=== PATIENT | male | born 1935 | race Caucasian/White ===

== ENCOUNTER 2016-10-12 09:52 | Emergency (ER) | payer BC ==
[~2016-10-12] VITALS: Ht 170.2 cm; Wt 75.0 kg
[~2016-10-12 09:52] MED LIST: AGG PO; CLOP1TAB15 PO; COEN1CAP28 PO; CRS20 PO; GLIM1TAB2 PO; LPR25 PO; MULT-190 PO; PRLSR20 PO; TRC48 PO; VTMD1000 PO; [UNRECOGNIZED DRUG - CODE] PO; gabapentin PO
[2016-10-12 09:57] VITALS: TEMP 36.4; Ht 170.2 cm; Wt 75.0 kg
[2016-10-12 10:03] VITALS: O2SAT 97
[2016-10-12] MEDS ORDERED: GLIM1TAB2 PO (10:50)
[2016-10-12] MEDS ORDERED: [UNRECOGNIZED DRUG - CODE] PO (10:53)
[2016-10-12] MEDS ORDERED: ABIR1TAB PO (10:56)
[2016-10-12] MEDS ORDERED: PRED-301 PO (10:57)
[2016-10-12 10:58] LABS: BASO % 0.2 %; BASO ABS # 0.01 K/uL (0-0.2); COMPLETE YES; EOS % 0.6 %; HEMATOCRIT 32.7 % (42-52); IG% 0.5 %; LYMPH % 5.2 %; LYMPH ABS # 0.34 K/uL (1.2-3.4); MEAN CELL VOLUME 96.2 fL (80-100); MEAN CORPUSCULAR HEMOGLOBIN 31.5 pg (25-34); MEAN CORPUSCULAR HGB CONC 32.7 g/dl (32-36); MEAN PLATELET VOLUME 10.3 fL (7.4-10.4); MONO % 9.7 %; NEUT % 83.8 %; PLATELET COUNT 197 K/uL (130-400); WHITE BLOOD COUNT 6.48 K/uL (4.8-10.8)
[2016-10-12] MEDS ORDERED: IMD2X PO (10:58)
[2016-10-12 11:27] LABS: BUN/CREATININE RATIO 21.8 (10-20); CALCIUM 9.5 mg/dl (8.5-10.1); CREATININE 1.3 mg/dl (0.60-1.40); POTASSIUM 3.9 mmol/L (3.5-5.1)
[2016-10-12 11:29] LABS: ALB/GLOB RATIO 1.3 (0.9-2)
[2016-10-12] MEDS ORDERED: ONDANSETRON INJ 2 MG/ML 2 ML VIAL IV STA (11:38)
[2016-10-12] MEDS ORDERED: SODIUM CHLORIDE 0.9% 1000ML 1,000 ML IV STA (11:38)
[2016-10-12 13:03] LABS: URINE APPEARANCE CLEAR (CLEAR); URINE BILIRUBIN NEG (NEG); URINE COLOR YELLOW; URINE NITRITE NEG (NEG); URINE SPECIFIC GRAVITY 1.019 (1.000-1.030); UROBILINOGEN NEG (NEG)
--- NOTE | 2016-10-12 13:13 | DIAGNOSTIC IMAGING REPORT ---
ABDOMEN 2VIEW W/PA CHEST RTN CLINICAL HISTORY: Nausea, vomiting, diarrhea COMPARISON STUDY: 11/11/2015 FINDINGS: The heart is normal in size. There is no free air. There are right perihilar atelectatic changes.] Supine views of the abdomen reveal gas within small bowel and colonic loops. Left abdominal small bowel loops are at the upper limits of normal in diameter. There are no conventional radiographic findings to indicate a high-grade bowel obstruction. There is no free air. IMPRESSION: 1. Right lower lobe atelectatic changes 2. No conventional radiographic evidence of a high-grade bowel obstruction. No evidence of free air. Electronically signed by: Ken Galvan M.D. 10/12/2016 1:11 PM
[2016-10-12 13:14] LABS: MANUAL MICROSCOPIC REQUIRED? NO; REVIEW REQ? NO
--- NOTE | 2016-10-12 14:13 | DIAGNOSTIC IMAGING REPORT ---
CT ABD/PELVIS IV CONTRAST ONLY CLINICAL HISTORY: Diffuse abdominal pain. Nausea, vomiting, diarrhea. COMPARISON STUDY: Conventional radiographic study dated 10/12/2016 TECHNIQUE: Following the IV administration of 118 mL of Optiray-320, CT scan of the abdomen and pelvis was performed from the lung bases to the proximal femurs. Images are reviewed in the axial, sagittal, and coronal planes. IV contrast was administered without complication. CT DOSE: 388.43 mGy.cm FINDINGS: Lower chest: There are postsurgical changes present within the right lower lobe. Adjacent suture line there are linear and nodular opacities, likely representing postsurgical scarring. There is mild right lower lobe bronchial wall thickening. There are left basilar atelectatic changes. There is a tiny hiatal hernia Liver: There is mild hepatic steatosis. There are no focal masses. Gallbladder: Unremarkable. Spleen: Normal in size and attenuation. Pancreas: Unremarkable. Adrenal glands: There is an indeterminate 26 mm right adrenal nodule, with Hounsfield attenuation value of 77 Kidneys: There is symmetric renal cortical enhancement. The kidneys are normal in size without hydronephrosis. Bowel: There are no transition zones indicate bowel obstruction. There is colonic diverticulosis. There are no acute peridiverticular inflammatory changes. The appendix appears normal. Peritoneum: There is no intraperitoneal free air or abdominal ascites. Vasculature: The abdominal aorta is normal in course and caliber. Adenopathy: None. Pelvic viscera: There is mild bladder wall thickening. Skeletal structures: There are blastic changes present within the right iliac bone. IMPRESSION: 1. Postsurgical changes within the right lower lobe 2. Indeterminate 26 mm right adrenal nodule 3. Blastic/sclerotic changes within the right iliac bone 4. Bladder wall thickening 5. No evidence of bowel obstruction. No evidence of free air 6. Normal appendix. No evidence of acute diverticulitis. Electronically signed by: Ken Galvan M.D. 10/12/2016 2:11 PM
[2016-10-12] MEDS ORDERED: ONDA4TAB46 PO (15:48)
[2016-10-12 15:55] VITALS: BP 143/86; PULSE 72; O2SAT 98
--- NOTE | 2016-10-12 17:47 | EMERGENCY ROOM VISIT NOTE ---
History Report prepared by Luis Manuelibmando: Ramila Peralta Under the Supervision of: Dr. Macario Schwarz D.O. First contact with patient: 11:17 Chief Complaint: VOMITING Stated Complaint: NAUSEA/VOMITING/DIARRHEA Nursing Triage Summary: pt started with nausea and vomiting around 0800 this am. pt reports he felt fine last night is from out of town here visiting friends/family. denies any pain and reports he has been drinking enough and eating fine until this am. diarrhea also started this am. pt was dx with prostate ca 1 year ago on oral meds pt reports he is diabetic History of Present Illness The patient is an 81 year old male who presents to the Emergency Room with complaints of persistent diarrhea that started around midnight last night. He took 2 Imodium, which provided minor relief. He reports he started vomiting in the ambulance on the way to the ED and vomited about 3 times. He denies any recent antibiotic use. He denies any abdominal pain and still has both his gallbladder and appendix. He denies any recent sick contacts. The patient also denies any headache, change in vision, fevers, chest pain, shortness of breath, pain with urination, and melena. He has a history of prostate cancer and is diabetic. He notes he had been eating and drinking normally until last night. He has no other complaints at this time. Source of History: patient Onset: Last night Position: abdomen Timing: other (persistent) Modifying Factors (Relieving): other (Imodium) Associated Symptoms: + nausea, + vomiting, No SOB, No chest pain, No fevers , No headache, No melena, No urinary symptoms Review of Systems See HPI for pertinent positives & negatives. A total of 10 systems reviewed and were otherwise negative. Past Medical & Surgical Medical Problems: (1) Diabetes (2) Hypercholesteremia (3) Hypertension (4) Polycythemia vera (5) Prostate cancer (6) TIA (transient ischemic attack) (7) Vasovagal syncope Family History Diabetes mellitus Hypertension Social History Smoking Status: Never Smoker Alcohol Use: occasionally Drug Use: none Marital Status: Housing Status: lives with significant other Occupation Status: retired Current/Historical Medications Scheduled Abiraterone Acetate (Zytiga), 250 MG PO QID Cholecalciferol (Vitamin D3), 3,000 UNITS PO DAILY Coenzyme Q10 (Ubidecarenone) (Co Q10), 100 MG PO DAILY Dipyridamole/Aspirin (Aggrenox 25-200 mg), 1 CAP PO BID Fenofibrate (Fenofibrate), 48 MG PO QAM Glimepiride (Glimepiride), 1 TAB PO BID Loperamide Hcl (Imodium), 4 MG PO DAILY Metoprolol Tartrate (Lopressor), 25 MG PO BID Ocuvite Preservision (Ocuvite Preservision), 1 TAB PO BID Omeprazole (Prilosec Otc *), 20 MG PO DAILY Prednisone (Prednisone), 5 MG PO BID Rosuvastatin Calcium (Crestor), 40 MG PO DAILY Ruxolitinib Phosphate (Jakafi), 15 MG PO BID [gabapentin], 400 MG PO TID Scheduled PRN Ondansetron Hcl (Zofran), 4 MG PO TID PRN for Nausea Allergies Coded Allergies: No Known Allergies (Unverified , 10/12/16) Physical Exam Vital Signs Date Time Temp Pulse Resp B/P Pulse Ox O2 Delivery O2 Flow Rate FiO2 10/12/16 15:55 72 18 143/86 98 Room Air 10/12/16 14:29 73 18 138/84 97 Room Air 10/12/16 12:37 75 20 166/81 100 Room Air 10/12/16 11:09 72 19 144/82 97 Room Air 10/12/16 10:21 77 10/12/16 10:03 97 Room Air 10/12/16 09:57 36.4 76 18 148/95 98 Room Air Physical Exam GENERAL: Patient is alert, sitting up in bed, well appearing, well nourished, no distress, non-toxic EYE EXAM: normal conjunctiva OROPHARYNX: no exudate, no erythema, lips, buccal mucosa, and tongue normal and mucous membranes are moist NECK: supple, no nuchal rigidity, no adenopathy, non-tender LUNGS: Clear to auscultation. Normal chest wall mechanics HEART: no murmurs, S1 normal and S2 normal ABDOMEN: abdomen soft, non-tender, normo-active bowel sounds, no masses, no rebound or guarding. BACK: Back is symmetrical on inspection and there is no deformity, no midline tenderness, no CVA tenderness. SKIN: no rashes and no bruising UPPER EXTREMITIES: upper extremities are grossly normal. LOWER EXTREMITIES: No pitting edema. NEURO EXAM: Normal sensorium, cranial nerves II-XII grossly intact, normal speech, no gross weakness of arms, no gross weakness of legs. Gross sensation intact. Medical Decision & Procedures ER Provider Diagnostic Interpretation: This X-Ray was reviewed and interpreted by myself and the radiologist. ABDOMEN 2VIEW W/PA CHEST RTN IMPRESSION: 1. Right lower lobe atelectatic changes 2. No conventional radiographic evidence of a high-grade bowel obstruction. No evidence of free air. Electronically signed by: Ken Galvan M.D. 10/12/2016 1:[address] scan was reviewed and interpreted by the radiologist and reviewed by myself. CT ABD/PELVIS IV CONTRAST ONLY IMPRESSION: 1. Postsurgical changes within the right lower lobe 2. Indeterminate 26 mm right adrenal nodule 3. Blastic/sclerotic changes within the right iliac bone 4. Bladder wall thickening 5. No evidence of bowel obstruction. No evidence of free air 6. Normal appendix. No evidence of acute diverticulitis. Electronically signed by: Ken Galvan M.D. 10/12/2016 2:11 PM Laboratory Results 10/12/16 10:10 Red Blood Count 3.40, Mean Corpuscular Volume 96.2, Mean Corpuscular Hemoglobin 31.5, Mean Corpuscular Hemoglobin Concent 32.7, Mean Platelet Volume 10.3, Neutrophils (%) (Auto) 83.8, Lymphocytes (%) (Auto) 5.2, Monocytes (%) (Auto) 9.7, Eosinophils (%) (Auto) 0.6, Basophils (%) (Auto) 0.2, Neutrophils # (Auto) 5.43, Lymphocytes # (Auto) 0.34, Monocytes # (Auto) 0.63, Eosinophils # (Auto) 0.04, Basophils # (Auto) 0.01 10/12/16 10:10 Test 10/12/16 10:07 10/12/16 10:10 10/12/16 12:35 Bedside Glucose 149 mg/dl (70-99) White Blood Count 6.48 K/uL (4.8-10.8) Red Blood Count 3.40 M/uL (4.7-6.1) Hemoglobin 10.7 g/dL (14.0-18.0) Hematocrit 32.7 % (42-52) Mean Corpuscular Volume 96.2 fL (80-100) Mean Corpuscular Hemoglobin 31.5 pg (25-34) Mean Corpuscular Hemoglobin Concent 32.7 g/dl (32-36) Platelet Count 197 K/uL (130-400) Mean Platelet Volume 10.3 fL (7.4-10.4) Neutrophils (%) (Auto) 83.8 % Lymphocytes (%) (Auto) 5.2 % Monocytes (%) (Auto) 9.7 % Eosinophils (%) (Auto) 0.6 % Basophils (%) (Auto) 0.2 % Neutrophils # (Auto) 5.43 K/uL (1.4-6.5) Lymphocytes # (Auto) 0.34 K/uL (1.2-3.4) Monocytes # (Auto) 0.63 K/uL (0.11-0.59) Eosinophils # (Auto) 0.04 K/uL (0-0.5) Basophils # (Auto) 0.01 K/uL (0-0.2) RDW Standard Deviation 53.7 fL (36.4-46.3) RDW Coefficient of Variation 15.2 % (11.5-14.5) Immature Granulocyte % (Auto) 0.5 % Immature Granulocyte # (Auto) 0.03 K/uL (0.00-0.02) Anion Gap 11.0 mmol/L (3-11) Est Creatinine Clear Calc Drug Dose 40.3 ml/min Estimated GFR () 58.5 Estimated GFR (Non- 50.5 BUN/Creatinine Ratio 21.8 (10-20) Calcium Level 9.5 mg/dl (8.5-10.1) Total Bilirubin 0.4 mg/dl (0.2-1) Aspartate Amino Transf (AST/SGOT) 43 U/L (15-37) Alanine Aminotransferase (ALT/SGPT) 31 U/L (12-78) Alkaline Phosphatase 114 U/L (45-117) Total Protein 7.0 gm/dl (6.4-8.2) Albumin 4.0 gm/dl (3.4-5.0) Globulin 3.0 gm/dl (2.5-4.0) Albumin/Globulin Ratio 1.3 (0.9-2) Urine Color YELLOW Urine Appearance CLEAR (CLEAR) Urine pH 7.0 (4.5-7.5) Urine Specific [place] 1.019 (1.000-1.030) Urine Protein TRACE (NEG) Urine Glucose (UA) NEG (NEG) Urine Ketones NEG (NEG) Urine Occult Blood NEG (NEG) Urine Nitrite NEG (NEG) Urine Bilirubin NEG (NEG) Urine Urobilinogen NEG (NEG) Urine Leukocyte Esterase NEG (NEG) Urine WBC (Auto) 0 /hpf (0-5) Urine RBC (Auto) 0-4 /hpf (0-4) Urine Hyaline Casts (Auto) 0 /lpf (0-5) Urine Epithelial Cells (Auto) 10-20 /lpf (0-5) Urine Bacteria (Auto) NEG (NEG) Laboratory results per my review. Medications Administered Medications (Trade) Dose Ordered Sig/Axel Route Start Time Stop Time Status Last Admin Dose Admin Sodium Chloride (Nss 1000ml) 1,000 ml @ 999 mls/hr Q1H1M STAT IV 10/12/16 11:38 10/12/16 12:38 DC 10/12/16 11:38 999 MLS/HR Ondansetron HCl (Zofran Inj) 4 mg NOW STAT IV 10/12/16 11:38 10/12/16 11:40 DC 10/12/16 12:00 4 MG ECG Indication: weakness Rate (beats per minute): 75 Rhythm: sinus rhythm Findings: no ectopy, other (normal axis) ED Course ED COURSE: Vital signs were reviewed and showed normal vital signs. The patients medical record was reviewed The above diagnostic studies were performed and reviewed. ED treatments and interventions as stated above. 1126: The patient was evaluated in room C10. A complete history and physical examination was performed. 1138: Zofran 4 mg IV, NSS 1000 ml @ 999 mls/hr IV. 1530: Upon reevaluation, the patient is feeling much better. I discussed my findings with the patient and he understands and agrees with the treatment plan. Based on the patients age, coexisting illnesses, exam and lab findings the decision to treat as an outpatient was made. The patient remained stable while under my care. The patient appeared well at the time of discharge. Medical Decision Differential diagnoses includes but is not limited to gastritis, peptic ulcer disease, GERD, gallbladder disease, pancreatitis, small bowel obstruction, acute coronary syndrome, pericarditis, ischemic bowel, irritable bowel disease, irritable bowel syndrome, appendicitis, diverticulitis, malignancy, hernia, urinary tract infection, torsion, perforation, trauma, infectious. Patient is an 81-year-old male who presents the ER for nausea, vomiting and diarrhea. He vomited 3 times in the ambulance. Prior to this has only had an upset stomach. Patient has no other complaints at this time. He is completely benign abdominal exam. No signs peritonitis. Labs including CBC, BMP, LFTs, bilirubin and lipase were unremarkable. UA was negative. There is a mild anemia with a hemoglobin of 10.7. CT of his abdomen and pelvis was obtained secondary to an obstruction series showing top normal small bowel. CT shows no obstruction but did show sclerotic/slit changes in his iliac wing. He was updated regards to this. He notes he was aware of this. Patient will follow- up with his primary care doctor. I do favor this is likely a viral gastroenteritis. He did feel significantly better following fluids and Zofran. Discussed with Pt concerning signs and symptoms to watch out for. Pt was instructed to follow up with their PCP and discussed with the patient their option to return to the ED at anytime for persistent or worsening symptoms. The appropriate anticipatory guidance and out-patient management, including indications for return to the emergency department, were explained at length to the patient and understood. Impression Primary Impression: Nausea, vomiting, and diarrhea Additional Impression: sclerotic changes of iliac wing Scribe Attestation The scribe's documentation has been prepared under my direction and personally reviewed by me in its entirety. I confirm that the note above accurately reflects all work, treatment, procedures, and medical decision making performed by me. Departure Information Dispostion Home / Self-Care Prescriptions Ondansetron Hcl (ZOFRAN) 4 Mg Tab 4 MG PO TID Y for Nausea, #30 TAB Prov: Macario Schwarz, DO 10/12/16 Referrals Boy Hebert M.D. (PCP) Patient Instructions A Signature Page, ED Diet Vomiting Diarrhea, ED Vomiting Diarrhea Nonspecific Ad , My [facility] Additional Instructions Please follow up with your primary care doctor with in the next 24 hours. Any worsening of your symptoms, please return to the ED immediately. This includes a persistent vomiting or diarrhea, passing out, weakness, chest pain, blood in her stool, or any other concerning signs or symptoms from your stand point. Please take Zofran as needed for nausea and vomiting.
[2017-06-27] MEDS ORDERED: [UNRECOGNIZED DRUG - CODE] PO (13:07)
[2017-06-27] MEDS ORDERED: GLIM1TAB2 PO (13:07)
[2017-07-09] MEDS ORDERED: GLIM2TAB2 PO (09:29)
[2017-07-09] MEDS ORDERED: calcium PO (09:29)
[2017-07-09] MEDS ORDERED: PRED-301 PO (09:29)
[2017-07-09] MEDS ORDERED: LPRI INJ (09:29)
[2017-07-09] MEDS ORDERED: [UNRECOGNIZED DRUG - CODE] PO (09:29)
[2017-07-26] MEDS ORDERED: DRGTP12 SUBD (14:03)
[2017-08-06] MEDS ORDERED: DENOINJ INJ (15:19)
[2017-09-08] MEDS ORDERED: LEVE500T13 PO (15:36)
== END 2016-10-12 16:01 | disposition home or self-care (01) ==
LOC: EDBD 09:52 → C.EDC 09:53
DX: R11.2 Nausea with vomiting, unspecified (principal); R19.7 Diarrhea, unspecified; E11.9 Type 2 diabetes mellitus without complications; E78.00 Pure hypercholesterolemia, unspecified; I10 Essential (primary) hypertension; Z79.899 Other long term (current) drug therapy

== ENCOUNTER → 2016-11-06 | Outpatient (CLI) | payer BC ==
[~2016-11-06] MED LIST changes: +ABIR1TAB PO; +ATOR-24 PO; +CHOL2000 PO; -CLOP1TAB15 PO; +COEN1CAP17 PO; +GABA1CAP4 PO; +GABA1CAP5 PO; +GLIM2TAB2 PO; +IMD2X PO; +LEUP1INJ15 INJ; +LPRI INJ; +MAGNTAB17 PO; +METF-384 PO; +OMEP40CA41 PO; +ONDA4TAB10 SL; +ONDA4TAB46 PO; +PRED-301 PO; +PRED10TA PO; +RQP25 PO; +[UNRECOGNIZED DRUG - CODE] PO; +[UNRECOGNIZED DRUG - CODE] PO; -[UNRECOGNIZED DRUG - CODE] PO; +calcium PO
[2016-11-06 14:24] LABS: ALT/SGPT 23 U/L (12-78); BLOOD UREA NITROGEN 28 mg/dl (7-18); BUN/CREATININE RATIO 19.9 (10-20); CALCIUM 9.2 mg/dl (8.5-10.1); CARBON DIOXIDE 26 mmol/L (21-32); CHLORIDE 107 mmol/L (98-107); GLUCOSE 115 mg/dl (70-99); MAGNESIUM 1.6 mg/dl (1.8-2.4); SODIUM 145 mmol/L (136-145)
[2016-11-06 14:34] LABS: ALB/GLOB RATIO 1.4 (0.9-2); ALKALINE PHOSPHATASE 93 U/L (45-117); AST/SGOT 23 U/L (15-37)
== END | disposition home or self-care (01) ==
LOC: C.LABBC 10:43
PROVIDERS: ATTEND Internal Medicine
DX: R25.2 Cramp and spasm (principal)

== ENCOUNTER → 2016-11-13 | Outpatient (CLI) | payer BC ==
[2016-11-13 13:42] LABS: BASO % 0.2 %; BASO ABS # 0.01 K/uL (0-0.2); COMPLETE YES; EOS % 0.9 %; HEMATOCRIT 32.4 % (42-52); IG% 1.1 %; LYMPH % 9.7 %; LYMPH ABS # 0.52 K/uL (1.2-3.4); MEAN PLATELET VOLUME 10.2 fL (7.4-10.4); MONO % 9.3 %; NEUT % 78.8 %; PLATELET COUNT 187 K/uL (130-400); RED BLOOD COUNT 3.34 M/uL (4.7-6.1); WHITE BLOOD COUNT 5.37 K/uL (4.8-10.8)
[2016-11-13 13:55] LABS: ALT/SGPT 23 U/L (12-78); AST/SGOT 24 U/L (15-37); BLOOD UREA NITROGEN 28 mg/dl (7-18); BUN/CREATININE RATIO 20.2 (10-20); CALCIUM 9.2 mg/dl (8.5-10.1); CARBON DIOXIDE 26 mmol/L (21-32); CHLORIDE 106 mmol/L (98-107); GLUCOSE 131 mg/dl (70-99); POTASSIUM 3.6 mmol/L (3.5-5.1); SODIUM 143 mmol/L (136-145)
[2016-11-13 14:02] LABS: ALB/GLOB RATIO 1.3 (0.9-2); ALKALINE PHOSPHATASE 94 U/L (45-117)
== END | disposition home or self-care (01) ==
LOC: C.LABBC 09:57
PROVIDERS: ATTEND Internal Medicine Hematology & Oncology
DX: C61 Malignant neoplasm of prostate (principal); D45 Polycythemia vera

== ENCOUNTER → 2016-11-25 | Outpatient (CLI) | payer BC ==
[2016-11-25 14:09] VITALS: BP 122/71; PULSE 72; TEMP 36.7; O2SAT 98
--- NOTE | 2016-11-25 16:26 | Radiation Oncology Follow-Up ---
Radiation Oncology Follow-Up Date of Visit Nov 25, 2016. Reason For Visit One-month follow-up Radiation Completion Date 10/28/16 to LS spine Diagnosis (1) Prostate cancer Status: Chronic Onset Date: 04/09/2003 Stage: IV Permanent Comment: Adenocarcinoma the prostate with Amara 4+3 04/09/2003 Treatment with radiation therapy Pulmonary metastasis status post metastectomy 09/02/2015 Rising PSA initiation of total androgen ablation October 2015 Bone metastasis bone scan April 2016 Status post completion of radiation therapy to lumbosacral spine 10/28/2016 received 3000 cGy Last Edited By: Renee Hutson on Nov 25, 2016 16:16 History of Present Illness Mr. Catalan is an 81-year-old male who was found to have an intermediate risk prostate cancer following a biopsy on . This needle biopsy confirmed an adenocarcinoma the prostate with Amara grade 4+3. The tumor was present in 2 cores on the right and involved approximately 10% of the total sample. There were areas of high-grade PIN. A second biopsy specimen from the left prostate revealed one microscopic focus of atypical glands that were suspicious for prostatic adenocarcinoma. Accession on sign: [id number]. The patient was subsequently seen by radiation oncology at [facility] and according to the patient underwent a definitive course of external radiation consisting of 43 fractions. It is unclear at this time whether the patient received adjuvant hormonal therapy at that time. The patient was followed by serial prostate-specific antigens. 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 He was seen by Dr. Tristan Jackson from the [facility] oncology group and in March 2013 was started on Jakafi due to a enlarging spleen and weight loss. The symptoms cleared quickly on the medication. He was having increasing urinary symptoms with increasing urgency, frequency, hematuria or incontinence. A CT scan of the abdomen and pelvis with and without contrast was performed in May 2013 this showed a 2.4 cm lesion above the right kidney consistent with an adrenal adenoma stable since 2002. His bladder was distended with a number of stones within the urinary bladder. On 06/15/2013 patient underwent a cystourethroscopy. He had evacuation of bladder stones, I bilateral retrograde pyelograms and electro evaporation of the prostate. Patient was on Rapaflo which helped his symptoms He has a history of diabetes and multiple skin cancers. He experienced a TIA in the winter of 2013 and is on Aggrenox. Through April 2013 the patient's prostate-specific antigens have been in the range of 0.4-0.5. On 07/20/2013 prostatespecific antigen was 0.94. A CT scan of the chest was reported as unremarkable at that time. On 07/31/2014 patient return to his urologist Dr. Murillo who noted on clinical exam that his prostate was flat with no induration or nodularity. He ordered a repeat prostate-specific antigen. On 08/02/2014 prostate-specific antigen was 1.86. On 11/08/2014 prostate-specific antigen was 3.86 and 07/16/2015 prostate-specific antigen was 9.79. On 09/07/2015 patient's prostatespecific antigen jumped up to 32.2. On 08/23/2015 patient underwent a cystourethroscopy, laser lithotripsy of bladder stone, biopsy and fulguration of prostatic urethra. As part of his ongoing staging workup CT scan of the chest abdomen and pelvis were performed. This noted the above-mentioned bladder stones but also suggested a right lower lobe lung nodule. The CT scan of the chest demonstrated a right lower lobe mass suspicious for malignancy. This lesion was not present on previous examinations. On 09/02/2015 the patient underwent a right lower lobe wedge resection, frozen section. The nodule in the right lower lobe was completely excised and revealed a metastatic adenocarcinoma consistent with a prostatic primary. This measured 1.5 cm in greatest dimension. A staple margin is positive for adenocarcinoma. Case: [id number]. The patient underwent a PET/CT scan on 09/10/2015. This showed uptake and pleural-based hypermetabolic 1.0 x 1.1 cm right upper lobe nodule located just above the azygos arch with an SUV of 6.3. Also noted was an inferior right hilar lymph node measuring 1.7 x 1.8 cm with an SUV of 8.1 and a regular band of increased density posteriorly in the right lower lobe with increased FDG uptake consistent with postoperative changes. A hypermetabolic lytic focus was noted in the posterior right ilium with a maximum SUV of 9.3. Increased FDG uptake was noted involving the anterior left sixth and seventh ribs with another small focus involving the proximal shaft of the left humerus. There was a 2.0 x 2.3 cm right adrenal nodule without FDG uptake I Cli benign. The patient was started on Casodex and Lupron. A repeat prostatespecific antigen was taken on 10/15/2015. This showed response to the hormonal therapy with a decrease of prostatespecific antigen to 11.5. Patient return for follow-up with Dr. Jackson. He was scheduled for his second Lupron injection in December with repeat prostate-specific antigen and CT scan of the chest. This CT scan was performed on 12/24/2015. It documented the resection of the spiculated 1.8 cm right lower lobe nodule that was seen previously. Also noted was a cyst table 1.0 x 0.8 cm irregular pleural-based nodule in the medial right upper lobe. This nodule was proven to be FDG avid on the prior PET/CT scan. No mediastinal lymph nodes which met CT criteria for pathologic enlargement were identified. The patient's repeat prostate-specific antigen was reported at 2.4. This was repeated on 04/02/2016 and showed a slight increase to 3.01. The patient was seen by Dr. Jackson on 03/31/2016. He recommended continuing hormonal suppression and a return for a Lupron injection in 3 months and to continue his Casodex 50 mg a day and Jakafi 15 mg twice a day. He was also seen by his urologist Dr. Murillo on April 02 who noted improving urinary symptoms. The patient has had additional staging procedures. Because of persistent low back pain and MRI of the lumbar spine was performed on 04/27/2016. This showed marrow signal intensity markedly heterogeneous throughout the lumbosacral spine limiting the assessment for metastatic disease. However node definite metastatic lesions are seen in the lumbar spine. Findings which were highly concerning for metastatic deposit were noted within the right iliac bone with recommended nuclear bone scan to follow. 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 There was an inferiorly extruded disc fragment identified at the L2-L3 level and findings suggesting a previous hemilaminectomy at L2 and L3 from his surgery in 2000. A bone scan was performed on 2015. This showed multiple teeth focal areas of radiotracer uptake seen within the bilateral iliac bone, right medial acetabulum, distal right femur, left first rib and left eighth rib likely representing metastatic disease. Multifocal linear areas of radiotracer uptake are seen within the lumbar spine. These however are nonspecific and could represent degenerative disc disease. With these findings of metastatic bony disease doctor Renetta suggested consideration of palliative radiation. Decision was to proceed with treatment to the lumbosacral spine. This was completed 10/28/2016. He received 3000 cGy. Interim History He continues to have discomfort in his lower back. He does not give any particular pain level. He has a burning sensation of the anterior legs. Both discomfort of his back and legs is unchanged from previous and he has had it for a long period of time. He does not feel that the radiation made much of a difference in his current condition. He has been followed for possible neuropathy and is on gabapentin. He has been back to see his medical oncologist and there are plans for recheck CT as well as bone scan. He stated after these studies are complete the physician will be deciding on what course to take on further treatment. He is due for Lupron injection 01/07/2017. He had complaint of "cold symptoms" he has had nasal congestion and sore throat. He also has a cough with congestion. He describes some chills. He does not complain of any new or increasing bone pain. He continues to complain of leg cramps. He has previously seen Dr. Hebert for this issue. He was prescribed magnesium which he is taking. Allergies Coded Allergies: No Known Allergies (Unverified , 10/12/16) Home Medications Scheduled Abiraterone Acetate (Zytiga), 1,000 MG PO DAILY Cholecalciferol (Vitamin D3), 2,000 UNITS PO DAILY Coenzyme Q10 (Ubidecarenone) (Co Q10), 100 MG PO DAILY Dipyridamole/Aspirin (Aggrenox 25-200 mg), 1 CAP PO BID Fenofibrate (Fenofibrate), 48 MG PO QAM Glimepiride (Glimepiride), 1 TAB PO BID Metoprolol Tartrate (Lopressor), 25 MG PO BID Omeprazole (Prilosec Otc *), 20 MG PO DAILY Prednisone (Prednisone), 5 MG PO BID Rosuvastatin Calcium (Crestor), 40 MG PO DAILY Ruxolitinib Phosphate (Jakafi), 15 MG PO BID [gabapentin], 400 MG PO TID Scheduled PRN Loperamide Hcl (Imodium), 4 MG PO DAILY PRN for Diarrhea Ondansetron Hcl (Zofran), 4 MG PO TID PRN for Nausea Review of Systems Gastrointestinal: Symptoms: Nausea, Diarrhea GI Comments: Admits to waves of nausea;Diarrhea daily and using immodium w/ relief; Oral: Symptoms: Scant Saliva/Dry Mouth Respiratory: Symptoms: WNL Urinary: Comments: Doesn't delay urge to void;2-3 voids/night;No urinary meds; Skin: Symptoms: No Problems Physical Exam Vital Signs Date Time Temp Pulse Resp B/P Pulse Ox O2 Delivery O2 Flow Rate FiO2 11/25/16 14:09 36.7 72 24 122/71 98 Fatigue: None General Appearance: no apparent distress Eyes: normal inspection, EOMI ENT: + pertinent finding (mild erythema in the pharynx and mild nasal congestion) Neck: no adenopathy, thyroid normal Respiratory/Chest: no respiratory distress, no accessory muscle use, + pertinent finding (transtracheal congestion with cough) Cardiovascular: regular rate, rhythm, no gallop, no murmur Abdomen: non tender Extremities: no pedal edema Neurologic/Psychiatric: no motor/sensory deficits, alert, normal mood/affect Skin: warm/dry Lymphatic: no adenopathy Laboratory Studies Test 08/28/16 12:18 09/02/16 09:47 10/01/16 09:30 10/12/16 10:07 Estimated Average Glucose 197 mg/dl Hemoglobin A1c 8.5 % (4.5-5.6) Nucleated RBC Absolute Count (auto) 0.02 K/uL (0-0) Nucleated Red Blood Cells % 0.2 % Ferritin 124.6 ng/ml (8.0-388.0) Lactate Dehydrogenase 273 U/L (87-241) Prostate Specific Antigen 5.380 ng/ml (0.000-4.000) POC Glucose 149 mg/dl (70-99) Test 10/12/16 10:10 10/12/16 12:35 11/06/16 10:48 11/13/16 10:01 White Blood Count 6.48 K/uL (4.8-10.8) 5.37 K/uL (4.8-10.8) Red Blood Count 3.40 M/uL (4.7-6.1) 3.34 M/uL (4.7-6.1) Hemoglobin 10.7 g/dL (14.0-18.0) 10.7 g/dL (14.0-18.0) Hematocrit 32.7 % (42-52) 32.4 % (42-52) Mean Corpuscular Volume 96.2 fL (80-100) 97.0 fL (80-100) Mean Corpuscular Hemoglobin 31.5 pg (25-34) 32.0 pg (25-34) Mean Corpuscular Hemoglobin Concent 32.7 g/dl (32-36) 33.0 g/dl (32-36) Platelet Count 197 K/uL (130-400) 187 K/uL (130-400) Mean Platelet Volume 10.3 fL (7.4-10.4) 10.2 fL (7.4-10.4) Neutrophils (%) (Auto) 83.8 % 78.8 % Lymphocytes (%) (Auto) 5.2 % 9.7 % Monocytes (%) (Auto) 9.7 % 9.3 % Eosinophils (%) (Auto) 0.6 % 0.9 % Basophils (%) (Auto) 0.2 % 0.2 % Neutrophils # (Auto) 5.43 K/uL (1.4-6.5) 4.23 K/uL (1.4-6.5) Lymphocytes # (Auto) 0.34 K/uL (1.2-3.4) 0.52 K/uL (1.2-3.4) Monocytes # (Auto) 0.63 K/uL (0.11-0.59) 0.50 K/uL (0.11-0.59) Eosinophils # (Auto) 0.04 K/uL (0-0.5) 0.05 K/uL (0-0.5) Basophils # (Auto) 0.01 K/uL (0-0.2) 0.01 K/uL (0-0.2) RDW Standard Deviation 53.7 fL (36.4-46.3) 54.4 fL (36.4-46.3) RDW Coefficient of Variation 15.2 % (11.5-14.5) 15.5 % (11.5-14.5) Immature Granulocyte % (Auto) 0.5 % 1.1 % Immature Granulocyte # (Auto) 0.03 K/uL (0.00-0.02) 0.06 K/uL (0.00-0.02) Est Creatinine Clear Calc Drug Dose 40.3 ml/min Urine Color YELLOW Urine Appearance CLEAR (CLEAR) Urine pH 7.0 (4.5-7.5) Urine Specific [place] 1.019 (1.000-1.030) Urine Protein TRACE (NEG) Urine Glucose (UA) NEG (NEG) Urine Ketones NEG (NEG) Urine Occult Blood NEG (NEG) Urine Nitrite NEG (NEG) Urine Bilirubin NEG (NEG) Urine Urobilinogen NEG (NEG) Urine Leukocyte Esterase NEG (NEG) Urine WBC (Auto) 0 /hpf (0-5) Urine RBC (Auto) 0-4 /hpf (0-4) Urine Hyaline Casts (Auto) 0 /lpf (0-5) Urine Epithelial Cells (Auto) 10-20 /lpf (0-5) Urine Bacteria (Auto) NEG (NEG) Sodium Level 145 mmol/L (136-145) 143 mmol/L (136-145) Potassium Level 4.0 mmol/L (3.5-5.1) 3.6 mmol/L (3.5-5.1) Chloride Level 107 mmol/L (98-107) 106 mmol/L (98-107) Carbon Dioxide Level 26 mmol/L (21-32) 26 mmol/L (21-32) Anion Gap 12.0 mmol/L (3-11) 11.0 mmol/L (3-11) Blood Urea Nitrogen 28 mg/dl (7-18) 28 mg/dl (7-18) Creatinine 1.40 mg/dl (0.60-1.40) 1.40 mg/dl (0.60-1.40) Estimated GFR () 53.5 53.5 Estimated GFR (Non- 46.1 46.1 BUN/Creatinine Ratio 19.9 (10-20) 20.2 (10-20) Random Glucose 115 mg/dl (70-99) 131 mg/dl (70-99) Calcium Level 9.2 mg/dl (8.5-10.1) 9.2 mg/dl (8.5-10.1) Magnesium Level 1.6 mg/dl (1.8-2.4) Total Bilirubin 0.6 mg/dl (0.2-1) 0.8 mg/dl (0.2-1) Aspartate Amino Transferase (AST) 23 U/L (15-37) 24 U/L (15-37) Alanine Aminotransferase (ALT) 23 U/L (12-78) 23 U/L (12-78) Alkaline Phosphatase 93 U/L (45-117) 94 U/L (45-117) Total Protein 6.6 gm/dl (6.4-8.2) 6.9 gm/dl (6.4-8.2) Albumin 3.9 gm/dl (3.4-5.0) 3.9 gm/dl (3.4-5.0) Globulin 2.7 gm/dl (2.5-4.0) 3.0 gm/dl (2.5-4.0) Albumin/Globulin Ratio 1.4 (0.9-2) 1.3 (0.9-2) Thyroid Stimulating Hormone (TSH) 1.640 uIu/ml (0.300-4.500) Lactate Dehydrogenase 235 U/L (87-241) Prostate Specific Antigen 9.480 ng/ml (0.000-4.000) Assessment & Plan Plan: Patient's current issues were discussed. For his upper respiratory infection symptoms and leg cramps I've asked him to see his primary care physician. His office was called and an appointment was made for him to be seen tomorrow by the physician Asst. He is going to follow-up with urology and medical oncology in there are plans for him to undergo recheck CT scan and bone scan. There is discussion of changing his medication because his PSA has gone up. A follow-up appointment with our office was not given. He may call if he has any questions or concerns. He may return if directed to do so by Dr. Jackson. Total Time In Follow-Up I spent 20 minutes speaking to the patient performing examination. I spent 15 minutes reviewing information and complete this note. Copy To Boy Hebert M.D.; Eric Jackson M.D.
== END | disposition home or self-care (01) ==
LOC: C.ONC 14:03
PROVIDERS: ATTEND Radiology Radiation Oncology
DX: Z08 Encounter for follow-up examination after completed treatment for malignant neoplasm (principal); Z92.3 Personal history of irradiation; Z85.46 Personal history of malignant neoplasm of prostate

== ENCOUNTER → 2016-12-24 | Outpatient (CLI) | payer BC ==
--- NOTE | 2016-12-24 12:12 | DIAGNOSTIC IMAGING REPORT ---
LEFT KNEE 1 OR 2 VIEWS ROUTINE CLINICAL HISTORY: Left knee pain pain COMPARISON: None. DISCUSSION: Significant degenerative change medial joint compartment. Mild degenerative change patellofemoral joint and lateral joint compartment. Soft tissue vascular calcifications. No evidence for joint effusion. Bone mineralization is slightly diminished. There is no evidence for soft tissue swelling. IMPRESSION: Moderate degenerative change primarily at the medial joint compartment. Mild osteopenia. Electronically signed by: Jean Potrer M.D. 12/24/2016 12:10 PM Dictated Date/Time: 12/24/2016 12:10 PM
== END | disposition home or self-care (01) ==
LOC: C.LABBC 11:39
PROVIDERS: ATTEND Internal Medicine
DX: M25.562 Pain in left knee (principal)

== ENCOUNTER → 2016-12-31 | Outpatient (CLI) | payer BC ==
[2016-12-31 14:40] LABS: BASO % 0.3 %; BASO ABS # 0.02 K/uL (0-0.2); COMPLETE YES; HEMATOCRIT 29.9 % (42-52); IG% 1.5 %; LYMPH % 4.1 %; LYMPH ABS # 0.32 K/uL (1.2-3.4); MEAN CELL VOLUME 97.7 fL (80-100); MEAN CORPUSCULAR HGB CONC 32.8 g/dl (32-36); MEAN PLATELET VOLUME 9.9 fL (7.4-10.4); MONO % 7.8 %; NEUT % 85.3 %; PLATELET COUNT 230 K/uL (130-400); RED BLOOD COUNT 3.06 M/uL (4.7-6.1); WHITE BLOOD COUNT 7.82 K/uL (4.8-10.8)
[2016-12-31 14:51] LABS: ALT/SGPT 22 U/L (12-78); BLOOD UREA NITROGEN 30 mg/dl (7-18); BUN/CREATININE RATIO 25.3 (10-20); CARBON DIOXIDE 26 mmol/L (21-32); CHLORIDE 106 mmol/L (98-107); GLUCOSE 136 mg/dl (70-99); SODIUM 140 mmol/L (136-145)
[2016-12-31 14:55] LABS: ALB/GLOB RATIO 1.2 (0.9-2); ALKALINE PHOSPHATASE 79 U/L (45-117); AST/SGOT 22 U/L (15-37)
== END | disposition home or self-care (01) ==
LOC: C.LABBC 11:34
PROVIDERS: ATTEND Internal Medicine Hematology & Oncology
DX: C61 Malignant neoplasm of prostate (principal); D45 Polycythemia vera

== ENCOUNTER 2017-02-06 13:41 | Emergency (ER) | payer BC ==
[~2017-02-06] VITALS: Ht 172.7 cm; Wt 54.6 kg
[~2017-02-06 13:41] MED LIST changes: -ATOR-24 PO; -CHOL2000 PO; -COEN1CAP17 PO; -GABA1CAP4 PO; -GABA1CAP5 PO; -GLIM2TAB2 PO; -LEUP1INJ15 INJ; -LPRI INJ; -MAGNTAB17 PO; -METF-384 PO; -MULT-190 PO; -OMEP40CA41 PO; -ONDA4TAB10 SL; -PRED10TA PO; -RQP25 PO; -[UNRECOGNIZED DRUG - CODE] PO; -calcium PO
[2017-02-06 13:52] VITALS: TEMP 36.7; Ht 172.7 cm; Wt 54.6 kg
[2017-02-06] MEDS ORDERED: CHOL2000 PO (14:50)
[2017-02-06] MEDS ORDERED: MAGNTAB17 PO (14:50)
[2017-02-06] MEDS ORDERED: OMEP40CA41 PO (14:50)
[2017-02-06] MEDS ORDERED: ABIR1TAB PO (14:50)
[2017-02-06] MEDS ORDERED: GABA1CAP5 PO (14:50)
[2017-02-06] MEDS ORDERED: GLIM1TAB2 PO (14:50)
[2017-02-06] MEDS ORDERED: COEN1CAP17 PO (14:50)
[2017-02-06] MEDS ORDERED: AGG PO (14:50)
[2017-02-06] MEDS ORDERED: METF-384 PO (14:50)
[2017-02-06] MEDS ORDERED: LEUP1INJ15 INJ (14:50)
[2017-02-06] MEDS ORDERED: ATOR-24 PO (14:50)
[2017-02-06] MEDS ORDERED: PRED-301 PO (14:50)
[2017-02-06] MEDS ORDERED: MULT-190 PO (14:50)
[2017-02-06] MEDS ORDERED: [UNRECOGNIZED DRUG - CODE] PO (14:50)
[2017-02-06] MEDS ORDERED: LPR25 PO (14:50)
[2017-02-06 15:06] LABS: BASO % 0.3 %; BASO ABS # 0.02 K/uL (0-0.2); COMPLETE YES; EOS % 0.9 %; HEMATOCRIT 34.3 % (42-52); IG% 0.9 %; LYMPH % 7.6 %; LYMPH ABS # 0.49 K/uL (1.2-3.4); MEAN CELL VOLUME 99.7 fL (80-100); MEAN CORPUSCULAR HEMOGLOBIN 32.8 pg (25-34); MEAN CORPUSCULAR HGB CONC 32.9 g/dl (32-36); MEAN PLATELET VOLUME 9.8 fL (7.4-10.4); MONO % 8.8 %; NEUT % 81.5 %; PLATELET COUNT 268 K/uL (130-400); RED BLOOD COUNT 3.44 M/uL (4.7-6.1); WHITE BLOOD COUNT 6.47 K/uL (4.8-10.8)
[2017-02-06 15:15] LABS: URINE APPEARANCE CLEAR (CLEAR); URINE BILIRUBIN NEG (NEG); URINE COLOR YELLOW; URINE NITRITE NEG (NEG); URINE SPECIFIC GRAVITY 1.026 (1.000-1.030); UROBILINOGEN NEG (NEG)
[2017-02-06 15:16] LABS: MANUAL MICROSCOPIC REQUIRED? NO; REVIEW REQ? NO
[2017-02-06 15:18] LABS: BLOOD UREA NITROGEN 36 mg/dl (7-18); BUN/CREATININE RATIO 27.6 (10-20); CALCIUM 9.5 mg/dl (8.5-10.1); CARBON DIOXIDE 26 mmol/L (21-32); CHLORIDE 104 mmol/L (98-107); GLUCOSE 129 mg/dl (70-99); SODIUM 140 mmol/L (136-145)
[2017-02-06 15:29] LABS: ALB/GLOB RATIO 1.3 (0.9-2); ALKALINE PHOSPHATASE 102 U/L (45-117); ALT/SGPT 26 U/L (12-78); AST/SGOT 24 U/L (15-37); CKMB/CK RATIO 1.6 (0-3.0)
--- NOTE | 2017-02-06 15:42 | DIAGNOSTIC IMAGING REPORT ---
HEAD CT NONCONTRAST CT DOSE: 614.27 mGy.cm HISTORY: confusion TECHNIQUE: Multiaxial CT images of the head were performed without the use of intravenous contrast. Automated exposure control was utilized for this study. Comparison: Head CT 06/02/2015. Findings: The paranasal sinuses and mastoid air cells are clear. The calvarium and skull base are intact. There is no mass, hematoma, midline shift, acute infarct. White matter hypodensity is nonspecific but suggestive of microvascular ischemic change. The ventricles and sulci demonstrate mild age-related involutional changes. Impression: No significant change compared to the prior study. No acute intracranial abnormality. Electronically signed by: Stephan Tracy M.D. 02/06/2017 3:41 PM Dictated Date/Time: 02/06/2017 2:52 PM
[2017-02-06 16:14] VITALS: BP 151/76; PULSE 75; O2SAT 96
--- NOTE | 2017-02-06 16:19 | EMERGENCY ROOM VISIT NOTE ---
ED Visit Note First contact with patient: 13:56 I have personally evaluated and examined this patient. I agree with assessment and plan of Arsalan Arenas PA-C. 81 yr old male with multiple medical comorbidities and question of whether TIA (in chart?). Arrives for evaluation of episode of AMS. Lasted 10-45 minutes per of him being confused. No other symptoms during this and he notes he feels fine now. He feels this was purely anxiety/stress related. He has no complaints and wishes to go home. Understands that he may have worse outcome if he is not monitored in hospital. Explained at length risks of going home. Patient still wishes to go home. Aware they can return at any time if worsening or other concerns.
--- NOTE | 2017-02-08 07:31 | EMERGENCY ROOM VISIT NOTE ---
History First contact with patient: 13:56 Chief Complaint: CONFUSION Stated Complaint: DISORIENTED X 1 HR Nursing Triage Summary: pt reports while trying to balance check book this AM so he could buy dog food he was unable to do this ,states " was yapping " in one ear and I just couldnt think straight denies weakness or sob , denies CAO , cp or NV , denies vision changes , reports hx of TIA History of Present Illness The patient is a 81 year old white male who presents to the Emergency Room with complaints of confusion this morning that lasted for about 10-15 minutes. His accompanies him today. He states he was having difficulty balancing his checkbook this morning and things just weren't making sense. He denies any blurred vision, headache, chest pain, or shortness of breath. His states she was trying to get him to go by dog food and instead, he was finding numerous other things to do, which did not make sense to her. She states she continually asked him to go by dog food but he wouldn't. He states she was "yapping"in his ear and he just couldn't think straight while trying to bounce checkbook. She states he has a history of TIA, though he is unsure of this. He denies any weakness in any extremity, nausea, vomiting, or vision changes. He feels fine now. No other complaints. No treatment. He has a history of prostate cancer and polycythemia vera. Review of Systems REVIEW OF SYSTEM: HEENT: No dizziness, visual problems, hearing loss, or tinnitus. There is no difficulty swallowing and no oral lesions are present. LYMPH: No adenopathy. PULMONARY: No cough, shortness of breath, sputum production or hemoptysis. CARDIOVASCULAR: No chest pain, palpitations, shortness of breath or peripheral edema. GASTROINTESTINAL: No diarrhea, constipation, nausea, vomiting, or abdominal pain. GENITOURINARY: No dysuria, frequency, urgency or nocturia. NEUROLOGIC: No weakness, muscle tenderness, epilepsy or history of neurological problems. MUSCULOSKELETAL: No history of joint tenderness/swelling. No history of arthritis or arthralgias. SKIN: No rashes or lesions. PSYCHIATRIC: No history of depression or mental illness. ENDOCRINE: No history of thyroid disorders, or abnormal hair growth. Past Medical/Surgical History Medical Problems: (1) Diabetes (2) Hypercholesteremia (3) Hypertension (4) Polycythemia vera (5) Prostate cancer (6) TIA (transient ischemic attack) (7) Vasovagal syncope Family History Diabetes mellitus Hypertension Social History Smoking Status: Never Smoker Smokeless Tobacco Use: No Alcohol Use: occasionally Drug Use: none Marital Status: Housing Status: lives with significant other Occupation Status: retired Current/Historical Medications Scheduled Abiraterone Acetate (Zytiga), 1,000 MG PO DAILY Atorvastatin (Lipitor), 40 MG PO DAILY Cholecalciferol (Vitamin D3), 4,000 UNITS PO DAILY Coenzyme Q10 (Ubidecarenone) (Co Q 10), 200 MG PO DAILY Dipyridamole/Aspirin (Aggrenox 25-200 mg), 1 CAP PO BID Gabapentin (Neurontin), 400 MG PO TID Glimepiride (Glimepiride), 3 MG PO DAILY Leuprolide Acetate (Lupron Depot), 1 DOSE INJ UD Magnesium Chloride-Calcium Car (Slow-Mag), 1 TAB PO BID Metformin Hcl (Glucophage), 1,000 MG PO BID Metoprolol Tartrate (Lopressor), 25 MG PO BID Ocuvite Preservision (Ocuvite Preservision), 1 TAB PO DAILY Omeprazole (Prilosec), 40 MG PO DAILY Prednisone (Prednisone), 5 MG PO BID Ruxolitinib Phosphate (Jakafi), 15 MG PO BID Allergies Coded Allergies: No Known Allergies (Unverified , 10/12/16) Physical Exam Vital Signs Date Time Temp Pulse Resp B/P Pulse Ox O2 Delivery O2 Flow Rate FiO2 02/06/17 16:14 75 18 151/76 96 Room Air 02/06/17 15:42 72 18 142/74 97 Room Air 02/06/17 15:01 71 18 170/82 98 Room Air 02/06/17 14:32 70 02/06/17 13:52 36.7 71 20 157/79 95 Pain Rating (0-10): 0 Physical Exam Gen.: Well-developed, elderly white male, in no acute distress. Sitting on a bed. Alert and oriented. Skin:Warm and dry with fair turgor. Extensive plaque like growths all over his body. He states this is due to one of his anticancer drugs. No ecchymosis or erythema. The patient is not diaphoretic. No abrasions. HEENT: Normocephalic atraumatic. Eyes PERRLA, EOMI. No conjunctiva or scleral injection. Ears TMs intact bilaterally with good light reflexes. No erythema or bulging. No hemotympanum. Canals are patent. Nares patent bilaterally without turbinate enlargement. No significant drainage. No epistaxis. Oropharynx without erythema or exudate. Uvula midline, oral mucosa moist. No lesions present. Lymphatics are palpated without anterior or posterior chain enlargement or tenderness. Heart: Heart RRR. Systolic ejection murmur noted. No GR. Peripheral pulses are 2+. Lungs: Lungs are clear to auscultation. No crackles rhonchi or wheezing. Good air movement. The patient is able to take a deep breath. Abdomen: Abdomen was inspected, auscultated, and palpated. Bowel sounds present x 4. Soft, nontender to palpation. No hepato-splenomegaly. Musculoskeletal: Gross motor function of the upper and lower extremities is intact and unremarkable. Excellent strength bilaterally for resisted motion. He is able to lift his legs off the floor and hold them, as well as his arms up in the air and hold them. Neurologic: Gross sensation is intact across the upper and lower extremities by soft touch. Cranial nerves II through XII are intact. Good short and long- term memory recall. Normal speech. Medical Decision & Procedures ER Provider Diagnostic Interpretation: CT scan imaging of the head was obtained today. It was read by radiology as unremarkable for acute change. EKG obtained today shows a normal sinus rhythm. Rate of 68. No acute ST or T- wave changes are present. This was reviewed with Dr. Garcia. Laboratory Results 02/06/17 14:10 Red Blood Count 3.44, Mean Corpuscular Volume 99.7, Mean Corpuscular Hemoglobin 32.8, Mean Corpuscular Hemoglobin Concent 32.9, Mean Platelet Volume 9.8, Neutrophils (%) (Auto) 81.5, Lymphocytes (%) (Auto) 7.6, Monocytes (%) (Auto) 8.8, Eosinophils (%) (Auto) 0.9, Basophils (%) (Auto) 0.3, Neutrophils # (Auto) 5.27, Lymphocytes # (Auto) 0.49, Monocytes # (Auto) 0.57, Eosinophils # (Auto) 0.06, Basophils # (Auto) 0.02 02/06/17 14:10 Test 02/06/17 14:10 02/06/17 14:55 02/06/17 15:41 White Blood Count 6.47 K/uL (4.8-10.8) Red Blood Count 3.44 M/uL (4.7-6.1) Hemoglobin 11.3 g/dL (14.0-18.0) Hematocrit 34.3 % (42-52) Mean Corpuscular Volume 99.7 fL (80-100) Mean Corpuscular Hemoglobin 32.8 pg (25-34) Mean Corpuscular Hemoglobin Concent 32.9 g/dl (32-36) Platelet Count 268 K/uL (130-400) Mean Platelet Volume 9.8 fL (7.4-10.4) Neutrophils (%) (Auto) 81.5 % Lymphocytes (%) (Auto) 7.6 % Monocytes (%) (Auto) 8.8 % Eosinophils (%) (Auto) 0.9 % Basophils (%) (Auto) 0.3 % Neutrophils # (Auto) 5.27 K/uL (1.4-6.5) Lymphocytes # (Auto) 0.49 K/uL (1.2-3.4) Monocytes # (Auto) 0.57 K/uL (0.11-0.59) Eosinophils # (Auto) 0.06 K/uL (0-0.5) Basophils # (Auto) 0.02 K/uL (0-0.2) RDW Standard Deviation 53.9 fL (36.4-46.3) RDW Coefficient of Variation 14.9 % (11.5-14.5) Immature Granulocyte % (Auto) 0.9 % Immature Granulocyte # (Auto) 0.06 K/uL (0.00-0.02) Anion Gap 10.0 mmol/L (3-11) Est Creatinine Clear Calc Drug Dose 33.3 ml/min Estimated GFR () 58.5 Estimated GFR (Non- 50.5 BUN/Creatinine Ratio 27.6 (10-20) Calcium Level 9.5 mg/dl (8.5-10.1) Total Bilirubin 0.7 mg/dl (0.2-1) Aspartate Amino Transf (AST/SGOT) 24 U/L (15-37) Alanine Aminotransferase (ALT/SGPT) 26 U/L (12-78) Alkaline Phosphatase 102 U/L (45-117) Total Creatine Kinase 90 U/L (39-308) Creatine Kinase MB 1.4 ng/ml (0.5-3.6) Creatine Kinase MB Ratio 1.6 (0-3.0) Troponin I < 0.015 ng/ml (0-0.045) Total Protein 7.8 gm/dl (6.4-8.2) Albumin 4.4 gm/dl (3.4-5.0) Globulin 3.4 gm/dl (2.5-4.0) Albumin/Globulin Ratio 1.3 (0.9-2) Thyroid Stimulating Hormone (TSH) 1.750 uIu/ml (0.300-4.500) Urine Color YELLOW Urine Appearance CLEAR (CLEAR) Urine pH 5.0 (4.5-7.5) Urine Specific Dodson 1.026 (1.000-1.030) Urine Protein TRACE (NEG) Urine Glucose (UA) NEG (NEG) Urine Ketones TRACE (NEG) Urine Occult Blood NEG (NEG) Urine Nitrite NEG (NEG) Urine Bilirubin NEG (NEG) Urine Urobilinogen NEG (NEG) Urine Leukocyte Esterase NEG (NEG) Urine WBC (Auto) 1-5 /hpf (0-5) Urine RBC (Auto) 0-4 /hpf (0-4) Urine Hyaline Casts (Auto) 1-5 /lpf (0-5) Urine Epithelial Cells (Auto) 5-10 /lpf (0-5) Urine Bacteria (Auto) NEG (NEG) Bedside Glucose 110 mg/dl (70-99) CBC, CK/CK-MB, troponin, UA, TSH, and comprehensive metabolic panel were all obtained. They are essentially unremarkable. Mild ketones in the urine. Mild elevation of BUN at 36. Mild anemia with an H& H of 11.3 and 34.3. ED Course Patient and his were educated regarding today's findings. Conservative care measures were discussed. IV was established. Labs were obtained. EKG and CT scan imaging of his head were obtained. They're all normal. I did discuss with him the possibility of observation overnight. He understands that I cannot be sure that this was not a TIA. I certainly do not suspect a stroke at this point. He desired to go home. He does have a questionable history of TIA in the past. His may have been another one. Patient desired to go home and did not want to be admitted or observed. He understands that he may return at any point if desired. Follow up with his PCP this week for reexamination. Maintain hydration. Patient was seen in conjunction with Dr. Garcia, who also evaluated the patient and concurred with today's diagnosis and treatment plan. Medical Decision Possibility of TIA, stroke, metabolic abnormality, hypothyroidism, medication reaction, dehydration, anemia, and cardiac source were considered, among others. Impression Primary Impression: Confusion Departure Information Dispostion Home / Self-Care Condition GOOD Referrals Boy Hebert M.D. (PCP) Forms WORK / SCHOOL INSTRUCTIONS, HOME CARE DOCUMENTATION FORM, IMPORTANT VISIT INFORMATION Patient Instructions TIA, My [facility] Additional Instructions Follow-up with your PCP this week for reexamination Return to the ED for any other concerns or worsening symptoms Maintain hydration
[2017-06-27] MEDS ORDERED: [UNRECOGNIZED DRUG - CODE] PO (13:07)
[2017-06-27] MEDS ORDERED: GLIM1TAB2 PO (13:07)
[2017-07-09] MEDS ORDERED: GLIM2TAB2 PO (09:29)
[2017-07-09] MEDS ORDERED: PRED-301 PO (09:29)
[2017-07-09] MEDS ORDERED: LPRI INJ (09:29)
[2017-07-09] MEDS ORDERED: [UNRECOGNIZED DRUG - CODE] PO (09:29)
[2017-07-09] MEDS ORDERED: calcium PO (09:29)
[2017-07-26] MEDS ORDERED: DRGTP12 SUBD (14:03)
[2017-08-06] MEDS ORDERED: DENOINJ INJ (15:19)
[2017-09-08] MEDS ORDERED: LEVE500T13 PO (15:36)
== END 2017-02-06 16:37 | disposition home or self-care (01) ==
LOC: C.EDB 13:42 → C.EDC 16:37
DX: R41.0 Disorientation, unspecified (principal); E11.9 Type 2 diabetes mellitus without complications; E78.00 Pure hypercholesterolemia, unspecified; I10 Essential (primary) hypertension; Z85.46 Personal history of malignant neoplasm of prostate; Z86.73 Personal history of transient ischemic attack (TIA), and cerebral infarction without residual deficits; Z83.3 Family history of diabetes mellitus; Z82.49 Family history of ischemic heart disease and other diseases of the circulatory system; Z79.899 Other long term (current) drug therapy; Z79.52 Long term (current) use of systemic steroids

== ENCOUNTER 2017-02-08 14:15 | Inpatient (IN) | payer BC, OTHER ==
[~2017-02-08] VITALS: Ht 172.7 cm; Wt 71.0 kg
[~2017-02-08 14:15] MED LIST changes: +ATOR-24 PO; +CHOL2000 PO; +COEN1CAP17 PO; -COEN1CAP28 PO; -CRS20 PO; +GABA1CAP5 PO; -IMD2X PO; +LEUP1INJ15 INJ; +MAGNTAB17 PO; +METF-384 PO; +MULT-190 PO; +OMEP40CA41 PO; -ONDA4TAB46 PO; -PRLSR20 PO; -TRC48 PO; -VTMD1000 PO; -gabapentin PO
--- NOTE | 2017-02-08 15:08 | EMERGENCY ROOM VISIT NOTE ---
History Report prepared by Macy: Josr Sorto Under the Supervision of: Dr. Corbin Sahni M.D. First contact with patient: 14:56 Chief Complaint: NAUSEA Stated Complaint: NEAR SYNCOPE/NAUSEA/VOMITING/WEAKNESS Nursing Triage Summary: Patient reports being in car and had a sudden onset of nausea. Emesis X 1 en route. Patient reports this caused him to nearly have an episode of syncope. Patient currently reports continued mild nausea, negative chest pain, SOB, fever, chills. Patient was evaluated this past weekend and diagnosed with TIA. History of Present Illness The patient is an 81 year old male who presents to the Emergency Room with complaints of persistent nausea that started today. The patient went food shopping earlier today and finished before his . He was waiting in his car for twenty minutes waiting for her. When he saw her, he quickly got out of his car to help her. He notes that he felt very nauseated, dizzy, some weakness and describes feeling like he was going to pass out. The patient sat back down is his car right away. He states that his symptoms didn't resolve and so he presented to the ED for further evaluation. Two days ago, the patient presented to the ED for a TIA. The patient notes that he had a history of one of these before and his noticed him having similar symptoms such as confusion. However, he notes he did not have any confusion today. He notes that he has been feeling more tired than usual for the past few days. He also complains of leg cramps in his thighs and calves that have been interrupting his sleep. The patient has tried a few things at home without any relief. Source of History: patient Onset: today Position: other (global) Timing: other (persistent) Associated Symptoms: + fatigue, + nausea, + weakness (some) Note: Other associated symptoms: dizzy, feeling like he was going to pass out, leg cramps Denies: confusion Review of Systems All systems have been listed, reviewed, and are negative other than those previously mentioned. Please see Additional Medical History Sheet. Past Medical & Surgical Medical Problems: (1) Diabetes (2) Hypercholesteremia (3) Hypertension (4) Polycythemia vera (5) Prostate cancer (6) TIA (transient ischemic attack) (7) Vasovagal syncope Family History Diabetes mellitus Hypertension Social History Smoking Status: Never Smoker Alcohol Use: occasionally Drug Use: none Marital Status: Housing Status: lives with significant other Occupation Status: retired Current/Historical Medications Scheduled Abiraterone Acetate (Zytiga), 1,000 MG PO DAILY Atorvastatin (Lipitor), 40 MG PO DAILY Cholecalciferol (Vitamin D3), 400 UNITS PO DAILY Coenzyme Q10 (Ubidecarenone) (Co Q 10), 200 MG PO DAILY Dipyridamole/Aspirin (Aggrenox 25-200 mg), 1 CAP PO BID Glimepiride (Glimepiride), 3 MG PO DAILY Leuprolide Acetate (Lupron Depot), 1 DOSE INJ UD Magnesium Chloride-Calcium Car (Slow-Mag), 1 TAB PO BID Metformin Hcl (Glucophage), 1,000 MG PO BID Metoprolol Tartrate (Lopressor), 25 MG PO BID Ocuvite Preservision (Ocuvite Preservision), 1 TAB PO DAILY Omeprazole (Prilosec), 40 MG PO DAILY Prednisone (Prednisone), 5 MG PO BID Ruxolitinib Phosphate (Jakafi), 15 MG PO BID Allergies Coded Allergies: No Known Allergies (Unverified , 10/12/16) Physical Exam Vital Signs Date Time Temp Pulse Resp B/P Pulse Ox O2 Delivery O2 Flow Rate FiO2 02/08/17 16:44 78 18 121/63 99 Room Air 02/08/17 14:37 65 135/84 71 136/67 75 116/71 02/08/17 14:34 65 02/08/17 14:25 36.5 67 20 136/73 95 Room Air 02/08/17 14:24 96 Room Air Physical Exam GENERAL: Patient awake, alert, oriented x 3. Patient follows commands. Patient does not appear toxic. Patient is adequately hydrated and well- nourished. SKIN: No erythema, pallor, cyanosis or rash HEENT: Normal head, pupils equal, reactive to light and accommodation. Ears increased cerumen bilaterally. Oral cavity and posterior pharynx appear normal. Neck: Without adenopathy, no neck vein distention. LUNGS: Clear to auscultation. No wheezes, no rales, no rhonchi. HEART: Grade 3/6 systolic murmur. No gallops. No rubs ABDOMEN: No masses, no rebound, no hepatomegaly or splenomegaly. EXTREMITIES: Little scar on top of right shoulder. Ganglions on dorsum of right hand. No pedal or pretibial edema. No calf or thigh tenderness. NEUROLOGIC: Cranial nerves II-XII within normal limits. No gross motor sensory function deficits. Medical Decision & Procedures ER Provider Diagnostic Interpretation: Radiology results as stated below per my review and radiologist interpretation: CAROTID ARTERY ULTRASOUND CLINICAL HISTORY: Syncope. Transient ischemic attack. COMPARISON STUDY: Carotid ultrasound June 03, 2015. TECHNIQUE: Real-time, grayscale, and color Doppler sonography of the carotid and vertebral arteries was performed. Images were viewed in the transverse and longitudinal planes. FINDINGS: There is extensive atherosclerotic plaque. Velocity measurements are listed below. COMMON CAROTID PEAK SYSTOLIC VELOCITY (CM/S): RIGHT 82 LEFT 111 ICA PEAK SYSTOLIC VELOCITY (CM/S): RIGHT 115 LEFT 62 The systolic ratios between the internal to common carotid arteries were normal. Antegrade flow is seen in the vertebral arteries. The external carotid arteries are patent. Blood pressure in the right arm measured 140/69. Blood pressure in the left arm measured 131/64. IMPRESSION: 1. No evidence of a hemodynamically significant stenosis. 2. Extensive atherosclerotic plaque. Electronically signed by: Jimmy Salomon M.D. 02/08/2017 4:04 PM Dictated Date/Time: 02/08/2017 4:02 PM MRI OF THE BRAIN COMBO CLINICAL HISTORY: Transient ischemic attack. COMPARISON STUDY: CT of the brain dated 02/06/2017. MRI of the brain dated 06/02/2015. TECHNIQUE: MRI of the brain was performed utilizing various T1 and T2-weighted sequences in the axial, sagittal, and coronal planes. Contrast-enhanced sequences were acquired following the administration of 7 cc of Gadavist. FINDINGS: Brain parenchyma: There are age-related involutional changes noting moderate confluent subcortical and periventricular microangiopathic disease. There is a 1.4 cm focus of hemorrhage identified in the left cerebellar hemisphere with nonspecific associated enhancement. This is best seen on axial image #4. There is clear hemosiderin deposition and mild surrounding edema. No midline shift is identified. There is no restricted diffusion to suggest acute ischemia. No additional enhancing lesion is identified on the postcontrast images. No extra-axial fluid collection is seen. The cerebellar tonsils are normal in configuration. Ventricles, sulci, and cisterns: Prominent secondary to involutional change. Pituitary and sella: Unremarkable. Intracranial vasculature: Normal flow voids are maintained at the skull base. Orbits: The bony orbits are grossly intact. Orbital contents are normal in appearance noting bilateral ocular lens implants. Sinuses and mastoids: Clear. Calvarium: Unremarkable. Cervical cord: Partially visualized cervical spinal cord is normal in morphology and signal intensity. IMPRESSION: 1. There is a 1.4 cm focus of hemorrhage with nonspecific associated enhancement identified in the left cerebellar hemisphere with mild surrounding edema. CT follow-up to resolution is recommended. 2. No additional foci of hemorrhage are identified and no additional abnormal enhancement is seen. 3. There is no midline shift or restricted diffusion identified typical for acute ischemia. Electronically signed by: Sunday Geller M.D. 02/08/2017 4:42 PM Dictated Date/Time: 02/08/2017 4:34 PM Laboratory Results 02/08/17 14:35 02/08/17 14:35 Test 02/08/17 14:35 Red Blood Count 3.19 M/uL (4.7-6.1) Mean Corpuscular Volume 99.4 fL (80-100) Mean Corpuscular Hemoglobin 33.2 pg (25-34) Mean Corpuscular Hemoglobin Concent 33.4 g/dl (32-36) RDW Standard Deviation 54.1 fL (36.4-46.3) RDW Coefficient of Variation 14.9 % (11.5-14.5) Mean Platelet Volume 9.8 fL (7.4-10.4) Anion Gap 12.0 mmol/L (3-11) Est Creatinine Clear Calc Drug Dose 36.1 ml/min Estimated GFR () 49.2 Estimated GFR (Non- 42.4 BUN/Creatinine Ratio 24.9 (10-20) Calcium Level 9.3 mg/dl (8.5-10.1) Laboratory results as stated above per my review. ECG Indication: nausea Rate (beats per minute): 64 Rhythm: normal sinus Findings: no acute ischemic change, no ectopy ED Course 1457: Past medical records reviewed. The patient was evaluated in room B4. A complete history and physical examination was performed. 1710: At this time, I reevaluated the patient and he was resting. I updated him on his test findings. 1722: At this time, I discussed the patient's case with Dr. Mckeon - Neurosurgery [facility] and he advised to keep the patient overnight in the hospital. He recommended doing a repeat CT tomorrow. He did not think this patient's case would be considered for urgent surgical intervention. 1745: At this time, I discussed the patient's case with Dr. Chilel - [facility] and he agreed to accept the patient for further evaluation. Medical Decision Differential diagnoses include TIA, CVA, metabolic disorder, or leg cramps. The patient returns after being here within the past 24 hours. The patient had a complete workup done then with CT. Today multiple labs, EKG and imaging were obtained. Please see above. MRI reveals a 1.4 cm bleed in the cerebellum. This is most likely 2-3 days old. I discussed care with neurosurgery at [facility] who believes the patient should be observed here in the hospital and repeat CT within the next 24-48 hours. I believe this is consistent with his symptoms. I discussed care with the patient and family members. Consults Time Called: 1717 Consulting Physician: Dr. Mckeon - Neurosurgery [facility] Returned Call: 1722 At this time, I discussed the patient's case with Dr. Mckeon and he advised to keep the patient overnight in the hospital. He recommended doing a repeat CT tomorrow. He did not think this patient's case would be considered for urgent surgical intervention. Additional Consults: Time Called: 1735 Consulted Physician: Dr. Chilel - [facility] Returned Call: 1745 Additional Comments: At this time, I discussed the patient's case with Dr. Chilel and he agreed to accept the patient for further evaluation. Impression Primary Impression: Cerebellar bleed Additional Impression: Anemia Scribe Attestation The scribe's documentation has been prepared under my direction and personally reviewed by me in its entirety. I confirm that the note above accurately reflects all work, treatment, procedures, and medical decision making performed by me. Departure Information Dispostion Being Evaluated By Hospitalist Boy Doherty M.D. (PCP) Problem Qualifiers
[2017-02-08 15:26] LABS: HEMATOCRIT 31.7 % (42-52); MEAN CELL VOLUME 99.4 fL (80-100); MEAN CORPUSCULAR HEMOGLOBIN 33.2 pg (25-34); MEAN CORPUSCULAR HGB CONC 33.4 g/dl (32-36); MEAN PLATELET VOLUME 9.8 fL (7.4-10.4); PLATELET COUNT 202 K/uL (130-400); RED BLOOD COUNT 3.19 M/uL (4.7-6.1); WHITE BLOOD COUNT 5.94 K/uL (4.8-10.8)
[2017-02-08 15:34] LABS: BUN/CREATININE RATIO 24.9 (10-20); CALCIUM 9.3 mg/dl (8.5-10.1); CREATININE 1.5 mg/dl (0.60-1.40); POTASSIUM 3.7 mmol/L (3.5-5.1)
--- NOTE | 2017-02-08 16:04 | DIAGNOSTIC IMAGING REPORT ---
CAROTID ARTERY ULTRASOUND CLINICAL HISTORY: Syncope. Transient ischemic attack. COMPARISON STUDY: Carotid ultrasound June 03, 2015. TECHNIQUE: Real-time, grayscale, and color Doppler sonography of the carotid and vertebral arteries was performed. Images were viewed in the transverse and longitudinal planes. FINDINGS: There is extensive atherosclerotic plaque. Velocity measurements are listed below. COMMON CAROTID PEAK SYSTOLIC VELOCITY (CM/S): RIGHT 82 LEFT 111 ICA PEAK SYSTOLIC VELOCITY (CM/S): RIGHT 115 LEFT 62 The systolic ratios between the internal to common carotid arteries were normal. Antegrade flow is seen in the vertebral arteries. The external carotid arteries are patent. Blood pressure in the right arm measured 140/69. Blood pressure in the left arm measured 131/64. IMPRESSION: 1. No evidence of a hemodynamically significant stenosis. 2. Extensive atherosclerotic plaque. Electronically signed by: Jimmy Salomon M.D. 02/08/2017 4:04 PM Dictated Date/Time: 02/08/2017 4:02 PM
--- NOTE | 2017-02-08 16:43 | DIAGNOSTIC IMAGING REPORT ---
MRI OF THE BRAIN COMBO CLINICAL HISTORY: Transient ischemic attack. COMPARISON STUDY: CT of the brain dated 02/06/2017. MRI of the brain dated 06/02/2015. TECHNIQUE: MRI of the brain was performed utilizing various T1 and T2-weighted sequences in the axial, sagittal, and coronal planes. Contrast-enhanced sequences were acquired following the administration of 7 cc of Gadavist. FINDINGS: Brain parenchyma: There are age-related involutional changes noting moderate confluent subcortical and periventricular microangiopathic disease. There is a 1.4 cm focus of hemorrhage identified in the left cerebellar hemisphere with nonspecific associated enhancement. This is best seen on axial image #4. There is clear hemosiderin deposition and mild surrounding edema. No midline shift is identified. There is no restricted diffusion to suggest acute ischemia. No additional enhancing lesion is identified on the postcontrast images. No extra-axial fluid collection is seen. The cerebellar tonsils are normal in configuration. Ventricles, sulci, and cisterns: Prominent secondary to involutional change. Pituitary and sella: Unremarkable. Intracranial vasculature: Normal flow voids are maintained at the skull base. Orbits: The bony orbits are grossly intact. Orbital contents are normal in appearance noting bilateral ocular lens implants. Sinuses and mastoids: Clear. Calvarium: Unremarkable. Cervical cord: Partially visualized cervical spinal cord is normal in morphology and signal intensity. IMPRESSION: 1. There is a 1.4 cm focus of hemorrhage with nonspecific associated enhancement identified in the left cerebellar hemisphere with mild surrounding edema. CT follow-up to resolution is recommended. 2. No additional foci of hemorrhage are identified and no additional abnormal enhancement is seen. 3. There is no midline shift or restricted diffusion identified typical for acute ischemia. Electronically signed by: Sunday Geller M.D. 02/08/2017 4:42 PM Dictated Date/Time: 02/08/2017 4:34 PM
[2017-02-08] MEDS ORDERED: GADAVIST IV PRN (16:45)
[2017-02-08] MEDS ORDERED: PHARMACIST DISCHARGE MED REC CONSULT PRN (18:00)
[2017-02-08] MEDS ORDERED: ALUMINUM/MAGNESIUM/SIMETH (MAALOX MAX) 30 ML UDC PO PRN (18:00)
[2017-02-08] MEDS ORDERED: ONDANSETRON INJ 2 MG/ML 2 ML VIAL IV PRN (18:00)
[2017-02-08] MEDS ORDERED: ACETAMINOPHEN 325 MG TAB PO PRN (18:00)
[2017-02-08] MEDS ORDERED: MAGNESIUM HYDROXIDE SUSP 30 ML UDC PO PRN (18:00)
[2017-02-08] MEDS ORDERED: DEXTROSE 50% 50 ML SYR IV PRN (19:00)
[2017-02-08] MEDS ORDERED: GLUCOSE 40% GEL 15 GM TUBE PO PRN (19:00)
[2017-02-08] MEDS ORDERED: GLUCAGON FOR INJ 1 MG VIAL SQ PRN (19:00)
[2017-02-08] MEDS ORDERED: GLUCOSE 10 TABS/TUBE PO PRN (19:00)
[2017-02-08 20:15] VITALS: BP 128/70; PULSE 73; TEMP 36.6; O2SAT 98; Ht 172.7 cm; Wt 71.0 kg
--- NOTE | 2017-02-08 20:39 | History and Physical ---
History & Physical Date & Time of Service: February 08, 2017 at 20:39 Chief Complaint: Cerebellar Bleed Primary Care Physician: Boy Hebert M.D. Past Medical/Surgical History Medical Problems: (1) Diabetes Status: Chronic (2) Hypercholesteremia Status: Chronic (3) Hypertension Status: Chronic (4) Polycythemia vera Status: Chronic (5) Prostate cancer Permanent Comment: Adenocarcinoma the prostate with Amara 4+3 04/09/2003 Treatment with radiation therapy Pulmonary metastasis status post metastectomy 09/02/2015 Rising PSA initiation of total androgen ablation October 2015 Bone metastasis bone scan April 2016 Status post completion of radiation therapy to lumbosacral spine 10/28/2016 received 3000 cGy Status: Chronic (6) TIA (transient ischemic attack) Status: Resolved (7) Vasovagal syncope Status: Resolved Family History Diabetes mellitus Hypertension Social History Smoking Status: Never Smoker Drug Use: none Marital Status: Housing status: lives with family Occupational Status: retired Immunizations History of Influenza Vaccine: N/A History of Tetanus Vaccine?: Unknown History of Pneumococcal: Yes Pneumococcal Date: Jul 21, 2010 History of Hepatitis B Vaccine: Unknown Multi-Drug Resistant Organisms History of MDRO: No Allergies Coded Allergies: No Known Allergies (Unverified , 10/12/16) Home Medications Scheduled Abiraterone Acetate (Zytiga), 1,000 MG PO DAILY Atorvastatin (Lipitor), 40 MG PO DAILY Cholecalciferol (Vitamin D3), 400 UNITS PO DAILY Coenzyme Q10 (Ubidecarenone) (Co Q 10), 200 MG PO DAILY Dipyridamole/Aspirin (Aggrenox 25-200 mg), 1 CAP PO BID Glimepiride (Glimepiride), 3 MG PO DAILY Leuprolide Acetate (Lupron Depot), 1 DOSE INJ UD Magnesium Chloride-Calcium Car (Slow-Mag), 1 TAB PO BID Metformin Hcl (Glucophage), 1,000 MG PO BID Metoprolol Tartrate (Lopressor), 25 MG PO BID Ocuvite Preservision (Ocuvite Preservision), 1 TAB PO DAILY Omeprazole (Prilosec), 40 MG PO DAILY Prednisone (Prednisone), 5 MG PO BID Ruxolitinib Phosphate (Jakafi), 15 MG PO BID Physical Exam Vital Signs Date Time Temp Pulse Resp B/P Pulse Ox O2 Delivery O2 Flow Rate FiO2 5/1/17 19:18 79 18 123/60 98 Room Air 02/08/17 16:44 78 18 121/63 99 Room Air 02/08/17 14:37 65 135/84 71 136/67 75 116/71 02/08/17 14:34 65 02/08/17 14:25 36.5 67 20 136/73 95 Room Air 02/08/17 14:24 96 Room Air Diagnostics Laboratory Results Results Past 24 Hours Test 02/08/17 14:35 02/08/17 20:05 Range/Units White Blood Count 5.94 4.8-10.8 K/uL Red Blood Count 3.19 4.7-6.1 M/uL Hemoglobin 10.6 14.0-18.0 g/dL Hematocrit 31.7 42-52 % Mean Corpuscular Volume 99.4 80-100 fL Mean Corpuscular Hemoglobin 33.2 25-34 pg Mean Corpuscular Hemoglobin Concent 33.4 32-36 g/dl RDW Standard Deviation 54.1 36.4-46.3 fL RDW Coefficient of Variation 14.9 11.5-14.5 % Platelet Count 202 130-400 K/uL Mean Platelet Volume 9.8 7.4-10.4 fL Sodium Level 142 136-145 mmol/L Potassium Level 3.7 3.5-5.1 mmol/L Chloride Level 105 98-107 mmol/L Carbon Dioxide Level 25 21-32 mmol/L Anion Gap 12.0 3-11 mmol/L Blood Urea Nitrogen 37 7-18 mg/dl Creatinine 1.50 0.60-1.40 mg/dl Est Creatinine Clear Calc Drug Dose 36.1 ml/min Estimated GFR () 49.2 Estimated GFR (Non- 42.4 BUN/Creatinine Ratio 24.9 10-20 Random Glucose 104 70-99 mg/dl Calcium Level 9.3 8.5-10.1 mg/dl Bedside Glucose 131 70-99 mg/dl Impression Assessment and Plan admit #[id number] VTE Prophylaxis VTE Risk Assessment Done? Y/N: Yes Risk Level: Moderate Given or contraindicated: Contraindicated
[2017-02-08] MEDS: INSULIN ASPART 100 UNITS/ML 3 ML PEN SC SCH (20:58)
[2017-02-08] MEDS ORDERED: CALCIUM CARBONATE PO SCH (21:00)
[2017-02-08] MEDS ORDERED: RUXOLITINIB PHOSPHATE 15 MG PO SCH (21:00)
[2017-02-08] MEDS ORDERED: MAGNESIUM CHLORIDE PO SCH (21:00)
[2017-02-08 21:04] LABS: PARTIAL THROMBOPLASTIN RATIO 0.9; PROTHROMBIN TIME (PATIENT) 10.7 SECONDS (9.0-12.0)
[2017-02-08] MEDS: METOPROLOL TARTRATE 25 MG TAB PO SCH (21:05)
[2017-02-08 23:04] VITALS: BP 134/61; PULSE 71; TEMP 36.5; O2SAT 98
--- NOTE | 2017-02-09 01:50 | HISTORY & PHYSICAL EXAMINATION ---
DATE OF ADMISSION: 02/08/2017 CHIEF COMPLAINT: Nausea. HISTORY OF PRESENT ILLNESS: The patient is a very pleasant 81-year-old male, who presented to the ER initially on February 06 with a transient episode of confusion. There was concern on TIA. They discussed keeping him in the hospital, but he was very desirous of going home and given that he did not have unstable symptoms after discussions in accordance with the patient's wishes he went home. He, however, then came back to the ER today with pretty severe nausea. He had gone to the grocery store, finished, he was waiting in the car, started feeling very nauseated, dizzy and weak like he was going to pass out, tried to sit down, the symptoms did not go away; they called 911 and he had persistent nausea, really no other symptoms. No further confusion, no focal numbness, no focal weakness and his nausea has gone by the time I see him, but it was fairly severe. REVIEW OF SYSTEMS: Otherwise negative, except for as above. PAST MEDICAL HISTORY: Includes; coronary artery disease, GERD, adrenal adenoma, aortic stenosis, carotid artery disease, chronic kidney disease, type 2 diabetes, thrombocythemia, prior basal and squamous cell skin cancers, hypertension, hyperlipidemia, lumbar radiculopathy, a lung nodule, microalbuminuria, mitral regurge, peripheral neuropathy, prostate cancer with mets, apparent prior stroke and TIA, vitamin D deficiency and tricuspid regurge. MEDICATIONS: Aggrenox b.i.d., Lipitor 40 mg daily, CoQ10 200 mg daily, gabapentin 400 mg t.i.d., glimepiride 3 mg daily, Jakafi 15 mg b.i.d., Lupron 22.5 mg IM every 3 months, metformin 1000 mg b.i.d., metoprolol 25 mg b.i.d., Ocuvite daily, omeprazole 40 mg daily, Zofran 4 mg q. 8 hours p.r.n. nausea, prednisone 5 mg b.i.d., Slow-Mag b.i.d., vitamin D3 4000 IU daily and Zytida 250 mg four tabs daily. PAST SURGICAL HISTORY: None of note. FAMILY HISTORY: Diabetes and hypertension. SOCIAL HISTORY: He is never smoker. He is . He lives with his . ALLERGIES: No known drug allergies. PHYSICAL EXAMINATION: VITAL SIGNS: Temp 36.5, pulse 67, respiratory rate 20, blood pressure 136/73 and 95% on room air. GENERAL: He is awake, alert, oriented x3, pleasant, in no acute distress. HEENT: Normocephalic, atraumatic. Mucous membranes are moist. CARDIOVASCULAR: Regular without rubs, murmurs or gallops. LUNGS: Clear to auscultation bilaterally. No rales, rhonchi, or wheezes, with good effort. ABDOMEN: Soft, nondistended, nontender, no masses or organomegaly. EXTREMITIES: Without cyanosis, clubbing or edema. No calf tenderness. SKIN: Shows diffuse seborrheic dermatitis, but otherwise no other rashes. No pallor or icterus. NEUROLOGIC: Shows cranial nerves II-XII to be grossly intact. Gross motor is equal and intact. He shows no focal sensory deficits. His [id number] is good and he shows no unsteadiness. MUSCULOSKELETAL: Yields no gross lesions. MENTAL STATUS: Shows good recent and remote recall. Normal mood and affect. Good judgment and insight. LABORATORIES AND DIAGNOSTICS: CBC shows a white count of 5.94, hemoglobin 10.6, platelets 202. Of note, his hemoglobin appears to run in the mid 10s to maybe low 11s range predominantly. His basic metabolic panel shows sodium of 142, potassium 3.7, chloride 105, CO2 25, BUN 37, creatinine 1.5. It appears to be on the high end of his baseline range, which looks to run about 1.2 to 1.5 predominantly. Glucose 104, calcium 9.3. Carotid ultrasound shows no hemodynamically significant stenosis, but he has extensive atherosclerotic plaque. MRI of the brain shows age-related involutional changes noted and moderate confluent subcortical and periventricular microangiopathic disease, a 1.4 cm focus of hemorrhage identified in the left cerebellar hemisphere, nonspecific associated enhancement, clear hemosiderin deposition and mild surrounding edema. No midline shift identified. No restricted diffusion to suggest acute ischemia. No additional enhancing lesion identified on the post-contrast images. No extra-axial fluid collections. Cerebellar tonsils are normal in configuration. His EKG is normal sinus rhythm. ASSESSMENT AND PLAN: 1. Acute intracranial bleed; this fortunately appears to be small and probably quite stable given his symptoms. In fact, on further review, the ER notes were discussed with radiology and with hindsight it may have even been visible in a subtle way on his CAT scan from his prior ER visit. The ER also discussed the case with neurosurgery at [facility], who did not feel transfer was warranted nor did he feel the patient was a surgical candidate. At this point in time, the plan would be serial neurologic exams, blood pressure control and a followup CT knee in the morning. Sooner, should he develop any symptoms, we will be following with neuro checks and certainly the patient will let us know if he has any recurrence of his nausea or dizziness. His risks for this appear to be the same as they would be for a more conventional stroke, his diabetes, hypertension or hyperlipidemia. We will be asking neurology for assistance in his evaluation and treatment given that it is bleed. We will let PT and OT see him as well. 2. Hypertension. He actually appears to be tighter than what would be true, but without any additional medications he was more hypertensive on the which may have been when autoregulation was going on; we will need to follow this closely, but at this point in time we will not make any major changes. 3. Type 2 diabetes. Check an A1c. Continue his home medications. Follow his fingersticks and supplemental insulin as needed. 4. Hyperlipidemia. Check a lipid panel and then alter his treatment as warranted for stroke risk factor reduction. 5. Chronic kidney disease, appears to be probably late stage 3, this appears to be overall in his baseline range. Continue to follow. 6. Deep venous thrombosis prophylaxis, pharmacologic prophylaxis is contraindicated due to his intracranial bleed, mechanical prophylaxis is of dubious benefit in VTE risk reduction and certainly could be of harm in skin breakdown or leading to falls; therefore, we will try to utilize early ambulation as best as possible. 7. Prostate cancer. Continue his prostate cancer medications. Of note, the Jakafi appears to have a degree of hematologic implications over, it seems like this would be more relevant should the patient be thrombocytopenic, which he is not. We will check a PT and a PTT and discuss with hematology/oncology if either of those are elevated or if neurology feels is warranted. SHREYA
[2017-02-09 03:06] VITALS: BP 112/56; PULSE 66; TEMP 36.7; O2SAT 97
[2017-02-09 06:27] LABS: ESTIMATED AVERAGE GLUCOSE 148 mg/dl; HA1C FLAG Normal (Normal)
[2017-02-09] MEDS: INSULIN ASPART 100 UNITS/ML 3 ML PEN SC SCH ×4 (07:00→20:51)
[2017-02-09 07:25] VITALS: BP 109/63; PULSE 68; TEMP 36.8; O2SAT 96
[2017-02-09] MEDS: CHOLECALCIFEROL 400 INTER.UNIT TAB PO SCH (07:44)
[2017-02-09] MEDS: METFORMIN HCL 500 MG TAB PO SCH ×2 (07:45→16:20)
[2017-02-09] MEDS: CEROVITE ADV FORMULA TAB PO SCH (07:45)
[2017-02-09] MEDS: METOPROLOL TARTRATE 25 MG TAB PO SCH ×2 (07:45→20:53)
[2017-02-09] MEDS: GLIMEPIRIDE 2 MG TAB PO SCH (07:45)
[2017-02-09] MEDS: ATORVASTATIN 40 MG TAB PO SCH (07:46)
[2017-02-09] MEDS: PANTOprazole SOD 40 MG TAB PO SCH (07:46)
--- NOTE | 2017-02-09 08:43 | DIAGNOSTIC IMAGING REPORT ---
CT HEAD WITHOUT CONTRAST (CT) CLINICAL HISTORY: Cerebellar hemorrhage. Follow-up study. COMPARISON STUDY: CT scan dated 02/06/2017, MRI the brain dated 02/08/2017 TECHNIQUE: Axial CT of the brain is performed from the vertex to the skull base. IV contrast was not administered for this examination. CT DOSE: 729.78 mGycm FINDINGS: There is a 1 cm left posterior cerebellar hyperdense focus, consistent with the recently described hemorrhage. This remains unchanged in size., There is no midline shift. There is no evidence of pathologic ventricular dilatation. There is no evidence of acute sinusitis IMPRESSION: 1. Stable 1 cm left cerebellar hyperdense focus, consistent with the recently described hemorrhage. 2. No evidence of hydrocephalus. Electronically signed by: Ken Galvan M.D. 02/09/2017 8:42 AM Dictated Date/Time: 02/09/2017 8:38 AM
[2017-02-09] MEDS ORDERED: ABIRATERONE ACETATE 1000 MG PO SCH (09:00)
[2017-02-09] MEDS ORDERED: LEUPROLIDE ACETATE INJ SCH (09:00)
[2017-02-09] MEDS ORDERED: NON-FORMULARY MEDICATION (Coenzyme Q10 (Ubidecarenone) (Co Q 10) 200 MG) PO SCH (09:00)
--- NOTE | 2017-02-09 10:43 | Neurology Consultation ---
Neurology Consultation Date of Consultation: February 09, 2017. Attending Physician: Alessandra Nance M.D. Primary Care Physician: Boy Hebert M.D. Reason for Consultation: Cerebellar hemorrhage History of Present Illness Source: patient, hospital records The patient is an 81-year-old male who presented to the emergency department yesterday complaining of dizziness and headache that came on suddenly while he was out shopping. He had some difficulty standing but did not fall or lose consciousness. He does not recall having any particular weakness on either the left or right side. He denies any changes in speech or vision associated with the episode. The patient reports that the symptoms have resolved. He had actually presented to the emergency department on February 06 complaining of dizziness as well. There was some concern over a possible TIA although a CT of the head at that time was unremarkable. A brain MRI was completed yesterday. I reviewed the images and radiologist's interpretation of this test. There is evidence of a small hemorrhage within the left cerebellar hemisphere, with hemosiderin deposition. There is no abnormal post contrast enhancement that would otherwise suggest an underlying neoplasm or lesion. In retrospect, there is a subtle area of increased density on the CT of the head completed February 06 corresponding to the abnormality observed on yesterday's MRI. A repeat CT of the head was completed today. There is evidence of a stable 1 cm hemorrhage within the left cerebellar hemisphere, unchanged from yesterday's MRI. The patient also complains of nocturnal leg cramps which is been going on for the past year or so. He complains of an associated compulsion to move his limbs. Movement does alleviate his symptoms to a modest degree. He has a past medical history of diabetes mellitus and lumbar spinal stenosis with remote lumbar decompressive surgery. He recalls a previous trial of gabapentin that was very effective. He has never been diagnosed with restless leg syndrome. He does not recall a previous trial of a dopamine agonist. Past Medical/Surgical History Medical Problems: (1) Anemia Status: Acute (2) Cerebellar bleed Status: Acute Family History Family history significant for diabetes and hypertension Social History Smoking Status: Never smoker Drug Use: none Marital Status: Housing Status: lives with significant other Occupation Status: retired Allergies Coded Allergies: No Known Allergies (Unverified , 10/12/16) Current Inpatient Medications Current Inpatient Medications Medications (Trade) Dose Ordered Sig/Axel Route Start Time Stop Time Status Last Admin Dose Admin Gadobutrol (Gadavist) 7 mmol UD PRN IV 02/08/17 16:45 02/12/17 16:44 Miscellaneous Information (Pharmacist Discharge Med Rec Consult) 1 ea UD PRN N/A 02/08/17 18:00 03/10/17 17:59 Acetaminophen (Tylenol Tab) 650 mg Q4H PRN PO 02/08/17 18:00 03/10/17 17:59 Al Hydrox/Mg Hydrox/Simethicone (Maalox Max Susp) 15 ml Q4H PRN PO 02/08/17 18:00 03/10/17 17:59 Magnesium Hydroxide (Milk Of Magnesia Susp) 30 ml Q12H PRN PO 02/08/17 18:00 03/10/17 17:59 Ondansetron HCl (Zofran Inj) 4 mg Q6H PRN IV 02/08/17 18:00 03/10/17 17:59 Atorvastatin Calcium (Lipitor Tab) 40 mg DAILY PO 02/09/17 09:00 03/11/17 08:59 02/09/17 07:46 40 MG Metformin HCl (Glucophage Tab) 1,000 mg BIDM PO 02/09/17 07:30 03/11/17 07:29 02/09/17 07:45 1,000 MG Metoprolol Tartrate (Lopressor Tab) 25 mg BID PO 02/08/17 21:00 03/10/17 20:59 02/09/17 07:45 25 MG Multivitamins/ Minerals (Multivitamin W/ Minerals Tab) 1 tab DAILY PO 02/09/17 09:00 03/11/17 08:59 02/09/17 07:45 1 TAB Prednisone (PredniSONE TAB) 5 mg BID PO 02/08/17 21:00 03/10/17 20:59 02/09/17 07:45 5 MG Non-Formulary Medication (Abiraterone Acetate (Zytiga)) 1,000 mg DAILY PO 02/09/17 09:00 03/11/17 08:59 UNV Cholecalciferol (Vitamin D Tab) 400 inter.unit DAILY PO 02/09/17 09:00 03/11/17 08:59 02/09/17 07:44 400 INTER.UNIT Glimepiride (Amaryl Tab) 3 mg QDB PO 02/09/17 07:30 03/11/17 07:59 02/09/17 07:45 3 MG Non-Formulary Medication (Leuprolide Acetate (Lupron Depot)) 1 dose Q90D@0900 INJ 02/09/17 09:00 03/11/17 08:59 Pantoprazole Sodium (Protonix Tab) 40 mg DAILY PO 02/09/17 09:00 03/11/17 08:59 02/09/17 07:46 40 MG Non-Formulary Medication (Ruxolitinib Phosphate (Jakafi)) 15 mg BID PO 02/08/17 21:00 03/10/17 20:59 UNV Insulin Aspart (novoLOG ASPART) SLIDING SCALE G... ACHS SC 02/08/17 21:00 03/10/17 20:59 Glucose (Glucose 40% Gel) 15-30 GRAMS 15 GRAMS... UD PRN PO 02/08/17 19:00 03/10/17 18:59 Glucose (Glucose Chew Tab) 4-8 Tablets 4 Tabl... UD PRN PO 02/08/17 19:00 03/10/17 18:59 Dextrose (Dextrose 50% 50ML Syringe) 25-50ML OF 50% DW IV FOR... UD PRN IV 02/08/17 19:00 03/10/17 18:59 Glucagon (Glucagon Inj) 1 mg UD PRN SQ 02/08/17 19:00 03/10/17 18:59 Miscellaneous Information (Order Awaiting Action) 1 ea QS N/A 02/09/17 00:00 03/11/17 00:00 Review of Systems The patient denies fever, chills, vision change, hearing change, chest pain, palpitations, shortness of breath, coughing, wheezing, abdominal pain, diarrhea , dysuria, muscle pain, joint pain, rash, depression, or anxiety A full 10 point review of systems was obtained from this patient with pertinent positives and negatives described in the history of present illness and otherwise listed above. Physical Exam Vital Signs (Past 24 Hrs): Date Time Temp Pulse Resp B/P Pulse Ox O2 Delivery O2 Flow Rate FiO2 02/09/17 07:25 36.8 68 18 109/63 96 Room Air 02/09/17 04:00 Room Air 02/09/17 03:06 36.7 66 18 112/56 97 Room Air 02/09/17 00:01 Room Air 02/08/17 23:04 36.5 71 18 134/61 98 Room Air 02/08/17 20:15 36.6 73 18 128/70 98 Room Air 02/08/17 19:18 79 18 123/60 98 Room Air 02/08/17 16:44 78 18 121/63 99 Room Air 02/08/17 14:37 65 135/84 71 136/67 75 116/71 02/08/17 14:34 65 02/08/17 14:25 36.5 67 20 136/73 95 Room Air 02/08/17 14:24 96 Room Air The patient is a well-developed, well-nourished, elderly male, no acute distress. He is alert and oriented to person place and time and exhibits normal attention and concentration. Recent and remote memory intact. He is able to name objects and repeat phrases. Speech pattern fluent. Vocabulary normal. Normal fund of knowledge. Visual giles full to confrontation. Visual acuity normal. Pupils equal round reactive to light and accommodation. Eye movements normal. No nystagmus. Facial sensation intact bilaterally. There is no facial droop. Normal facial symmetry and strength. Palate elevates to midline. Tongue protrudes to midline. Shoulder shrug and hearing intact bilaterally. There is no dysmetria with finger to nose or heel to crowe bilaterally. There is no dysdiadochokinesia. There is diminished sensation to vibration at the ankles bilaterally, other sensory modalities intact for all 4 limbs. Deep tendon reflexes are 2+ for the arms and legs, but diminished at the Achilles tendons bilaterally, plantar responses downgoing bilaterally. Ophthalmoscopic examination reveals normal-appearing optic nerves and posterior elements. No papilledema, no hemorrhages. Carotid pulses normal to auscultation, no bruits. Musculoskeletal examination reveals normal strength for the arms and legs proximally and distally. Normal muscle tone. No atrophy. No abnormal movements. Gait and station not tested due to safety concerns. Laboratory Results Past 24 Hours: 02/08/17 14:35 02/08/17 14:35 Test 02/08/17 14:35 02/09/17 05:53 02/09/17 06:25 Red Blood Count 3.19 M/uL (4.7-6.1) Mean Corpuscular Volume 99.4 fL (80-100) Mean Corpuscular Hemoglobin 33.2 pg (25-34) Mean Corpuscular Hemoglobin Concent 33.4 g/dl (32-36) RDW Standard Deviation 54.1 fL (36.4-46.3) RDW Coefficient of Variation 14.9 % (11.5-14.5) Mean Platelet Volume 9.8 fL (7.4-10.4) Prothrombin Time 10.7 SECONDS (9.0-12.0) Prothromb Time International Ratio 1.0 (0.9-1.1) Activated Partial Thromboplast Time 22.8 SECONDS (21.0-31.0) Partial Thromboplastin Ratio 0.9 Anion Gap 12.0 mmol/L (3-11) Est Creatinine Clear Calc Drug Dose 36.1 ml/min Estimated GFR () 49.2 Estimated GFR (Non- 42.4 BUN/Creatinine Ratio 24.9 (10-20) Estimated Average Glucose 148 mg/dl Hemoglobin A1c 6.8 % (4.5-5.6) Calcium Level 9.3 mg/dl (8.5-10.1) Triglycerides Level 430 mg/dl (0-150) Cholesterol Level 302 mg/dl (0-200) HDL Cholesterol 43 mg/dl LDL Cholesterol, Calculated mg/dl VLDL Cholesterol, Calculated mg/dl Cholesterol/HDL Ratio 7.0 Bedside Glucose 110 mg/dl (70-99) Impression Small left cerebellar hemorrhage, about 1 cm in size. No associated mass effect upon the fourth ventricle. No focal deficits on neurological examination, no ataxia on finger to nose or heel to crowe. Hemorrhage etiology undetermined, possibly hypertensive. Patient was modestly hypertensive on February 06 when he initially presented to the emergency department but relatively normotensive on February 08. An underlying metastatic deposit from prostate cancer could also be considered, although no convincing evidence of an underlying enhancing lesion on MRI. This patient may also have restless leg syndrome based on his report symptoms of nocturnal leg cramps with associated compulsion to kick and move the limbs while in bed and associated interference with sleep. Of course, this issue is chronic and may in part relate to his history of lumbar spinal stenosis and probable diabetic peripheral neuropathy. Plan Would recommend a repeat CT of the head tomorrow to ensure stability. Would recommend a repeat brain MRI with and without contrast in one month to reassess for an underlying metastatic deposit. Continue to monitor blood pressure. Patient remains clinically and radiographically stable I would have no further immediate recommendations. If his condition deteriorates then I would recommend transfer to a tertiary center with neurosurgical services. Would consider treatment of restless leg syndrome with a low dose of a dopamine agonist such as ropinirole, starting with 0.25 mg taken 2 hours before bedtime. The dosage of this medication may be increased 2.5 mg taken 2 hours before bedtime after 5 days.
[2017-02-09 11:06] VITALS: BP 136/66; PULSE 68; TEMP 36.8; O2SAT 97
[2017-02-09] MEDS: ABIRATERONE ACETATE 250 MG PO SCH (13:00)
--- NOTE | 2017-02-09 14:34 | Family Medicine Progress Note ---
Progress Note Date of Service February 09, 2017. Subjective Pt evaluation today including: conversation w/ patient, conversation w/ family , physical exam, chart review, lab review, conversation w/ qm consultant, review of inpatient medication list Pain: none PO Intake: good Voiding: no voiding problems Patient with no acute events overnight Patient had a repeat Ct scan of the head which showed a stable 1cm hemorrhage within the left cerebellar hemisphere which was unchanged from the previous day MRI. Patient had also been complaining of leg cramps hat have been going on for about a year. He denied any ongoing nausea He denied any dizziness, vomiting, double vision, headaches, neck stiffness, leg weakness, arm weakness, unsteady gait, difficulty speaking, chest pain, palpitations, fevers, night sweats or chills Additional Comments: please see note for ROS Medications Current Inpatient Medications Medications (Trade) Dose Ordered Sig/Axel Route Start Time Stop Time Status Last Admin Dose Admin Gadobutrol (Gadavist) 7 mmol UD PRN IV 02/08/17 16:45 02/12/17 16:44 Miscellaneous Information (Pharmacist Discharge Med Rec Consult) 1 ea UD PRN N/A 02/08/17 18:00 03/10/17 17:59 Acetaminophen (Tylenol Tab) 650 mg Q4H PRN PO 02/08/17 18:00 03/10/17 17:59 Al Hydrox/Mg Hydrox/Simethicone (Maalox Max Susp) 15 ml Q4H PRN PO 02/08/17 18:00 03/10/17 17:59 Magnesium Hydroxide (Milk Of Magnesia Susp) 30 ml Q12H PRN PO 02/08/17 18:00 03/10/17 17:59 Ondansetron HCl (Zofran Inj) 4 mg Q6H PRN IV 02/08/17 18:00 03/10/17 17:59 02/09/17 12:42 4 MG Atorvastatin Calcium (Lipitor Tab) 40 mg DAILY PO 02/09/17 09:00 03/11/17 08:59 02/09/17 07:46 40 MG Metformin HCl (Glucophage Tab) 1,000 mg BIDM PO 02/09/17 07:30 03/11/17 07:29 02/09/17 07:45 1,000 MG Metoprolol Tartrate (Lopressor Tab) 25 mg BID PO 02/08/17 21:00 03/10/17 20:59 02/09/17 07:45 25 MG Multivitamins/ Minerals (Multivitamin W/ Minerals Tab) 1 tab DAILY PO 02/09/17 09:00 03/11/17 08:59 02/09/17 07:45 1 TAB Prednisone (PredniSONE TAB) 5 mg BID PO 02/08/17 21:00 03/10/17 20:59 02/09/17 07:45 5 MG Cholecalciferol (Vitamin D Tab) 400 inter.unit DAILY PO 02/09/17 09:00 03/11/17 08:59 02/09/17 07:44 400 INTER.UNIT Glimepiride (Amaryl Tab) 3 mg QDB PO 02/09/17 07:30 03/11/17 07:59 02/09/17 07:45 3 MG Non-Formulary Medication (Leuprolide Acetate (Lupron Depot)) 1 dose Q90D@0900 INJ 02/09/17 09:00 03/11/17 08:59 Pantoprazole Sodium (Protonix Tab) 40 mg DAILY PO 02/09/17 09:00 03/11/17 08:59 02/09/17 07:46 40 MG Insulin Aspart (novoLOG ASPART) SLIDING SCALE G... ACHS SC 02/08/17 21:00 03/10/17 20:59 Glucose (Glucose 40% Gel) 15-30 GRAMS 15 GRAMS... UD PRN PO 02/08/17 19:00 03/10/17 18:59 Glucose (Glucose Chew Tab) 4-8 Tablets 4 Tabl... UD PRN PO 02/08/17 19:00 03/10/17 18:59 Dextrose (Dextrose 50% 50ML Syringe) 25-50ML OF 50% DW IV FOR... UD PRN IV 02/08/17 19:00 03/10/17 18:59 Glucagon (Glucagon Inj) 1 mg UD PRN SQ 02/08/17 19:00 03/10/17 18:59 Abiraterone Acetate (Zytiga) 1,000 mg DAILY PO 02/09/17 13:00 03/11/17 12:59 Objective Vital Signs Date Time Temp Pulse Resp B/P Pulse Ox O2 Delivery O2 Flow Rate FiO2 02/09/17 12:00 Room Air 02/09/17 11:06 36.8 68 20 136/66 97 Room Air 02/09/17 08:00 Room Air 02/09/17 07:25 36.8 68 18 109/63 96 Room Air 02/09/17 04:00 Room Air 02/09/17 03:06 36.7 66 18 112/56 97 Room Air 02/09/17 00:01 Room Air 02/08/17 23:04 36.5 71 18 134/61 98 Room Air 02/08/17 20:15 36.6 73 18 128/70 98 Room Air 02/08/17 19:18 79 18 123/60 98 Room Air 02/08/17 16:44 78 18 121/63 99 Room Air 02/08/17 14:37 65 135/84 71 136/67 75 116/71 02/08/17 14:34 65 02/08/17 14:25 36.5 67 20 136/73 95 Room Air 02/08/17 14:24 96 Room Air Physical Exam General Appearance: WD/WN, no apparent distress Eyes: normal inspection, PERRL, EOMI ENT: hearing grossly normal, TMs normal, pharynx normal Respiratory/Chest: chest non-tender, lungs clear, normal breath sounds Cardiovascular: regular rate, rhythm, no JVD, + systolic murmur (systolic ejection murmur that radiates to the carotids) Abdomen: normal bowel sounds, non tender, soft Extremities: normal range of motion, non-tender, no pedal edema, no calf tenderness, normal capillary refill Neurologic/Psychiatric: 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 tested, no motor/sensory deficits, alert, normal mood/affect, oriented x 3, + pertinent finding (no motor weakness in upper or lower limbs) Laboratory Results Results Past 24 Hours Test 02/08/17 14:35 02/08/17 20:05 02/09/17 05:53 02/09/17 06:25 Range/Units White Blood Count 5.94 4.8-10.8 K/uL Red Blood Count 3.19 4.7-6.1 M/uL Hemoglobin 10.6 14.0-18.0 g/dL Hematocrit 31.7 42-52 % Mean Corpuscular Volume 99.4 80-100 fL Mean Corpuscular Hemoglobin 33.2 25-34 pg Mean Corpuscular Hemoglobin Concent 33.4 32-36 g/dl RDW Standard Deviation 54.1 36.4-46.3 fL RDW Coefficient of Variation 14.9 11.5-14.5 % Platelet Count 202 130-400 K/uL Mean Platelet Volume 9.8 7.4-10.4 fL Prothrombin Time 10.7 9.0-12.0 SECONDS Prothromb Time International Ratio 1.0 0.9-1.1 Activated Partial Thromboplast Time 22.8 21.0-31.0 SECONDS Partial Thromboplastin Ratio 0.9 Sodium Level 142 136-145 mmol/L Potassium Level 3.7 3.5-5.1 mmol/L Chloride Level 105 98-107 mmol/L Carbon Dioxide Level 25 21-32 mmol/L Anion Gap 12.0 3-11 mmol/L Blood Urea Nitrogen 37 7-18 mg/dl Creatinine 1.50 0.60-1.40 mg/dl Est Creatinine Clear Calc Drug Dose 36.1 ml/min Estimated GFR () 49.2 Estimated GFR (Non- 42.4 BUN/Creatinine Ratio 24.9 10-20 Random Glucose 104 70-99 mg/dl Estimated Average Glucose 148 mg/dl Hemoglobin A1c 6.8 4.5-5.6 % Calcium Level 9.3 8.5-10.1 mg/dl Bedside Glucose 131 110 70-99 mg/dl Triglycerides Level 430 0-150 mg/dl Cholesterol Level 302 0-200 mg/dl HDL Cholesterol 43 mg/dl LDL Cholesterol, Calculated mg/dl VLDL Cholesterol, Calculated mg/dl Cholesterol/HDL Ratio 7.0 Test 02/09/17 11:19 Range/Units Bedside Glucose 113 70-99 mg/dl Assessment and Plan 81 year old male admitted on 02/08/2017 for a 1.4 cm cerebellar haemmorhage. He is stable and is not showing any deterioration or worsening of the bleed. Acute intracranial bleed - Repeat CT scan this morning did not show any worsening of the bleed (1cm in size at cerebellum) - PT/OT eval - Neuro on board and recommend repeat CT scan tomorrow morning - Monitor blood pressure and regular neuro checks Leg cramps - statin, vs restless leg syndrome vs dehydration vs spinal stenosis - had statin held as outpatient with no improvement - patient encourage to increase water intake to at least 1 L daily - trial of ropinorole .25 mg 2 hours before bedtime - outpatient PT HTN - metoprolol 25mg - continue to monitor T2DM - Hba1c 6.8 - Continue home meds HLD - TG 430 and cholesterol 302 CKD - creatinine 1.5 at baseline DVT - regular ambulation, as chemical antiocoagulation contraindicated at this time Dispo - home tomorrow pending repeat CT scan and stable patient condition Reviewed: Pt Seen/Exam by Me History no headache. has been having leg cramps for some time. Constitutional: denies: fever Respiratory: negative: short of breath Cardiovascular: denies chest pain Neurological/Psych: negative: headache, numbness, paresthesia General Appearance: no apparent distress Respiratory: lungs clear, no respiratory distress Cardiovascular: regular rate, rhythm Neurologic/Psychiatric: no motor/sensory deficits, alert, oriented x 3 Skin Characteristics: warm/dry Assessment/Plan I have reviewed the medical record and performed a history and physical examination of this patient today. I have discussed the case with Dr. Daugherty. The above note reflects my findings, conclusions, and recommendation.
[2017-02-09 15:29] VITALS: BP 121/69; PULSE 67; TEMP 36.7; O2SAT 96
[2017-02-09] MEDS ORDERED: ROPINIROLE HCL 0.25 MG TAB PO SCH (19:00)
[2017-02-09 19:46] VITALS: BP 158/80; PULSE 83; TEMP 36.5; O2SAT 98
[2017-02-09] MEDS: [UNRECOGNIZED DRUG - OTHER] PO SCH (20:54)
[2017-02-09] MEDS: RUXOLITINIB PHOSPHATE PO SCH (20:54)
[2017-02-09 23:47] VITALS: BP 138/71; PULSE 71; TEMP 36.4; O2SAT 98
[2017-02-10 03:25] VITALS: BP 114/55; PULSE 75; TEMP 36.5; O2SAT 98
[2017-02-10] MEDS: INSULIN ASPART 100 UNITS/ML 3 ML PEN SC SCH (07:00)
[2017-02-10 07:13] LABS: BASO % 0.2 %; BASO ABS # 0.01 K/uL (0-0.2); COMPLETE YES; EOS % 0.7 %; IG% 0.7 %; LYMPH % 13.1 %; LYMPH ABS # 0.59 K/uL (1.2-3.4); MEAN CELL VOLUME 99.6 fL (80-100); MEAN CORPUSCULAR HEMOGLOBIN 33.1 pg (25-34); MEAN CORPUSCULAR HGB CONC 33.2 g/dl (32-36); MEAN PLATELET VOLUME 9.5 fL (7.4-10.4); MONO % 3.3 %; PLATELET COUNT 163 K/uL (130-400); RED BLOOD COUNT 2.81 M/uL (4.7-6.1)
[2017-02-10 07:26] LABS: INR 0.9 (0.9-1.1)
[2017-02-10] MEDS: METFORMIN HCL 500 MG TAB PO SCH (07:27)
[2017-02-10] MEDS: GLIMEPIRIDE 2 MG TAB PO SCH (07:27)
[2017-02-10] MEDS ORDERED: RQP25 PO (07:44)
[2017-02-10 07:46] VITALS: BP 130/78; PULSE 68; TEMP 36.6; O2SAT 96
[2017-02-10 07:48] LABS: BUN/CREATININE RATIO 24.2 (10-20); CALCIUM 8.7 mg/dl (8.5-10.1); CREATININE 1.3 mg/dl (0.60-1.40); POTASSIUM 4.5 mmol/L (3.5-5.1)
--- NOTE | 2017-02-10 07:51 | Discharge Instructions ---
Discharge Instructions Date of Service February 10, 2017. Admission Reason for Admission: Cerebellar Bleed Discharge Discharge Diagnosis / Problem: Cerebellar Haemmorhage Discharge Goals Goal(s): Diagnostic testing Activity Recommendations Activity Limitations: resume your previous activity . Instructions / Follow-Up Instructions / Follow-Up You were diagnosed with a small bleed in your brain The bleed is not getting better and appears to be slowly decreasing in size Please follow up with your PCP or book an appointment with neurology in order to get a repeat brain MRI in one month to follow up on the bleed If you have any worsening headaches, nausea, vomiting, leg or arm weakness, unsteady balance or visual changes then please come back to the emergency room. On a side note please follow up with your director call within the next 2-3 weeks in order to get an echo of your heart in order to further delineate your heart murmur Current Hospital Diet Patient's current hospital diet: Low Sodium Diet (2gm Na) Discharge Diet Recommended Diet: Diabetes Type 2 Diet Pending Studies Studies pending at discharge: no Laboratory Results Hemoglobin A1c Test 02/08/17 14:35 Range/Units Estimated Average Glucose 148 mg/dl Hemoglobin A1c 6.8 H 4.5-5.6 % Lipid Panel Test 02/09/17 05:53 Range/Units Triglycerides Level 430 H 0-150 mg/dl Cholesterol Level 302 H 0-200 mg/dl HDL Cholesterol 43 mg/dl Cholesterol/HDL Ratio 7.0 LDL Cholesterol, Calculated mg/dl Medical Emergencies . Who to Call and When: Medical Emergencies: If at any time you feel your situation is an emergency, please call 911 immediately. . Non-Emergent Contact Non-Emergency issues call your: Primary Care Provider, Neurologist . . "Provider Documentation" section prepared by Aki Daugherty. . VTE Core Measure Inpt VTE Proph given/why not?: Contraindicated
--- NOTE | 2017-02-10 08:03 | Discharge Summary ---
Discharge Summary Date of Service February 10, 2017. (Aki Daugherty MD) Discharge Summary Admission Date: February 08, 2017 at 18:06 Discharge Date: February 10, 2017 Discharge Disposition: Home Principal Diagnosis: Cerebellar Haemmorhage Immunizations: Have You Had Influenza Vaccine: N/A History of Tetanus Vaccine?: Unknown History of Pneumococcal: Yes Pneumococcal Date: Jul 21, 2010 History of Hepatitis B Vaccine: Unknown Consultations: Neurology (Aki Daugherty MD) Medication Reconciliation New Medications: Ropinirole HCl (Ropinirole HCl) 0.25 Mg Tab 0.25 MG PO DAILY@1900 for 14 Days, #14 TAB Continued Medications: Abiraterone Acetate (Zytiga) 250 Mg Tab 1000 MG PO DAILY Atorvastatin (Lipitor) 40 Mg Tab 40 MG PO DAILY, TAB Cholecalciferol (Vitamin D3) 2,000 Unit Cap 400 UNITS PO DAILY for 90 Days, CAP 3 Refills Coenzyme Q10 (Ubidecarenone) (Co Q 10) 100 Mg Cap 200 MG PO DAILY Glimepiride (Glimepiride) 1 Mg Tab 3 MG PO DAILY for 90 Days, #270 TAB 3 Refills Leuprolide Acetate (Lupron Depot) 22.5 Mg Kit 1 DOSE INJ UD EVERY 3 MONTHS Magnesium Chloride-Calcium Car (Slow-Mag) 1 Tab Tab 1 TAB PO BID Metformin Hcl (Glucophage) 1,000 Mg Tab 1000 MG PO BID, TAB Metoprolol Tartrate (Lopressor) 25 Mg Tab 25 MG PO BID, TAB Ocuvite Preservision (Ocuvite Preservision) 1 Tab Tab 1 TAB PO DAILY, TAB Omeprazole (Prilosec) 40 Mg Cap 40 MG PO DAILY, CAP Prednisone (Prednisone) 5 Mg Tab 5 MG PO BID, TAB Ruxolitinib Phosphate (Jakafi) 15 Mg Tab 15 MG PO BID Discontinued Medications: Dipyridamole/Aspirin (Aggrenox 25-200 mg) 1 Cap Cap 1 CAP PO BID for 90 Days, #180 CAP 3 Refills Discharge Exam Patient with no acute events overnight Patient did not sleep well because of all the noise on the [place] but said that it was manageable He said that his leg cramps did not occur yesterday evening after taking the ropinirole Review of Systems: Constitutional: No chills, No fever, No sweats Cardiovascular: No chest pain, No edema, No palpitations Neurologic: No balance problems, No numbness/tingling, No paralysis, No vertigo, No weakness Physical Exam: General Appearance: WD/WN, no apparent distress Eyes: normal inspection, PERRL, sclerae normal Neck: supple, no adenopathy, trachea midline Respiratory/Chest: lungs clear, normal breath sounds Cardiovascular: regular rate, rhythm, normal peripheral pulses, + systolic murmur (radiation to the carotids and best heard at LUSB) 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, no motor/sensory deficits , alert, normal mood/affect, oriented x 3 (Aki Daugherty MD) Review of Systems: Constitutional: No fever Respiratory: No shortness of breath Cardiovascular: No chest pain Neurologic: No memory loss, No numbness/tingling, No paralysis, No weakness Physical Exam: General Appearance: no apparent distress Respiratory/Chest: lungs clear, no respiratory distress Cardiovascular: regular rate, rhythm Abdomen / GI: normal bowel sounds, non tender, soft Neurologic/Psychiatric: alert, oriented x 3 Skin: warm/dry (Alessandra Nance M.D.) Hospital Course Patient was admitted on 02/08/2017 and was found to have a 1.5cm cerebellar bleed after presenting with nausea, dizziness and generalized weakness. In the ED he was found to have a 1.5cm cerebellar bleed. Neurology was consulted who then spoke to [facility] and it was decided that the patient did not need to be transferred to [facility] for surgery as the patient was hemodynamically stable and was clinically improving. The following day on 02/09/2017 the patient then had a CT scan of his brain which showed that the bleed had decreased in size from 1.5cm to 1cm. Throughout the patients hospital course he remained clinically stable and had no focal neurological deficits. On 02/09/2017 he brought up the fact that he had a one year history of leg cramps at night and the patient was started on a trial of ropinirole which he said helped his symptoms overnight. Patient had a repeat CT scan on 02/10/2017 in order to confirm that the bleed was not increasing in size. He was also told to follow up with neurology in 1 month in order to get a repeat MRI with and without contrast in order to confirm the resolution of the bleed. Patient was discharged on 02/10/2017 in a clinically stable condition (Of note the patient was found to have a 3-4/6 grade systolic murmur on exam which he was told she be followed up with cardiology as an outpatient in order to get an echo and evaluate the murmur) Total Time Spent: Less than 30 minutes This includes examination of the patient, discharge planning, medication reconciliation, and communication with other providers. (Aki Daugherty MD) I have reviewed the medical record and performed a history and physical examination of this patient today. I have discussed the case with Dr Daugherty. The above note reflects my findings, conclusions, and recommendations Aggrenox d/maryam. . Total Time Spent: Greater than 30 minutes (35) (Alessandra Nance M.D.) Discharge Instructions Please refer to the electronic Patient Visit Report (Discharge Instructions) for additional information. (Aki Daugherty MD) Additional Copies To Boy Hebert M.D.
[2017-02-10] MEDS: [UNRECOGNIZED DRUG - OTHER] PO SCH (09:00)
[2017-02-10] MEDS: RUXOLITINIB PHOSPHATE PO SCH (09:00)
[2017-02-10] MEDS: ABIRATERONE ACETATE 250 MG PO SCH (09:00)
--- NOTE | 2017-02-10 09:09 | DIAGNOSTIC IMAGING REPORT ---
CT HEAD WITHOUT CONTRAST (CT) CLINICAL HISTORY: Cerebellar Hemorrhage COMPARISON STUDY: 02-24 TECHNIQUE: Axial CT of the brain is performed from the vertex to the skull base. IV contrast was not administered for this examination. CT DOSE: 537.48 mGy.cm FINDINGS: There is a 1 cm hyperdense focus within the left posterior cerebellar hemisphere, consistent with a hemorrhagic focus. This remains similar to the preceding study. There is no midline shift. No additional areas of hemorrhage are visualized. There are patchy white matter hypodensities likely on a small vessel basis. There is no evidence of pathologic ventricular dilatation. There is no evidence of acute sinusitis IMPRESSION: Stable 1 cm left cerebellar hyperdense focus, consistent with the recently described hemorrhage. Electronically signed by: Ken Galvan M.D. 02/10/2017 9:08 AM Dictated Date/Time: 02/10/2017 9:05 AM
[2017-02-10] MEDS: METOPROLOL TARTRATE 25 MG TAB PO SCH (09:36)
[2017-02-10] MEDS: PANTOprazole SOD 40 MG TAB PO SCH (09:36)
[2017-02-10] MEDS: CHOLECALCIFEROL 400 INTER.UNIT TAB PO SCH (09:36)
[2017-02-10] MEDS: CEROVITE ADV FORMULA TAB PO SCH (09:36)
[2017-02-10] MEDS: ATORVASTATIN 40 MG TAB PO SCH (09:37)
--- NOTE | 2017-02-10 10:24 | Neurology Progress Notes ---
Neurology Progress Note Date of Service February 10, 2017. Subjective Follow-up for cerebellar hemorrhage and other issues The patient is an 81-year-old male who is admitted with a small left cerebellar hemorrhage on February 08. The hemorrhage has been stable on subsequent imaging. He completed the requested follow-up CT of the head this morning. I reviewed the images and radiologist's interpretation of this test. There is a stable, 1 cm, left cerebellar hemorrhage, without associated mass effect or effacement of the fourth ventricle. No evidence of an underlying enhancing lesion on brain MRI done recently. The patient continues to deny headache, dizziness, speech changes , or problems with coordination, balance, or motor control. The patient had also related a history of nocturnal leg cramps with an associated compulsion to kick and move the limbs and poor sleep quality. The symptoms have been present for many years and did not respond well to a previous trial of gabapentin. Requip was initiated last night for suspected restless leg syndrome. The patient reports considerable improvement in the nocturnal symptoms. Objective Date Time Temp Pulse Resp B/P Pulse Ox O2 Delivery O2 Flow Rate FiO2 02/10/17 07:46 36.6 68 18 130/78 96 Room Air 02/10/17 04:00 Room Air 02/10/17 03:25 36.5 75 18 114/55 98 Room Air 02/09/17 23:59 Room Air 02/09/17 23:47 36.4 71 18 138/71 98 Room Air 02/09/17 20:00 Room Air 02/09/17 19:46 36.5 83 16 158/80 98 Room Air 02/09/17 16:00 Room Air 02/09/17 15:29 36.7 67 18 121/69 96 Room Air 02/09/17 12:00 Room Air 02/09/17 11:06 36.8 68 20 136/66 97 Room Air Last 24 Hours Test 02/09/17 11:19 02/09/17 16:08 02/09/17 20:12 02/10/17 06:36 Bedside Glucose 113 mg/dl 89 mg/dl 115 mg/dl 129 mg/dl Test 02/10/17 06:50 White Blood Count 4.50 K/uL Red Blood Count 2.81 M/uL Hemoglobin 9.3 g/dL Hematocrit 28.0 % Mean Corpuscular Volume 99.6 fL Mean Corpuscular Hemoglobin 33.1 pg Mean Corpuscular Hemoglobin Concent 33.2 g/dl Platelet Count 163 K/uL Mean Platelet Volume 9.5 fL Neutrophils (%) (Auto) 82.0 % Lymphocytes (%) (Auto) 13.1 % Monocytes (%) (Auto) 3.3 % Eosinophils (%) (Auto) 0.7 % Basophils (%) (Auto) 0.2 % Neutrophils # (Auto) 3.69 K/uL Lymphocytes # (Auto) 0.59 K/uL Monocytes # (Auto) 0.15 K/uL Eosinophils # (Auto) 0.03 K/uL Basophils # (Auto) 0.01 K/uL RDW Standard Deviation 53.5 fL RDW Coefficient of Variation 14.7 % Immature Granulocyte % (Auto) 0.7 % Immature Granulocyte # (Auto) 0.03 K/uL Prothrombin Time 10.0 SECONDS Prothromb Time International Ratio 0.9 Sodium Level 140 mmol/L Potassium Level 4.5 mmol/L Chloride Level 105 mmol/L Carbon Dioxide Level 27 mmol/L Anion Gap 8.0 mmol/L Blood Urea Nitrogen 32 mg/dl Creatinine 1.30 mg/dl Est Creatinine Clear Calc Drug Dose 41.6 ml/min Estimated GFR () 58.5 Estimated GFR (Non- 50.5 BUN/Creatinine Ratio 24.2 Random Glucose 125 mg/dl Calcium Level 8.7 mg/dl Exam: Well-developed elderly male, no acute distress. Patient is alert and oriented to person place and time. Recent and remote memory intact. Patient exhibits a normal spontaneous speech pattern. Normal attention and concentration. Normal vocabulary. Visual giles full to confrontation. Pupils equal round active to light and accommodation. Eye movements intact. No nystagmus. There is no facial droop or facial asymmetry. Palate elevates to midline. Tongue protrudes to midline. Shoulder shrug and hearing intact. There is no pronator drift with outstretched arms. No dysmetria with finger to nose or heel to crowe. There is no dysdiadochokinesia. Gait and station normal. Current Inpatient Medications Medications (Trade) Dose Ordered Sig/Axel Route Start Time Stop Time Status Last Admin Dose Admin Gadobutrol (Gadavist) 7 mmol UD PRN IV 02/08/17 16:45 02/12/17 16:44 Miscellaneous Information (Pharmacist Discharge Med Rec Consult) 1 ea UD PRN N/A 02/08/17 18:00 03/10/17 17:59 Acetaminophen (Tylenol Tab) 650 mg Q4H PRN PO 02/08/17 18:00 03/10/17 17:59 Al Hydrox/Mg Hydrox/Simethicone (Maalox Max Susp) 15 ml Q4H PRN PO 02/08/17 18:00 03/10/17 17:59 Magnesium Hydroxide (Milk Of Magnesia Susp) 30 ml Q12H PRN PO 02/08/17 18:00 03/10/17 17:59 Ondansetron HCl (Zofran Inj) 4 mg Q6H PRN IV 02/08/17 18:00 03/10/17 17:59 02/09/17 12:42 4 MG Atorvastatin Calcium (Lipitor Tab) 40 mg DAILY PO 02/09/17 09:00 03/11/17 08:59 02/10/17 09:37 40 MG Metformin HCl (Glucophage Tab) 1,000 mg BIDM PO 02/09/17 07:30 03/11/17 07:29 02/10/17 07:27 1,000 MG Metoprolol Tartrate (Lopressor Tab) 25 mg BID PO 02/08/17 21:00 03/10/17 20:59 02/10/17 09:36 25 MG Multivitamins/ Minerals (Multivitamin W/ Minerals Tab) 1 tab DAILY PO 02/09/17 09:00 03/11/17 08:59 02/10/17 09:36 1 TAB Prednisone (PredniSONE TAB) 5 mg BID PO 02/08/17 21:00 03/10/17 20:59 02/10/17 09:36 5 MG Cholecalciferol (Vitamin D Tab) 400 inter.unit DAILY PO 02/09/17 09:00 03/11/17 08:59 02/10/17 09:36 400 INTER.UNIT Glimepiride (Amaryl Tab) 3 mg QDB PO 02/09/17 07:30 03/11/17 07:59 02/10/17 07:27 3 MG Non-Formulary Medication (Leuprolide Acetate (Lupron Depot)) 1 dose Q90D@0900 INJ 02/09/17 09:00 03/11/17 08:59 Pantoprazole Sodium (Protonix Tab) 40 mg DAILY PO 02/09/17 09:00 03/11/17 08:59 02/10/17 09:36 40 MG Insulin Aspart (novoLOG ASPART) SLIDING SCALE G... ACHS SC 02/08/17 21:00 03/10/17 20:59 Glucose (Glucose 40% Gel) 15-30 GRAMS 15 GRAMS... UD PRN PO 02/08/17 19:00 03/10/17 18:59 Glucose (Glucose Chew Tab) 4-8 Tablets 4 Tabl... UD PRN PO 02/08/17 19:00 03/10/17 18:59 Dextrose (Dextrose 50% 50ML Syringe) 25-50ML OF 50% DW IV FOR... UD PRN IV 02/08/17 19:00 03/10/17 18:59 Glucagon (Glucagon Inj) 1 mg UD PRN SQ 02/08/17 19:00 03/10/17 18:59 Abiraterone Acetate (Zytiga) 1,000 mg DAILY PO 02/09/17 13:00 03/11/17 12:59 02/10/17 09:00 1,000 MG Ropinirole HCl (Requip Tab) 0.25 mg DAILY@1900 PO 02/09/17 19:00 03/11/17 18:59 02/09/17 18:36 0.25 MG Impression Stable, 1 cm, left cerebellar hemorrhage. No ataxia or other associated deficits on neurological examination. No evidence of an underlying enhancing abnormality on recently completed brain MRI. Etiology of hemorrhage potentially related to hypertension, as documented on his initial, previous presentation on 02/06/2017. Restless leg syndrome, improved with recent trial of ropinirole. Plan Continue ropinirole 0.25 mg 2 hours before bedtime. Dosage may be increased depending on clinical status going forward. Plan for a follow-up brain MRI in one month to reassess his left cerebellar hemorrhage in further exclude the presence of an underlying lesion. PT/OT. No further immediate recommendations
[2017-02-10 11:17] VITALS: BP 130/78; PULSE 68; TEMP 36.6; O2SAT 96
--- NOTE | 2017-02-10 12:27 | Pharmacy Progress Note ---
Pharmacist Stroke Counseling Date of Service February 10, 2017. Scope Pharmacy has been consulted to provide medication discharge counseling for this patient admitted with ischemic stroke/hemorrhagic stroke/ transient ischemic attack as per the Pharmacist Discharge Counseling for Stroke Patients Protocol. Medications on Discharge New Medications: Ropinirole HCl (Ropinirole HCl) 0.25 Mg Tab 0.25 MG PO DAILY@1900 for 14 Days, #14 TAB Continued Medications: Abiraterone Acetate (Zytiga) 250 Mg Tab 1000 MG PO DAILY Atorvastatin (Lipitor) 40 Mg Tab 40 MG PO DAILY, TAB Cholecalciferol (Vitamin D3) 2,000 Unit Cap 400 UNITS PO DAILY for 90 Days, CAP 3 Refills Coenzyme Q10 (Ubidecarenone) (Co Q 10) 100 Mg Cap 200 MG PO DAILY Glimepiride (Glimepiride) 1 Mg Tab 3 MG PO DAILY for 90 Days, #270 TAB 3 Refills Leuprolide Acetate (Lupron Depot) 22.5 Mg Kit 1 DOSE INJ UD EVERY 3 MONTHS Magnesium Chloride-Calcium Car (Slow-Mag) 1 Tab Tab 1 TAB PO BID Metformin Hcl (Glucophage) 1,000 Mg Tab 1000 MG PO BID, TAB Metoprolol Tartrate (Lopressor) 25 Mg Tab 25 MG PO BID, TAB Ocuvite Preservision (Ocuvite Preservision) 1 Tab Tab 1 TAB PO DAILY, TAB Omeprazole (Prilosec) 40 Mg Cap 40 MG PO DAILY, CAP Prednisone (Prednisone) 5 Mg Tab 5 MG PO BID, TAB Ruxolitinib Phosphate (Jakafi) 15 Mg Tab 15 MG PO BID Discontinued Medications: Dipyridamole/Aspirin (Aggrenox 25-200 mg) 1 Cap Cap 1 CAP PO BID for 90 Days, #180 CAP 3 Refills Action The above medications, specifically ones for stroke treatment/prophylaxis, have been reviewed in detail with the patient and/or patient specialty sales representative(s) prior to discharge. This includes indication, common adverse reactions, drug interactions, and medication administration. Medication counseling has been employed using the teach-back method to ensure understanding. Outcome The patient and/or patient specialty sales representative(s) have demonstrated understanding of the medications. Please note, they are aware that the pharmacist will call them within 72 hours post-discharge to confirm that the appropriate medications are being taken and answer any further medication related questions the patient might have at that time. Contact information Individual to be contacted: Patient Relationship to patient (if applicable): Self Phone number: [phone] Best time to call: Anytime Additional comments: - Met with patient prior to discharge to review medications. He had a hemorrhagic stroke. No surgical intervention at this time as it is stable per patient report. Will follow up with Neurology and PCP. Patient feels back to baseline. States he was having confusion prior to hospital presentation. - He is aware that Aggrenox was D/C'd; explained that this is due to bleeding risk. - New diagnosis of restless legs. Requip has been started. Advised him to take every evening and medicinal plant picker Rx from his pharmacy later today. He thinks Requip is greatly helping. Advised him that PCP will need to issue Rx if he agrees for him to continue it as hospital Rx only for 2 weeks. Patient aware to f/u. - No other medications were changed. He continues on Lipitor (states it was held for a few weeks in the past to see if leg cramps improved, but as there was no change, he is now back on it). - He is already using pillboxes; has one for his chemo and another one for non- chemo meds. No other questions or concerns expressed. Thank you for allowing pharmacy to be involved in the care of this patient. Please call [phone] or [phone] with any additional questions
--- NOTE | 2017-02-12 11:48 | Pharmacy Progress Note ---
Pharmacist Post D/C Phone Note Date of phone call: February 12, 2017. The patient and/or patient pharmaceutical sales representative(s) were unable to be reached for a follow-up phone call within the 72 hour time frame. Discharge counseling pharmacist contact information has already been provided to the patient should questions arise. Thank you for allowing us to be involved in the care of this patient.
--- NOTE | 2017-02-12 12:55 | Pharmacy Progress Note ---
Pharmacist Post D/C Phone Note Medications Dose Route/Sig Max Daily Dose Days Date Category Dose Instructions Ropinirole HCl 0.25 Mg Tab 0.25 Mg PO DAILY@1900 14 02/10/17 Rx Zytiga (Abiraterone Acetate) 250 Mg Tab 1,000 Mg PO DAILY 02/06/17 Reported Vitamin D3 (Cholecalciferol) 2,000 Unit Cap 400 Units PO DAILY 90 02/06/17 Reported Slow-Mag (Magnesium Chloride-Calcium Car) 1 Tab Tab 1 Tab PO BID 02/06/17 Reported Prednisone 5 Mg Tab 5 Mg PO BID 02/06/17 Reported Prilosec (Omeprazole) 40 Mg Cap 40 Mg PO DAILY 02/06/17 Reported Ocuvite Preservision (Multivitamins/Minerals) 1 Tab Tab 1 Tab PO DAILY 02/06/17 Reported Lopressor (Metoprolol Tartrate) 25 Mg Tab 25 Mg PO BID 02/06/17 Reported Glucophage (Metformin Hcl) 1,000 Mg Tab 1,000 Mg PO BID 02/06/17 Reported Lupron Depot (Leuprolide Acetate) 22.5 Mg Kit 1 Dose INJ UD 02/06/17 Reported EVERY 3 MONTHS Jakafi (Ruxolitinib Phosphate) 15 Mg Tab 15 Mg PO BID 02/06/17 Reported Glimepiride 1 Mg Tab 3 Mg PO DAILY 90 02/06/17 Reported Co Q 10 (Coenzyme Q10 (Ubidecarenone)) 100 Mg Cap 200 Mg PO DAILY 02/06/17 Reported Lipitor (Atorvastatin Calcium) 40 Mg Tab 40 Mg PO DAILY 02/06/17 Reported Date of phone call: February 12, 2017. Individual with whom pharmacist spoke to: Patient The following questions were reviewed during the phone call with responses listed below each: Can you tell me the medications that you are currently taking as well as when and how you take each medication? - he did not have a list handy. HOWEVER, I confirmed he was taking Requip and Lipitor. I also confirmed that he stopped the Aggrenox (he understood why) When have you missed any doses of your medications? - no What side effects are you having from your medications? - patient denies fatigue with Requip. Does have a little diarrhea and I recommended that if it worsens that he should notify his doctor What questions do you have about your medications? - Patient asked that the doctor said to take 2 hours before bed but the prescription says 1900. he was wondering if he could take it closer to bed. I told him yes. What problems are you having obtaining your medications? - none When is your next appointment with your primary care doctor? - 2 weeks. He stated that he had to cancel his follow-up because he needed to see his oncologist that day. This was the only time the doctor could see the patient. Additional comments: - Mr Catalan appeared to have a good grasp on his disease state and medications. It was a pleasure to speak with him. As per the Pharmacist Discharge Counseling for Stroke Patients Protocol, this phone call has been completed within 72 hours of discharge. Thank you for allowing us to be involved in the care of this patient.
[2017-06-27] MEDS ORDERED: GLIM1TAB2 PO (13:07)
[2017-06-27] MEDS ORDERED: [UNRECOGNIZED DRUG - CODE] PO (13:07)
[2017-07-09] MEDS ORDERED: [UNRECOGNIZED DRUG - CODE] PO (09:29)
[2017-07-09] MEDS ORDERED: PRED-301 PO (09:29)
[2017-07-09] MEDS ORDERED: GLIM2TAB2 PO (09:29)
[2017-07-09] MEDS ORDERED: LPRI INJ (09:29)
[2017-07-09] MEDS ORDERED: calcium PO (09:29)
[2017-07-26] MEDS ORDERED: DRGTP12 SUBD (14:03)
[2017-08-06] MEDS ORDERED: DENOINJ INJ (15:19)
[2017-09-08] MEDS ORDERED: LEVE500T13 PO (15:36)
== END 2017-02-10 11:45 | disposition home or self-care (01) | DRG 66 ==
LOC: ENRESERVTM → ENRESERVDT → EDBD 14:15 → C.EDB 14:16 → C.2T 18:06
PROVIDERS: ADMIT Family Medicine; ATTEND Family Medicine
DX: I61.4 Nontraumatic intracerebral hemorrhage in cerebellum (principal); R01.1 Cardiac murmur, unspecified; G25.81 Restless legs syndrome; R25.2 Cramp and spasm; T46.6X5A Adverse effect of antihyperlipidemic and antiarteriosclerotic drugs, initial encounter; E86.0 Dehydration; M48.00 Spinal stenosis, site unspecified; E11.42 Type 2 diabetes mellitus with diabetic polyneuropathy; N18.3 Chronic kidney disease, stage 3 (moderate); I25.10 Atherosclerotic heart disease of native coronary artery without angina pectoris; K21.9 Gastro-esophageal reflux disease without esophagitis; E78.5 Hyperlipidemia, unspecified; E78.00 Pure hypercholesterolemia, unspecified; D64.9 Anemia, unspecified; C61 Malignant neoplasm of prostate; E55.9 Vitamin D deficiency, unspecified; I08.3 Combined rheumatic disorders of mitral, aortic and tricuspid valves; I65.29 Occlusion and stenosis of unspecified carotid artery; E11.22 Type 2 diabetes mellitus with diabetic chronic kidney disease; D45 Polycythemia vera; I12.9 Hypertensive chronic kidney disease with stage 1 through stage 4 chronic kidney disease, or unspecified chronic kidney disease; R91.1 Solitary pulmonary nodule; Z87.39 Personal history of other diseases of the musculoskeletal system and connective tissue; Z86.2 Personal history of diseases of the blood and blood-forming organs and certain disorders involving the immune mechanism; Z87.448 Personal history of other diseases of urinary system; Z86.73 Personal history of transient ischemic attack (TIA), and cerebral infarction without residual deficits; Z85.858 Personal history of malignant neoplasm of other endocrine glands; Z82.49 Family history of ischemic heart disease and other diseases of the circulatory system; Z83.3 Family history of diabetes mellitus; Z79.02 Long term (current) use of antithrombotics/antiplatelets; Z79.84 Long term (current) use of oral hypoglycemic drugs; Z79.899 Other long term (current) drug therapy; Z79.52 Long term (current) use of systemic steroids; R41.0 Disorientation, unspecified; E11.9 Type 2 diabetes mellitus without complications; I10 Essential (primary) hypertension; Z85.46 Personal history of malignant neoplasm of prostate

== ENCOUNTER → 2017-03-11 | Outpatient (CLI) | payer BC ==
[~2017-03-11] MED LIST changes: -AGG PO; +DENOINJ INJ; +DRGTP12 SUBD; +GABA1CAP4 PO; -GABA1CAP5 PO; +GADAVIST IV PRN; +GLIM2TAB2 PO; +LEVE500T13 PO; +LPRI INJ; +ONDA4TAB10 SL; +PRED10TA PO; +RQP25 PO; +[UNRECOGNIZED DRUG - CODE] PO; +calcium PO
--- NOTE | 2017-03-11 12:53 | DIAGNOSTIC IMAGING REPORT ---
MRI OF THE BRAIN WITHOUT AND WITH IV CONTRAST CLINICAL HISTORY: CEREBRAL HEMORRHAGE COMPARISON STUDY: 02/08/2017 TECHNIQUE: MRI of the brain was performed from the vertex to the skull base utilizing various T1 and T2 weighted sequences. Following the IV administration of 6.5 mL of Gadavist contrast, additional enhanced images were obtained. FINDINGS: Sagittal T1, axial diffusion, proton density and T2 weighted axial, coronal FLAIR, and pre and post axial T1-weighted images were acquired. These were supplemented with post gadolinium coronal T1 weighted images. Again evident is a hemorrhagic lesion within the left cerebellar hemisphere. This is heterogeneous slightly decreased signal on T1-weighted images. The lesion enhances intensely following administration of gadolinium. The enhancing component measures 1 cm. There is evidence for hemosiderin within the lesion. There is mild surrounding edema on FLAIR sequences. No additional enhancing lesions are visualized. This degree of enhancement would be atypical for a hemorrhage without an underlying lesion. Axial diffusion-weighted images reveal no evidence of acute or subacute infarction. There is no evidence of ventricular dilatation. Proton density T2-weighted and FLAIR images reveal scattered foci of increased T2 signal within the white matter, likely on a small vessel basis. There are no abnormal flow voids. IMPRESSION: 1. 1 cm hemorrhagic lesion within the left cerebellar hemisphere with moderately intense enhancement. Hemorrhage into an underlying lesion must be considered. 2. No evidence of acute or subacute infarction Electronically signed by: Ken Galvan M.D. 03/11/2017 12:52 PM Dictated Date/Time: 03/11/2017 12:37 PM
== END | disposition home or self-care (01) ==
LOC: C.MRIBC 11:40
PROVIDERS: ATTEND Physician Assistant
DX: I61.4 Nontraumatic intracerebral hemorrhage in cerebellum (principal)

== ENCOUNTER → 2017-04-01 | Outpatient (CLI) | payer BC ==
[~2017-04-01] MED LIST changes: -DENOINJ INJ; -DRGTP12 SUBD; -GADAVIST IV PRN; -LEVE500T13 PO
[2017-04-01 16:41] LABS: BASO % 0.3 %; BASO ABS # 0.02 K/uL (0-0.2); COMPLETE YES; EOS % 0.8 %; HEMATOCRIT 30.3 % (42-52); IG% 0.8 %; LYMPH % 9.7 %; LYMPH ABS # 0.57 K/uL (1.2-3.4); MEAN CELL VOLUME 98.1 fL (80-100); MEAN CORPUSCULAR HEMOGLOBIN 31.7 pg (25-34); MEAN CORPUSCULAR HGB CONC 32.3 g/dl (32-36); MEAN PLATELET VOLUME 10.3 fL (7.4-10.4); NEUT % 79.4 %; PLATELET COUNT 206 K/uL (130-400); RED BLOOD COUNT 3.09 M/uL (4.7-6.1); WHITE BLOOD COUNT 5.89 K/uL (4.8-10.8)
[2017-04-01 17:02] LABS: ALT/SGPT 23 U/L (12-78); BLOOD UREA NITROGEN 23 mg/dl (7-18); BUN/CREATININE RATIO 17.8 (10-20); CALCIUM 8.9 mg/dl (8.5-10.1); CARBON DIOXIDE 26 mmol/L (21-32); CHLORIDE 108 mmol/L (98-107); GLUCOSE 57 mg/dl (70-99); POTASSIUM 3.7 mmol/L (3.5-5.1); SODIUM 144 mmol/L (136-145)
[2017-04-01 17:06] LABS: ALB/GLOB RATIO 1.2 (0.9-2); ALKALINE PHOSPHATASE 104 U/L (45-117); AST/SGOT 30 U/L (15-37)
--- NOTE | 2017-05-14 08:27 | CODING QUERY NO DIAGNOSIS ---
TREATMENT RENDERED WITHOUT A DIAGNOSIS To promote full compliance with coding requirements relating to patient care, physician participation is requested in all cases of director nursing service uncertainty. Please assist us with providing a diagnosis/symptom for the test(s) below: A diagnosis/symptom was not documented on your Order. A valid diagnosis/symptom is required to bill all insurances. Please remember that we are unable to code a diagnosis of rule out, probable, possible, questionable, or suspected. Tests that require a diagnosis: * CBC W/ AUTO DIFF DIAGNOSIS: * CMP DIAGNOSIS: * PSA DIAGNOSIS: * LDH DIAGNOSIS: Provider Signature: Date: Thank you Fernanda Story [employer] Information Management Once completed, please kindly fax back to [phone] For questions please call [phone]
== END | disposition home or self-care (01) ==
LOC: C.LABBC 15:03
PROVIDERS: ATTEND Internal Medicine Hematology & Oncology
DX: C61 Malignant neoplasm of prostate (principal); C79.51 Secondary malignant neoplasm of bone; D45 Polycythemia vera; R97.20 Elevated prostate specific antigen [PSA]

== ENCOUNTER → 2017-05-11 | Outpatient (CLI) | payer BC ==
[2017-05-11 13:47] LABS: ALT/SGPT 19 U/L (12-78); AST/SGOT 28 U/L (15-37); BLOOD UREA NITROGEN 20 mg/dl (7-18); BUN/CREATININE RATIO 16.4 (10-20); CALCIUM 9.1 mg/dl (8.5-10.1); CARBON DIOXIDE 29 mmol/L (21-32); CHLORIDE 109 mmol/L (98-107); GLUCOSE 171 mg/dl (70-99); SODIUM 143 mmol/L (136-145)
[2017-05-11 13:51] LABS: ALB/GLOB RATIO 1.2 (0.9-2); ALKALINE PHOSPHATASE 161 U/L (45-117)
== END | disposition home or self-care (01) ==
LOC: C.LABBC 11:03
PROVIDERS: ATTEND Internal Medicine Hematology & Oncology
DX: C61 Malignant neoplasm of prostate (principal); C79.51 Secondary malignant neoplasm of bone; D45 Polycythemia vera

== ENCOUNTER → 2017-06-03 | Outpatient (CLI) | payer BC ==
[2017-06-03 14:14] LABS: ESTIMATED AVERAGE GLUCOSE 146 mg/dl; HA1C FLAG Normal (Normal)
[2017-06-03 15:00] LABS: ALT/SGPT 19 U/L (12-78); BLOOD UREA NITROGEN 21 mg/dl (7-18); CALCIUM 8.8 mg/dl (8.5-10.1); CARBON DIOXIDE 28 mmol/L (21-32); CHLORIDE 108 mmol/L (98-107); GLUCOSE 104 mg/dl (70-99); POTASSIUM 3.8 mmol/L (3.5-5.1); SODIUM 143 mmol/L (136-145)
[2017-06-03 15:11] LABS: ALB/GLOB RATIO 1.3 (0.9-2); ALKALINE PHOSPHATASE 163 U/L (45-117); AST/SGOT 26 U/L (15-37)
--- NOTE | 2017-06-09 13:43 | CODING QUERY MEDICAL NECESSITY ---
SUPPORTING DIAGNOSIS NEEDED A supporting diagnosis is required for the test/procedure performed on this patient in order for us to be reimbursed by the patient's insurance. Please provide a supporting diagnosis for the following test/procedure listed below next to the test name along with your signature. *If there is no additional diagnosis for this patient that would support the following test/procedure please document that below next to the test/procedure. Test(s)/Procedure(s) that require a supporting diagnosis: * HEMOGLOBIN A1C DIAGNOSIS: Provider Signature: Date: Thank you Fernanda Story [facility] Information Management Once completed, please kindly fax back to [phone] For questions please call [phone]
== END | disposition home or self-care (01) ==
LOC: C.LABBC 10:29
PROVIDERS: ATTEND Internal Medicine
DX: I10 Essential (primary) hypertension (principal); E11.40 Type 2 diabetes mellitus with diabetic neuropathy, unspecified

== ENCOUNTER 2017-06-08 12:12 | Emergency (ER) | payer BC ==
[~2017-06-08] VITALS: Ht 172.7 cm; Wt 70.8 kg
[~2017-06-08 12:12] MED LIST changes: -GABA1CAP4 PO; -GLIM2TAB2 PO; -LPRI INJ; -ONDA4TAB10 SL; -PRED10TA PO; -[UNRECOGNIZED DRUG - CODE] PO; -calcium PO
[2017-06-08 12:30] VITALS: O2SAT 97; Ht 172.7 cm; Wt 70.8 kg
--- NOTE | 2017-06-08 13:17 | EMERGENCY ROOM VISIT NOTE ---
History First contact with patient: 12:55 Chief Complaint: SYNCOPE (NEAR SYNCOPE) Stated Complaint: NEAR SYNCOPE Nursing Triage Summary: Pt fell today while at [place]. He was able to catch himself, but substained small lacerations to his left hand. Pt has been having some on/off nausea the past 2 days. Pt denies any vomiting/pain/SOB. EMS reported patient to be hypotensive prior to starting IV fluids. Pt's color and BP improved after IV fluid bolus. History of Present Illness The patient is a 82 year old male who presents to the Emergency Room via EMS with complaints of syncope this morning. The patient states over the past 2 days, he "just hasn't felt right". The patient states he has not eaten or drinking much in the past few days, and has had nothing today. The patient was attempting donuts this morning to get breakfast on his way to visit his in the hospital, when he began feeling lightheaded and dizzy. The patient also reports nausea at the time. He states he felt like he may pass out, so attempted to walk from the line and [employer] outside so that he did not pass out in the store. The patient states he did not make it outside, and awoke on the ground. The patient has no recollection of the syncope. He states he believes he hit his left hand on the floor. The patient does present with bleeding and skin tears on his posterior left hand and wrist. The patient states he does have a history of type 2 diabetes, and did not check his blood sugar this morning, but does not feel that his blood sugar was the issue. The patient denies any chest pain, trouble breathing, abdominal pain, changes in bowel or bladder habits, fever, chills, or any symptoms now including nausea, lightheadedness, dizziness. The patient states he has not been feeling well since his has been in the hospital. Per EMS, the patient did appear pale and had a blood pressure of 70 systolic on their initial evaluation. They did give him a 700 mL bolus of normal saline solution, and his blood pressure did increase in the emergency department to 160 systolic. Blood glucose level per EMS was 1:30. Review of Systems A complete 10 point review of systems was reviewed with the patient with pertinent positives and negatives as per history of present illness. All else were negative. Past Medical/Surgical History Medical Problems: (1) Diabetes (2) Hypercholesteremia (3) Hypertension (4) Polycythemia vera (5) Prostate cancer (6) TIA (transient ischemic attack) (7) Vasovagal syncope Family History Diabetes mellitus Hypertension Social History Smoking Status: Never Smoker Alcohol Use: occasionally Drug Use: none Marital Status: Housing Status: lives with significant other Occupation Status: retired Current/Historical Medications Scheduled Abiraterone Acetate (Zytiga), 1,000 MG PO DAILY Atorvastatin (Lipitor), 40 MG PO DAILY Cholecalciferol (Vitamin D3), 400 UNITS PO DAILY Coenzyme Q10 (Ubidecarenone) (Co Q 10), 200 MG PO DAILY Glimepiride (Glimepiride), 3 MG PO DAILY Leuprolide Acetate (Lupron Depot), 1 DOSE INJ UD Metformin Hcl (Glucophage), 1,000 MG PO BID Metoprolol Tartrate (Lopressor), 25 MG PO BID Ocuvite Preservision (Ocuvite Preservision), 1 TAB PO DAILY Omeprazole (Prilosec), 40 MG PO DAILY Prednisone (Prednisone), 5 MG PO BID Ropinirole HCl (Ropinirole HCl), 0.25 MG PO DAILY@1900 Ruxolitinib Phosphate (Jakafi), 15 MG PO BID Physical Exam Vital Signs Date Time Temp Pulse Resp B/P (MAP) Pulse Ox O2 Delivery O2 Flow Rate FiO2 06/08/17 17:49 36.9 66 18 145/75 97 06/08/17 17:47 66 145/75 97 Room Air 06/08/17 16:07 65 18 152/71 97 Room Air 06/08/17 14:47 62 18 06/08/17 14:42 62 12 97 06/08/17 14:12 64 22 98 06/08/17 13:42 63 16 06/08/17 13:12 68 17 93 06/08/17 12:53 64 06/08/17 12:30 97 Room Air 06/08/17 12:30 36.9 70 18 164/67 96 Room Air 06/08/17 12:25 164/67 Physical Exam VITALS: Vitals are noted on the nurse's note and reviewed by myself. Vital signs stable. GENERAL: This is an 82-year-old white male, in no acute distress, nondiaphoretic , well-developed well-nourished. SKIN: Several small, 1-2 cm in length skin tears on the posterior aspect of the left hand and wrist. These are very superficial in nature and are not actively bleeding at the time of my examination. The skin was without rashes, erythema, edema, or bruising. There is no tenting of the skin. Capillary reflex less than 2 seconds. HEAD: Normocephalic atraumatic. EARS: External auditory canals clear, tympanic membranes pearly rainey without erythema or effusion bilaterally. EYES: Pupils equal round and reactive to light and accommodation. Conjunctivae without injection, sclerae without icterus. Extraocular movements intact. NOSE: Patent, turbinates without inflammation or discharge. No sinus tenderness. MOUTH: Mucous membranes moist. Tonsils are not enlarged. Pharynx without erythema or exudate. Uvula midline. Airway patent. Tongue does not deviate. NECK: Supple without nuchal rigidity. No lymphadenopathy. No thyromegaly. Cervical spine is nontender. No JVD. HEART: Regular rate and rhythm without murmurs gallops or rubs. LUNGS: Clear to auscultation bilaterally without wheezes, rales or rhonchi. No dullness to percussion. No retractions or accessory muscle use. ABDOMEN: Positive bowel sounds x 4. Normal tympanic percussion. Soft, nontender, without masses or organomegaly. Simeon sign negative. No guarding or rebound tenderness. MUSCULOSKELETAL: No muscle atrophy, erythema, or edema noted. Full range of motion without joint tenderness in all extremities. No tenderness to palpation. Normal gait. Strength 5/5 throughout. NEURO: Patient was alert and oriented to person place and time. Normal sensation to light and sharp touch. Deep tendon reflexes 2+ throughout. No focal neurological deficits. Medical Decision & Procedures ER Provider Diagnostic Interpretation: CBC did show anemia. I did compare the CBC with the patient's previous blood counts, the most recent which was performed in March. This has been stable. The patient is under the care of a bed control specialist. Otherwise, no leukocytosis or thrombocytopenia. CMP showed normal electrolytes. The patient's kidney and liver function were normal as well. Initial troponin was negative. A second troponin was drawn 2 hours later and was [] CT Head without Contrast: Findings: The paranasal sinuses and mastoid air cells are clear. The calvarium and skull base are intact. There is no mass, midline shift, acute infarct. White matter hypodensity is nonspecific but suggestive of microvascular ischemic change. The ventricles and sulci demonstrate mild age-related involutional changes. Decreased density within the 1 cm left cerebellar hyperdense/hemorrhagic focus. This is consistent with interval improvement. Impression: Improvement in the 1 cm left cerebellar hyperdense/hemorrhagic focus. Otherwise, no acute abnormality identified within the brain. CT C-Spine without Contrast: FINDINGS: Craniocervical junction is intact. There is no acute cervical spine fracture. Moderate multilevel degenerative disc disease and severe multilevel facet arthrosis is present. There is no prevertebral edema. IMPRESSION: No acute cervical spine fracture or subluxation. CXR: FINDINGS: The cardiac and mediastinal contours remain stable. There is bibasal atelectasis/scarring. There is no failure. There is no acute parenchymal consolidation. No pleural effusions are visualized. IMPRESSION: Stable bibasal atelectasis/scarring. No acute findings. Laboratory Results 06/08/17 13:49 Red Blood Count 3.14, Mean Corpuscular Volume 94.9, Mean Corpuscular Hemoglobin 30.3, Mean Corpuscular Hemoglobin Concent 31.9, Mean Platelet Volume 9.8, Neutrophils (%) (Auto) 77.1, Lymphocytes (%) (Auto) 8.2, Monocytes (%) (Auto) 13.0, Eosinophils (%) (Auto) 1.1, Basophils (%) (Auto) 0.2, Neutrophils # (Auto ) 4.15, Lymphocytes # (Auto) 0.44, Monocytes # (Auto) 0.70, Eosinophils # (Auto ) 0.06, Basophils # (Auto) 0.01 06/08/17 13:49 Test 06/08/17 13:05 06/08/17 13:44 06/08/17 13:49 06/08/17 16:12 Creatine Kinase MB Ratio (0-3.0) Urine Color YELLOW Urine Appearance CLEAR (CLEAR) Urine pH 7.0 (4.5-7.5) Urine Specific [place] 1.013 (1.000-1.030) Urine Protein NEG (NEG) Urine Glucose (UA) NEG (NEG) Urine Ketones NEG (NEG) Urine Occult Blood NEG (NEG) Urine Nitrite NEG (NEG) Urine Bilirubin NEG (NEG) Urine Urobilinogen NEG (NEG) Urine Leukocyte Esterase NEG (NEG) White Blood Count 5.38 K/uL (4.8-10.8) Red Blood Count 3.14 M/uL (4.7-6.1) Hemoglobin 9.5 g/dL (14.0-18.0) Hematocrit 29.8 % (42-52) Mean Corpuscular Volume 94.9 fL (80-100) Mean Corpuscular Hemoglobin 30.3 pg (25-34) Mean Corpuscular Hemoglobin Concent 31.9 g/dl (32-36) Platelet Count 189 K/uL (130-400) Mean Platelet Volume 9.8 fL (7.4-10.4) Neutrophils (%) (Auto) 77.1 % Lymphocytes (%) (Auto) 8.2 % Monocytes (%) (Auto) 13.0 % Eosinophils (%) (Auto) 1.1 % Basophils (%) (Auto) 0.2 % Neutrophils # (Auto) 4.15 K/uL (1.4-6.5) Lymphocytes # (Auto) 0.44 K/uL (1.2-3.4) Monocytes # (Auto) 0.70 K/uL (0.11-0.59) Eosinophils # (Auto) 0.06 K/uL (0-0.5) Basophils # (Auto) 0.01 K/uL (0-0.2) RDW Standard Deviation 49.4 fL (36.4-46.3) RDW Coefficient of Variation 14.4 % (11.5-14.5) Immature Granulocyte % (Auto) 0.4 % Immature Granulocyte # (Auto) 0.02 K/uL (0.00-0.02) Anion Gap 7.0 mmol/L (3-11) Est Creatinine Clear Calc Drug Dose 48.4 ml/min Estimated GFR () 71.1 Estimated GFR (Non- 61.3 BUN/Creatinine Ratio 17.8 (10-20) Calcium Level 8.7 mg/dl (8.5-10.1) Total Bilirubin 1.2 mg/dl (0.2-1) Aspartate Amino Transf (AST/SGOT) 18 U/L (15-37) Alanine Aminotransferase (ALT/SGPT) 14 U/L (12-78) Alkaline Phosphatase 184 U/L (45-117) Creatine Kinase MB 0.8 ng/ml (0.5-3.6) Troponin I < 0.015 ng/ml (0-0.045) Total Protein 6.7 gm/dl (6.4-8.2) Albumin 3.4 gm/dl (3.4-5.0) Globulin 3.3 gm/dl (2.5-4.0) Albumin/Globulin Ratio 1.0 (0.9-2) Bedside Troponin I < 0.030 ng/ml (0-0.045) ECG Indication: syncope Rate (beats per minute): 64 Rhythm: normal sinus Findings: no acute ischemic change Comparison ECG Date: 1996 Change: no significant change ED Course The patient was seen and evaluated as above. Labs, EKG, chest x-ray, head and neck CT scans were ordered. These results were reviewed by myself and reviewed with the patient and his son at bedside. I discussed the case with Dr. Shahid, who did independently see and evaluate the patient. A second troponin level was ordered and was negative. Skin tears on the patient's left hand were cleaned with sterile saline solution and bandaged with Steri-Strips. The patient was discharged home in good condition. Medical Decision The patient was seen for a possible syncopal episode today. The patient is uncertain if he actually passed out, however it does seem that way. The patient has been under a significant amount of stress, and has not been eating or drinking as he normally would. I do feel that the patient's symptoms are related to a vasovagal syncope and possible hypotension. Differential diagnosis includes: Syncope, hypotension, acute coronary syndrome, acute TN, pneumonia, urinary tract infection, cervical spine fracture, skull fracture, intracranial hemorrhage, malignancy, and others. Medication Reconcilliation Current Medication List: was personally reviewed by me Blood Pressure Screening Patient's blood pressure: Normal blood pressure Impression Primary Impression: Vasovagal syncope Additional Impression: Skin tear Departure Information Dispostion Home / Self-Care Condition GOOD Referrals Boy Hebert M.D. (PCP) Patient Instructions ED Syncope Vasovagal, My [facility] Additional Instructions You were seen in the emergency department today for a syncopal episode. We have ruled out any acute injury or cause of the syncopal episode. I suspect that your blood pressure dropped, which caused you to pass out. Please drink plenty of fluids and stay well-hydrated. Please get plenty of rest today. Avoid any vigorous physical activity. Your wounds were bandaged with Steri-Strips. These will fall off on their own. Please leave them in place to help with healing underneath. Please watch for signs of infection of the wounds, including increased redness, puslike drainage, swelling, fever, chills, nausea, vomiting, or increased pain. If any of these occur, seek care in the emergency department for further evaluation and management. Check with your PCP regarding your last tetanus vaccination. If this was not within 10 years, you should have them give you one. Follow-up in 1-2 days with your PCP for further evaluation of your symptoms. Follow-up this week with your bed control specialist regarding anemia. Return to the emergency department for any chest pain, trouble breathing, abdominal pain, nausea, vomiting, passing out, headache, dizziness, or other concerning symptoms. Problem Qualifiers
[2017-06-08 14:03] LABS: BASO % 0.2 %; BASO ABS # 0.01 K/uL (0-0.2); COMPLETE YES; EOS % 1.1 %; HEMATOCRIT 29.8 % (42-52); IG% 0.4 %; LYMPH % 8.2 %; LYMPH ABS # 0.44 K/uL (1.2-3.4); MEAN CELL VOLUME 94.9 fL (80-100); MEAN CORPUSCULAR HEMOGLOBIN 30.3 pg (25-34); MEAN CORPUSCULAR HGB CONC 31.9 g/dl (32-36); MEAN PLATELET VOLUME 9.8 fL (7.4-10.4); NEUT % 77.1 %; PLATELET COUNT 189 K/uL (130-400); RED BLOOD COUNT 3.14 M/uL (4.7-6.1); WHITE BLOOD COUNT 5.38 K/uL (4.8-10.8)
[2017-06-08 14:16] LABS: URINE APPEARANCE CLEAR (CLEAR); URINE BILIRUBIN NEG (NEG); URINE COLOR YELLOW; URINE NITRITE NEG (NEG); URINE SPECIFIC GRAVITY 1.013 (1.000-1.030); UROBILINOGEN NEG (NEG); ZZUR CULT IF INDIC CLEAN CATCH NO
[2017-06-08 14:20] LABS: ALT/SGPT 14 U/L (12-78); AST/SGOT 18 U/L (15-37); BLOOD UREA NITROGEN 20 mg/dl (7-18); BUN/CREATININE RATIO 17.8 (10-20); CALCIUM 8.7 mg/dl (8.5-10.1); CARBON DIOXIDE 25 mmol/L (21-32); CHLORIDE 107 mmol/L (98-107); GLUCOSE 85 mg/dl (70-99); POTASSIUM 3.8 mmol/L (3.5-5.1); SODIUM 139 mmol/L (136-145)
[2017-06-08 14:20] LABS: MANUAL MICROSCOPIC REQUIRED? NO; REVIEW REQ? NO
[2017-06-08 14:25] LABS: ALKALINE PHOSPHATASE 184 U/L (45-117)
--- NOTE | 2017-06-08 15:26 | DIAGNOSTIC IMAGING REPORT ---
CT OF THE CERVICAL SPINE WITHOUT CONTRAST CLINICAL HISTORY: Syncope. Possible head injury. COMPARISON STUDY: Cervical spine radiographs November 13, 2013. TECHNIQUE: Helical axial images of the cervical spine were obtained without IV contrast. Sagittal and coronal reconstructions were viewed. A dose lowering technique was utilized adhering to the principles of ALARA. FINDINGS: Craniocervical junction is intact. There is no acute cervical spine fracture. Moderate multilevel degenerative disc disease and severe multilevel facet arthrosis is present. There is no prevertebral edema. IMPRESSION: No acute cervical spine fracture or subluxation. Electronically signed by: Jimmy Salomon M.D. 06/08/2017 3:25 PM Dictated Date/Time: 06/08/2017 3:19 PM
--- NOTE | 2017-06-08 15:28 | DIAGNOSTIC IMAGING REPORT ---
HEAD CT NONCONTRAST CT DOSE: 1088.61 mGy.cm HISTORY: syncope, possible head injury TECHNIQUE: Multiaxial CT images of the head were performed without the use of intravenous contrast. Automated exposure control was utilized for this study. A dose lowering technique was utilized adhering to the principles of ALARA. Comparison: Head CT 02/10/2017. Findings: The paranasal sinuses and mastoid air cells are clear. The calvarium and skull base are intact. There is no mass, midline shift, acute infarct. White matter hypodensity is nonspecific but suggestive of microvascular ischemic change. The ventricles and sulci demonstrate mild age-related involutional changes. Decreased density within the 1 cm left cerebellar hyperdense/hemorrhagic focus. This is consistent with interval improvement. Impression: Improvement in the 1 cm left cerebellar hyperdense/hemorrhagic focus. Otherwise, no acute abnormality identified within the brain. Electronically signed by: Stephan Tracy M.D. 06/08/2017 3:26 PM Dictated Date/Time: 06/08/2017 3:23 PM
--- NOTE | 2017-06-08 15:48 | EMERGENCY ROOM VISIT NOTE ---
ED Visit Note First contact with patient: 12:55 Patient was seen by our PA/MEDICAL CLERK. I was involved in the patient's care and did evaluate the patient myself. I was involved in the care throughout the ER stay. The patient presents with syncope or near syncope. He admits that he has been off schedule and feels thirsty. He is very likely dehydrated. He received IV saline, his blood pressure is improved and he feels markedly better. Imaging and laboratory testing is unremarkable. He has no complaints at the present and will be discharged home.
--- NOTE | 2017-06-08 16:33 | DIAGNOSTIC IMAGING REPORT ---
CHEST 2 VIEWS ROUTINE CLINICAL HISTORY: syncope COMPARISON STUDY: October 12, 2016 FINDINGS: The cardiac and mediastinal contours remain stable. There is bibasal atelectasis/scarring. There is no failure. There is no acute parenchymal consolidation. No pleural effusions are visualized.[ IMPRESSION: Stable bibasal atelectasis/scarring. No acute findings. Electronically signed by: Ken Galvan M.D. 06/08/2017 4:32 PM Dictated Date/Time: 06/08/2017 4:31 PM
[2017-06-08 17:49] VITALS: BP 145/75; PULSE 66; TEMP 36.9; O2SAT 97
[2017-06-27] MEDS ORDERED: GLIM1TAB2 PO (13:07)
[2017-06-27] MEDS ORDERED: [UNRECOGNIZED DRUG - CODE] PO (13:07)
[2017-07-09] MEDS ORDERED: [UNRECOGNIZED DRUG - CODE] PO (09:29)
[2017-07-09] MEDS ORDERED: LPRI INJ (09:29)
[2017-07-09] MEDS ORDERED: PRED-301 PO (09:29)
[2017-07-09] MEDS ORDERED: GLIM2TAB2 PO (09:29)
[2017-07-09] MEDS ORDERED: calcium PO (09:29)
== END 2017-06-08 17:50 | disposition home or self-care (01) ==
LOC: EDBD 12:12 → C.EDC 12:13
DX: R55 Syncope and collapse (principal); S61.412A Laceration without foreign body of left hand, initial encounter; X58.XXXA Exposure to other specified factors, initial encounter; E11.9 Type 2 diabetes mellitus without complications; E78.00 Pure hypercholesterolemia, unspecified; I10 Essential (primary) hypertension; D45 Polycythemia vera; Z86.73 Personal history of transient ischemic attack (TIA), and cerebral infarction without residual deficits; Z80.42 Family history of malignant neoplasm of prostate; Z79.84 Long term (current) use of oral hypoglycemic drugs; Z79.899 Other long term (current) drug therapy

== ENCOUNTER 2017-06-15 10:49 | Emergency (ER) | payer BC ==
[~2017-06-15] VITALS: Ht 172.7 cm; Wt 69.0 kg
[~2017-06-15 10:49] MED LIST changes: -MAGNTAB17 PO
[2017-06-15 10:59] VITALS: Ht 172.7 cm; Wt 69.0 kg
[2017-06-15] MEDS ORDERED: SODIUM CHLORIDE 0.9% 1000ML 1,000 ML IV STA (12:05)
[2017-06-15] MEDS ORDERED: ONDANSETRON INJ 2 MG/ML 2 ML VIAL IV STA (12:05)
[2017-06-15 12:10] VITALS: O2SAT 97
[2017-06-15 12:18] LABS: BASO % 0.4 %; BASO ABS # 0.02 K/uL (0-0.2); COMPLETE YES; EOS % 0.7 %; HEMATOCRIT 28.5 % (42-52); IG% 0.2 %; LYMPH % 8.1 %; LYMPH ABS # 0.46 K/uL (1.2-3.4); MEAN CELL VOLUME 93.1 fL (80-100); MEAN CORPUSCULAR HGB CONC 33.3 g/dl (32-36); MEAN PLATELET VOLUME 9.9 fL (7.4-10.4); MONO % 3.9 %; NEUT % 86.7 %; PLATELET COUNT 188 K/uL (130-400); RED BLOOD COUNT 3.06 M/uL (4.7-6.1)
[2017-06-15 12:38] LABS: BUN/CREATININE RATIO 14.3 (10-20); CREATININE 1.1 mg/dl (0.60-1.40); POTASSIUM 3.6 mmol/L (3.5-5.1)
[2017-06-15 12:39] LABS: URINE APPEARANCE CLEAR (CLEAR); URINE BILIRUBIN NEG (NEG); URINE COLOR YELLOW; URINE NITRITE NEG (NEG); URINE PH 5.5 (4.5-7.5); URINE SPECIFIC GRAVITY 1.015 (1.000-1.030); UROBILINOGEN NEG (NEG)
[2017-06-15 12:41] LABS: ALB/GLOB RATIO 1.1 (0.9-2)
[2017-06-15 12:57] LABS: MANUAL MICROSCOPIC REQUIRED? NO; REVIEW REQ? NO
[2017-06-15 13:32] LABS: PROTHROMBIN TIME (PATIENT) 10.9 SECONDS (9.0-12.0)
--- NOTE | 2017-06-15 13:34 | DIAGNOSTIC IMAGING REPORT ---
CHEST ONE VIEW PORTABLE HISTORY: 82 years-old Male EVALUATE ALTERED MENTAL STATUS/WEAKNESS acute altered mental status. Initial exam. COMPARISON: Chest radiograph 06/08/2017 TECHNIQUE: Portable upright AP view of the chest FINDINGS: Cardiac silhouette is within normal limits. There is atherosclerosis of the aorta. No pneumothorax or pleural effusion. Unchanged subsegmental linear perihilar and medial bilateral lung base opacities are again seen. No lobar airspace consolidation. The bones are grossly intact. IMPRESSION: 1. No acute cardiopulmonary process. 2. Unchanged perihilar and bilateral medial lung base subsegmental atelectasis/scarring. The above report was generated using voice recognition software. It may contain grammatical, syntax or spelling errors. Electronically signed by: Bala Potts M.D. 06/15/2017 1:33 PM Dictated Date/Time: 06/15/2017 1:32 PM
--- NOTE | 2017-06-15 13:47 | DIAGNOSTIC IMAGING REPORT ---
CT SCAN OF THE BRAIN WITHOUT IV CONTRAST CLINICAL HISTORY: Weakness. Change in mental status. COMPARISON STUDY: CT the brain dated 06/08/2017 and MRI of the brain dated 03/11/2017. TECHNIQUE: Unenhanced axial CT scan of the brain is performed from the vertex to the skull base. CT DOSE: 729.78 mGycm FINDINGS: Brain parenchyma: There are age-related involutional changes noting moderate confluent subcortical and periventricular microangiopathic change. There is no mass effect or evidence of acute territorial ischemia by CT criteria. A 1.0 cm hyperdense lesion in the left cerebellar hemisphere is unchanged from previous. No additional foci of potential hemorrhage are identified. Alcantara-white matter is preserved. No extra-axial fluid collection is seen. Ventricles, sulci, cisterns: Prominent secondary to involutional change. Intracranial vasculature: There is atherosclerotic calcification of the cavernous carotid and vertebral arteries. Calvarium: Unremarkable. Sinuses and mastoids: Trace mucosal thickening is seen in the left maxillary antrum. The remaining visualized paranasal sinuses are clear. The mastoid air cells are well pneumatized. Orbits: The bony orbits are grossly intact. IMPRESSION: 1. No significant change in the appearance of a presumably hemorrhagic nodule in the left cerebral hemisphere as compared to 06/08/2017. 2. No additional foci of hemorrhage are identified. There is no mass effect or evidence of acute territorial ischemia by CT criteria. Electronically signed by: Sunday Geller M.D. 06/15/2017 1:46 PM Dictated Date/Time: 06/15/2017 1:39 PM
[2017-06-15 13:57] LABS: BETA-HYDROXYBUTYRATE 2.29 mg/dL (0.2-2.81); CKMB/CK RATIO 0.9 (0-3.0); MAGNESIUM 1.4 mg/dl (1.8-2.4)
[2017-06-15] MEDS ORDERED: MAGNESIUM SULFATE 1GM / D5W 1 GM BAG IV STA (14:46)
--- NOTE | 2017-06-15 15:59 | DIAGNOSTIC IMAGING REPORT ---
LEFT KNEE 2 VIEWS CLINICAL HISTORY: Fall. FINDINGS: AP and crosstable lateral portable views of left knee are compared to study dated 12/24/2016. The skeletal structures are osteopenic. No fracture is seen. There is mild to moderate tricompartmental degenerative joint space narrowing. There are tiny medial marginal osteophytes. No joint effusion is identified. Mild prepatellar soft tissue swelling is noted. There is advanced atherosclerotic calcification of the popliteal artery. IMPRESSION: 1. Mild prepatellar soft tissue swelling with no radiographic evidence of left knee fracture. 2. Osteopenia and arthritic change as above. Electronically signed by: Sunday Geller M.D. 06/15/2017 3:26 PM Dictated Date/Time: 06/15/2017 3:25 PM
[2017-06-15] MEDS ORDERED: ONDA4TAB10 SL (17:41)
[2017-06-15 17:49] VITALS: BP 134/71; PULSE 83; TEMP 36.3; O2SAT 96
--- NOTE | 2017-06-15 17:52 | EMERGENCY ROOM VISIT NOTE ---
History Report prepared by Macy: Stan Brice Under the Supervision of: Dr. Arias Patel D.O. First contact with patient: 11:51 Chief Complaint: NAUSEA Stated Complaint: PASSED OUT/FELL X 1 WK, SINCE THEN-N,V,DIZZY,SOREK Nursing Triage Summary: pt states dizziness and nausea intermittent x 1 week. pt states fell one week ago with vomiting. Pt states mild dizziness at this time, nausea worsening today. Pt states diabetic. Daughter in law at bedside. No distress noted. denies needs. History of Present Illness The patient is a 82 year old male who presents to the Emergency Room with complaints of persistent nausea beginning one week ago. 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 He has had surgery to remove the cancer from his lung. He notes that he has a history of bleeding on the brain a few months ago. The patient also complains of chills. He states that he was in the hospital with his about a week ago, and passed out after walking to the cafeteria. He states that he passed out due to his left leg feeling weak. He states that he hasn't "felt right" since this episode. He states that he injured his right knee during the fall, but did not hit his head. The patient denies any headache, neck pain, abdominal pain, cough , fevers, urinary symptoms, or back pain. He states that he has been drinking a lot of water and Gatorade recently, but has still felt dehydrated. Per family, the patient vomited once earlier this week, and previously had a headache. Source of History: patient, family Onset: one week ago Quality: other (nausea) Timing: other (persistent) Associated Symptoms: + chills, + headache (resolved), + vomiting, No fevers , No cough, No neck pain, No abdominal pain, No back pain, No urinary symptoms Review of Systems See HPI for pertinent positives & negatives. A total of 10 systems reviewed and were otherwise negative. Past Medical & Surgical Medical Problems: (1) Diabetes (2) Hypercholesteremia (3) Hypertension (4) Polycythemia vera (5) Prostate cancer (6) TIA (transient ischemic attack) (7) Vasovagal syncope Family History Diabetes mellitus Hypertension Social History Smoking Status: Never Smoker Alcohol Use: occasionally Drug Use: none Marital Status: Housing Status: lives with significant other Occupation Status: retired Current/Historical Medications Scheduled Abiraterone Acetate (Zytiga), 1,000 MG PO DAILY Atorvastatin (Lipitor), 40 MG PO DAILY Cholecalciferol (Vitamin D3), 400 UNITS PO DAILY Coenzyme Q10 (Ubidecarenone) (Co Q 10), 200 MG PO DAILY Glimepiride (Glimepiride), 3 MG PO DAILY Leuprolide Acetate (Lupron Depot), 1 DOSE INJ UD Metformin Hcl (Glucophage), 1,000 MG PO BID Metoprolol Tartrate (Lopressor), 25 MG PO BID Ocuvite Preservision (Ocuvite Preservision), 1 TAB PO DAILY Omeprazole (Prilosec), 40 MG PO DAILY Ondasetron Odt (Zofran Odt), 4 MG SL Q6H Prednisone (Prednisone), 5 MG PO BID Ruxolitinib Phosphate (Jakafi), 15 MG PO BID Allergies Coded Allergies: No Known Allergies (Unverified , 06/15/17) Physical Exam Vital Signs Date Time Temp Pulse Resp B/P (MAP) Pulse Ox O2 Delivery O2 Flow Rate FiO2 06/15/17 17:49 36.3 83 27 134/71 96 06/15/17 17:31 134/71 06/15/17 17:24 83 27 06/15/17 17:16 125/73 06/15/17 17:01 150/65 06/15/17 16:54 83 28 06/15/17 16:46 138/68 06/15/17 16:31 128/66 06/15/17 16:24 90 23 06/15/17 16:19 93 24 06/15/17 16:01 139/69 06/15/17 15:49 82 20 96 06/15/17 15:46 128/66 06/15/17 15:31 147/73 06/15/17 15:19 80 21 97 06/15/17 15:16 158/75 06/15/17 15:01 141/100 06/15/17 14:49 76 21 99 06/15/17 14:46 149/70 06/15/17 14:31 145/75 06/15/17 14:19 76 24 97 06/15/17 14:17 176/110 06/15/17 14:17 77 16 157/70 100 06/15/17 14:01 157/70 06/15/17 13:49 69 22 95 06/15/17 13:47 68 06/15/17 13:46 161/74 06/15/17 13:31 154/71 06/15/17 13:28 140/73 06/15/17 13:27 70 16 140/73 97 Room Air 06/15/17 13:01 148/83 06/15/17 12:49 70 23 96 06/15/17 12:46 133/65 06/15/17 12:31 162/76 06/15/17 12:29 147/65 06/15/17 12:28 145/65 06/15/17 12:27 73 151/68 70 145/65 75 147/65 06/15/17 12:26 151/68 06/15/17 12:19 68 19 98 06/15/17 12:16 165/80 06/15/17 12:12 142/65 06/15/17 12:12 142/65 96 Room Air 06/15/17 12:10 97 Room Air 06/15/17 11:49 68 20 97 06/15/17 11:36 68 06/15/17 11:30 165/78 06/15/17 10:59 36.3 75 18 157/69 98 Room Air Physical Exam GENERAL: Patient is awake, alert, and in no acute distress. Patient is resting comfortably and showing no signs of anxiety EYES: The conjunctivae are clear. The pupils are round and reactive. EARS, NOSE, MOUTH AND THROAT: The nose is without any evidence of any deformity. Mucous membranes are dry, tongue is midline NECK: The neck is nontender and supple. RESPIRATORY: Normal respiratory effort appreciated. Diminished breath sounds in the right lung field with rales in the left side. No tachypnea. CARDIOVASCULAR: Regular rate and rhythm with a systolic murmur noted. GASTROINTESTINAL: The abdomen is soft. Bowel sounds are present in all quadrants. Abdomen is nontender MUSCULOSKELETAL/EXTREMITIES: There is no evidence of gross deformity full range of motion is noted in the hips and shoulders. Ecchymosis and swelling over the left knee cap. ROM intact. SKIN: There is no obvious evidence of any rash. There are no petechiae, pallor or cyanosis noted. NEUROLOGIC: Patient is awake alert and oriented x3 strength is symmetric patellar reflexes are 2+ bilaterally Medical Decision & Procedures ER Provider Diagnostic Interpretation: Radiology results as stated below per my review and radiologist interpretation: CT SCAN OF THE BRAIN WITHOUT IV CONTRAST FINDINGS: Brain parenchyma: There are age-related involutional changes noting moderate confluent subcortical and periventricular microangiopathic change. There is no mass effect or evidence of acute territorial ischemia by CT criteria. A 1.0 cm hyperdense lesion in the left cerebellar hemisphere is unchanged from previous. No additional foci of potential hemorrhage are identified. Alcantara-white matter is preserved. No extra-axial fluid collection is seen. Ventricles, sulci, cisterns: Prominent secondary to involutional change. Intracranial vasculature: There is atherosclerotic calcification of the cavernous carotid and vertebral arteries. Calvarium: Unremarkable. Sinuses and mastoids: Trace mucosal thickening is seen in the left maxillary antrum. The remaining visualized paranasal sinuses are clear. The mastoid air cells are well pneumatized. Orbits: The bony orbits are grossly intact. IMPRESSION: 1. No significant change in the appearance of a presumably hemorrhagic nodule in the left cerebral hemisphere as compared to 06/08/2017. 2. No additional foci of hemorrhage are identified. There is no mass effect or evidence of acute territorial ischemia by CT criteria. Electronically signed by: Sunday Geller M.D. 06/15/2017 1:46 PM CHEST ONE VIEW PORTABLE FINDINGS: Cardiac silhouette is within normal limits. There is atherosclerosis of the aorta. No pneumothorax or pleural effusion. Unchanged subsegmental linear perihilar and medial bilateral lung base opacities are again seen. No lobar airspace consolidation. The bones are grossly intact. IMPRESSION: 1. No acute cardiopulmonary process. 2. Unchanged perihilar and bilateral medial lung base subsegmental atelectasis/scarring. The above report was generated using voice recognition software. It may contain grammatical, syntax or spelling errors. Electronically signed by: Bala Potts M.D. 06/15/2017 1:33 PM LEFT KNEE 2 VIEWS FINDINGS: AP and crosstable lateral portable views of left knee are compared to study dated 12/24/2016. The skeletal structures are osteopenic. No fracture is seen. There is mild to moderate tricompartmental degenerative joint space narrowing. There are tiny medial marginal osteophytes. No joint effusion is identified. Mild prepatellar soft tissue swelling is noted. There is advanced atherosclerotic calcification of the popliteal artery. IMPRESSION: 1. Mild prepatellar soft tissue swelling with no radiographic evidence of left knee fracture. 2. Osteopenia and arthritic change as above. Electronically signed by: Sunday Geller M.D. 06/15/2017 3:26 PM Laboratory Results 06/15/17 11:55 Red Blood Count 3.06, Mean Corpuscular Volume 93.1, Mean Corpuscular Hemoglobin 31.0, Mean Corpuscular Hemoglobin Concent 33.3, Mean Platelet Volume 9.9, Neutrophils (%) (Auto) 86.7, Lymphocytes (%) (Auto) 8.1, Monocytes (%) (Auto) 3.9, Eosinophils (%) (Auto) 0.7, Basophils (%) (Auto) 0.4, Neutrophils # (Auto) 4.95, Lymphocytes # (Auto) 0.46, Monocytes # (Auto) 0.22, Eosinophils # (Auto) 0.04, Basophils # (Auto) 0.02 06/15/17 11:55 Test 06/15/17 11:55 06/15/17 12:05 06/15/17 12:20 White Blood Count 5.70 K/uL (4.8-10.8) Red Blood Count 3.06 M/uL (4.7-6.1) Hemoglobin 9.5 g/dL (14.0-18.0) Hematocrit 28.5 % (42-52) Mean Corpuscular Volume 93.1 fL (80-100) Mean Corpuscular Hemoglobin 31.0 pg (25-34) Mean Corpuscular Hemoglobin Concent 33.3 g/dl (32-36) Platelet Count 188 K/uL (130-400) Mean Platelet Volume 9.9 fL (7.4-10.4) Neutrophils (%) (Auto) 86.7 % Lymphocytes (%) (Auto) 8.1 % Monocytes (%) (Auto) 3.9 % Eosinophils (%) (Auto) 0.7 % Basophils (%) (Auto) 0.4 % Neutrophils # (Auto) 4.95 K/uL (1.4-6.5) Lymphocytes # (Auto) 0.46 K/uL (1.2-3.4) Monocytes # (Auto) 0.22 K/uL (0.11-0.59) Eosinophils # (Auto) 0.04 K/uL (0-0.5) Basophils # (Auto) 0.02 K/uL (0-0.2) RDW Standard Deviation 47.9 fL (36.4-46.3) RDW Coefficient of Variation 14.0 % (11.5-14.5) Immature Granulocyte % (Auto) 0.2 % Immature Granulocyte # (Auto) 0.01 K/uL (0.00-0.02) Anion Gap 5.0 mmol/L (3-11) Est Creatinine Clear Calc Drug Dose 48.4 ml/min Estimated GFR () 71.1 Estimated GFR (Non- 61.3 BUN/Creatinine Ratio 14.3 (10-20) Calcium Level 9.0 mg/dl (8.5-10.1) Magnesium Level 1.4 mg/dl (1.8-2.4) Total Bilirubin 0.9 mg/dl (0.2-1) Direct Bilirubin 0.2 mg/dl (0-0.2) Aspartate Amino Transf (AST/SGOT) 23 U/L (15-37) Alanine Aminotransferase (ALT/SGPT) 12 U/L (12-78) Alkaline Phosphatase 163 U/L (45-117) Total Creatine Kinase 119 U/L (39-308) Creatine Kinase MB 1.1 ng/ml (0.5-3.6) Creatine Kinase MB Ratio 0.9 (0-3.0) Troponin I < 0.015 ng/ml (0-0.045) Pro-B-Type Natriuretic Peptide 830 pg/ml (0-1800) Total Protein 6.6 gm/dl (6.4-8.2) Albumin 3.5 gm/dl (3.4-5.0) Globulin 3.1 gm/dl (2.5-4.0) Albumin/Globulin Ratio 1.1 (0.9-2) Lipase 74 U/L (73-393) Beta-Hydroxybutyric Acid 2.29 mg/dL (0.2-2.81) Thyroid Stimulating Hormone (TSH) 1.410 uIu/ml (0.300-4.500) Free Thyroxine 1.52 ng/dl (0.80-1.60) Prothrombin Time 10.9 SECONDS (9.0-12.0) Prothromb Time International Ratio 1.0 (0.9-1.1) Activated Partial Thromboplast Time 26.1 SECONDS (21.0-31.0) Partial Thromboplastin Ratio 1.0 Urine Color YELLOW Urine Appearance CLEAR (CLEAR) Urine pH 5.5 (4.5-7.5) Urine Specific [place] 1.015 (1.000-1.030) Urine Protein NEG (NEG) Urine Glucose (UA) NEG (NEG) Urine Ketones NEG (NEG) Urine Occult Blood NEG (NEG) Urine Nitrite NEG (NEG) Urine Bilirubin NEG (NEG) Urine Urobilinogen NEG (NEG) Urine Leukocyte Esterase NEG (NEG) Laboratory results per my review. Medications Administered Medications (Trade) Dose Ordered Sig/Axel Route Start Time Stop Time Status Last Admin Dose Admin Ondansetron HCl (Zofran Inj) 4 mg NOW STAT IV 06/15/17 12:05 06/15/17 12:06 DC 06/15/17 12:22 4 MG Sodium Chloride 1,000 ml @ 999 mls/hr Q1H1M STAT IV 06/15/17 12:05 06/15/17 13:05 DC 06/15/17 12:27 999 MLS/HR Magnesium Sulfate (Magnesium Sulfate) 2 gm NOW STAT IV 06/15/17 14:46 06/15/17 14:47 DC 06/15/17 15:21 2 GM ECG Indication: nausea Rate (beats per minute): 69 Rhythm: normal sinus Findings: no acute ischemic change, no ectopy Comparison ECG Date: 02/08/2017 Change: no significant change ED Course 1153: The patient was evaluated in room A11B. A complete history and physical examination were performed. 1205: Ordered NSS 1,000 ml @ 999 mls/hr IV and Zofran Inj 4 mg IV. 1446: Ordered Magnesium Sulfate 2 gm IV. 1740: Upon reevaluation, the patient is resting comfortably. I discussed the results and treatment plan with him. He verbalized agreement of the treatment plan. The patient was discharged home. Medical Decision Differential diagnosis: Etiologies such as vasovagal event, infection, hypoglycemia, electrolyte abnormalities, cardiac sources, intracerebral event, toxicologic, neurologic, as well as others were entertained. Nursing notes reviewed. Additional history is obtained from the patient's daughter. The patient is an 82-year-old male who presented to the emergency department for an evaluation. The patient had a syncopal episode recently and was seen in our emergency department. He's had some ongoing vague symptoms including nausea and just not feeling well. He feels that he has no appetite mostly because of the nausea. He was diagnosed with a small hemorrhagic foci on his brain MRI. This does not appear to be changed compared to CT of the brain today. The patient was treated with IV fluids as well as IV magnesium for a low magnesium. I discussed the patient's laboratory radiographic studies with him. On subcutaneous reevaluation he was feeling much better and he was eating well. His [id number] was very pleased with his improvement. At this time the patient does not meet any specific criteria for admission although his magnesium is low it was replaced. He was encouraged to rest and avoid any strenuous activity. He was also encouraged to continue to give plenty clear liquids as well as trying to eat small meals as much possible. He was also encouraged to call his family doctor to schedule a follow-up appointment but return to the emergency apartment immediately if symptoms change worsen or the need arises. Medication Reconcilliation Current Medication List: was personally reviewed by me Blood Pressure Screening Patient's blood pressure: Elevated blood pressure Blood pressure disposition: Referred to PCP Impression Primary Impression: Weakness Additional Impressions: Hypomagnesemia Dehydration Contusion of left knee Scribe Attestation The scribe's documentation has been prepared under my direction and personally reviewed by me in its entirety. I confirm that the note above accurately reflects all work, treatment, procedures, and medical decision making performed by me. Departure Information Dispostion Home / Self-Care Prescriptions Ondasetron Odt (ZOFRAN ODT) 4 Mg Tab 4 MG SL Q6H for Nausea, #15 TAB Prov: Arias Patel, DO 06/15/17 Referrals Boy Hebert M.D. (PCP) Forms HOME CARE DOCUMENTATION FORM, IMPORTANT VISIT INFORMATION Patient Instructions ED Weakness [facility], Nausea Vomit Control Additional Instructions Call your family to schedule a follow-up appointment. Drink plenty clear liquids. Continue all medications as prescribed. Return to the emergency department immediately if symptoms change worsen or the need arises. Problem Qualifiers Additional Impressions: Contusion of left knee Encounter type: subsequent encounter Qualified Codes: S80.02XD - Contusion of left knee, subsequent encounter
[2017-06-27] MEDS ORDERED: [UNRECOGNIZED DRUG - CODE] PO (13:07)
[2017-06-27] MEDS ORDERED: GLIM1TAB2 PO (13:07)
[2017-07-09] MEDS ORDERED: [UNRECOGNIZED DRUG - CODE] PO (09:29)
[2017-07-09] MEDS ORDERED: calcium PO (09:29)
[2017-07-09] MEDS ORDERED: PRED-301 PO (09:29)
[2017-07-09] MEDS ORDERED: LPRI INJ (09:29)
[2017-07-09] MEDS ORDERED: GLIM2TAB2 PO (09:29)
== END 2017-06-15 17:50 | disposition home or self-care (01) ==
LOC: C.EDB 10:52 → C.EDA 17:50
DX: R53.1 Weakness (principal); E86.0 Dehydration; E83.42 Hypomagnesemia; S80.02XD Contusion of left knee, subsequent encounter; W19.XXXD Unspecified fall, subsequent encounter; Y92.233 Cafeteria of hospital as the place of occurrence of the external cause; E11.9 Type 2 diabetes mellitus without complications; E78.00 Pure hypercholesterolemia, unspecified; I10 Essential (primary) hypertension; D45 Polycythemia vera; Z86.73 Personal history of transient ischemic attack (TIA), and cerebral infarction without residual deficits; Z85.46 Personal history of malignant neoplasm of prostate; Z85.118 Personal history of other malignant neoplasm of bronchus and lung; Z83.3 Family history of diabetes mellitus; Z82.49 Family history of ischemic heart disease and other diseases of the circulatory system; Z79.899 Other long term (current) drug therapy

== ENCOUNTER 2017-06-25 18:59 | Inpatient (IN) | payer BC, OTHER ==
[~2017-06-25] VITALS: Ht 172.7 cm; Wt 62.9 kg
[~2017-06-25 18:59] MED LIST changes: +ONDA4TAB10 SL; -RQP25 PO
--- NOTE | 2017-06-25 19:20 | DIAGNOSTIC IMAGING REPORT ---
CT HEAD WITHOUT CONTRAST (CT) CLINICAL HISTORY: stroke alert STROKE LIKE SYMPTOMS COMPARISON STUDY: 06/15/2017 TECHNIQUE: Axial CT of the brain is performed from the vertex to the skull base. IV contrast was not administered for this examination. A dose lowering technique was utilized adhering to the principles of ALARA. CT DOSE: 614.27 mGy.cm FINDINGS: There is a stable 9 mm hyperdense nodule within the left posterior cerebellum. There is no CT evidence of acute cortical infarction. There is no midline shift. There is no acute hemorrhage, although prior studies suggested that this cerebellar nodule was a hemorrhagic focus. There are patchy white matter hypodensities likely on a small vessel basis. There is no evidence of pathologic ventricular dilatation. There is no evidence of acute sinusitis IMPRESSION: 1. No significant change in the nonspecific 9 mm hyperdense nodule within the left posterior cerebellum 2. No CT evidence of acute infarction. Electronically signed by: Ken Galvan M.D. 06/25/2017 7:19 PM Dictated Date/Time: 06/25/2017 7:15 PM
--- NOTE | 2017-06-25 19:24 | EMERGENCY ROOM VISIT NOTE ---
History Report prepared by Macy: Dory Chavez Under the Supervision of: Patrick WheatleyO. First contact with patient: 19:16 Chief Complaint: STROKE SYMPTOMS Stated Complaint: STROKE SX History of Present Illness The patient is a 82 year old male who presents to the Emergency Room with complaints of stroke symptoms beginning shortly prior to arrival. Per EMS, the patient was eating dinner and all of a sudden felt dizzy and light-headed. He also had slurred speech. The patient states that he felt nauseous today. The patient reports that he had a TIA in February. Per his family, the patient ate his breakfast, took his Zofran, ate lunch, and went about his day. Around 1800, the patient seemed slow to his family and he began to have slurred speech. Per his family, the patient was also holding the back of his head. Per his family, the patient's neurologist is Dr. Kelly. Pt denies change in vision, fevers, chest pain, shortness of breath, vomiting, diarrhea, pain with urination, and melena. Pt states now feels back to normal. EMS reports sx have nearly resolved as well. Source of History: patient, family, EMS Onset: shortly prior to arrival Position: other (global) Quality: other (stroke symptoms) Associated Symptoms: + nausea, + weakness (dizzy and light-headed), No fevers, No chest pain, No SOB, No vomiting, No melena, No diarrhea, No urinary symptoms Note: additional symptom: slurred speech Review of Systems See HPI for pertinent positives & negatives. A total of 10 systems reviewed and were otherwise negative. Past Medical & Surgical Medical Problems: (1) Cerebellar lesion (2) Diabetes (3) Hypercholesteremia (4) Hypertension (5) Polycythemia vera (6) Prostate cancer (7) TIA (transient ischemic attack) (8) Vasovagal syncope Family History Diabetes mellitus Hypertension Social History Smoking Status: Never Smoker Alcohol Use: occasionally Drug Use: none Marital Status: Housing Status: lives with significant other Occupation Status: retired Current/Historical Medications Scheduled Abiraterone Acetate (Zytiga), 1,000 MG PO DAILY Atorvastatin (Lipitor), 40 MG PO DAILY Cholecalciferol (Vitamin D3), 400 UNITS PO DAILY Coenzyme Q10 (Ubidecarenone) (Co Q 10), 200 MG PO DAILY Gabapentin (Gabapentin), 300 MG PO TID Glimepiride (Glimepiride), 2 MG PO DAILY Leuprolide Acetate (Lupron Depot), 1 DOSE INJ UD Metformin Hcl (Glucophage), 1,000 MG PO BID Metoprolol Tartrate (Lopressor), 25 MG PO BID Ocuvite Preservision (Ocuvite Preservision), 1 TAB PO DAILY Omeprazole (Prilosec), 40 MG PO DAILY Ondasetron Odt (Zofran Odt), 4 MG SL Q6H Prednisone (Prednisone), 5 MG PO BID Ruxolitinib Phosphate (Jakafi), 10 MG PO BID Allergies Coded Allergies: No Known Allergies (Unverified , 06/25/17) Physical Exam Vital Signs Date Time Temp Pulse Resp B/P (MAP) Pulse Ox O2 Delivery O2 Flow Rate FiO2 06/25/17 21:30 70 18 159/95 96 Room Air 06/25/17 21:00 76 18 173/72 99 Room Air 06/25/17 20:21 74 99 06/25/17 20:16 154/74 06/25/17 20:06 77 95 06/25/17 20:01 142/101 06/25/17 19:57 168/83 06/25/17 19:49 75 97 06/25/17 19:44 80 100 06/25/17 19:33 171/86 06/25/17 19:29 79 06/25/17 19:29 77 96 06/25/17 19:27 36.9 81 185/82 96 Room Air 06/25/17 19:23 185/82 Physical Exam GENERAL: alert, well appearing, well nourished, no distress, non-toxic EYE EXAM: normal conjunctiva, PERRL and EOM's grossly intact OROPHARYNX: no exudate, no erythema, lips, buccal mucosa, and tongue normal and mucous membranes are moist NECK: supple, no nuchal rigidity, no adenopathy, non-tender LUNGS: Clear to auscultation. Normal chest wall mechanics HEART: no murmurs, S1 normal and S2 normal ABDOMEN: abdomen soft, non-tender, normo-active bowel sounds, no masses, no rebound or guarding. BACK: Back is symmetrical on inspection and there is no deformity, no midline tenderness, no CVA tenderness. SKIN: no rashes and no bruising UPPER EXTREMITIES: upper extremities are grossly normal. LOWER EXTREMITIES: No pitting edema. NEURO EXAM: Normal sensorium, cranial nerves II-XII [grossly] intact, normal speech, no [gross] weakness of arms, no [gross] weakness of legs. [No drift. Finger to nose intact. Gross sensation intact.] NIHSS 1 - pt had difficulty pronouncing one word during stroke testing, otherwise normal. Medical Decision & Procedures ER Provider Diagnostic Interpretation: Radiology results have been interpreted by the radiologist and reviewed by me. CT HEAD WITHOUT CONTRAST (CT) CLINICAL HISTORY: stroke alert STROKE LIKE SYMPTOMS COMPARISON STUDY: 06/15/2017 TECHNIQUE: Axial CT of the brain is performed from the vertex to the skull base. IV contrast was not administered for this examination. A dose lowering technique was utilized adhering to the principles of ALARA. CT DOSE: 614.27 mGy.cm FINDINGS: There is a stable 9 mm hyperdense nodule within the left posterior cerebellum. There is no CT evidence of acute cortical infarction. There is no midline shift. There is no acute hemorrhage, although prior studies suggested that this cerebellar nodule was a hemorrhagic focus. There are patchy white matter hypodensities likely on a small vessel basis. There is no evidence of pathologic ventricular dilatation. There is no evidence of acute sinusitis IMPRESSION: 1. No significant change in the nonspecific 9 mm hyperdense nodule within the left posterior cerebellum 2. No CT evidence of acute infarction. Electronically signed by: Ken Galvan M.D. 06/25/2017 7:19 PM Dictated Date/Time: 06/25/2017 7:15 PM CHEST ONE VIEW PORTABLE CLINICAL HISTORY: 82 years-old Male presenting with tia. TECHNIQUE: Portable upright AP view of the chest was obtained. COMPARISON: 06/15/2017. FINDINGS: Atherosclerosis of aortic arch. Cardiac silhouette normal in size. Persistent linear opacities in the right mid and lower lung. No new focal infiltrate. Osseous structures normal. Upper abdomen normal. IMPRESSION: 1. Persistent atelectasis or scarring. No new focal infiltrate. Electronically signed by: Boy Prieto M.D. 06/25/2017 8:01 PM Dictated Date/Time: 06/25/2017 7:59 PM Laboratory Results Test 06/25/17 18:52 Nucleated RBC Absolute Count (auto) 0.02 K/uL (0-0) Nucleated Red Blood Cells % 0.3 % Prothrombin Time 10.7 SECONDS (9.0-12.0) Prothromb Time International Ratio 1.0 (0.9-1.1) Estimated Average Glucose 134 mg/dl Hemoglobin A1c 6.3 % (4.5-5.6) Total Bilirubin 0.7 mg/dl (0.2-1) Aspartate Amino Transf (AST/SGOT) 38 U/L (15-37) Alanine Aminotransferase (ALT/SGPT) 16 U/L (12-78) Alkaline Phosphatase 214 U/L (45-117) Troponin I < 0.015 ng/ml (0-0.045) Total Protein 6.8 gm/dl (6.4-8.2) Albumin 4.0 gm/dl (3.4-5.0) Globulin 2.8 gm/dl (2.5-4.0) Albumin/Globulin Ratio 1.4 (0.9-2) Thyroid Stimulating Hormone (TSH) 1.520 uIu/ml (0.300-4.500) Laboratory results per my review. Medications Administered Medications (Trade) Dose Ordered Sig/Axel Route Start Time Stop Time Status Last Admin Dose Admin Aspirin/Aluminum/ Magnesium/Ca Carb (Ascriptin Tab) 325 mg NOW STAT PO 06/25/17 19:43 06/25/17 19:44 DC 06/25/17 19:55 325 MG Ondansetron HCl (Zofran Odt) 4 mg Q6H PRN SL 06/25/17 21:30 06/27/17 16:01 DC 06/26/17 00:17 4 MG ECG Indication: weakness Rate (beats per minute): 79 Rhythm: sinus rhythm Findings: no acute ischemic change, no ectopy, other (normal axis, normal intervals ) ED Course 1916: The patient was evaluated in room B1. A complete history and physical exam was performed. 1924: I talked to the patient's family about his medical history and his symptoms today. Pt not currently taking asa/plavix due to fall which resulted in a small ICH this summer. They state last TIA was in FEBRUARY and presented similarly and resolved quickly similar to today. they deny noticing any other focal deficits or facial droop. 1927: I reviewed the patient's case with Dr. Toribio. He states that the patient is not a tPA candidate and that he needs a telemetry monitor, an MRI, and that he should be admitted. States despite recent ICH, would still advise giving pt ASA 325 mg. 1942: Ordered Ascriptin Tab 325 mg PO. 1947: I checked on the patient again. He looks good and is not having recurrent symptoms. 2026: I reviewed the patient's case with Dr. Marie. He will evaluate the patient for further management. Medical Decision Differential diagnosis: Etiologies such as metabolic, infection, hypo/hyperglycemia, electrolyte abnormalities, cardiac sources, intracerebral event, toxicologic, neurologic, as well as others were entertained. Sx resolved by arriving here, pt not a tPA candidate. No recurrence of symptoms while here. Initially hypertensive but slowly improved. Doubt infectious etiology, no evidence of dysrhythmia. Medication Reconcilliation Current Medication List: was personally reviewed by me Blood Pressure Screening Patient's blood pressure: Elevated blood pressure Blood pressure disposition: Elevated BP felt to be situational Consults Time Called: 1919 Consulting Physician: Dr. Domingo - Neurology Returned Call: 1927 I reviewed the patient's case with Dr. Toribio. He states that the patient does not need TPA and that he needs a telemetry monitor, an MRI, and that he will be admitted. Additional Consults: Time Called: 2019 Consulted Physician: Dr. Marie-[facility] Returned Call: 2026 Additional Comments: I reviewed the patient's case with Dr. Marie. He will evaluate the patient for further management. Impression Primary Impression: TIA (transient ischemic attack) Scribe Attestation The scribe's documentation has been prepared under my direction and personally reviewed by me in its entirety. I confirm that the note above accurately reflects all work, treatment, procedures, and medical decision making performed by me. Departure Information Dispostion Being Evaluated By Hospitalist Prescriptions Ruxolitinib Phosphate (JAKAFI) 15 Mg Tab 10 MG PO BID for 30 Days Prov: Candida Araujo MD 06/27/17 Glimepiride (GLIMEPIRIDE) 1 Mg Tab 2 MG PO DAILY for 30 Days, 0 Refills Prov: Candida Araujo MD 06/27/17 Referrals Boy Hebert M.D. (PCP) Forms HOME CARE DOCUMENTATION FORM, IMPORTANT VISIT INFORMATION Patient Instructions [facility] Problem Qualifiers Primary Impression: TIA (transient ischemic attack) Transient cerebral ischemia type: unspecified Qualified Codes: G45.9 - Transient cerebral ischemic attack, unspecified
[2017-06-25 19:32] LABS: BASO % 0.4 %; BASO ABS # 0.02 K/uL (0-0.2); COMPLETE YES; EOS % 1.1 %; HEMATOCRIT 29.6 % (42-52); IG% 0.2 %; LYMPH ABS # 0.32 K/uL (1.2-3.4); MEAN CELL VOLUME 92.5 fL (80-100); MEAN CORPUSCULAR HGB CONC 32.4 g/dl (32-36); MEAN PLATELET VOLUME 10.1 fL (7.4-10.4); MONO % 11.3 %; PLATELET COUNT 207 K/uL (130-400); WHITE BLOOD COUNT 5.32 K/uL (4.8-10.8)
[2017-06-25 19:35] LABS: PROTHROMBIN TIME (PATIENT) 10.7 SECONDS (9.0-12.0)
[2017-06-25 19:41] LABS: ALT/SGPT 16 U/L (12-78); AST/SGOT 38 U/L (15-37); BLOOD UREA NITROGEN 19 mg/dl (7-18); BUN/CREATININE RATIO 15.8 (10-20); CALCIUM 8.8 mg/dl (8.5-10.1); CARBON DIOXIDE 26 mmol/L (21-32); CHLORIDE 101 mmol/L (98-107); GLUCOSE 160 mg/dl (70-99); MAGNESIUM 1.4 mg/dl (1.8-2.4); POTASSIUM 3.6 mmol/L (3.5-5.1); SODIUM 137 mmol/L (136-145)
[2017-06-25] MEDS ORDERED: ASPIRIN/ALUM/MAGNES/CAL CARB 325 MG TAB PO STA (19:43)
[2017-06-25 19:52] LABS: ALB/GLOB RATIO 1.4 (0.9-2); ALKALINE PHOSPHATASE 214 U/L (45-117)
--- NOTE | 2017-06-25 20:02 | DIAGNOSTIC IMAGING REPORT ---
CHEST ONE VIEW PORTABLE CLINICAL HISTORY: 82 years-old Male presenting with tia. TECHNIQUE: Portable upright AP view of the chest was obtained. COMPARISON: 06/15/2017. FINDINGS: Atherosclerosis of aortic arch. Cardiac silhouette normal in size. Persistent linear opacities in the right mid and lower lung. No new focal infiltrate. Osseous structures normal. Upper abdomen normal. IMPRESSION: 1. Persistent atelectasis or scarring. No new focal infiltrate. Electronically signed by: Boy Prieto M.D. 06/25/2017 8:01 PM Dictated Date/Time: 06/25/2017 7:59 PM
[2017-06-25] MEDS ORDERED: GABA1CAP4 PO (20:05)
[2017-06-25] MEDS ORDERED: MoRPHine SULFATE 2 MG/ML CARP IV PRN (21:30)
[2017-06-25] MEDS ORDERED: NITROGLYCERIN 0.4 MG SL PER TAB CHARGE SL PRN (21:30)
[2017-06-25] MEDS ORDERED: PHARMACIST DISCHARGE MED REC CONSULT PRN (21:30)
[2017-06-25] MEDS ORDERED: ONDANSETRON 4MG OD TAB SL PRN (21:30)
--- NOTE | 2017-06-25 22:47 | DIAGNOSTIC IMAGING REPORT ---
BRAIN WITHOUT CONTRAST CLINICAL HISTORY: 82 years-old Male presenting with Stroke, awoke and did not feel right, no slurred speech or headache, dizzy, fall a few weeks ago, history of TIA and prostate cancer. TECHNIQUE: Multisequence, multiplanar MR imaging of the brain was performed without the use of intravenous contrast. IV contrast: None. COMPARISON: 03/11/[address] head performed earlier the same day. FINDINGS: Proportional ventricular and sulcal prominence, likely age-related parenchymal volume loss. Periventricular and subcortical white matter T2/FLAIR hyperintensity, nonspecific but likely indicative of chronic small vessel ischemic change. Small T2 hypointense, heterogeneously T1 hyperintense focus in the left cerebellar hemisphere unchanged in appearance from prior. This demonstrates blooming artifact. No mass effect or midline shift. No restricted diffusion to suggest acute ischemia. No hemorrhage. No extra-axial fluid collection. T2 skull base flow voids preserved. Bone marrow signal intensity within the calvarium within normal limits. The bilateral [place] lenses of the globes are absent. IMPRESSION: 1. No acute intracranial abnormality. 2. Chronic small vessel ischemic change. 3. Left cerebellar hemisphere hemorrhagic lesion, unchanged. This was previously shown to enhance on postcontrast imaging on MR from 03/11/2017. 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 Cavernous venous malformations generally do not enhance to the degree seen on prior exam, although enhancement is possible. Electronically signed by: Boy Prieto M.D. 06/25/2017 10:46 PM Dictated Date/Time: 06/25/2017 10:34 PM
--- NOTE | 2017-06-25 23:00 | DIAGNOSTIC IMAGING REPORT ---
MRA NECK COMBO CLINICAL HISTORY: 82 years-old Male presenting with local did not feel right, no slurred speech or headache, dizzy, fall a few weeks ago, history of TIAs, history of prostate cancer. TECHNIQUE: MR angiography of the neck was performed before and after the administration of intravenous contrast. 3-D volumetric and/or maximum intensity projection (MIP) images were subsequently reconstructed for review. IV contrast: 7 mL of Gadavist.. Stenosis measurements were based on NASCET-like criteria. COMPARISON: None. FINDINGS: Three-vessel aortic arch with patent origins of the major branch vessels. Common and internal carotid arteries patent bilaterally. Subtle outpouching arising from the anterior aspect of the origin of the right internal carotid artery. This measures 8 mm in diameter. This is seen both on axial [id number] and coronal postcontrast imaging. Codominant vertebral arteries patent at their origins and along their cervical courses. Limited intracranial evaluation within normal limits. IMPRESSION: 1. 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 Follow-up imaging with CTA neck could be obtained on subsequent examinations. The report will be called/faxed according to standard departmental protocol. Electronically signed by: Boy Prieto M.D. 06/25/2017 10:59 PM Dictated Date/Time: 06/25/2017 10:49 PM
[2017-06-26] VITALS (7 sets, daily range): BP systolic 111–164; BP diastolic 62–84; PULSE 65–82; TEMP 36.4–37.1; O2SAT 93–97; Ht 172.7 cm; Wt 62.9 kg
--- NOTE | 2017-06-26 00:12 | History and Physical ---
History & Physical Date & Time of Service: Jun 26, 2017 at 00:03 Chief Complaint: TIA Primary Care Physician: Boy Hebert M.D. History of Present Illness Source: patient, family 82 year old male with PMH significant for TIA, T2DM, HLD, Polycythemia Vera, and Prostate Cancer presented to [facility] with a complaint of slurred speech. At 6 pm this evening the patient was eating dinner with his family when the patient said he began feeling nauseous and then he started slurring his speech and was unable to talk coherently. This lasted for 35 minutes until EMS arrived and brought the patient to the hospital. The patient denies having any blurred vision, headache, facial droop, upper/ lower limb weakness, chest pain, palpitations or shortness of breath Of note the patient had a TIA in February which time he was found to have a small 1.5cm posterior fossa bleed for which he has followed with Neurology as an outpatient. On CT scan in the ED the patient was not found to have an acute intracranial abnormality. His 9mm posterior cerebellar bleed was found to be stable. Dr. Domingo of [facility] neurology was consulted. He stated that the patient did not need TPA and that he needs a strategic planning analyst, an MRI and will need to be admitted to the hospital for further monitoring. 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 Treatment with radiation therapy Pulmonary metastasis status post metastectomy 09/02/2015 Rising PSA initiation of total androgen ablation October 2015 Bone metastasis bone scan April 2016 Status post completion of radiation therapy to lumbosacral spine 10/28/2016 received 3000 cGy Status: Chronic (6) TIA (transient ischemic attack) Status: Resolved (7) Vasovagal syncope Status: Resolved Family History Diabetes mellitus Hypertension Social History Smoking Status: Never Smoker Drug Use: none Marital Status: Housing status: lives with family Occupational Status: retired Immunizations History of Influenza Vaccine: N/A History of Tetanus Vaccine?: Unknown History of Pneumococcal: Yes Pneumococcal Date: Jul 21, 2010 History of Hepatitis B Vaccine: Unknown Multi-Drug Resistant Organisms History of MDRO: No Allergies Coded Allergies: No Known Allergies (Unverified , 06/25/17) Home Medications Scheduled Abiraterone Acetate (Zytiga), 1,000 MG PO DAILY Atorvastatin (Lipitor), 40 MG PO DAILY Cholecalciferol (Vitamin D3), 400 UNITS PO DAILY Coenzyme Q10 (Ubidecarenone) (Co Q 10), 200 MG PO DAILY Gabapentin (Gabapentin), 300 MG PO TID Glimepiride (Glimepiride), 3 MG PO DAILY Leuprolide Acetate (Lupron Depot), 1 DOSE INJ UD Metformin Hcl (Glucophage), 1,000 MG PO BID Metoprolol Tartrate (Lopressor), 25 MG PO BID Ocuvite Preservision (Ocuvite Preservision), 1 TAB PO DAILY Omeprazole (Prilosec), 40 MG PO DAILY Ondasetron Odt (Zofran Odt), 4 MG SL Q6H Prednisone (Prednisone), 5 MG PO BID Ruxolitinib Phosphate (Jakafi), 15 MG PO QAM Review of Systems Constitutional: No fever, No chills, No sweats Respiratory: No cough, No shortness of breath, No dyspnea on exertion Cardiovascular: No chest pain, No edema, No palpitations Abdomen: No pain, No nausea, No vomiting Musculoskeletal: No joint pain, No muscle pain, No calf pain Neurologic: No memory loss, No paralysis, No weakness, No numbness/tingling Hematologic / Lymphatic: No abnormal bleeding/bruising, No clotting problems Integumentary: No rash, No itch, No new/changing skin lesions Physical Exam Vital Signs Date Time Temp Pulse Resp B/P (MAP) Pulse Ox O2 Delivery O2 Flow Rate FiO2 06/25/17 21:45 70 20 163/75 95 Room Air 06/25/17 21:30 70 18 159/95 96 Room Air 06/25/17 21:00 76 18 173/72 99 Room Air 06/25/17 20:21 74 99 06/25/17 20:16 154/74 06/25/17 20:06 77 95 06/25/17 20:01 142/101 06/25/17 19:57 168/83 06/25/17 19:49 75 97 06/25/17 19:44 80 100 06/25/17 19:33 171/86 06/25/17 19:29 79 06/25/17 19:29 77 96 06/25/17 19:27 36.9 81 185/82 96 Room Air 06/25/17 19:23 185/82 General Appearance: WD/WN, no apparent distress ENT: hearing grossly normal, pharynx normal Respiratory/Chest: lungs clear, no respiratory distress, no accessory muscle use Cardiovascular: regular rate, rhythm, normal peripheral pulses, + systolic murmur (3/6 systolic murmur) Abdomen/GI: normal bowel sounds, non tender, soft Extremities/Musculoskelatal: no calf tenderness, no pedal edema, normal range of motion, non-tender Neurologic/Psych: city attorney II-XII nml as tested, no motor/sensory deficits, normal reflexes, + pertinent finding (patient with subtle right sided facial droop) Skin: normal color, warm/dry, no rash Diagnostics Laboratory Results Results Past 24 Hours Test 06/25/17 18:52 Range/Units White Blood Count 5.32 4.8-10.8 K/uL Red Blood Count 3.20 4.7-6.1 M/uL Hemoglobin 9.6 14.0-18.0 g/dL Hematocrit 29.6 42-52 % Mean Corpuscular Volume 92.5 80-100 fL Mean Corpuscular Hemoglobin 30.0 25-34 pg Mean Corpuscular Hemoglobin Concent 32.4 32-36 g/dl Platelet Count 207 130-400 K/uL Mean Platelet Volume 10.1 7.4-10.4 fL Neutrophils (%) (Auto) 81.0 % Lymphocytes (%) (Auto) 6.0 % Monocytes (%) (Auto) 11.3 % Eosinophils (%) (Auto) 1.1 % Basophils (%) (Auto) 0.4 % Neutrophils # (Auto) 4.31 1.4-6.5 K/uL Lymphocytes # (Auto) 0.32 1.2-3.4 K/uL Monocytes # (Auto) 0.60 0.11-0.59 K/uL Eosinophils # (Auto) 0.06 0-0.5 K/uL Basophils # (Auto) 0.02 0-0.2 K/uL RDW Standard Deviation 48.8 36.4-46.3 fL RDW Coefficient of Variation 14.2 11.5-14.5 % Immature Granulocyte % (Auto) 0.2 % Immature Granulocyte # (Auto) 0.01 0.00-0.02 K/uL Nucleated RBC Absolute Count (auto) 0.02 0-0 K/uL Nucleated Red Blood Cells % 0.3 % Prothrombin Time 10.7 9.0-12.0 SECONDS Prothromb Time International Ratio 1.0 0.9-1.1 Sodium Level 137 136-145 mmol/L Potassium Level 3.6 3.5-5.1 mmol/L Chloride Level 101 98-107 mmol/L Carbon Dioxide Level 26 21-32 mmol/L Anion Gap 10.0 3-11 mmol/L Blood Urea Nitrogen 19 7-18 mg/dl Creatinine 1.20 0.60-1.40 mg/dl Est Creatinine Clear Calc Drug Dose 44.3 ml/min Estimated GFR () 64.0 Estimated GFR (Non- 55.2 BUN/Creatinine Ratio 15.8 10-20 Random Glucose 160 70-99 mg/dl Calcium Level 8.8 8.5-10.1 mg/dl Magnesium Level 1.4 1.8-2.4 mg/dl Total Bilirubin 0.7 0.2-1 mg/dl Aspartate Amino Transf (AST/SGOT) 38 15-37 U/L Alanine Aminotransferase (ALT/SGPT) 16 12-78 U/L Alkaline Phosphatase 214 45-117 U/L Troponin I < 0.015 0-0.045 ng/ml Total Protein 6.8 6.4-8.2 gm/dl Albumin 4.0 3.4-5.0 gm/dl Globulin 2.8 2.5-4.0 gm/dl Albumin/Globulin Ratio 1.4 0.9-2 Thyroid Stimulating Hormone (TSH) 1.520 0.300-4.500 uIu/ml Diagnostic Radiology 1. No significant change in the nonspecific 9 mm hyperdense nodule within the left posterior cerebellum 2. No CT evidence of acute infarction. other (no new changes) Normal EKG Impression Assessment and Plan 82 year old male with a PMH of TIA who presented with slurred speech. His slurred speech resolved 35 minutes after it had begun. TIA - CT without any acute intracranial abnormalities; however with stable 9mm bleed - Order MRI brain and MRA neck combo - Given Aspirin 325mg PO - Consult neurology - q4 neuro checks - admit to telemetry - high dose statin with lipitor - follow up on outpatient echo done with cardiology on all scripts HTN - continue metoprolol bid Polycythemia Vera - follows with [facility] - takes jakafi 15mg PO QAM - most recent Hgb 9.6 Prostate Cancer - follows with [facility] - Takes lupron, zytiga and prednisone DMT2 - Hold metformin and glimepiride due to administration of contrast - Start ISS - Order HbA1c - Continue gabapentin for peripheral neuropathy GERD - continue omeprazole Patient said that if he were to take a turn for the worst then he would not want to be resuscitated Resident Physician Supervision Note: I was present with Dr. Jimenez during the history and exam. I discussed the case with the resident and agree with the findings and plan as documented in the note. Any exceptions or clarifications are listed here: 82 y/o M Hx TIA, PCV, DM HTN - presents following 30 min of slurred speech which had resolved on arrival to ER OE AAO x 3 S1,2 R CTAB NT, ND No deficits on exam P: Pt admitted with CVA protocol Placed on ASA - Heparin held as he has a history of small ICH - neurology consulted Although he has a history of PCV he is currently anemic Placed on SS for DM HTN meds held Documented By: Red Marie Level of Care Telemetry Resuscitation Status DO NOT RESUSCITATE VTE Prophylaxis VTE Risk Assessment Done? Y/N: Yes Risk Level: Moderate Given or contraindicated: Contraindicated
[2017-06-26] MEDS: NITROGLYCERIN OINT 2% 1GM PACKET EXT SCH ×2 (00:57→05:57)
[2017-06-26] MEDS ORDERED: ACETAMINOPHEN 325 MG TAB PO STA (03:06)
[2017-06-26] MEDS ORDERED: GLUCAGON FOR INJ 1 MG VIAL SQ PRN (05:15)
[2017-06-26] MEDS ORDERED: GLUCOSE 10 TABS/TUBE PO PRN (05:15)
[2017-06-26] MEDS ORDERED: GLUCOSE 40% GEL 15 GM TUBE PO PRN (05:15)
[2017-06-26] MEDS ORDERED: DEXTROSE 50% 50 ML SYR IV PRN (05:15)
[2017-06-26 06:33] LABS: BASO % 0.2 %; BASO ABS # 0.01 K/uL (0-0.2); EOS % 1.7 %; IG% 0.4 %; LYMPH % 4.8 %; LYMPH ABS # 0.23 K/uL (1.2-3.4); MEAN CELL VOLUME 92.8 fL (80-100); MEAN CORPUSCULAR HEMOGLOBIN 29.9 pg (25-34); MEAN CORPUSCULAR HGB CONC 32.2 g/dl (32-36); MEAN PLATELET VOLUME 9.2 fL (7.4-10.4); MONO % 14.8 %; NEUT % 78.1 %; PLATELET COUNT 151 K/uL (130-400); RED BLOOD COUNT 2.91 M/uL (4.7-6.1); WHITE BLOOD COUNT 4.79 K/uL (4.8-10.8)
[2017-06-26 07:08] LABS: BUN/CREATININE RATIO 17.1 (10-20); CALCIUM 8.6 mg/dl (8.5-10.1); CREATININE 0.92 mg/dl (0.60-1.40); POTASSIUM 3.5 mmol/L (3.5-5.1)
[2017-06-26 07:09] LABS: COMPLETE YES; POLYCHROMASIA 1+
[2017-06-26 07:10] LABS: ESTIMATED AVERAGE GLUCOSE 134 mg/dl; HA1C FLAG Normal (Normal)
[2017-06-26] MEDS ORDERED: GLIMEPIRIDE 2 MG TAB PO SCH (08:00)
--- NOTE | 2017-06-26 08:55 | Neurology Consultation ---
Neurology Consultation Date of Consultation: Jun 26, 2017. Attending Physician: Red Marie M.D. Primary Care Physician: Boy Hebert M.D. Reason for Consultation: Patient is an 82-year-old, who was asked to see the request of Dr. Marie, for neurologic consultation regarding TIA versus other. History of Present Illness Source: patient, caregiver, clinic records, hospital records I first saw this patient in September 2014, for an EMG and nerve conduction study which showed a polyneuropathy involving predominantly sensory fibers. There was no evidence of radiculopathy but he does have a history of lumbar spinal stenosis post spinal surgery in the past. In July 2014 the patient had an episode of acute confusion and speech issues. MRI of the brain at that time did not show any new stroke. MR angiography of the [place] was unremarkable. Carotid ultrasound and echocardiogram were unremarkable. He was put on aspirin after this was diagnosed as a TIA. I saw the patient next in November 2014, after an episode of acute confusion and speech problems. He was having trouble reading the newspaper. MRI showed a tiny right occipital/parietal CVA. The 81 mg aspirin was switched to Aggrenox twice daily. In May 2015 he had another episode of acute confusion and speech problems. At that time, he saw Dr. Milner and a carotid ultrasound, although showing diffuse plaque, did not show any significant stenosis. MRI of the brain showed no acute stroke but there was continued moderate generalized cerebral atrophy and mild old small vessel ischemic changes. EEG was unremarkable. He was kept on Aggrenox. He follows with Dr. Milner as an outpatient. In early February of this year, he had day sudden onset of dizziness, headache, and trouble walking. He was admitted and an MRI showed a small left cerebellar hemispheric hemorrhage without enhancement. Carotid ultrasound was unremarkable. He was taken off all antiplatelet medication. At that time, he saw Dr. Carolina. In March 2017 and MRI of the brain showed the 1 cm left posterior cerebellar hemispheric hemorrhage which enhanced intensely. This raises the issue of an underlying metastasis that has bled. Over the course of this summer, the patient feels that he's been doing fairly well. He has had some episodes of nausea helped with Zofran. He occasionally feels a little lightheaded and dizzy at times but he has not had any syncope or any new speech, numbness, or weakness problems. On March 25, he noted some nausea in the morning and this was helped with Zofran. He did fairly well until around 1800 hrs., while eating dinner, he had the sudden onset of some lightheadedness. Although he denies it there is some history of some speech issues and possible confusion. He denied pain or headache, vision issues, new weakness or numbness, incontinence, or confusion. He arrived at the emergency room at 1927 hours on June 25. Temperature was 36.9, pulse 81, blood pressure 185/82, and O2 saturation 96%. His exam was considered unremarkable and he had no focal findings or encephalopathy. He was given one aspirin tablet. CT scan of the head showed the stable left-sided cerebellar hemispheric lesion. 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 There was the old diffuse small vessel ischemia and moderate atrophy. In addition, there was the old left posterior cerebellar hemorrhagic hemorrhage with a differential being a cavernous hemangioma versus tumor. It certainly hasn't increased in size since previous MRI but contrast was not given this time. CBC showed anemia of significant nature. Profile was unremarkable except for some elevated liver enzymes. These have been elevated somewhat over the summer. Lipid profile showed an elevated triglyceride and a cholesterol of 152. Earlier this month a TSH and CK were unremarkable. This morning the patient feels somewhat back to baseline although he is slightly nauseated. He is not dizzy and has no weakness or numbness of a new nature. He has no speech, mentation, or visual issues. Past Medical/Surgical History Medical Problems: (1) Anemia Status: Acute (2) Cerebellar bleed Status: Acute (3) Contusion of left knee Status: Acute (4) Dehydration Status: Acute (5) Hypomagnesemia Status: Acute (6) Skin tear Status: Acute (7) TIA (transient ischemic attack) Status: Acute (8) Weakness Status: Acute History of TIA like events (versus blood pressure fluctuations) and a small ischemic stroke. History of left cerebellar hemorrhage,stable, with 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 This is either a cavernous hemangioma that bled or a tumor/metastasis that has bled. 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 Possible bone metastases. Followed by oncology in [facility] Post lumbar spine surgery for spinal stenosis in the past Bilateral inguinal hernia repair Family History Mother age 68 of metastatic stomach cancer Father age 52 from heart disease Social History Patient never smoked cigarettes. In the past, the patient only occasionally has had alcohol but he is not drinking currently. 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 His is in a retirement and is ill. This adds considerable anxiety to the patient. Smoking Status: Never smoker Smokeless Tobacco Use: No Alcohol Use: none Drug Use: none Marital Status: Housing Status: lives with significant other Occupation Status: retired Allergies Coded Allergies: No Known Allergies (Unverified , 06/25/17) Current Inpatient Medications Current Inpatient Medications Medications (Trade) Dose Ordered Sig/Axel Route Start Time Stop Time Status Last Admin Dose Admin Miscellaneous Information (Pharmacist Discharge Med Rec Consult) 1 ea UD PRN N/A 06/25/17 21:30 07/25/17 21:29 Nitroglycerin (Nitrostat Tab) 0.4 mg UD PRN SL 06/25/17 21:30 07/25/17 21:29 Nitroglycerin (Nitroglycerin 2% Oint) 1 inch Q6H EXT 06/26/17 00:00 07/26/17 00:00 06/26/17 05:57 1 INCH Morphine Sulfate (MoRPHine SULFATE INJ) 2 mg Q30M PRN IV 06/25/17 21:30 07/09/17 21:29 Aspirin (Aspirin Chew) 324 mg QAM PO 06/26/17 09:00 07/26/17 08:59 Atorvastatin Calcium (Lipitor Tab) 80 mg DAILY PO 06/26/17 09:00 07/26/17 08:59 Gabapentin (Neurontin Cap) 300 mg TID PO 06/26/17 09:00 07/26/17 08:59 Metoprolol Tartrate (Lopressor Tab) 25 mg BID PO 06/26/17 09:00 07/26/17 08:59 Multivitamins/ Minerals (Multivitamin W/ Minerals Tab) 1 tab DAILY PO 06/26/17 09:00 07/26/17 08:59 Ondansetron HCl (Zofran Odt) 4 mg Q6H PRN SL 06/25/17 21:30 07/25/17 21:29 06/26/17 00:17 4 MG Prednisone (PredniSONE TAB) 5 mg BID PO 06/26/17 09:00 07/26/17 08:59 Cholecalciferol (Vitamin D Tab) 400 inter.unit DAILY PO 06/26/17 09:00 07/26/17 08:59 Pantoprazole Sodium (Protonix Tab) 40 mg DAILY PO 06/26/17 09:00 07/26/17 08:59 Miscellaneous Information (Order Awaiting Action) 1 ea QS N/A 06/26/17 08:00 07/26/17 07:59 Abiraterone Acetate (Zytiga) 1,000 mg DAILYBB PO 06/26/17 06:30 07/26/17 06:59 06/26/17 07:20 1,000 MG Insulin Aspart (novoLOG ASPART) SLIDING SCALE G... ACHS SC 06/26/17 06:30 07/26/17 06:29 Glucose (Glucose 40% Gel) 15-30 GRAMS 15 GRAMS... UD PRN PO 06/26/17 05:15 07/26/17 05:14 Glucose (Glucose Chew Tab) 4-8 Tablets 4 Tabl... UD PRN PO 06/26/17 05:15 07/26/17 05:14 Dextrose (Dextrose 50% 50ML Syringe) 25-50ML OF 50% DW IV FOR... UD PRN IV 06/26/17 05:15 07/26/17 05:14 Glucagon (Glucagon Inj) 1 mg UD PRN SQ 06/26/17 05:15 07/26/17 05:14 Review of Systems Constitutional: + fatigue, No weakness Eyes: No worsening of vision, No diplopia ENT: No tinnitus, No trouble swallowing Respiratory: No cough, No shortness of breath Cardiovascular: No chest pain, No palpitations Abdomen: + nausea, No pain, No vomiting Musculoskeletal: No joint pain, No muscle pain Genitourinary - Male: No dysuria, No urinary incontinence Neurologic: No memory loss, No weakness, No numbness/tingling, No vertigo, No balance problems Psychiatric: + depression symptoms, + anxiety Endocrine: + fatigue Hematologic / Lymphatic: No abnormal bleeding/bruising Integumentary: No rash Allergic / Immunologic: No hives Physical Exam Vital Signs (Past 24 Hrs): Date Time Temp Pulse Resp B/P (MAP) Pulse Ox O2 Delivery O2 Flow Rate FiO2 06/26/17 07:27 37.1 77 16 135/66 (89) 96 Room Air 06/26/17 04:28 36.4 74 20 138/68 (91) 93 Room Air 06/26/17 04:00 Room Air 06/26/17 00:00 36.7 78 18 164/84 96 Room Air 06/26/17 00:00 Room Air 06/25/17 21:45 70 20 163/75 95 Room Air 06/25/17 21:30 70 18 159/95 96 Room Air 06/25/17 21:00 76 18 173/72 99 Room Air 06/25/17 20:21 74 99 06/25/17 20:16 154/74 06/25/17 20:06 77 95 06/25/17 20:01 142/101 06/25/17 19:57 168/83 06/25/17 19:49 75 97 06/25/17 19:44 80 100 06/25/17 19:33 171/86 06/25/17 19:29 79 06/25/17 19:29 77 96 06/25/17 19:27 36.9 81 185/82 96 Room Air 06/25/17 19:23 185/82 Patient is right-handed. The patient is awake and alert. Speech is normal without aphasia or dysarthria. Mentation and thought processes are intact with orientation and normal fund of knowledge. Mood and affect are normal and appropriate. Appearance and grooming are normal. The discs are sharp with positive venous pulsations. There are no exudates, hemorrhages, or blood vessel changes seen. Pupils are 3mm bilaterally and reactive to light. Extraocular eye muscles are intact without nystagmus. Visual acuity and visual giles seem normal grossly to confrontation. There are no deficits to sensation of the face bilaterally. Corneal reflexes are positive bilaterally. Facial strength and symmetry is normal bilaterally. Hearing seems intact grossly to voice and finger rub. Palate moves well without asymmetry. There is normal sternocleidomastoid and trapezius strength bilaterally. Tongue is midline with good strength bilaterally. Neck is with full range of motion without discomfort. There are no cervical bruits. There are no cranial or ocular bruits. Heart is without murmur. Cervical, thoracic, and lumbar spine are nontender to palpation. Gait is slow and cautious with narrow-base. Stance is reasonable eyes open but deteriorates with eyes closed. With outstretched arms there is no drift. There are no resting, postural, or action tremors. There is no ataxia with [id number] testing. There is good facility in the hands. There are no abnormal involuntary movements noted. Motor strength is 5/5 diffusely in the arms bilaterally including deltoids, biceps, brachioradialis, wrist flexors and extensors, cutter and presser, and intrinsic hand muscles. Motor strength is 5/5 diffusely in the legs bilaterally including hip flexors, quadriceps, hamstring, gastrocnemius, tibialis anterior, tibialis posterior, and peroneii muscles bilaterally. Toe extensors are normal and there is good bulk in the extensor digitorum brevis muscle bilaterally. The limbs have good tone without rigidity or spasticity, and there is no atrophy noted. Muscle bulk is normal, there is no tenderness, no myotonia noted to percussion, and no fasciculations seen. Sensory examination reveals some decreased sensation in a stocking distribution in the feet bilaterally. Reflexes are 1/4 in the biceps, triceps, brachioradialis, and quadriceps tendons bilaterally. Achilles tendon reflexes are absent bilaterally. Toes are downgoing with plantar stimulation bilaterally. Peripheral pulses are present and of normal quality distally in all four limbs. There is no peripheral edema noted. Laboratory Results Past 24 Hours: 06/26/17 06:13 Red Blood Count 2.91, Mean Corpuscular Volume 92.8, Mean Corpuscular Hemoglobin 29.9, Mean Corpuscular Hemoglobin Concent 32.2, Mean Platelet Volume 9.2, Neutrophils (%) (Auto) 78.1, Lymphocytes (%) (Auto) 4.8, Monocytes (%) (Auto) 14.8, Eosinophils (%) (Auto) 1.7, Basophils (%) (Auto) 0.2, Neutrophils # (Auto ) 3.74, Lymphocytes # (Auto) 0.23, Monocytes # (Auto) 0.71, Eosinophils # (Auto ) 0.08, Basophils # (Auto) 0.01 06/26/17 06:13 Test 06/25/17 18:52 06/26/17 06:13 06/26/17 07:32 Nucleated RBC Absolute Count (auto) 0.02 K/uL (0-0) Nucleated Red Blood Cells % 0.3 % Prothrombin Time 10.7 SECONDS (9.0-12.0) Prothromb Time International Ratio 1.0 (0.9-1.1) Estimated Average Glucose 134 mg/dl Hemoglobin A1c 6.3 % (4.5-5.6) Magnesium Level 1.4 mg/dl (1.8-2.4) Total Bilirubin 0.7 mg/dl (0.2-1) Aspartate Amino Transf (AST/SGOT) 38 U/L (15-37) Alanine Aminotransferase (ALT/SGPT) 16 U/L (12-78) Alkaline Phosphatase 214 U/L (45-117) Troponin I < 0.015 ng/ml (0-0.045) Total Protein 6.8 gm/dl (6.4-8.2) Albumin 4.0 gm/dl (3.4-5.0) Globulin 2.8 gm/dl (2.5-4.0) Albumin/Globulin Ratio 1.4 (0.9-2) Thyroid Stimulating Hormone (TSH) 1.520 uIu/ml (0.300-4.500) White Blood Count 4.79 K/uL (4.8-10.8) Red Blood Count 2.91 M/uL (4.7-6.1) Hemoglobin 8.7 g/dL (14.0-18.0) Hematocrit 27.0 % (42-52) Mean Corpuscular Volume 92.8 fL (80-100) Mean Corpuscular Hemoglobin 29.9 pg (25-34) Mean Corpuscular Hemoglobin Concent 32.2 g/dl (32-36) Platelet Count 151 K/uL (130-400) Mean Platelet Volume 9.2 fL (7.4-10.4) Neutrophils (%) (Auto) 78.1 % Lymphocytes (%) (Auto) 4.8 % Monocytes (%) (Auto) 14.8 % Eosinophils (%) (Auto) 1.7 % Basophils (%) (Auto) 0.2 % Neutrophils # (Auto) 3.74 K/uL (1.4-6.5) Lymphocytes # (Auto) 0.23 K/uL (1.2-3.4) Monocytes # (Auto) 0.71 K/uL (0.11-0.59) Eosinophils # (Auto) 0.08 K/uL (0-0.5) Basophils # (Auto) 0.01 K/uL (0-0.2) RDW Standard Deviation 47.9 fL (36.4-46.3) RDW Coefficient of Variation 14.2 % (11.5-14.5) Immature Granulocyte % (Auto) 0.4 % Immature Granulocyte # (Auto) 0.02 K/uL (0.00-0.02) Polychromasia 1+ Anion Gap 7.0 mmol/L (3-11) Est Creatinine Clear Calc Drug Dose 53.7 ml/min Estimated GFR () 88.2 Estimated GFR (Non- 76.1 BUN/Creatinine Ratio 17.1 (10-20) Calcium Level 8.6 mg/dl (8.5-10.1) Triglycerides Level 204 mg/dl (0-150) Cholesterol Level 152 mg/dl (0-200) HDL Cholesterol 50 mg/dl LDL Cholesterol, Calculated 61 mg/dl VLDL Cholesterol, Calculated 41 mg/dl Cholesterol/HDL Ratio 3.0 Bedside Glucose 107 mg/dl (70-99) Imaging BRAIN WITHOUT CONTRAST CLINICAL HISTORY: 82 years-old Male presenting with Stroke, awoke and did not feel right, no slurred speech or headache, dizzy, fall a few weeks ago, history of TIA and prostate cancer. TECHNIQUE: Multisequence, multiplanar MR imaging of the brain was performed without the use of intravenous contrast. IV contrast: None. COMPARISON: 03/11/[address] head performed earlier the same day. FINDINGS: Proportional ventricular and sulcal prominence, likely age-related parenchymal volume loss. Periventricular and subcortical white matter T2/FLAIR hyperintensity, nonspecific but likely indicative of chronic small vessel ischemic change. Small T2 hypointense, heterogeneously T1 hyperintense focus in the left cerebellar hemisphere unchanged in appearance from prior. This demonstrates blooming artifact. No mass effect or midline shift. No restricted diffusion to suggest acute ischemia. No hemorrhage. No extra-axial fluid collection. T2 skull base flow voids preserved. Bone marrow signal intensity within the calvarium within normal limits. The bilateral viejas lenses of the globes are absent. IMPRESSION: 1. No acute intracranial abnormality. 2. Chronic small vessel ischemic change. 3. Left cerebellar hemisphere hemorrhagic lesion, unchanged. This was previously shown to enhance on postcontrast imaging on MR from 03/11/2017. 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 Cavernous venous malformations generally do not enhance to the degree seen on prior exam, although enhancement is possible. Electronically signed by: Boy Prieto M.D. 06/25/2017 10:46 PM Impression 1. Acute onset, June 25, speech issues, nonspecific dizziness, nonspecific confusion This has largely resolved as morning. Neurologic examination reveals no focal neurologic deficits, meningeal signs, or significant encephalopathy. I'm not sure this really represents a TIA, although I cannot completely exclude that as a diagnosis. Certainly, he did not have a CVA by MRI. He's had multiple episodes just like this over the last 2 years with or without antiplatelet medication. I'm more inclined to believe these episodes are related to fluctuations in blood pressure. He had hypertension on admission. He probably has hypotension and possible orthostasis at other times. He has multiple risk factors for stroke including diabetes and hypertension but because of the left posterior cerebellar hemorrhage we are disinclined to give him antiplatelet medication. 2. Left cerebellar hemispheric hemorrhagic lesion. This cannot be a simple hypertensive hemorrhage as it is still present for months after the event in February. Also this would not enhance. A cavernous hemangioma and has bled is possible but again this would not typically and hands. A hemorrhagic metastasis or other lesion is possible also. However, the lesion is not increasing in size. 3. Metastatic prostate cancer He had metastasis to lung and bone and is post radiation and surgery. I'm not sure what the status of his prostate cancer is now is followed by an oncologist in [place]. He wants to switch to Dr. Garza here at [facility] 4. Significant anemia. This could easily lead to episodes of lightheadedness/dizziness as well as fatigue and confusion 5. Generalized polyneuropathy, involving predominant sensory fibers. The patient has a cautious gait and likely some sensory ataxia from the polyneuropathy. 6. History of lumbar spinal stenosis post surgery. This problem is stable 7. 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 CT angiography was suggestive 8. Polycythemia vera with myelofibrosis by history Plan 1. Consider CT angiography of the head and neck. CT angiography of the head might help us determine if the left cerebellar lesion is vascular in origin. CT angiography of the neck will determine whether or not there is an aneurysm versus pseudoaneurysm versus other in the internal carotid artery 2. Consider MRI of the brain with contrast to see if the left cerebellar lesion continues its enhancing characteristics. I would do this after #1 above however, to see what the CT angiography shows first. 3. Consider physical therapy for conditioning and strengthening. 4. Control blood pressure without overcontrolling - this will be difficult in this patient 5. I recommend no antiplatelet or anticoagulant medication this patient because of the left posterior cerebellar hemorrhage issue. Admittedly, this may put him at risk for ischemic events but the risk of hemorrhage outweighs this. 6. The patient wants to transfer hematologic and oncologic care to Dr. Garza. A consult could be initiated as an outpatient. I spoke with Dr. Loco regarding his case, including differential diagnosis and treatment options.
[2017-06-26] MEDS: GABAPENTIN 300 MG CAP PO SCH ×3 (08:58→20:18)
[2017-06-26] MEDS: PANTOprazole SOD 40 MG TAB PO SCH (08:58)
[2017-06-26] MEDS: CHOLECALCIFEROL 400 INTER.UNIT TAB PO SCH (08:59)
[2017-06-26] MEDS: ATORVASTATIN 40 MG TAB PO SCH (09:00)
[2017-06-26] MEDS ORDERED: ASPIRIN 81 MG CHEW PO SCH (09:00)
[2017-06-26] MEDS: CEROVITE ADV FORMULA TAB PO SCH (09:00)
[2017-06-26] MEDS ORDERED: NON-FORMULARY MEDICATION (Coenzyme Q10 (Ubidecarenone) (Co Q 10) 200 MG) PO SCH (09:00)
[2017-06-26] MEDS: METOPROLOL TARTRATE 25 MG TAB PO SCH ×2 (09:01→20:18)
[2017-06-26] MEDS: INSULIN ASPART 100 UNITS/ML 3 ML PEN SC SCH ×4 (09:14→20:54)
[2017-06-26] MEDS ORDERED: OPTIRAY 320 IV PRN (11:15)
--- NOTE | 2017-06-26 11:54 | DIAGNOSTIC IMAGING REPORT ---
CT HEAD ANGIO WITH CONTRAST CLINICAL HISTORY: Hemorrhagic cerebellar lesion. TECHNIQUE: CT angiography of the head was performed in a dynamic helical fashion during intravenous administration of 94 cc of Optiray 320. A dose lowering technique was utilized adhering to the principles of ALARA. CT DOSE: COMPARISON STUDY: Noncontrast head CT dated 06/25/2017 FINDINGS: There are no lesion suspicious for aneurysm. There are no major intracranial branch occlusions. The dural venous sinuses appear patent. There is a stable 9 mm left posterior cerebellar lesion. There is no significant enhancement identified on the CT scan. There are no pathologic draining veins. IMPRESSION: 1. No evidence of aneurysm 2. No evidence of dural venous sinus thrombosis 3. No evidence of major intracranial branch occlusion 4. Stable subtle hyperdense 9 mm left posterior cerebellar lesion Electronically signed by: Ken Galvan M.D. 06/26/2017 11:52 AM Dictated Date/Time: 06/26/2017 11:48 AM
--- NOTE | 2017-06-26 12:02 | DIAGNOSTIC IMAGING REPORT ---
CT NECK ANGIO WITH CONTRAST CLINICAL HISTORY: Abnormal MR angiography neck. 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 COMPARISON STUDY: No previous studies for comparison. TECHNIQUE: CT angiography was performed from the aortic arch to the skull base. MIP imaging was performed. The patient was scanned in a dynamic helical fashion during intravenous administration of 94 cc of Optiray 320. A dose lowering technique was utilized adhering to the principles of ALARA. CT DOSE: 480.57 mGy.cm Technique: CT angiogram of the carotid and vertebral arteries was obtained using intravenous contrast and 3-D reconstruction. NASCET criteria was utilized. Findings: The right carotid revealed no evidence of aneurysm and no evidence of dissection. There is no evidence of hemodynamic significant stenosis. Atheromatous changes are present. There is a focal posterior outpouching of contrast at the level of the right carotid bulb/proximal right internal carotid artery. This is felt to represent an ulcerated plaque, and not a true pseudoaneurysm The left carotid revealed no evidence of hemodynamic significant stenosis. There is no evidence of aneurysm. There is no evidence of dissection. There are moderate atheromatous changes present. There is no evidence of hemodynamically significant vertebral stenosis. There is no evidence of vertebral dissection. IMPRESSION: 1. Moderate atheromatous change. No evidence of incidentally significant carotid or vertebral artery stenosis 2. Posterior ulcerated plaque at the level of the right carotid bulb, which is felt to explain the previously reported MRI finding Electronically signed by: Ken Galvan M.D. 06/26/2017 12:01 PM Dictated Date/Time: 06/26/2017 11:55 AM
--- NOTE | 2017-06-26 12:18 | PROGRESS NOTE ---
DATE: 06/26/2017 DATE: 06/26/2017 HISTORY OF PRESENT ILLNESS: Mr. Catalan is a very pleasant 82-year-old white male with a history of longstanding type 2 diabetes mellitus, dyslipidemia, polycythemia vera rubra, metastatic prostate cancer, hypertension, and a history of a TIA February 2017 (found to have a small 1.5 cm lesion of the cerebellum). At approximately 6:00 p.m. on the evening of 06/25/2017 the patient was eating dinner with his family when he suddenly began to feel nauseated, slurred speech, and was unable to speak coherently for about 35 minutes. He was brought into the Emergency Room and a CT scan of the head showed no acute intracranial abnormality, posterior cerebral lesion was stable. MRI of the brain was done (without contrast) and that did not show any evidence of CVA. At the present time, the patient feels as though he is back to baseline. He has not had any confusion, garbled speech, slurred speech, nor has he had any headache. He denies any weakness, numbness, tingling, paralysis of any extremities. He has not had any chest pain, shortness of breath, orthopnea, or PND. No palpitations, syncope, or near syncope. He denies any melena or hematochezia. The patient is noted to be anemic. The patient was evaluated by Dr. Moon in neurology today. He is uncertain if this is indeed a TIA. He has recommended a CT angiogram of the head and neck, and possibly will have an MRI of the brain with contrast tomorrow pending outcome of his CT angiograms today. Dr. Moon additionally recommended no antiplatelet therapy at this time. Therefore, his aspirin will be discontinued. MEDICATIONS: 1. Lipitor 80 mg daily. 2. Neurontin 300 mg t.i.d. 3. Lopressor 25 mg b.i.d. 4. Multivitamin with minerals. 5. Prednisone 5 mg b.i.d. 6. Vitamin D 400 international units daily. 7. Protonix 40 mg daily. 8. Zytiga 1,000 mg daily. 9. NovoLog sliding scale insulin. 10. Nitroglycerin ointment 1 inch q. 6 hours to the exterior chest wall. 11. Sublingual nitroglycerin as needed. 12. Morphine sulfate 2 mg IV q. 30 minutes p.r.n. for chest pain. 13. Zofran 4 mg sublingually q. 6 hours p.r.n. for nausea. ALLERGIES: NKDA. PHYSICAL EXAMINATION: VITAL SIGNS: Temperature is 37.1 degrees Celsius, pulse is 82 and regular, respiratory rate 14 and unlabored, blood pressure is 123/74, SPO2 is 96% on room air. GENERAL: The patient in no acute distress. HEAD, EYES, EARS, NOSE, AND THROAT: Head is atraumatic, normocephalic. EOMs intact. Sclerae are anicteric. Facies symmetric. No perioral cyanosis. No facial droop. NECK: Without thyromegaly, adenopathy or JVD. Carotid upstrokes +2 bilaterally. CHEST AND LUNGS: Clear to auscultation throughout all lung giles, no wheezes, rales or rhonchi. CARDIOVASCULAR: S1 and S2 are regular with a grade 2-3/6 basal systolic murmur best heard second intercostal space, also audible at the left sternal border. Aortic valve closure sound is preserved. No abdominal, aortic or renal bruits. ABDOMINAL EXAMINATION: Bowel sounds are present. No masses, organomegaly or tenderness. Stool for occult blood is pending. EXTREMITIES: Without clubbing, cyanosis or edema. NEUROLOGIC: [employer] strength is excellent bilaterally. Normal movement of all 4 extremities. Gait pattern not assessed. LABORATORY DATA: White blood cells 4.79. Hemoglobin 8.7 g/dl, hematocrit 27.0%. Platelet count 151,000. Sodium is 138 mmol/L, potassium 3.5 mmol/L. BUN 16 mg/dL, creatinine 0.92 mg/dL. Random glucose 107 mg/dL. Total cholesterol is 152 mg per deciliter with an HDL of 50 mg per deciliter, LDL 61 mg/dL. TSH is normal at 1.520. Serum magnesium level was low at 1.4. Repeat value is pending. ASSESSMENT: 1. Acute onset nausea, slurred speech, incoherent speech, nonspecific dizziness and nonspecific confusion. Possibly TIA, but a history of left cerebellar hemisphere hemorrhagic lesion in the past. 2. Type 2 diabetes mellitus. 3. Dyslipidemia. 4. Anemia, hemoglobin 8.6 g/dL. Question blood loss versus medication side effect (typically on Jakafi for PVR). 5. Metastatic prostate cancer. 6. Hypertension. 7. 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 8. No residual neurologic deficits or symptoms at this time. PLAN: 1. Neurology input appreciated. 2. Stop Aspirin. 3. A CT angiogram of the neck and brain today to evaluate cerebellar lesion and whether or not it is vascular in origin versus other and also to confirm or refute pseudoaneurysm of the carotid. 4. Consider MRI of the brain with contrast tomorrow pending the outcome of the CT angiogram today. 5. Discontinue nitroglycerin ointment. 6. Continue sliding scale insulin coverage of his diabetes mellitus. 7. Continue high dose Lipitor therapy 80 mg daily. 8. Continue Lopressor 25 mg b.i.d. 9. Continue Zytiga and treatment of metastatic prostate cancer. 10. Continue Neurontin for neuropathy. 11. Continue prednisone 5 mg b.i.d. 12. Recheck serum magnesium level today. 13. Begin supplemental Slow-Mag 71.5 mg b.i.d. 14. Continue monitoring daily laboratories. 15. Check stool for occult blood. 16. We will continue to closely follow along while hospitalized. PA Supervision Note/Attending Addendum: I have interviewed and examined the patient and agree with the outlined documentation as per MARILYN Park with the following exceptions/additions: Pt feeling well, no concerns. Reviewed all results today. Vitals reviewed NAD, very pleasant, sitting in chair, AAOx3 RRR 3/6 SRIRAM at [facility] CTAB no wcr Abd +BS, soft Ext no edema Neuro: speech clear, full strength Pt is an 82 yo male here with 35 min of slurred speech, with h/o metastatic prostate CA, anemia, PV CTA neck and head with right ICA ulcerated plaque, no aneurysm or stenoses. Question of whether right posterior lesion persistently enhancing, question if is rebleeding or a metastatic lesion from prostate CA? Checking MRI brain WITH contrast tomorrow and then will d/w Neuro about further recommendations. Speech symptoms could be TIA vs fluctuations in BP as per Neuro, unclear. He also had significantly low magnesium on admission--> question if this could have caused his speech symptoms? Holding ASA for possible ICH. Replace magnesium further with 1 gram IV magnesium in addition to po already received ULISES ulcerated plaque-question if needs Vascular Surgery c/s? Anemia-hgb quite low and is on Jakafi. 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 He is transitioning to Dr. Garza next week. Will consult Heme here to determine if needs to remain on this dose now or hold the medication? Disposition-unknown at this time if will need further evaluation after brain MRI tomorrow vs dc to home MTDD
[2017-06-26] MEDS ORDERED: MAGNESIUM CHLORIDE 64MG DELAYED REL TAB PO ONE (12:30)
[2017-06-26] MEDS ORDERED: MAGNESIUM SULFATE 1GM / D5W 1 GM in PREMIXED IN D5W 100 ML IV SCH (20:15)
[2017-06-26] MEDS: MAGNESIUM CHLORIDE 64MG DELAYED REL TAB PO SCH (20:19)
[2017-06-27] VITALS: BP 121/71; PULSE 68; TEMP 36.6; O2SAT 98
[2017-06-27 04:00] VITALS: BP 125/75; PULSE 70; TEMP 36.7; O2SAT 97
[2017-06-27 06:13] LABS: COMPLETE YES; EOS % 0.8 %; HEMATOCRIT 29.4 % (42-52); IG% 0.4 %; LYMPH % 3.4 %; LYMPH ABS # 0.18 K/uL (1.2-3.4); MEAN CELL VOLUME 93.9 fL (80-100); MEAN CORPUSCULAR HEMOGLOBIN 29.4 pg (25-34); MEAN CORPUSCULAR HGB CONC 31.3 g/dl (32-36); MEAN PLATELET VOLUME 9.8 fL (7.4-10.4); MONO % 12.6 %; NEUT % 82.8 %; PLATELET COUNT 184 K/uL (130-400); RED BLOOD COUNT 3.13 M/uL (4.7-6.1); WHITE BLOOD COUNT 5.32 K/uL (4.8-10.8)
[2017-06-27 06:51] LABS: BUN/CREATININE RATIO 16.6 (10-20); CALCIUM 9.2 mg/dl (8.5-10.1); CREATININE 1.1 mg/dl (0.60-1.40); POTASSIUM 4.3 mmol/L (3.5-5.1)
[2017-06-27 07:59] VITALS: BP 127/66; PULSE 71; TEMP 36.5; O2SAT 93
[2017-06-27] MEDS: CHOLECALCIFEROL 400 INTER.UNIT TAB PO SCH (08:41)
[2017-06-27] MEDS: ATORVASTATIN 40 MG TAB PO SCH (08:41)
[2017-06-27] MEDS: GABAPENTIN 300 MG CAP PO SCH ×2 (08:41→15:50)
[2017-06-27] MEDS: CEROVITE ADV FORMULA TAB PO SCH (08:42)
[2017-06-27] MEDS: METOPROLOL TARTRATE 25 MG TAB PO SCH (08:43)
[2017-06-27] MEDS: PANTOprazole SOD 40 MG TAB PO SCH (08:43)
[2017-06-27] MEDS: MAGNESIUM CHLORIDE 64MG DELAYED REL TAB PO SCH (08:43)
[2017-06-27] MEDS: INSULIN ASPART 100 UNITS/ML 3 ML PEN SC SCH ×2 (08:46→12:46)
--- NOTE | 2017-06-27 09:50 | Neurology Progress Notes ---
Neurology Progress Note Date of Service Jun 27, 2017. Subjective The patient feels well and has had no further events overnight. He has no pain , dizziness, or headache. CT angiography of the head was unremarkable without stenosis or aneurysm. There was a stable left posterior cerebellar lesion noted as before. He did not have characteristics of a vascular malformation. CT angiography of the neck was unremarkable. There was no aneurysm but there was ulcerative plaque seen in the right carotid bulb (which could explain the MRI finding) . Objective Date Time Temp Pulse Resp B/P (MAP) Pulse Ox O2 Delivery O2 Flow Rate FiO2 06/27/17 07:59 36.5 71 20 127/66 (86) 93 06/27/17 04:00 36.7 70 18 125/75 (92) 97 Room Air 06/27/17 04:00 Room Air 06/27/17 00:00 Room Air 06/27/17 00:00 36.6 68 18 121/71 (88) 98 Room Air 06/26/17 20:00 Room Air 06/26/17 19:25 36.6 70 20 111/62 (78) 96 Room Air 06/26/17 16:00 Room Air 06/26/17 15:21 36.5 65 16 115/66 (82) 97 Room Air 06/26/17 14:58 82 06/26/17 12:00 Room Air Last 24 Hours Test 06/26/17 11:48 06/26/17 11:57 06/26/17 16:50 06/26/17 20:45 Bedside Glucose 116 mg/dl 152 mg/dl 155 mg/dl Magnesium Level 1.7 mg/dl Test 06/27/17 05:44 06/27/17 07:12 White Blood Count 5.32 K/uL Red Blood Count 3.13 M/uL Hemoglobin 9.2 g/dL Hematocrit 29.4 % Mean Corpuscular Volume 93.9 fL Mean Corpuscular Hemoglobin 29.4 pg Mean Corpuscular Hemoglobin Concent 31.3 g/dl Platelet Count 184 K/uL Mean Platelet Volume 9.8 fL Neutrophils (%) (Auto) 82.8 % Lymphocytes (%) (Auto) 3.4 % Monocytes (%) (Auto) 12.6 % Eosinophils (%) (Auto) 0.8 % Basophils (%) (Auto) 0.0 % Neutrophils # (Auto) 4.41 K/uL Lymphocytes # (Auto) 0.18 K/uL Monocytes # (Auto) 0.67 K/uL Eosinophils # (Auto) 0.04 K/uL Basophils # (Auto) 0.00 K/uL RDW Standard Deviation 48.8 fL RDW Coefficient of Variation 14.3 % Immature Granulocyte % (Auto) 0.4 % Immature Granulocyte # (Auto) 0.02 K/uL Sodium Level 141 mmol/L Potassium Level 4.3 mmol/L Chloride Level 106 mmol/L Carbon Dioxide Level 29 mmol/L Anion Gap 6.0 mmol/L Blood Urea Nitrogen 18 mg/dl Creatinine 1.10 mg/dl Est Creatinine Clear Calc Drug Dose 44.5 ml/min Estimated GFR () 71.1 Estimated GFR (Non- 61.3 BUN/Creatinine Ratio 16.6 Random Glucose 149 mg/dl Calcium Level 9.2 mg/dl Magnesium Level 2.2 mg/dl Bedside Glucose 148 mg/dl Imaging: CT HEAD ANGIO WITH CONTRAST CLINICAL HISTORY: Hemorrhagic cerebellar lesion. TECHNIQUE: CT angiography of the head was performed in a dynamic helical fashion during intravenous administration of 94 cc of Optiray 320. A dose lowering technique was utilized adhering to the principles of ALARA. CT DOSE: COMPARISON STUDY: Noncontrast head CT dated 06/25/2017 FINDINGS: There are no lesion suspicious for aneurysm. There are no major intracranial branch occlusions. The dural venous sinuses appear patent. There is a stable 9 mm left posterior cerebellar lesion. There is no significant enhancement identified on the CT scan. There are no pathologic draining veins. IMPRESSION: 1. No evidence of aneurysm 2. No evidence of dural venous sinus thrombosis 3. No evidence of major intracranial branch occlusion 4. Stable subtle hyperdense 9 mm left posterior cerebellar lesion Electronically signed by: Ken Galvan M.D. 06/26/2017 11:[address] NECK ANGIO WITH CONTRAST CLINICAL HISTORY: Abnormal MR angiography neck. 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 COMPARISON STUDY: No previous studies for comparison. TECHNIQUE: CT angiography was performed from the aortic arch to the skull base. MIP imaging was performed. The patient was scanned in a dynamic helical fashion during intravenous administration of 94 cc of Optiray 320. A dose lowering technique was utilized adhering to the principles of ALARA. CT DOSE: 480.57 mGy.cm Technique: CT angiogram of the carotid and vertebral arteries was obtained using intravenous contrast and 3-D reconstruction. NASCET criteria was utilized. Findings: The right carotid revealed no evidence of aneurysm and no evidence of dissection. There is no evidence of hemodynamic significant stenosis. Atheromatous changes are present. There is a focal posterior outpouching of contrast at the level of the right carotid bulb/proximal right internal carotid artery. This is felt to represent an ulcerated plaque, and not a true pseudoaneurysm The left carotid revealed no evidence of hemodynamic significant stenosis. There is no evidence of aneurysm. There is no evidence of dissection. There are moderate atheromatous changes present. There is no evidence of hemodynamically significant vertebral stenosis. There is no evidence of vertebral dissection. IMPRESSION: 1. Moderate atheromatous change. No evidence of incidentally significant carotid or vertebral artery stenosis 2. Posterior ulcerated plaque at the level of the right carotid bulb, which is felt to explain the previously reported MRI finding Electronically signed by: Ken Galvan M.D. 06/26/2017 12:01 PM Exam: The patient is awake and alert. Speech is unremarkable without aphasia or dysarthria. Mood and affect seems normal appropriate and thought processes are relatively intact to conversation. Extraocular muscles are intact without nystagmus. There is no facial droop. Stance is normal standing with feet together and he can't take steps around the room well. Motor strength is symmetrical in all 4 limbs. Coordination is normal in the arms and there are no abnormal involuntary movements. Current Inpatient Medications Medications (Trade) Dose Ordered Sig/Axel Route Start Time Stop Time Status Last Admin Dose Admin Nitroglycerin (Nitrostat Tab) 0.4 mg UD PRN SL 06/25/17 21:30 07/25/17 21:29 Morphine Sulfate (MoRPHine SULFATE INJ) 2 mg Q30M PRN IV 06/25/17 21:30 07/09/17 21:29 Atorvastatin Calcium (Lipitor Tab) 80 mg DAILY PO 06/26/17 09:00 07/26/17 08:59 06/27/17 08:41 80 MG Gabapentin (Neurontin Cap) 300 mg TID PO 06/26/17 09:00 07/26/17 08:59 06/27/17 08:41 300 MG Metoprolol Tartrate (Lopressor Tab) 25 mg BID PO 06/26/17 09:00 07/26/17 08:59 06/27/17 08:43 25 MG Multivitamins/ Minerals (Multivitamin W/ Minerals Tab) 1 tab DAILY PO 06/26/17 09:00 07/26/17 08:59 06/27/17 08:42 1 TAB Ondansetron HCl (Zofran Odt) 4 mg Q6H PRN SL 06/25/17 21:30 07/25/17 21:29 06/26/17 00:17 4 MG Prednisone (PredniSONE TAB) 5 mg BID PO 06/26/17 09:00 07/26/17 08:59 06/27/17 08:43 5 MG Cholecalciferol (Vitamin D Tab) 400 inter.unit DAILY PO 06/26/17 09:00 07/26/17 08:59 06/27/17 08:41 400 INTER.UNIT Pantoprazole Sodium (Protonix Tab) 40 mg DAILY PO 06/26/17 09:00 07/26/17 08:59 06/27/17 08:43 40 MG Miscellaneous Information (Order Awaiting Action) 1 ea QS N/A 06/26/17 08:00 07/26/17 07:59 Abiraterone Acetate (Zytiga) 1,000 mg DAILYBB PO 06/26/17 06:30 07/26/17 06:59 06/27/17 06:30 1,000 MG Insulin Aspart (novoLOG ASPART) SLIDING SCALE G... ACHS SC 06/26/17 06:30 07/26/17 06:29 06/27/17 08:46 4 UNITS Glucose (Glucose 40% Gel) 15-30 GRAMS 15 GRAMS... UD PRN PO 06/26/17 05:15 07/26/17 05:14 Glucose (Glucose Chew Tab) 4-8 Tablets 4 Tabl... UD PRN PO 06/26/17 05:15 07/26/17 05:14 Dextrose (Dextrose 50% 50ML Syringe) 25-50ML OF 50% DW IV FOR... UD PRN IV 06/26/17 05:15 07/26/17 05:14 Glucagon (Glucagon Inj) 1 mg UD PRN SQ 06/26/17 05:15 07/26/17 05:14 Ioversol (Optiray 320) 125 ml UD PRN IV 9/16/17 11:15 06/30/17 11:14 Magnesium Chloride (Slow-Mag Tab) 64 mg BID PO 06/26/17 21:00 07/26/17 20:59 06/27/17 08:43 64 MG Impression 1. Acute onset, June 25, speech issues, nonspecific dizziness, nonspecific confusion This seems resolved Neurologic examination reveals no focal neurologic deficits, meningeal signs, or significant encephalopathy. I'm not sure this really represents a TIA, although I cannot completely exclude that as a diagnosis. Certainly, he did not have a CVA by MRI. He's had multiple episodes just like this over the last 2 years with or without antiplatelet medication. I'm more inclined to believe these episodes are related to fluctuations in blood pressure. He had hypertension on admission. He probably has hypotension and possible orthostasis at other times. He has multiple risk factors for stroke including diabetes and hypertension but because of the left posterior cerebellar hemorrhage we are disinclined to give him antiplatelet medication. 2. Left cerebellar hemispheric hemorrhagic lesion. This cannot be a simple hypertensive hemorrhage as it is still present for months after the event in February. Also this would not enhance. A cavernous hemangioma and has bled is possible but again this would not typically and hands. A hemorrhagic metastasis or other lesion is possible also. However, the lesion is not increasing in size. CT angiography has not revealed any more characteristics regarding this lesion. 3. Metastatic prostate cancer He had metastasis to lung and bone and is post radiation and surgery. I'm not sure what the status of his prostate cancer is now is followed by an oncologist in [place]. He wants to switch to Dr. Garza here at [facility] 4. Significant anemia. This could easily lead to episodes of lightheadedness/dizziness as well as fatigue and confusion 5. Generalized polyneuropathy, involving predominant sensory fibers. The patient has a cautious gait and likely some sensory ataxia from the polyneuropathy. 6. History of lumbar spinal stenosis post surgery. This problem is stable 7. 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 This turns out to be an ulcerative plaque by CT angiography 8. Polycythemia vera with myelofibrosis by history Plan 1. Consider MRI of the brain with contrast to see if the left cerebellar lesion continues its enhancing characteristics. 2. Consider physical therapy for conditioning and strengthening. 3. Control blood pressure without over controlling - this will be difficult in this patient 4. I recommend no antiplatelet or anticoagulant medication this patient because of the left posterior cerebellar hemorrhage issue. Admittedly, this may put him at risk for ischemic events but the risk of hemorrhage outweighs this. 5. The patient wants to transfer hematologic and oncologic care to Dr. Garza. A consult could be initiated as an outpatient. I have no further neurologic testing or treatment recommendations to make of this patient. Please contact me if I can be of further assistance. I can follow the patient as an outpatient, if desired.
--- NOTE | 2017-06-27 10:19 | Oncology Consultation ---
Oncology/Heme Consultation Date of Consultation: Jun 27, 2017. Attending Physician: Candida Araujo MD Reason for Consultation: Metastatic prostate cancer Polycythemia vera History of Present Illness Mr. Catalan is an 82 year old gentleman who follows elsewhere for his oncologic care. 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 He was diagnosed in 2005 and was started on Jakafi in March, due to splenomegaly and weight loss. He recently had the dose reduced , apparently due to anemia. He also has a long-standing history of prostate cancer, dating back to 2002, when he was found to have intermediate risk, [place] 4+3 disease on biopsy 04/09/03. His PSA began to slowly rise from the 0.4 -0.5 range in 2012 to 1.86 in July,, to 9.79 in July,. He then had an abrupt jump to [address] revealed a lung nodule that was suspicious for metastasis. He underwent RLL wedge resection, revealing metastatic adenocarcinoma consistent with a prostatic primary. PET/CT in September, revealed numerous FDG-avid sites of disease, so he was started on Casodex and Lupron. His PSA declined to a dmitri of 2.4 and then settled in the 2-3 range. In April,, he developed some low back pain and a bone scan revealed widespread foci of osseous metastatic disease. Dr. Hollins treated him with some palliative RT in October of this year. He also was started on Zytiga and prednisone around this time, which he continues to today. His most recent PSA was 6.85 on 05/11/17. More recently, he has experienced multiple TIAs and has been evaluated by Dr. Moon for this. An MRI brain on 02/08/17 revealed a 1.4 cm focus of hemorrhage with non-specific enhancement in the left cerebellar hemisphere with surrounding edema. The lesion has persisted, though it measured 1 cm in March. Non-contrast MRI from 06/25/17 showed the lesion was unchanged. He is feeling better today. He presented with slurring speech which has resolved. His CT and MRI reveal no evidence of acute stroke. Past Medical/Surgical History Medical Problems: (1) Anemia Status: Acute (2) Cerebellar bleed Status: Acute (3) Contusion of left knee Status: Acute (4) Dehydration Status: Acute (5) Hypomagnesemia Status: Acute (6) Skin tear Status: Acute (7) TIA (transient ischemic attack) Status: Acute (8) Weakness Status: Acute Family History Diabetes mellitus Hypertension Social History Smoking Status: Never Smoker Smokeless Tobacco Use: No Alcohol Use: none Drug Use: none Marital Status: Housing Status: lives with significant other Occupation Status: retired Allergies Coded Allergies: No Known Allergies (Unverified , 06/25/17) Home Medications Scheduled Abiraterone Acetate (Zytiga), 1,000 MG PO DAILY Atorvastatin (Lipitor), 40 MG PO DAILY Cholecalciferol (Vitamin D3), 400 UNITS PO DAILY Coenzyme Q10 (Ubidecarenone) (Co Q 10), 200 MG PO DAILY Gabapentin (Gabapentin), 300 MG PO TID Glimepiride (Glimepiride), 3 MG PO DAILY Leuprolide Acetate (Lupron Depot), 1 DOSE INJ UD Metformin Hcl (Glucophage), 1,000 MG PO BID Metoprolol Tartrate (Lopressor), 25 MG PO BID Ocuvite Preservision (Ocuvite Preservision), 1 TAB PO DAILY Omeprazole (Prilosec), 40 MG PO DAILY Ondasetron Odt (Zofran Odt), 4 MG SL Q6H Prednisone (Prednisone), 5 MG PO BID Ruxolitinib Phosphate (Jakafi), 15 MG PO QAM Current Inpatient Medications Current Inpatient Medications Medications (Trade) Dose Ordered Sig/Axel Route Start Time Stop Time Status Last Admin Dose Admin Nitroglycerin (Nitrostat Tab) 0.4 mg UD PRN SL 06/25/17 21:30 07/25/17 21:29 Morphine Sulfate (MoRPHine SULFATE INJ) 2 mg Q30M PRN IV 06/25/17 21:30 07/09/17 21:29 Atorvastatin Calcium (Lipitor Tab) 80 mg DAILY PO 06/26/17 09:00 07/26/17 08:59 06/27/17 08:41 80 MG Gabapentin (Neurontin Cap) 300 mg TID PO 06/26/17 09:00 07/26/17 08:59 06/27/17 08:41 300 MG Metoprolol Tartrate (Lopressor Tab) 25 mg BID PO 06/26/17 09:00 07/26/17 08:59 06/27/17 08:43 25 MG Multivitamins/ Minerals (Multivitamin W/ Minerals Tab) 1 tab DAILY PO 06/26/17 09:00 07/26/17 08:59 06/27/17 08:42 1 TAB Ondansetron HCl (Zofran Odt) 4 mg Q6H PRN SL 06/25/17 21:30 07/25/17 21:29 06/26/17 00:17 4 MG Prednisone (PredniSONE TAB) 5 mg BID PO 06/26/17 09:00 07/26/17 08:59 06/27/17 08:43 5 MG Cholecalciferol (Vitamin D Tab) 400 inter.unit DAILY PO 06/26/17 09:00 07/26/17 08:59 06/27/17 08:41 400 INTER.UNIT Pantoprazole Sodium (Protonix Tab) 40 mg DAILY PO 06/26/17 09:00 07/26/17 08:59 06/27/17 08:43 40 MG Abiraterone Acetate (Zytiga) 1,000 mg DAILYBB PO 06/26/17 06:30 07/26/17 06:59 06/27/17 06:30 1,000 MG Insulin Aspart (novoLOG ASPART) SLIDING SCALE G... ACHS SC 06/26/17 06:30 07/26/17 06:29 06/27/17 08:46 4 UNITS Glucose (Glucose 40% Gel) 15-30 GRAMS 15 GRAMS... UD PRN PO 06/26/17 05:15 07/26/17 05:14 Glucose (Glucose Chew Tab) 4-8 Tablets 4 Tabl... UD PRN PO 06/26/17 05:15 07/26/17 05:14 Dextrose (Dextrose 50% 50ML Syringe) 25-50ML OF 50% DW IV FOR... UD PRN IV 06/26/17 05:15 07/26/17 05:14 Glucagon (Glucagon Inj) 1 mg UD PRN SQ 06/26/17 05:15 07/26/17 05:14 Ioversol (Optiray 320) 125 ml UD PRN IV 06/26/17 11:15 06/30/17 11:14 Magnesium Chloride (Slow-Mag Tab) 64 mg BID PO 06/26/17 21:00 07/26/17 20:59 06/27/17 08:43 64 MG Non-Formulary Medication (Non-Formulary Patient'S Own Med) 10 ea BID PO 06/27/17 10:30 07/27/17 10:29 Review of Systems Constitutional: + fatigue, No fever, No chills Eyes: No worsening of vision Respiratory: No cough, No shortness of breath Cardiovascular: No chest pain Abdomen: No pain, No nausea, No vomiting Musculoskeletal: No joint pain, No muscle pain Neurologic: No weakness, No numbness/tingling, No balance problems Hematologic / Lymphatic: No abnormal bleeding/bruising Physical Exam Date Time Temp Pulse Resp B/P (MAP) Pulse Ox O2 Delivery O2 Flow Rate FiO2 06/27/17 07:59 36.5 71 20 127/66 (86) 93 06/27/17 04:00 36.7 70 18 125/75 (92) 97 Room Air 06/27/17 04:00 Room Air 06/27/17 00:00 Room Air 06/27/17 00:00 36.6 68 18 121/71 (88) 98 Room Air 06/26/17 20:00 Room Air 06/26/17 19:25 36.6 70 20 111/62 (78) 96 Room Air 06/26/17 16:00 Room Air 06/26/17 15:21 36.5 65 16 115/66 (82) 97 Room Air 06/26/17 14:58 82 06/26/17 12:00 Room Air General Appearance: no apparent distress, + thin (chronically ill-appearing) Eyes: EOMI Respiratory/Chest: lungs clear Cardiovascular: regular rate, rhythm Abdomen/GI: non tender, soft Extremities/Musculoskelatal: no pedal edema Neurologic/Psych: alert, oriented x 3 Skin: no rash Laboratory Results Last 24 Hours Test 06/26/17 11:48 06/26/17 11:57 06/26/17 16:50 06/26/17 20:45 Bedside Glucose 116 mg/dl 152 mg/dl 155 mg/dl Magnesium Level 1.7 mg/dl Test 06/27/17 05:44 06/27/17 07:12 White Blood Count 5.32 K/uL Red Blood Count 3.13 M/uL Hemoglobin 9.2 g/dL Hematocrit 29.4 % Mean Corpuscular Volume 93.9 fL Mean Corpuscular Hemoglobin 29.4 pg Mean Corpuscular Hemoglobin Concent 31.3 g/dl Platelet Count 184 K/uL Mean Platelet Volume 9.8 fL Neutrophils (%) (Auto) 82.8 % Lymphocytes (%) (Auto) 3.4 % Monocytes (%) (Auto) 12.6 % Eosinophils (%) (Auto) 0.8 % Basophils (%) (Auto) 0.0 % Neutrophils # (Auto) 4.41 K/uL Lymphocytes # (Auto) 0.18 K/uL Monocytes # (Auto) 0.67 K/uL Eosinophils # (Auto) 0.04 K/uL Basophils # (Auto) 0.00 K/uL RDW Standard Deviation 48.8 fL RDW Coefficient of Variation 14.3 % Immature Granulocyte % (Auto) 0.4 % Immature Granulocyte # (Auto) 0.02 K/uL Sodium Level 141 mmol/L Potassium Level 4.3 mmol/L Chloride Level 106 mmol/L Carbon Dioxide Level 29 mmol/L Anion Gap 6.0 mmol/L Blood Urea Nitrogen 18 mg/dl Creatinine 1.10 mg/dl Est Creatinine Clear Calc Drug Dose 44.5 ml/min Estimated GFR () 71.1 Estimated GFR (Non- 61.3 BUN/Creatinine Ratio 16.6 Random Glucose 149 mg/dl Calcium Level 9.2 mg/dl Magnesium Level 2.2 mg/dl Bedside Glucose 148 mg/dl Assessment & Plan Mr. Catalan seems to have recovered from his TIA. Patients with PVera are at risk for thromboembolic phenomena, though it is generally in the setting of elevated hemoglobin. These patients are generally kept on low-dose aspirin, but with low counts, this may not be necessary. I would continue his current dose of Jakafi, since it was just adjusted. With regard to his prostate cancer, his PSA is up from when he started the Zytiga, but not markedly so. He will likely need a change in treatment soon, but in the absence of documented progression or new symptoms, I think continuing it for now is reasonable. It is hard to know what to make of this brain lesion. Brain metastases from prostate cancer are quite rare, with an incidence of around 1 in 1000. The stability of the lesion also argues against a tumor. 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 It is also possible he has another malignancy. He is ordered for a contrast-enhanced MRI, which is reasonable though it may not necessarily have to happen during this hospital stay. If that image is suggestive of an actual mass, he may need referral to neurosurgery to discuss a biopsy/resection, as a second primary cancer would be as or more likely than prostate cancer. I sent a message to my staff to help make arrangements for Mr. Catalan to see Dr. Garza in the next few weeks. His has an appointment with Dr. Garza next week.
[2017-06-27] MEDS ORDERED: RUXOLITINIB PO SCH (10:30)
[2017-06-27] MEDS ORDERED: GADAVIST IV PRN (11:15)
--- NOTE | 2017-06-27 11:35 | DIAGNOSTIC IMAGING REPORT ---
BRAIN COMBO CLINICAL HISTORY: 82 years-old Male presenting with evaluate for bleeding metastasis left posterior cerebellum, dizziness, fell a few weeks ago, history of TIAs, history of brain bleed a few years ago. TECHNIQUE: Multisequence, multiplanar MR imaging of the brain was performed before and after the administration of intravenous contrast. IV contrast: 6 mL of Gadavist. COMPARISON: 06/25/2017 and 03/11/2017. FINDINGS: Proportional ventricular and sulcal prominence, likely age-related parenchymal volume loss. Periventricular and subcortical white matter T2/FLAIR hyperintensity, nonspecific but likely indicative of chronic small vessel ischemic change. Small peripherally T2 hypointense, heterogeneously T1 hyperintense focus in the left cerebellar hemisphere with blooming artifact. Surrounding T2/FLAIR hyperintensity likely indicates gliosis. This appears to avidly enhance on postcontrast imaging. The appearance is not significant changed since 03/11/2017 and is new since 06/02/2015. No mass effect or midline shift. No restricted diffusion to suggest acute ischemia. No hemorrhage. No extra-axial fluid collection. T2 skull base flow voids preserved. Bone marrow signal intensity within the calvarium within normal limits. IMPRESSION: 1. 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 The presence of associated enhancement and the absence of this lesion in 2014 are consistent with a underlying lesion, most compatible with a hemorrhagic metastatic lesion. 2. No acute intracranial pathology. Electronically signed by: Boy Prieto M.D. 06/27/2017 11:33 AM Dictated Date/Time: 06/27/2017 11:26 AM
[2017-06-27 12:47] VITALS: BP 133/65; PULSE 72; TEMP 36.2; O2SAT 98
[2017-06-27] MEDS ORDERED: GLIM1TAB2 PO (13:07)
[2017-06-27] MEDS ORDERED: [UNRECOGNIZED DRUG - CODE] PO (13:07)
--- NOTE | 2017-06-27 13:15 | Discharge Instructions ---
Discharge Instructions Date of Service Jun 27, 2017. Admission Reason for Admission: TIA Discharge Discharge Diagnosis / Problem: Slurred speech,Chronic left cerebellar brain lesion,Prostate cancer,Anemia Discharge Goals Goal(s): Improve disease control, Diagnostic testing, Therapeutic intervention Activity Recommendations Activity Limitations: resume your previous activity Lifting Limitations: gradually increase as tolerated Exercise/Sports Limitations: gradually increase as tolerated Shower/Bathe: no limitations . Instructions / Follow-Up Instructions / Follow-Up You were admitted for a workup for your slurred speech. Your brain scans show a persistent left cerebellar lesion that has old blood in it. This lesion may be a tumor, and is less likely a problem with the blood vessels. You did not have a stroke. You should follow up with either Morelia Quinonez or Dr. Moon in Neurology office and they can get you set up to see a Neurosurgeon for further evaluation of this. You were seen by Oncology in the hospital for your prostate cancer and anemia. Everything is stable for now with these issues and you should await a phone call to get set up with Dr. Garza at the [facility] at the hospital for your first appointment. There is a possibility that your blood sugar or perhaps your blood pressure could be dropping low and causing your slurred speech issues. I would suggest that you decrease your glimepiride to 2 mg daily (down from 3mg daily). Please continue your other medications as scheduled. Please also follow up with your PCP within 1-2 weeks after discharge. Current Hospital Diet Patient's current hospital diet: Diabetes Type 2 Diet Discharge Diet Recommended Diet: Diabetes Type 2 Diet Procedures Procedures Performed: MRI brain without contrast MRI brain with contrast CTA Head and Neck MRA neck Head CT Chest xray Pending Studies Studies pending at discharge: no Laboratory Results Last 24 Hours Test 06/26/17 16:50 06/26/17 20:45 06/27/17 05:44 06/27/17 07:12 Bedside Glucose 152 mg/dl 155 mg/dl 148 mg/dl White Blood Count 5.32 K/uL Red Blood Count 3.13 M/uL Hemoglobin 9.2 g/dL Hematocrit 29.4 % Mean Corpuscular Volume 93.9 fL Mean Corpuscular Hemoglobin 29.4 pg Mean Corpuscular Hemoglobin Concent 31.3 g/dl Platelet Count 184 K/uL Mean Platelet Volume 9.8 fL Neutrophils (%) (Auto) 82.8 % Lymphocytes (%) (Auto) 3.4 % Monocytes (%) (Auto) 12.6 % Eosinophils (%) (Auto) 0.8 % Basophils (%) (Auto) 0.0 % Neutrophils # (Auto) 4.41 K/uL Lymphocytes # (Auto) 0.18 K/uL Monocytes # (Auto) 0.67 K/uL Eosinophils # (Auto) 0.04 K/uL Basophils # (Auto) 0.00 K/uL RDW Standard Deviation 48.8 fL RDW Coefficient of Variation 14.3 % Immature Granulocyte % (Auto) 0.4 % Immature Granulocyte # (Auto) 0.02 K/uL Sodium Level 141 mmol/L Potassium Level 4.3 mmol/L Chloride Level 106 mmol/L Carbon Dioxide Level 29 mmol/L Anion Gap 6.0 mmol/L Blood Urea Nitrogen 18 mg/dl Creatinine 1.10 mg/dl Est Creatinine Clear Calc Drug Dose 44.5 ml/min Estimated GFR () 71.1 Estimated GFR (Non- 61.3 BUN/Creatinine Ratio 16.6 Random Glucose 149 mg/dl Calcium Level 9.2 mg/dl Magnesium Level 2.2 mg/dl Hemoglobin A1c Test 06/25/17 18:52 Range/Units Estimated Average Glucose 134 mg/dl Hemoglobin A1c 6.3 H 4.5-5.6 % Lipid Panel Test 06/26/17 06:13 Range/Units Triglycerides Level 204 H 0-150 mg/dl Cholesterol Level 152 0-200 mg/dl HDL Cholesterol 50 mg/dl Cholesterol/HDL Ratio 3.0 LDL Cholesterol, Calculated 61 mg/dl Medical Emergencies . Who to Call and When: Medical Emergencies: If at any time you feel your situation is an emergency, please call 911 immediately. . Non-Emergent Contact Non-Emergency issues call your: Primary Care Provider, Neurologist, Oncologist Call Non-Emergent contact if: you have a fever, your pain is not controlled, your pain is worsening, your pain is unusual for you, your pain is concerning you, you have any medication questions . . "Provider Documentation" section prepared by Candida Araujo. . VTE Core Measure Inpt VTE Proph given/why not?: Contraindicated
[2017-06-27 14:08] VITALS: BP 133/65; PULSE 72; TEMP 36.2; O2SAT 98
--- NOTE | 2017-07-04 23:06 | Discharge Summary ---
Discharge Summary Date of Service Jun 27, 2017. Discharge Summary Admission Date: Jun 25, 2017 at 21:36 Discharge Date: Jun 27, 2017 Discharge Disposition: Home with services Principal Diagnosis: Slurred speech,Left cerebellar enhancing lesion-chronic Problems/Secondary Diagnoses: Type 2 diabetes mellitus Dyslipidemia Anemia H/o Polycythemia vera Metastatic prostate cancer Hypertension Mitral regurgitation Peripheral neuropathy Hypomagnesemia Right ICA ulcerated plaque H/o ICH Immunizations: Have You Had Influenza Vaccine: N/A History of Tetanus Vaccine?: Unknown History of Pneumococcal: Yes Pneumococcal Date: Jul 21, 2010 History of Hepatitis B Vaccine: Unknown Procedures: 1) Head CT: 1. No significant change in the nonspecific 9 mm hyperdense nodule within the left posterior cerebellum 2. No CT evidence of acute infarction. 2) CXR: 1. Persistent atelectasis or scarring. No new focal infiltrate. 3) MRA Neck: 1. 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 Follow-up imaging with CTA neck could be obtained on subsequent examinations. 4) Brain MRI WITHOUT Contrast: 1. No acute intracranial abnormality. 2. Chronic small vessel ischemic change. 3. Left cerebellar hemisphere hemorrhagic lesion, unchanged. This was previously shown to enhance on postcontrast imaging on MR from 03/11/2017. 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 Cavernous venous malformations generally do not enhance to the degree seen on prior exam, although enhancement is possible. 5) CTA Neck: 1. Moderate atheromatous change. No evidence of incidentally significant carotid or vertebral artery stenosis 2. Posterior ulcerated plaque at the level of the right carotid bulb, which is felt to explain the previously reported MRI finding 6) CTA Head: 1. No evidence of aneurysm 2. No evidence of dural venous sinus thrombosis 3. No evidence of major intracranial branch occlusion 4. Stable subtle hyperdense 9 mm left posterior cerebellar lesion 7) MRI Brain WITH Contrast: 1. 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 The presence of associated enhancement and the absence of this lesion in 2015 are consistent with a underlying lesion, most compatible with a hemorrhagic metastatic lesion. 2. No acute intracranial pathology. Consultations: Neurology Hematology/Oncology Medication Reconciliation Changed Medications: Glimepiride (Glimepiride) 1 Mg Tab 2 MG PO DAILY for 30 Days, 0 Refills (Changed from: 3 MG; Removed Quantity; 90; Refills: 3) Ruxolitinib Phosphate (Jakafi) 15 Mg Tab 10 MG PO BID for 30 Days (Changed from: 15 MG; QAM) Continued Medications: Abiraterone Acetate (Zytiga) 250 Mg Tab 1000 MG PO DAILY Atorvastatin (Lipitor) 40 Mg Tab 40 MG PO DAILY, TAB Cholecalciferol (Vitamin D3) 2,000 Unit Cap 400 UNITS PO DAILY for 90 Days, CAP 3 Refills Coenzyme Q10 (Ubidecarenone) (Co Q 10) 100 Mg Cap 200 MG PO DAILY Gabapentin (Gabapentin) 300 Mg Cap 300 MG PO TID, #90 Leuprolide Acetate (Lupron Depot) 22.5 Mg Kit 1 DOSE INJ UD EVERY 3 MONTHS Metformin Hcl (Glucophage) 1,000 Mg Tab 1000 MG PO BID, TAB Metoprolol Tartrate (Lopressor) 25 Mg Tab 25 MG PO BID, TAB Ocuvite Preservision (Ocuvite Preservision) 1 Tab Tab 1 TAB PO DAILY, TAB Omeprazole (Prilosec) 40 Mg Cap 40 MG PO DAILY, CAP Ondasetron Odt (Zofran Odt) 4 Mg Tab 4 MG SL Q6H for Nausea, #15 TAB Prednisone (Prednisone) 5 Mg Tab 5 MG PO BID, TAB Referrals At Discharge Follow up Referrals: Neurologist Referral - Within 1-2 Weeks with Morelia Quinonez Oncology/Hematology Referral - Within 1-2 Weeks with Isaac Garza D.O. Physician Referral - Within 1-2 Weeks with Boy Hebert M.D. Discharge Exam Pt feeling well on day of discharge. Has no further slurred speech or any other acute neuro issues. Anxious for discharge to home. Review of Systems: Constitutional: No fever Eyes: No problem reported ENT: No problem reported Respiratory: No shortness of breath Cardiovascular: No chest pain Abdomen: No pain, No problem reported Musculoskeletal: + problem reported (chronic lower back pain with standing) Genitourinary - Male: No problem reported Neurologic: + numbness/tingling (chronic in feet) Psychiatric: No problem reported Endocrine: No problem reported Hematologic / Lymphatic: No problem reported Integumentary: No problem reported Physical Exam: General Appearance: WD/WN, no apparent distress Eyes: normal inspection, sclerae normal ENT: pharynx normal Neck: supple, trachea midline Respiratory/Chest: lungs clear, normal breath sounds, no respiratory distress, no accessory muscle use Cardiovascular: regular rate, rhythm, no edema, no gallop, + systolic murmur (2/6 at LLSB) Abdomen / GI: normal bowel sounds, non tender, soft Extremities: normal inspection, no calf tenderness, no pedal edema Neurologic/Psychiatric: alert, normal mood/affect, oriented x 3 Skin: normal color, warm/dry, no rash Hospital Course Pt is an 82 yo male here with h/o metastatic prostate CA, anemia, PV, and TIA who presented with 35 min of slurred speech. Slurred Speech- not a TIA as per Neuro. No new CVA on imaging. Could be from fluctuations in BP as per Neuro, or perhaps from hypoglycemia, but not clear. He also had significantly low magnesium on admission--> question if this could have caused his speech symptoms? His glimepiride dose will be reduced upon discharge. Holding ASA for h/o ICH and now with chronic hematoma. Replaced magnesium with both po and IV magnesium. CTA neck and head with right ICA ulcerated plaque, no aneurysm or stenoses. Neuro consult obtained and appreciated his recommendations. There is the question of whether this right posterior lesion persistently enhancing, question if is rebleeding or a metastatic lesion from prostate CA? Repeat MRI brain WITH contrast showed enhancing lesion most consistent with a hemorrhagic metastatic lesion. Oncology says that mets to the brain with prostate CA are very rare. This could potentially be a second primary cancer. Needs outpatient f /u with Neurosurgery and this will be arranged by Neuro at follow p visit in the near future. No further evaluation needed now and he is stable for discharge to home with Home Health. ULISES ulcerated plaque-may need Vascular Surgery evaluation as an outpatient. Continue on statin, but NO ASA therapy due to chromic hematoma intracranially Anemia-hgb quite low and is on Jakafi. His dose was just reduced to 10mg po bid about 1 month ago by his [employer] at [facility]. He is transitioning to Dr. Garza next week. Consult Heme here appreciated- recommended continuing current dose until seen as outpatient and records from [facility] can be reviewed. Hgb stable here in the 8-9 range HTN - continue metoprolol bid Prostate Cancer - f/u with Oncology - Takes lupron, zytiga and prednisone DMII- Hgb A1C here only 6.3% -decrease glimepiride dose as above -restart metformin upon dc - Continue gabapentin for DM peripheral neuropathy GERD - continue omeprazole Stable for dc to home Total Time Spent: Greater than 30 minutes This includes examination of the patient, discharge planning, medication reconciliation, and communication with other providers. Discharge Instructions Please refer to the electronic Patient Visit Report (Discharge Instructions) for additional information. Follow-Up Oncology 1-2 weeks Neurology 1-2 weeks PCP 1-2 weeks Additional Copies To Boy Hebert M.D.
[2017-07-09] MEDS ORDERED: calcium PO (09:29)
[2017-07-09] MEDS ORDERED: LPRI INJ (09:29)
[2017-07-09] MEDS ORDERED: PRED-301 PO (09:29)
[2017-07-09] MEDS ORDERED: [UNRECOGNIZED DRUG - CODE] PO (09:29)
[2017-07-09] MEDS ORDERED: GLIM2TAB2 PO (09:29)
[2017-07-26] MEDS ORDERED: DRGTP12 SUBD (14:03)
== END 2017-06-27 15:50 | disposition home health service (06) | DRG 92 ==
LOC: EDBD 18:59 → C.EDB 19:01 → C.MED 21:36 → ENRESERV 21:42
PROVIDERS: ADMIT Internal Medicine; ATTEND Family Medicine
DX: R47.81 Slurred speech (principal); C79.51 Secondary malignant neoplasm of bone; D75.81 Myelofibrosis; G93.89 Other specified disorders of brain; C61 Malignant neoplasm of prostate; D64.9 Anemia, unspecified; R42 Dizziness and giddiness; R41.0 Disorientation, unspecified; E11.42 Type 2 diabetes mellitus with diabetic polyneuropathy; M48.06 Spinal stenosis, lumbar region; I65.29 Occlusion and stenosis of unspecified carotid artery; R11.0 Nausea; I10 Essential (primary) hypertension; E78.5 Hyperlipidemia, unspecified; E78.00 Pure hypercholesterolemia, unspecified; Z66 Do not resuscitate; D45 Polycythemia vera; Z79.899 Other long term (current) drug therapy; Z79.84 Long term (current) use of oral hypoglycemic drugs; Z79.52 Long term (current) use of systemic steroids; Z86.73 Personal history of transient ischemic attack (TIA), and cerebral infarction without residual deficits; Z92.3 Personal history of irradiation; Z98.1 Arthrodesis status

== ENCOUNTER → 2017-06-30 | Outpatient (CLI) | payer BC ==
[~2017-06-30] MED LIST changes: +DRGTP12 SUBD; +GABA1CAP4 PO; +GLIM2TAB2 PO; +LPRI INJ; +PRED10TA PO; +[UNRECOGNIZED DRUG - CODE] PO; +calcium PO
--- NOTE | 2017-06-30 17:28 | DIAGNOSTIC IMAGING REPORT ---
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 COMPARISON STUDY: CT of the abdomen and pelvis October 12, 2016. TECHNIQUE: Axial images of the abdomen and pelvis were obtained without IV contrast. Oral contrast was administered. FINDINGS: Visualized portions of the lower chest demonstrate stable postoperative findings within the right lower lobe. There are innumerable tiny subpleural/perifissural nodules within the lower chest. These are unchanged since prior exam. Evaluation of the abdomen and pelvis is suboptimal on this unenhanced exam. A 2.7 cm right adrenal nodule is unchanged from exams dating back to August 01, 2015. This is likely benign. Unenhanced images of liver, spleen, left adrenal gland and pancreas are unremarkable. There is no biliary or pancreatic ductal dilatation. Moderate symmetric bilateral perinephric infiltration is unchanged per there is no hydronephrosis or hydroureter. No enlarged abdominal or pelvic lymph nodes are present. There is no evidence for a bowel obstruction. There is left colon diverticulosis without evidence for acute diverticulitis. Numerous blastic metastases are similar to exam of November 12, 2016 and include lesions within the right iliac bone, left iliac crest, right sacral ala, L5 vertebral body and the left seventh rib. No pathologic fracture is identified. Postoperative findings within the spine are noted. IMPRESSION: 1. No acute process within the abdomen or pelvis on unenhanced exam. 2. Colonic diverticulosis without evidence for acute diverticulitis. 3. No significant change in numerous blastic metastases since CT of October 12, 2016. 4. No significant change in numerous indeterminate tiny subpleural/perifissural nodules within visualized portions of the lower chest. 5. Stable 2.7 cm right adrenal nodule which likely reflects an adenoma. Electronically signed by: Jimmy Salomon M.D. 06/30/2017 5:27 PM Dictated Date/Time: 06/30/2017 5:09 PM
== END | disposition home or self-care (01) ==
LOC: C.CTS 15:45
PROVIDERS: ATTEND Internal Medicine
DX: C61 Malignant neoplasm of prostate (principal); C78.00 Secondary malignant neoplasm of unspecified lung; K57.30 Diverticulosis of large intestine without perforation or abscess without bleeding; E27.9 Disorder of adrenal gland, unspecified

== ENCOUNTER 2017-07-02 13:11 | Observation (INO) | payer BC, OTHER ==
[~2017-07-02] VITALS: Ht 172.7 cm; Wt 63.0 kg
--- NOTE | 2017-07-02 13:10 | EMERGENCY ROOM VISIT NOTE ---
History Report prepared by Macy: Quincy Brandt Under the Supervision of: Dr. Arias Patel D.O. First contact with patient: 13:05 Stated Complaint: SYNCOPE, HYPOTENSION, BRADYCARDIA History of Present Illness The patient is an 82 year old male with a history of a TIA and an unresolved brain bleed who presents to the Emergency Room via EMS with complaints of a syncopal episode that occurred prior to arrival today. Per EMS, the patient has been feeling sick the past couple days. The patient then started to not feel well prior to arrival, and proceeded to have a syncopal episode. The patient's daughter witnessed the episode. The patient also vomited twice. The patient was hypotensive upon EMS arrival. He is noted to get more dizzy when sitting up, and is also incontinent. Per EMS, the patient has a history of syncopal episodes. The patient is a type 2 diabetic and his sugars were 22. He has also been in sinus bradycardia in the 50's prior to arrival. The patient was noted to be given his own Zofran by his daughter earlier due to not feeling well. Per the pharmacist, the patient was recently started on Glimepiride. The patient currently denies any pain, specifically any headaches. He says that he feels a bit nauseous. The patient denies any recent urinary symptoms. He notes a history of a heart murmur. He also has a history of metastatic prostate cancer and had surgery on his right lung. Source of History: patient, EMS, other (pharmacist) Onset: Prior to arrival today Position: other (global - syncope) Timing: other (episode) Associated Symptoms: + nausea, + vomiting, No headache, No urinary symptoms (pt denies any recent urinary symptoms) Note: Associated symptoms: Hypotensive. Not feeling well past few days. Dizzy. Noted to be incontinent by EMS. Denies any current pain. Review of Systems See HPI for pertinent positives & negatives. A total of 10 systems reviewed and were otherwise negative. Past Medical & Surgical Medical Problems: (1) Cerebellar lesion (2) Diabetes (3) Dizziness (4) Hypercholesteremia (5) Hypertension (6) Polycythemia vera (7) Prostate cancer (8) TIA (transient ischemic attack) (9) Vasovagal syncope Family History History limited secondary to patient's advanced age. Social History Marital Status: Housing Status: lives with family Occupation Status: retired Current/Historical Medications Scheduled Abiraterone Acetate (Zytiga), 1,000 MG PO DAILY Atorvastatin (Lipitor), 40 MG PO DAILY Cholecalciferol (Vitamin D3), 2,000 UNITS PO DAILY Coenzyme Q10 (Ubidecarenone) (Co Q 10), 200 MG PO DAILY Gabapentin (Gabapentin), 300 MG PO TID Glimepiride (Glimepiride), 2 MG PO DAILY Leuprolide Acetate (Lupron Depot), 1 DOSE INJ UD Metformin Hcl (Glucophage), 1,000 MG PO BID Metoprolol Tartrate (Lopressor), 25 MG PO BID Ocuvite Preservision (Ocuvite Preservision), 1 TAB PO DAILY Omeprazole (Prilosec), 40 MG PO DAILY Ondasetron Odt (Zofran Odt), 4 MG SL Q6H Prednisone (Prednisone), 10 MG PO DAILY Ruxolitinib Phosphate (Jakafi), 10 MG PO BID Allergies Coded Allergies: No Known Allergies (Unverified , 07/02/17) Physical Exam Vital Signs Date Time Temp Pulse Resp B/P (MAP) Pulse Ox O2 Delivery O2 Flow Rate FiO2 07/02/17 16:00 65 18 140/67 100 Room Air 07/02/17 15:02 61 18 144/57 100 Room Air 07/02/17 14:29 57 18 126/67 100 Room Air 07/02/17 13:49 56 20 129/56 100 Room Air 55 120/55 67 115/66 07/02/17 13:30 98 Room Air 07/02/17 13:20 57 07/02/17 13:19 36.5 57 20 126/50 98 Room Air Physical Exam GENERAL: Patient is awake, alert, non-anxious appearing, does not appear to be in pain. EYES: The conjunctivae are clear. The pupils are round and reactive. EARS, NOSE, MOUTH AND THROAT: The nose is without any evidence of any deformity. Mucous membranes are dry tongue is midline NECK: The neck is nontender and supple. RESPIRATORY: Normal respiratory effort is noted there is no evidence of wheezing rhonchi or rales CARDIOVASCULAR: Heart sounds were bradycardic but regular. Systolic murmur appreciated. GASTROINTESTINAL: The abdomen is soft. Bowel sounds are present in all quadrants. Abdomen is nontender MUSCULOSKELETAL/EXTREMITIES: There is no evidence of gross deformity full range of motion is noted in the hips and shoulders SKIN: There is no obvious evidence of any rash. There are no petechiae, pallor or cyanosis noted. NEUROLOGIC: Patient is awake alert and oriented x3. Patellar tendon reflexes were 2+ bilaterally. Medical Decision & Procedures ER Provider Diagnostic Interpretation: Radiology results as stated below per my review and radiologist interpretation: CHEST ONE VIEW PORTABLE CLINICAL HISTORY: Sepsis COMPARISON STUDY: 06/25/2017 FINDINGS: The cardiac and mediastinal contours are normal. There is no evidence of focal pulmonary consolidation. There is no evidence of failure. No pleural effusions are visualized.[ There is stable linear subsegmental atelectasis/scarring at the right lung base. IMPRESSION: No active disease in the chest. Electronically signed by: Ken Galvan M.D. 07/02/2017 1:44 PM Dictated Date/Time: 07/02/2017 1:[address] HEAD WITHOUT CONTRAST (CT) CLINICAL HISTORY: Syncope. History of intracranial hemorrhage. COMPARISON STUDY: Noncontrast head CT dated 06/25/2017 TECHNIQUE: Axial CT of the brain is performed from the vertex to the skull base. IV contrast was not administered for this examination. A dose lowering technique was utilized adhering to the principles of ALARA. CT DOSE: 614.27 mGy.cm FINDINGS: There is a persistent 9 mm hyperdense nodule within the left posterior cerebellar hemisphere. A prior MRI study suggested that this lesion represented hemorrhage into an underlying mass. No new areas of hemorrhage are visualized. There is no CT evidence of acute cortical infarction. There is no midline shift. There are patchy white matter hypodensities likely on a small vessel basis. There is no evidence of pathologic ventricular dilatation. There is no evidence of acute sinusitis IMPRESSION: 1. No significant change from the preceding study. Stable indeterminate 9 mm hyperdense nodule within the left posterior cerebellar hemisphere Electronically signed by: Ken Galvan M.D. 07/02/2017 2:40 PM Dictated Date/Time: 07/02/2017 2:37 PM Laboratory Results 07/02/17 13:56 Red Blood Count 3.14, Mean Corpuscular Volume 92.7, Mean Corpuscular Hemoglobin 29.9, Mean Corpuscular Hemoglobin Concent 32.3, Mean Platelet Volume 9.0, Neutrophils (%) (Auto) 78.3, Lymphocytes (%) (Auto) 7.4, Monocytes (%) (Auto) 12.0, Eosinophils (%) (Auto) 1.3, Basophils (%) (Auto) 0.5, Neutrophils # (Auto ) 4.85, Lymphocytes # (Auto) 0.46, Monocytes # (Auto) 0.74, Eosinophils # (Auto ) 0.08, Basophils # (Auto) 0.03 07/02/17 13:56 Test 07/02/17 13:56 07/02/17 14:03 07/02/17 15:20 White Blood Count 6.19 K/uL (4.8-10.8) Red Blood Count 3.14 M/uL (4.7-6.1) Hemoglobin 9.4 g/dL (14.0-18.0) Hematocrit 29.1 % (42-52) Mean Corpuscular Volume 92.7 fL (80-100) Mean Corpuscular Hemoglobin 29.9 pg (25-34) Mean Corpuscular Hemoglobin Concent 32.3 g/dl (32-36) Platelet Count 182 K/uL (130-400) Mean Platelet Volume 9.0 fL (7.4-10.4) Neutrophils (%) (Auto) 78.3 % Lymphocytes (%) (Auto) 7.4 % Monocytes (%) (Auto) 12.0 % Eosinophils (%) (Auto) 1.3 % Basophils (%) (Auto) 0.5 % Neutrophils # (Auto) 4.85 K/uL (1.4-6.5) Lymphocytes # (Auto) 0.46 K/uL (1.2-3.4) Monocytes # (Auto) 0.74 K/uL (0.11-0.59) Eosinophils # (Auto) 0.08 K/uL (0-0.5) Basophils # (Auto) 0.03 K/uL (0-0.2) RDW Standard Deviation 48.1 fL (36.4-46.3) RDW Coefficient of Variation 14.3 % (11.5-14.5) Immature Granulocyte % (Auto) 0.5 % Immature Granulocyte # (Auto) 0.03 K/uL (0.00-0.02) Erythrocyte Sedimentation Rate 15 mm/hr (0-14) Prothrombin Time 10.8 SECONDS (9.0-12.0) Prothromb Time International Ratio 1.0 (0.9-1.1) Activated Partial Thromboplast Time 24.0 SECONDS (21.0-31.0) Partial Thromboplastin Ratio 0.9 Anion Gap 7.0 mmol/L (3-11) Est Creatinine Clear Calc Drug Dose 39.4 ml/min Estimated GFR () 58.1 Estimated GFR (Non- 50.1 BUN/Creatinine Ratio 16.5 (10-20) Calcium Level 9.0 mg/dl (8.5-10.1) Phosphorus Level 3.5 mg/dl (2.5-4.9) Magnesium Level 1.7 mg/dl (1.8-2.4) Total Bilirubin 0.7 mg/dl (0.2-1) Aspartate Amino Transf (AST/SGOT) 23 U/L (15-37) Alanine Aminotransferase (ALT/SGPT) 14 U/L (12-78) Alkaline Phosphatase 177 U/L (45-117) Total Creatine Kinase 101 U/L (39-308) Creatine Kinase MB 0.8 ng/ml (0.5-3.6) Creatine Kinase MB Ratio 0.8 (0-3.0) Troponin I < 0.015 ng/ml (0-0.045) C-Reactive Protein 0.30 mg/dl (0-0.29) Pro-B-Type Natriuretic Peptide 538 pg/ml (0-1800) Total Protein 6.5 gm/dl (6.4-8.2) Albumin 3.7 gm/dl (3.4-5.0) Globulin 2.8 gm/dl (2.5-4.0) Albumin/Globulin Ratio 1.3 (0.9-2) Lipase 104 U/L (73-393) Random Cortisol 9.43 mcg/dl Bedside Lactic Acid Venous 2.46 mmol/L (0.90-1.70) Urine Color YELLOW Urine Appearance CLOUDY (CLEAR) Urine pH 7.0 (4.5-7.5) Urine Specific [place] 1.013 (1.000-1.030) Urine Protein NEG (NEG) Urine Glucose (UA) NEG (NEG) Urine Ketones NEG (NEG) Urine Occult Blood NEG (NEG) Urine Nitrite NEG (NEG) Urine Bilirubin NEG (NEG) Urine Urobilinogen NEG (NEG) Urine Leukocyte Esterase NEG (NEG) Urine WBC (Auto) 0 /hpf (0-5) Urine RBC (Auto) 0-4 /hpf (0-4) Urine Hyaline Casts (Auto) 0 /lpf (0-5) Urine Epithelial Cells (Auto) 0-5 /lpf (0-5) Urine Bacteria (Auto) NEG (NEG) Laboratory results per my review. Medications Administered Medications (Trade) Dose Ordered Sig/Axel Route Start Time Stop Time Status Last Admin Dose Admin Sodium Chloride 1,000 ml @ 999 mls/hr Q1H1M ONCE IV 07/02/17 13:14 07/02/17 14:14 DC 07/02/17 14:28 999 MLS/HR Sodium Chloride 1,000 ml @ 75 mls/hr [id number] IV 07/02/17 17:19 08/01/17 17:18 07/02/17 19:33 75 MLS/HR ECG Indication: syncope Rate (beats per minute): 53 Rhythm: sinus bradycardia Findings: no ectopy, other (no acute ST segment abnormalities) Comparison ECG Date: decreased rate otherwise no significant change from June 27 this year ED Course 1311: The patient was evaluated in room B1. A complete history and physical examination were performed. 1314: Ordered NSS 1000 ml @ 999 mls/hr IV. 1436: I reevaluated the patient and he is feeling better. 1610: I reevaluated and updated the patient's family. The patient verbally expressed understanding and agreement with the treatment plan. The patient will be evaluated for further treatment. 1616: I discussed the patient with Dr. Sekou BECKER expanding machine operator. He will evaluate the patient for further treatment. Medical Decision Differential diagnosis: Etiologies such as vasovagal event, infection, hypoglycemia, electrolyte abnormalities, cardiac sources, intracerebral event, toxicologic, neurologic, as well as others were entertained. Nursing notes reviewed. Additional history is obtained from the prehospital personnel. The patient is an 82-year-old male who presented to the emergency department after having a syncopal episode while visiting his at inpatient rehabilitation. The patient had significant hypotension prior to arrival. Patient was treated with IV fluids and his condition significantly improved. I discussed the patient's laboratory and radiographic studies with him. His family members were very concerned because it does not appear that he's been caring for himself properly or taking his medications properly while he's been living at home alone without his significant other. I discussed this case with the on-call [facility] hospitalist. They've agreed to evaluate the patient in the emergency department for further management and disposition. Medication Reconcilliation Current Medication List: was personally reviewed by me Blood Pressure Screening Patient's blood pressure: Normal blood pressure Consults Time Called: 161 Consulting Physician: Dr. Sekou BECKER expanding machine operator Returned Call: [phone] I discussed the patient with Dr. Sekou BECKER expanding machine operator. He will evaluate the patient for further treatment. Impression Primary Impression: Syncope Additional Impressions: Hypotension ORI (acute kidney injury) Dehydration Noncompliance with medications Scribe Attestation The scribe's documentation has been prepared under my direction and personally reviewed by me in its entirety. I confirm that the note above accurately reflects all work, treatment, procedures, and medical decision making performed by me. Departure Information Dispostion Being Evaluated By Hospitalist Problem Qualifiers Primary Impression: Syncope Syncope type: unspecified Qualified Codes: R55 - Syncope and collapse Additional Impressions: Hypotension Hypotension type: unspecified hypotension type Qualified Codes: I95.9 - Hypotension, unspecified
[~2017-07-02 13:11] MED LIST changes: -DRGTP12 SUBD; -GLIM2TAB2 PO; -LPRI INJ; -PRED10TA PO; -[UNRECOGNIZED DRUG - CODE] PO; -calcium PO
[2017-07-02] MEDS ORDERED: SODIUM CHLORIDE 0.9% 1000ML 1,000 ML IV ONE (13:14)
--- NOTE | 2017-07-02 13:46 | DIAGNOSTIC IMAGING REPORT ---
CHEST ONE VIEW PORTABLE CLINICAL HISTORY: Sepsis COMPARISON STUDY: 06/25/2017 FINDINGS: The cardiac and mediastinal contours are normal. There is no evidence of focal pulmonary consolidation. There is no evidence of failure. No pleural effusions are visualized.[ There is stable linear subsegmental atelectasis/scarring at the right lung base. IMPRESSION: No active disease in the chest. Electronically signed by: Ken Galvan M.D. 07/02/2017 1:44 PM Dictated Date/Time: 07/02/2017 1:44 PM
[2017-07-02 14:17] LABS: BASO % 0.5 %; BASO ABS # 0.03 K/uL (0-0.2); COMPLETE YES; EOS % 1.3 %; HEMATOCRIT 29.1 % (42-52); IG% 0.5 %; LYMPH % 7.4 %; LYMPH ABS # 0.46 K/uL (1.2-3.4); MEAN CELL VOLUME 92.7 fL (80-100); MEAN CORPUSCULAR HEMOGLOBIN 29.9 pg (25-34); MEAN CORPUSCULAR HGB CONC 32.3 g/dl (32-36); NEUT % 78.3 %; PLATELET COUNT 182 K/uL (130-400); RED BLOOD COUNT 3.14 M/uL (4.7-6.1); WHITE BLOOD COUNT 6.19 K/uL (4.8-10.8)
[2017-07-02 14:26] LABS: PARTIAL THROMBOPLASTIN RATIO 0.9; PROTHROMBIN TIME (PATIENT) 10.8 SECONDS (9.0-12.0)
[2017-07-02 14:41] LABS: ALT/SGPT 14 U/L (12-78); AST/SGOT 23 U/L (15-37); BLOOD UREA NITROGEN 21 mg/dl (7-18); BUN/CREATININE RATIO 16.5 (10-20); CARBON DIOXIDE 27 mmol/L (21-32); CHLORIDE 107 mmol/L (98-107); GLUCOSE 103 mg/dl (70-99); MAGNESIUM 1.7 mg/dl (1.8-2.4); POTASSIUM 3.9 mmol/L (3.5-5.1); SODIUM 141 mmol/L (136-145)
--- NOTE | 2017-07-02 14:41 | DIAGNOSTIC IMAGING REPORT ---
CT HEAD WITHOUT CONTRAST (CT) CLINICAL HISTORY: Syncope. History of intracranial hemorrhage. COMPARISON STUDY: Noncontrast head CT dated 06/25/2017 TECHNIQUE: Axial CT of the brain is performed from the vertex to the skull base. IV contrast was not administered for this examination. A dose lowering technique was utilized adhering to the principles of ALARA. CT DOSE: 614.27 mGy.cm FINDINGS: There is a persistent 9 mm hyperdense nodule within the left posterior cerebellar hemisphere. A prior MRI study suggested that this lesion represented hemorrhage into an underlying mass. No new areas of hemorrhage are visualized. There is no CT evidence of acute cortical infarction. There is no midline shift. There are patchy white matter hypodensities likely on a small vessel basis. There is no evidence of pathologic ventricular dilatation. There is no evidence of acute sinusitis IMPRESSION: 1. No significant change from the preceding study. Stable indeterminate 9 mm hyperdense nodule within the left posterior cerebellar hemisphere Electronically signed by: Ken Galvan M.D. 07/02/2017 2:40 PM Dictated Date/Time: 07/02/2017 2:37 PM
[2017-07-02 14:44] LABS: ALB/GLOB RATIO 1.3 (0.9-2); ALKALINE PHOSPHATASE 177 U/L (45-117); CKMB/CK RATIO 0.8 (0-3.0); PHOSPHORUS 3.5 mg/dl (2.5-4.9)
[2017-07-02 15:36] LABS: URINE APPEARANCE CLOUDY (CLEAR); URINE BILIRUBIN NEG (NEG); URINE COLOR YELLOW; URINE EPITHELIAL CELL AUTO 0-5 /lpf (0-5); URINE NITRITE NEG (NEG); URINE SPECIFIC GRAVITY 1.013 (1.000-1.030); UROBILINOGEN NEG (NEG); ZZUR CULT IF INDIC CLEAN CATCH NO
[2017-07-02 15:40] LABS: MANUAL MICROSCOPIC REQUIRED? NO; REVIEW REQ? NO
[2017-07-02] MEDS ORDERED: PRED10TA PO (17:24)
[2017-07-02] MEDS ORDERED: GLUCOSE 10 TABS/TUBE PO PRN (17:30)
[2017-07-02] MEDS ORDERED: ALUMINUM/MAGNESIUM/SIMETH (MAALOX MAX) 30 ML UDC PO PRN (17:30)
[2017-07-02] MEDS ORDERED: MAGNESIUM HYDROXIDE SUSP 30 ML UDC PO PRN (17:30)
[2017-07-02] MEDS ORDERED: DEXTROSE 50% 50 ML SYR IV PRN (17:30)
[2017-07-02] MEDS ORDERED: ACETAMINOPHEN 325 MG TAB PO PRN (17:30)
[2017-07-02] MEDS ORDERED: POLYETHYLENE (MIRALAX) 17 GM PACK PO PRN (17:30)
[2017-07-02] MEDS ORDERED: ONDANSETRON INJ 2 MG/ML 2 ML VIAL IV PRN (17:30)
[2017-07-02] MEDS ORDERED: GLUCOSE 40% GEL 15 GM TUBE PO PRN (17:30)
[2017-07-02] MEDS ORDERED: GLUCAGON FOR INJ 1 MG VIAL SQ PRN (17:30)
[2017-07-02] MEDS ORDERED: IV FLUIDS COMPLETED PRN (17:45)
--- NOTE | 2017-07-02 18:00 | History and Physical ---
History & Physical Date & Time of Service: Jul 02, 2017 at 17:30 Chief Complaint: Syncope, Hypotension, Bradycardia Primary Care Physician: Boy Hebert M.D. History of Present Illness Source: patient, family (son and daughter in law at bedside), clinic records, hospital records This is an 82 y/o male with a history of recent TIA, HTN, HLD, CAD, DM II, CKD stage III, chronic cerebral hematoma, essential thrombocythemia, metastatic prostate cancer, and GERD who presented to the ED on 07/02 with syncope and hypotension. The patient states he had not been feeling well earlier this morning. He had some nausea and took a Zofran. The patient was then riding in the car with his daughter in law and began to feel dizzy and lightheaded. The patient had a syncopal episode while sitting in the car and was out for several minutes. When he came to he vomited 2 times. He happened to be at [facility] for an appointment with his , and the staff there took his vitals right away before EMS arrived. He was found to by hypotensive and bradycardic. BSG was normal. When EMS arrived, he had a BP of 60/38, HR in 50s and BSG of 122. Currently the patient reports feeling better and denies any dizziness or nausea now. He states he has been feeling weaker and more fatigued lately. He has not had a good appetite for the last several months. The patient was just here last week with slurred speech and was diagnosed with a TIA. The patient denies fevers, chills, sweats, chest pain, palpitations, claudication, cough, wheezing , shortness of breath, abdominal pain, dysuria, hematuria, urinary retention, paralysis, motor weakness, numbness and tingling. Past Medical/Surgical History Medical Problems: (1) Diabetes Status: Chronic (2) Hypercholesteremia Status: Chronic (3) Hypertension Status: Chronic (4) Polycythemia vera Status: Chronic (5) Prostate cancer Permanent Comment: Adenocarcinoma the prostate with [place] 4+3 04/09/2003 Treatment with radiation therapy Pulmonary metastasis status post metastectomy 09/02/2015 Rising PSA initiation of total androgen ablation October 2015 Bone metastasis bone scan April 2016 Status post completion of radiation therapy to lumbosacral spine 10/28/2016 received 3000 cGy Status: Chronic (6) TIA (transient ischemic attack) Status: Resolved (7) Vasovagal syncope Status: Resolved Family History Diabetes mellitus Gastric cancer Hypertension Myocardial infarction Stroke Social History Smoking Status: Never Smoker Smokeless Tobacco Use: No Alcohol Use: occasionally (beer) Drug Use: none Marital Status: Housing status: lives alone Occupational Status: retired Immunizations History of Influenza Vaccine: N/A History of Tetanus Vaccine?: Unknown History of Pneumococcal: Yes Pneumococcal Date: Jul 21, 2010 History of Hepatitis B Vaccine: Unknown Multi-Drug Resistant Organisms History of MDRO: No Allergies Coded Allergies: No Known Allergies (Unverified , 07/02/17) Home Medications Scheduled Abiraterone Acetate (Zytiga), 1,000 MG PO DAILY Atorvastatin (Lipitor), 40 MG PO DAILY Cholecalciferol (Vitamin D3), 2,000 UNITS PO DAILY Coenzyme Q10 (Ubidecarenone) (Co Q 10), 200 MG PO DAILY Gabapentin (Gabapentin), 300 MG PO TID Glimepiride (Glimepiride), 2 MG PO DAILY Leuprolide Acetate (Lupron Depot), 1 DOSE INJ UD Metformin Hcl (Glucophage), 1,000 MG PO BID Metoprolol Tartrate (Lopressor), 25 MG PO BID Ocuvite Preservision (Ocuvite Preservision), 1 TAB PO DAILY Omeprazole (Prilosec), 40 MG PO DAILY Ondasetron Odt (Zofran Odt), 4 MG SL Q6H Prednisone (Prednisone), 10 MG PO DAILY Ruxolitinib Phosphate (Jakafi), 10 MG PO BID Review of Systems Constitutional: + weakness, + fatigue, + problem reported (dizziness, syncopal episode), No fever, No chills, No sweats Eyes: No worsening of vision, No eye pain, No diplopia ENT: No hearing loss, No sore throat, No trouble swallowing Respiratory: No cough, No wheezing, No shortness of breath Cardiovascular: No chest pain, No claudication, No palpitations Abdomen: + nausea, + vomiting, No pain Musculoskeletal: No joint pain, No muscle pain, No calf pain Genitourinary - Male: No hematuria, No dysuria, No urinary urgency Neurologic: No paralysis, No weakness, No numbness/tingling Integumentary: No rash, No itch, No color change Physical Exam Vital Signs Date Time Temp Pulse Resp B/P (MAP) Pulse Ox O2 Delivery O2 Flow Rate FiO2 07/02/17 16:00 65 18 140/67 100 Room Air 07/02/17 15:02 61 18 144/57 100 Room Air 07/02/17 14:29 57 18 126/67 100 Room Air 07/02/17 13:49 56 20 129/56 100 Room Air 55 120/55 67 115/66 07/02/17 13:30 98 Room Air 07/02/17 13:20 57 07/02/17 13:19 36.5 57 20 126/50 98 Room Air General appearance: Well-developed, well-nourished, no apparent distress Head: Normocephalic, atraumatic Eyes: Normal inspection, PERRL, EOMI ENT: Normal ENT inspection, hearing grossly normal, pharynx normal Neck: Supple, no JVD, trachea midline Respiratory/Chest: Lungs clear to auscultation, normal breath sounds, no respiratory distress Cardiovascular: +Systolic murmur. Bradycardia. Regular rhythm, no gallop Abdomen/GI: Normal bowel sounds, non-tender, soft Extremities/Musculoskeletal: Normal inspection, no calf tenderness, no pedal edema Neurological/Psych: Alert, normal mood/affect, oriented x 3 Skin: Normal color, warm/dry, no rash Diagnostics Laboratory Results Results Past 24 Hours Test 07/02/17 13:56 07/02/17 14:03 07/02/17 15:20 Range/Units White Blood Count 6.19 4.8-10.8 K/uL Red Blood Count 3.14 4.7-6.1 M/uL Hemoglobin 9.4 14.0-18.0 g/dL Hematocrit 29.1 42-52 % Mean Corpuscular Volume 92.7 80-100 fL Mean Corpuscular Hemoglobin 29.9 25-34 pg Mean Corpuscular Hemoglobin Concent 32.3 32-36 g/dl Platelet Count 182 130-400 K/uL Mean Platelet Volume 9.0 7.4-10.4 fL Neutrophils (%) (Auto) 78.3 % Lymphocytes (%) (Auto) 7.4 % Monocytes (%) (Auto) 12.0 % Eosinophils (%) (Auto) 1.3 % Basophils (%) (Auto) 0.5 % Neutrophils # (Auto) 4.85 1.4-6.5 K/uL Lymphocytes # (Auto) 0.46 1.2-3.4 K/uL Monocytes # (Auto) 0.74 0.11-0.59 K/uL Eosinophils # (Auto) 0.08 0-0.5 K/uL Basophils # (Auto) 0.03 0-0.2 K/uL RDW Standard Deviation 48.1 36.4-46.3 fL RDW Coefficient of Variation 14.3 11.5-14.5 % Immature Granulocyte % (Auto) 0.5 % Immature Granulocyte # (Auto) 0.03 0.00-0.02 K/uL Erythrocyte Sedimentation Rate 15 0-14 mm/hr Prothrombin Time 10.8 9.0-12.0 SECONDS Prothromb Time International Ratio 1.0 0.9-1.1 Activated Partial Thromboplast Time 24.0 21.0-31.0 SECONDS Partial Thromboplastin Ratio 0.9 Sodium Level 141 136-145 mmol/L Potassium Level 3.9 3.5-5.1 mmol/L Chloride Level 107 98-107 mmol/L Carbon Dioxide Level 27 21-32 mmol/L Anion Gap 7.0 3-11 mmol/L Blood Urea Nitrogen 21 7-18 mg/dl Creatinine 1.30 0.60-1.40 mg/dl Est Creatinine Clear Calc Drug Dose 39.4 ml/min Estimated GFR () 58.1 Estimated GFR (Non- 50.1 BUN/Creatinine Ratio 16.5 10-20 Random Glucose 103 70-99 mg/dl Calcium Level 9.0 8.5-10.1 mg/dl Phosphorus Level 3.5 2.5-4.9 mg/dl Magnesium Level 1.7 1.8-2.4 mg/dl Total Bilirubin 0.7 0.2-1 mg/dl Aspartate Amino Transf (AST/SGOT) 23 15-37 U/L Alanine Aminotransferase (ALT/SGPT) 14 12-78 U/L Alkaline Phosphatase 177 45-117 U/L Total Creatine Kinase 101 39-308 U/L Creatine Kinase MB 0.8 0.5-3.6 ng/ml Creatine Kinase MB Ratio 0.8 0-3.0 Troponin I < 0.015 0-0.045 ng/ml C-Reactive Protein 0.30 0-0.29 mg/dl Pro-B-Type Natriuretic Peptide 538 0-1800 pg/ml Total Protein 6.5 6.4-8.2 gm/dl Albumin 3.7 3.4-5.0 gm/dl Globulin 2.8 2.5-4.0 gm/dl Albumin/Globulin Ratio 1.3 0.9-2 Lipase 104 73-393 U/L Random Cortisol 9.43 mcg/dl Bedside Lactic Acid Venous 2.46 0.90-1.70 mmol/L Urine Color YELLOW Urine Appearance CLOUDY CLEAR Urine pH 7.0 4.5-7.5 Urine Specific Earth 1.013 1.000-1.030 Urine Protein NEG NEG Urine Glucose (UA) NEG NEG Urine Ketones NEG NEG Urine Occult Blood NEG NEG Urine Nitrite NEG NEG Urine Bilirubin NEG NEG Urine Urobilinogen NEG NEG Urine Leukocyte Esterase NEG NEG Urine WBC (Auto) 0 0-5 /hpf Urine RBC (Auto) 0-4 0-4 /hpf Urine Hyaline Casts (Auto) 0 0-5 /lpf Urine Epithelial Cells (Auto) 0-5 0-5 /lpf Urine Bacteria (Auto) NEG NEG Microbiology Results 07/02/17 Blood Culture, Received Pending 07/02/17 Blood Culture, Received Pending Diagnostic Radiology Reviewed the following studies and agree with interpretation as follows: Patient Name: Shayy SWANN Unit Number: [id number] Dictated: 07/02/171343 Transcribed: 07/02/171343 ARG Printed Date/Time: [~ rep prt dt]/[~ rep prt tm] [~ rep ct labl] - [~ rep ct ivnm] [facility] [place] [address] Dictated: 07/02/171343 Transcribed: 07/02/171343 ARG Printed Date/Time: [~ rep prt dt]/[~ rep prt tm] [~ rep ct labl] - [~ rep ct ivnm] Patient: Shayy SWANN Address1: [address] [place] [address] [address] [facility] Rec: [id number] Address2: Acct ID: [id number] [facility] Zip: [place] [address] Date: 1935 Sex: M Room/Bed: Ref Phy: Boy Hebert M.D. SC: VINCEB Att Phy: Report #: [id number] Valeria Phy: Boy Hebert M.D. Test: CXR1P Admit Phy: Pharmaceutical Operator: FLORENCIA Interpreting Phy: Ken Galvan M.D. Diagnosis: SYNCOPE, HYPOTENSION, BRADYCARDIA Ordering Phy: Arias Patel D.O. Service Date: 07/02/17 Admit Date: 07/02/17 MNE: PWRSCRIBE CONF: DICTATED BY: Ken Galvan M.D.]] CC: Arias Patel, Boy Leyva M.D. Endcc: [~ rep ct add3]] CHEST ONE VIEW PORTABLE CLINICAL HISTORY: Sepsis COMPARISON STUDY: 06/25/2017 FINDINGS: The cardiac and mediastinal contours are normal. There is no evidence of focal pulmonary consolidation. There is no evidence of failure. No pleural effusions are visualized.[ There is stable linear subsegmental atelectasis/scarring at the right lung base. IMPRESSION: No active disease in the chest. Electronically signed by: Ken Galvan M.D. 07/02/2017 1:44 PM Dictated Date/Time: 07/02/2017 1:44 PM The status of this report is Signed. Draft = Not yet reviewed or approved by Radiologist. Signed = Reviewed and approved by Radiologist. <AttendingPhy></AttendingPhy> <FamilyPhy>Boy Hebert M.D.</FamilyPhy> < PrimaryPhy>Boy Hebert M.D.</PrimaryPhy> <UnitNumber>[id number]</UnitNumber> <VisitNumber>[id number]</VisitNumber> <PatientName>Shayy SWANN</ PatientName> <DateOfBirth>1935</DateOfBirth> <Location>[facility]</Location> < ServiceDate>07/02/17</ServiceDate> <MNE>ESINDI</MNE> <OrderingPhy>Arias Patel D.O.</OrderingPhy> <OrderingPhyMNE>f rep ord dr landis</OrderingPhyMNE> <DictatingPhyMNE>f rep dict dr landis</DictatingPhyMNE> <CCListMNE>f rep ct mne</ CCListMNE> <AdmittingPhyMNE>f pt admit dr landis</AdmittingPhyMNE> <AttendingPhyMNE >f pt attend dr landis</AttendingPhyMNE> <ConsultingPhyMNE>f pt consult dr landis</ConsultingPhyMNE> <FamilyPhyMNE>f pt fam dr landis</FamilyPhyMNE> <OtherPhyMNE>f pt other dr landis</OtherPhyMNE> < PrimaryPhyMNE>f pt prim care dr landis</PrimaryPhyMNE> <ReferringPhyMNE>f pt referring dr landis</ReferringPhyMNE> Patient Name: Shayy SWANN Unit Number: [id number] Dictated: 07/02/[id number] Transcribed: 07/02/171436 ARG Printed Date/Time: [~ rep prt dt]/[~ rep prt tm] [~ rep ct labl] - [~ rep ct ivnm] [facility] [place] [place] [address] Dictated: 07/02/171436 Transcribed: 07/02/171436 ARG Printed Date/Time: [~ rep prt dt]/[~ rep prt tm] [~ rep ct labl] - [~ rep ct ivnm] Patient: Shayy SWANN Address1: [address] [place] [address] Rec: [id number] Address2: Acct ID: [id number] [facility] Zip: [place] [address] Date: 1935 Sex: M Room/Bed: Ref Phy: Iasac Garza D.O. SC: JEOVANY Att Phy: Report #: [id number] Valeria Phy: Boy Hebert M.D. Test: HWO Admit Phy: Pharmaceutical Operator: RANJEET Interpreting Phy: Ken Galvan M.D. Diagnosis: SYNCOPE, HYPOTENSION, BRADYCARDIA Ordering Phy: Arias Patel D.O. Service Date: 07/02/17 Admit Date: 07/02/17 MNE: PWRSCRIBE CONF: DICTATED BY: Ken Galvan M.D.]] CC: Isaac Garza D.O. Elias, Jeffrey R., Boy Leyva M.D. Endcc: [~ rep ct add3]] CT HEAD WITHOUT CONTRAST (CT) CLINICAL HISTORY: Syncope. History of intracranial hemorrhage. COMPARISON STUDY: Noncontrast head CT dated 06/25/2017 TECHNIQUE: Axial CT of the brain is performed from the vertex to the skull base. IV contrast was not administered for this examination. A dose lowering technique was utilized adhering to the principles of ALARA. CT DOSE: 614.27 mGy.cm FINDINGS: There is a persistent 9 mm hyperdense nodule within the left posterior cerebellar hemisphere. A prior MRI study suggested that this lesion represented hemorrhage into an underlying mass. No new areas of hemorrhage are visualized. There is no CT evidence of acute cortical infarction. There is no midline shift. There are patchy white matter hypodensities likely on a small vessel basis. There is no evidence of pathologic ventricular dilatation. There is no evidence of acute sinusitis IMPRESSION: 1. No significant change from the preceding study. Stable indeterminate 9 mm hyperdense nodule within the left posterior cerebellar hemisphere Electronically signed by: Ken Galvan M.D. 07/02/2017 2:40 PM Dictated Date/Time: 07/02/2017 2:37 PM The status of this report is Signed. Draft = Not yet reviewed or approved by Radiologist. Signed = Reviewed and approved by Radiologist. <AttendingPhy></AttendingPhy> <FamilyPhy>Isaac Garza D.O.</FamilyPhy> < PrimaryPhy>Boy Hebert M.D.</PrimaryPhy> <UnitNumber>[id number]</UnitNumber> <VisitNumber>[id number]</VisitNumber> <PatientName>SWANNShayy</ PatientName> <DateOfBirth>1935</DateOfBirth> <Location>[facility]</Location> < ServiceDate>07/02/17</ServiceDate> <MNE>ESINDI</MNE> <OrderingPhy>Arias Patel D.O.</OrderingPhy> <OrderingPhyMNE>f rep ord dr mne</OrderingPhyMNE> <DictatingPhyMNE>f rep dict dr landis</DictatingPhyMNE> <CCListMNE>f rep ct mne</ CCListMNE> <AdmittingPhyMNE>f pt admit dr landis</AdmittingPhyMNE> <AttendingPhyMNE >f pt attend dr landis</AttendingPhyMNE> <ConsultingPhyMNE>f pt consult dr landis</ConsultingPhyMNE> <FamilyPhyMNE>f pt fam dr landis</FamilyPhyMNE> <OtherPhyMNE>f pt other dr landis</OtherPhyMNE> < PrimaryPhyMNE>f pt prim care dr landis</PrimaryPhyMNE> <ReferringPhyMNE>f pt referring dr landis</ReferringPhyMNE> EKG Reviewed EKG and agree with interpretation as follows: 53 bpm, sinus bradycardia Impression Assessment and Plan 82 y/o male with a history of recent TIA, HTN, HLD, CAD, DM II, CKD stage III, chronic cerebral hematoma, essential thrombocythemia, metastatic prostate cancer , and GERD who presented to the ED on 07/02 with syncope and hypotension. Pt arrived to ED afebrile, VSS. No longer hypotensive upon arrival. Orthostatics negative. CXR no acute disease. Head CT shows stable 9 mm nodule compared to previous study. EKG no ischemic changes. Hgb 9.4, at baseline. BUN 21. Point of care lactic acid 2.46 but no white count or fever. ESR and CRP unremarkable. Random cortisol WNL. Syncope, dizziness, hypotension -Admit to telemetry for observation to monitor for any arrhythmias -Pt recently admitted last week for TIA with comprehensive work up. Brain MRI findings consistent with chronic hematoma, most likely hemorrhagic metastatic lesion. CTA neck with moderate atheromatous change but no significant carotid or vertebral artery stenosis. CTA head negative. Echo 06/03/17 shows LVEF of 60 %, no wall motion abnormalities, only mild aortic stenosis. -Head CT this admission no acute disease, stable 9 mm nodule -Gentle IVF hydration with NSS at 75 cc/hr -Recheck orthostatics q shift -Pt scheduled to follow up w/oncology 07/05 and neurology 07/07 HTN--had been hypotensive prior to arrival per EMS record but now stable, normo/ hypertensive here -Continue Lopressor 25 mg PO BID. Hold if SBP < 100 or HR < 60 HLD -Continue Lipitor 40 mg PO qd DM II w/neuropathy--last HgbA1c checked 06/25/17 was 6.3 -Hold glimepiride and metformin -Insulin sliding scale -Check BSGs q ac and qhs -Continue gabapentin 300 mg PO TID CKD stage III--stable -Creatinine around baseline Essential thrombocythemia -Continue Jakafi 10 mg PO BID Metastatic prostate cancer -Continue Zytiga 1000 mg PO qd and Prednisone 10 mg PO qd -Pt takes Lupron injections q 3 months, on hold GERD -Prilosec converted to Protonix 40 mg PO qd DVT prophylaxis -Enoxaparin 40 mg SC q24h -DAPHNE Martins Code Status -Level V, DO NOT RESUSCITATE I agree with PA assessment and plan and have seen and examined pt myself Pt resting comfortably in bed hypotension resolved Obs on tele at this time Unknown cause of dizziness or syncope CT head no acute etiology May need holter monitor Level of Care Telemetry Resuscitation Status DO NOT RESUSCITATE VTE Prophylaxis VTE Risk Assessment Done? Y/N: Yes Risk Level: Moderate Given or contraindicated: Enoxaparin (Lovenox)SQ, T.E.D. Stockings, SCD's
[2017-07-02] MEDS: SODIUM CHLORIDE 0.9% 1000ML 1,000 ML IV SCH (19:33)
[2017-07-02] MEDS ORDERED: MAGNESIUM SULFATE 1GM / D5W 1 GM in PREMIXED IN D5W 100 ML IV STA (19:36)
[2017-07-02 19:47] VITALS: BP 133/74; PULSE 66; TEMP 36.5; O2SAT 99; Ht 172.7 cm; Wt 63.0 kg
[2017-07-02] MEDS ORDERED: INFLUENZA VACCINE HIGH DOSE 65+ 0.5 ML SYR IM. ONE (20:15)
[2017-07-02] MEDS ORDERED: INFLUENZA ADMINISTRATION CHARGE ONE (20:15)
[2017-07-02] MEDS: GABAPENTIN 300 MG CAP PO SCH (20:32)
[2017-07-02] MEDS: METOPROLOL TARTRATE 25 MG TAB PO SCH (20:32)
[2017-07-02] MEDS: INSULIN ASPART 100 UNITS/ML 3 ML PEN SC SCH (20:35)
[2017-07-02] MEDS ORDERED: ENOXAPARIN 40 MG/0.4 ML SYR SC SCH (21:00)
[2017-07-02] MEDS: RUXOLITINIB PHOSPHATE 10 MG PO SCH (21:23)
[2017-07-03] VITALS (7 sets, daily range): BP systolic 116–135; BP diastolic 65–70; PULSE 58–67; TEMP 36.4–36.8; O2SAT 98–99
[2017-07-03] MEDS: INSULIN ASPART 100 UNITS/ML 3 ML PEN SC SCH ×2 (06:30→14:28)
[2017-07-03 07:33] LABS: HEMATOCRIT 25.3 % (42-52); MEAN CELL VOLUME 92.7 fL (80-100); MEAN CORPUSCULAR HEMOGLOBIN 30.4 pg (25-34); MEAN CORPUSCULAR HGB CONC 32.8 g/dl (32-36); MEAN PLATELET VOLUME 9.3 fL (7.4-10.4); PLATELET COUNT 144 K/uL (130-400); RED BLOOD COUNT 2.73 M/uL (4.7-6.1); WHITE BLOOD COUNT 3.79 K/uL (4.8-10.8)
[2017-07-03 08:01] LABS: BUN/CREATININE RATIO 16.8 (10-20); CALCIUM 8.4 mg/dl (8.5-10.1); CREATININE 1.1 mg/dl (0.60-1.40); POTASSIUM 3.8 mmol/L (3.5-5.1)
[2017-07-03] MEDS ORDERED: PANTOprazole SOD 40 MG TAB PO SCH (09:00)
[2017-07-03] MEDS ORDERED: ATORVASTATIN 40 MG TAB PO SCH (09:00)
[2017-07-03] MEDS ORDERED: CEROVITE ADV FORMULA TAB PO SCH (09:00)
[2017-07-03] MEDS: RUXOLITINIB PHOSPHATE 10 MG PO SCH (09:12)
[2017-07-03] MEDS: METOPROLOL TARTRATE 25 MG TAB PO SCH (09:14)
[2017-07-03] MEDS: GABAPENTIN 300 MG CAP PO SCH ×2 (09:14→14:00)
[2017-07-03] MEDS: SODIUM CHLORIDE 0.9% 1000ML 1,000 ML IV SCH (09:24)
--- NOTE | 2017-07-03 12:12 | Discharge Instructions ---
Discharge Instructions Date of Service Jul 03, 2017. Admission Reason for Admission: Dizziness,Syncope Discharge Discharge Diagnosis / Problem: dizziness Discharge Goals Goal(s): Decrease discomfort, Increase independence, Learn about illness Activity Recommendations Activity Limitations: resume your previous activity none . Instructions / Follow-Up Instructions / Follow-Up follow with pcp in 2 weeks Current Hospital Diet Patient's current hospital diet: AHA Diet (Heart Healthy) Discharge Diet Recommended Diet: Diabetes Type 2 Diet Procedures Procedures Performed: none Pending Studies Studies pending at discharge: no Laboratory Results Hemoglobin A1c Test 06/25/17 18:52 Range/Units Estimated Average Glucose 134 mg/dl Hemoglobin A1c 6.3 H 4.5-5.6 % Lipid Panel Test 06/26/17 06:13 Range/Units Triglycerides Level 204 H 0-150 mg/dl Cholesterol Level 152 0-200 mg/dl HDL Cholesterol 50 mg/dl Cholesterol/HDL Ratio 3.0 LDL Cholesterol, Calculated 61 mg/dl Medical Emergencies . Who to Call and When: Medical Emergencies: If at any time you feel your situation is an emergency, please call 911 immediately. . Non-Emergent Contact Non-Emergency issues call your: Primary Care Provider Call Non-Emergent contact if: you have any medication questions . . "Provider Documentation" section prepared by Lynn Rock . VTE Core Measure Inpt VTE Proph given/why not?: Enoxaparin (Lovenox)PERCY, TElenoECaleb. Adrienne, SCD's
--- NOTE | 2017-07-03 12:23 | Discharge Summary ---
Discharge Summary Date of Service Jul 03, 2017. Discharge Summary Admission Date: Jul 02, 2017 at 17:29 Discharge Date: Jul 03, 2017 Discharge Disposition: Home Principal Diagnosis: dizziness Immunizations: Have You Had Influenza Vaccine: N/A History of Tetanus Vaccine?: Unknown History of Pneumococcal: Yes Pneumococcal Date: Jul 21, 2010 History of Hepatitis B Vaccine: Unknown Procedures: none Consultations: none Medication Reconciliation Continued Medications: Abiraterone Acetate (Zytiga) 250 Mg Tab 1000 MG PO DAILY Atorvastatin (Lipitor) 40 Mg Tab 40 MG PO DAILY, TAB Cholecalciferol (Vitamin D3) 2,000 Unit Cap 2000 UNITS PO DAILY for 90 Days, CAP 3 Refills Coenzyme Q10 (Ubidecarenone) (Co Q 10) 100 Mg Cap 200 MG PO DAILY Gabapentin (Gabapentin) 300 Mg Cap 300 MG PO TID, #90 Leuprolide Acetate (Lupron Depot) 22.5 Mg Kit 1 DOSE INJ UD EVERY 3 MONTHS Metformin Hcl (Glucophage) 1,000 Mg Tab 1000 MG PO BID, TAB Metoprolol Tartrate (Lopressor) 25 Mg Tab 25 MG PO BID, TAB Ocuvite Preservision (Ocuvite Preservision) 1 Tab Tab 1 TAB PO DAILY, TAB Omeprazole (Prilosec) 40 Mg Cap 40 MG PO DAILY, CAP Ondasetron Odt (Zofran Odt) 4 Mg Tab 4 MG SL Q6H for Nausea, #15 TAB Prednisone (Prednisone) 10 Mg Tab 10 MG PO DAILY, TAB Ruxolitinib Phosphate (Jakafi) 15 Mg Tab 10 MG PO BID for 30 Days Discontinued Medications: Glimepiride (Glimepiride) 1 Mg Tab 2 MG PO DAILY for 30 Days, 0 Refills Referrals At Discharge Follow up Referrals: Family Practice Referral - Within 1-2 Weeks with Boy Hebert M.D. Discharge Exam pt glimepiride was stopped, advise to continue with metformin only at this time , and follow with PCP. Review of Systems: Constitutional: No fever, No chills ENT: No hearing loss Cardiovascular: No chest pain, No orthopnea, No PND Abdomen: No pain, No nausea, No vomiting, No diarrhea, No constipation Neurologic: No memory loss, No numbness/tingling, No vertigo Psychiatric: No depression symptoms Endocrine: No excessive thirst Integumentary: No rash Physical Exam: General Appearance: WD/WN, no apparent distress Eyes: EOMI Neck: supple, no JVD Respiratory/Chest: chest non-tender, lungs clear, no respiratory distress, no accessory muscle use Cardiovascular: regular rate, rhythm, no edema, no gallop, no murmur Extremities: normal inspection, no calf tenderness, no pedal edema Neurologic/Psychiatric: 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 Pt arrived to ED afebrile, VSS. No longer hypotensive upon arrival. Orthostatics negative. CXR no acute disease. Head CT shows stable 9 mm nodule compared to previous study. EKG no ischemic changes. Hgb 9.4, at baseline. BUN 21. Point of care lactic acid 2.46 but no white count or fever. ESR and CRP unremarkable. Random cortisol WNL. Syncope, dizziness, hypotension -Admit to telemetry for observation to monitor for any arrhythmias -Pt recently admitted last week for TIA with comprehensive work up. Brain MRI findings consistent with chronic hematoma, most likely hemorrhagic metastatic lesion. CTA neck with moderate atheromatous change but no significant carotid or vertebral artery stenosis. CTA head negative. Echo 06/03/17 shows LVEF of 60 %, no wall motion abnormalities, only mild aortic stenosis. -Head CT this admission no acute disease, stable 9 mm nodule -Gentle IVF hydration with NSS at 75 cc/hr -Recheck orthostatics q shift -Pt scheduled to follow up w/oncology 07/05 and neurology 07/0707/03/17. Pt did very well in past 24 hours no acute events reported by nursing staff , no arrhythmia on tele monitor. Pt may need a Holter monitor and that can be done as outpatient.pt is ready to go home in self care. HTN--had been hypotensive prior to arrival per EMS record but now stable, normo/ hypertensive here -Continue Lopressor 25 mg PO BID. Hold if SBP < 100 or HR < 60 HLD -Continue Lipitor 40 mg PO qd DM II w/neuropathy--last HgbA1c checked 06/25/17 was 6.3 -Hold glimepiride and metformin -Insulin sliding scale -Check BSGs q ac and qhs -Continue gabapentin 300 mg PO TID CKD stage III--stable -Creatinine around baseline Essential thrombocythemia -Continue Jakafi 10 mg PO BID Metastatic prostate cancer -Continue Zytiga 1000 mg PO qd and Prednisone 10 mg PO qd -Pt takes Lupron injections q 3 months, on hold GERD -Prilosec converted to Protonix 40 mg PO qd Total Time Spent: Greater than 30 minutes This includes examination of the patient, discharge planning, medication reconciliation, and communication with other providers. Discharge Instructions Please refer to the electronic Patient Visit Report (Discharge Instructions) for additional information. Additional Copies To Boy Hebert M.D.
[2017-07-09] MEDS ORDERED: GLIM2TAB2 PO (09:29)
[2017-07-09] MEDS ORDERED: [UNRECOGNIZED DRUG - CODE] PO (09:29)
[2017-07-09] MEDS ORDERED: PRED-301 PO (09:29)
[2017-07-09] MEDS ORDERED: LPRI INJ (09:29)
[2017-07-09] MEDS ORDERED: calcium PO (09:29)
== END 2017-07-03 14:30 | disposition home or self-care (01) ==
LOC: EDBD 13:11 → C.EDB 13:12 → C.MED 17:29 → ENRESERV 17:39
PROVIDERS: ADMIT Hospitalist; ATTEND Hospitalist
DX: R55 Syncope and collapse (principal); I95.9 Hypotension, unspecified; N17.9 Acute kidney failure, unspecified; N18.3 Chronic kidney disease, stage 3 (moderate); I12.9 Hypertensive chronic kidney disease with stage 1 through stage 4 chronic kidney disease, or unspecified chronic kidney disease; E11.22 Type 2 diabetes mellitus with diabetic chronic kidney disease; E11.40 Type 2 diabetes mellitus with diabetic neuropathy, unspecified; I25.10 Atherosclerotic heart disease of native coronary artery without angina pectoris; E78.00 Pure hypercholesterolemia, unspecified; D69.3 Immune thrombocytopenic purpura; D45 Polycythemia vera; K21.9 Gastro-esophageal reflux disease without esophagitis; C61 Malignant neoplasm of prostate; C78.00 Secondary malignant neoplasm of unspecified lung; C79.51 Secondary malignant neoplasm of bone; Z91.14 Patient's other noncompliance with medication regimen; Z86.73 Personal history of transient ischemic attack (TIA), and cerebral infarction without residual deficits; Z79.84 Long term (current) use of oral hypoglycemic drugs; Z79.899 Other long term (current) drug therapy

== ENCOUNTER → 2017-07-14 | Outpatient (CLI) | payer BC ==
[~2017-07-14] MED LIST changes: +GADAVIST IV PRN; -GLIM1TAB2 PO; +GLIM2TAB2 PO; -LEUP1INJ15 INJ; +LPRI INJ; -MULT-190 PO; +[UNRECOGNIZED DRUG - CODE] PO; -[UNRECOGNIZED DRUG - CODE] PO; +calcium PO
--- NOTE | 2017-07-14 19:50 | DIAGNOSTIC IMAGING REPORT ---
BRAIN COMBO HISTORY: 82 years-old Male SECONDARY MALIGNANT NEOPLASM OF BRAIN follow-up study to assess brain metastasis. COMPARISON: Head CT 07/02/2017, brain MRI 06/27/2017 and 06/25/2017, CT head 02/06/2017, brain MR 02/08/2017 and 06/02/2015. TECHNIQUE: Multiplanar multisequence MRI of the brain was obtained both with and without the use of 6.5 mL Gadavist FINDINGS: There is no restricted diffusion to suggest acute ischemia. Midline structures including the corpus callosum, brainstem, optic chiasm, pituitary and pineal glands are unremarkable as seen on the sagittal T1 images. No cerebellar tonsillar herniation. Degenerative changes are seen involving the imaged upper cervical spine. Focal area of blooming artifact with increased T2 signal and mildly increased T1 signal is again noted involving the posterior left mid cerebellar hemisphere demonstrating avid enhancement, 11 x 10 x 10 mm, previously measuring 11 x 9 x 11 mm on study dated 06/27/2017. Additionally, there is a 4 x 4 x 4 mm focus of avid enhancement and mildly increased T2/FLAIR signal involving the mid left cerebellar hemisphere as seen on image 42 of series 11, image 19 series 10, image 30 series 1101 and image 33 series 1102. In retrospect, this was present dating back to 03/11/2017, however is new from 02/08/2017. Additional punctate area of cortically based enhancement and mildly increased T2/FLAIR signal is seen within the right frontal lobe on image 101 of series 11. No midline shift or abnormal extra-axial collections. There is mild background atrophy with chronic microvascular ischemic changes. Major flow voids at the level of the skull base appear patent. Mastoid air cells are clear. Mild mucosal thickening of the paranasal sinuses. There is thinning of the optic lenses. IMPRESSION: 1. Unchanged size and appearance of the hemorrhagic enhancing lesion of the posterior left cerebellar hemisphere suggesting metastasis. Additional subcentimeter enhancing foci are seen involving the right frontal lobe and mid left cerebellar hemisphere as above suggesting additional metastasis without significant edema or mass effect. 2. Background atrophy with chronic microvascular ischemic changes. The above report was generated using voice recognition software. It may contain grammatical, syntax or spelling errors. Electronically signed by: Bala Potts M.D. 07/14/2017 7:48 PM Dictated Date/Time: 07/14/2017 7:30 PM
== END | disposition home or self-care (01) ==
LOC: C.MRI 18:07
PROVIDERS: ATTEND Physician Assistant Medical
DX: C79.31 Secondary malignant neoplasm of brain (principal); C61 Malignant neoplasm of prostate; C79.51 Secondary malignant neoplasm of bone

== ENCOUNTER → 2017-07-20 | Outpatient (CLI) | payer BC ==
[~2017-07-20] MED LIST changes: -GADAVIST IV PRN
--- NOTE | 2017-07-20 16:10 | DIAGNOSTIC IMAGING REPORT ---
L KNEE 1 OR 2 VIEWS ROUTINE CLINICAL HISTORY: L LEG PAIN COMPARISON: 06/15/2017 DISCUSSION: No acute fractures are visualized. There is an abnormal trabecular pattern involving the distal femur. Given the history of prostate carcinoma, this likely represents metastatic disease. Patches disease is within differential but is felt to be less likely. IMPRESSION: Abnormal trabecular pattern with sclerosis involving the distal femur. Given history of prostate carcinoma, this likely represents metastatic disease. Electronically signed by: Ken Galvan M.D. 07/20/2017 4:08 PM Dictated Date/Time: 07/20/2017 4:07 PM
--- NOTE | 2017-07-20 16:25 | DIAGNOSTIC IMAGING REPORT ---
L FEMUR 2 VIEWS ROUTINE CLINICAL HISTORY: Left leg pain. COMPARISON STUDY: Left femur 09/23/2016. FINDINGS: No fracture or dislocation within the left femur. The visualized pelvic bones are intact. Mild osteoarthritis at the left hip. Vascular calcifications are noted. Progressive patchy area of sclerosis within the distal metadiaphysis of the left femur. This demonstrates mild smooth periosteal reaction. IMPRESSION: Progressive patchy area of sclerosis within the distal femur. This likely represents metastatic disease. Electronically signed by: Stephan Tracy M.D. 07/20/2017 4:23 PM Dictated Date/Time: 07/20/2017 4:21 PM
== END | disposition home or self-care (01) ==
LOC: C.RAD 15:07
PROVIDERS: ATTEND Physician Assistant Medical
DX: M76.9 Unspecified enthesopathy, lower limb, excluding foot (principal)

== ENCOUNTER → 2017-09-07 | Outpatient (CLI) | payer BC, OTHER ==
[~2017-09-07] MED LIST changes: +DENOINJ INJ; +DRGTP12 SUBD; +LEVE500T13 PO; +OPTIRAY 320 IV PRN
--- NOTE | 2017-09-07 15:49 | DIAGNOSTIC IMAGING REPORT ---
BONE SCAN WHOLE BODY CLINICAL HISTORY: 82 years-old Male presenting with PROSTATE CA. TECHNIQUE: Planar anterior and posterior whole body imaging was performed 3 hours following the intravenous administration of radiotracer. Radiotracer: 26 mCi Tc-99m MDP. COMPARISON: 05/04/2016. FINDINGS: There has been interval increase in size and number of multifocal radiotracer avid lesions involving the manubrium, multiple posterior and lateral left ribs, lower thoracic vertebral body, mid lumbar vertebral body, bilateral pelvis (right acetabulum, right iliac crest, left iliac crest), and distal metaphysis of the left femur. Lesser degrees of radiotracer uptake noted elsewhere in the spine, likely degenerative. IMPRESSION: 1. Multifocal radiotracer uptake consistent with osseous metastatic disease increased in size and number since the prior exam. Electronically signed by: Boy Prieto M.D. 09/07/2017 3:47 PM Dictated Date/Time: 09/07/2017 3:44 PM
--- NOTE | 2017-09-07 16:30 | DIAGNOSTIC IMAGING REPORT ---
(CHEST) THORAX WITH CLINICAL HISTORY: 82 years-old Male presenting with PROSTATE CA, PT WENT TO NUCL FIRST. TECHNIQUE: Multidetector CT imaging of the chest was performed after the administration of intravenous contrast. IV contrast: 150 mL of Optiray 320. A dose lowering technique was used consistent with the principles of ALARA (as low as reasonably achievable). COMPARISON: 12/24/2015. CT DOSE (mGy.cm): The estimated cumulative dose is 557.11 inclusive of the abdomen and pelvis. FINDINGS: Expressive Therapist topogram: Unremarkable. On soft tissue windows, bilateral gynecomastia. Normal thyroid. 8 mm precarinal mediastinal lymph node (series 6 image 95). No pathologically enlarged lymph nodes by CT size criteria. Atherosclerosis of the aorta. Coronary artery and aortic valve calcification. Normal heart size. No pericardial or pleural effusion. Moderate parenchymal atrophy of the pancreas. 3 cm nodule in the right adrenal gland, unchanged in size since prior exam when it was definitively characterized as a benign adrenal adenoma. On lung windows, a suture margin is noted along the posterior aspect of the right lower lobe, unchanged from prior. Resultant architectural distortion and bandlike opacities likely cicatrizing atelectasis. Minimal dependent opacities in the left lower lobe likely also atelectasis. Subpleural and fissural nodularity noted bilaterally, new from prior exam. Bronchial wall thickening in the lower lobes. Airways otherwise patent. On bone windows, mild degenerative change of the thoracic spine. Asymmetric sclerosis of the posterior left second rib (series 6 image 25). Destructive heterogeneous changes of the posterior left sixth rib concerning for a permeative lesion. IMPRESSION: 1. Interval development of bilateral subpleural and fissural nodularity. 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 2. Borderline enlarged precarinal lymph node. 3. Sclerotic lesions in the left second and sixth ribs also concerning for osseous metastatic disease. 4. Postsurgical changes of the right lower lobe likely from prior wedge resection. Electronically signed by: Boy Prieto M.D. 09/07/2017 4:29 PM Dictated Date/Time: 09/07/2017 4:19 PM
--- NOTE | 2017-09-07 16:43 | DIAGNOSTIC IMAGING REPORT ---
ABD/PELVIS IV CONTRAST ONLY CT DOSE: 557.11 mGy.cm HISTORY: Present carcinoma PROSTATE CA, PT WENT TO NUCL FIRST TECHNIQUE: Multiaxial CT images of the abdomen and pelvis were performed following the use of intravenous contrast. A dose lowering technique was utilized adhering to the principles of ALARA. COMPARISON STUDY: 06/30/2017 FINDINGS: Chronic fibrotic scarring right base. No change in the prior study. Stable 2.8 cm right adrenal adenoma. Liver is uniform. Gallbladder is negative for distention. Kidneys enhance uniformly. There are negative for hydronephrosis. Findings of mild scattered colonic diverticulosis. No evidence for acute diverticulitis. No significant adenopathy in the para-aortic retroperitoneal abdominal or pelvic regions. Nonobstructive bowel pattern. No free fluid within the pelvic cul-de-sac. Moderate degenerative change of both hips. Scattered blastic metastatic change of the osseous structures throughout. This is stable compared to the prior exam. IMPRESSION: 1. Stable blastic metastatic bone change. 2. Stable benign-appearing right adrenal nodule. 3. Stable scarring right lung base. 4. Scattered colonic diverticulosis with no evidence for acute diverticulitis. The above report was generated using voice recognition software. It may contain grammatical, syntax or spelling errors. Electronically signed by: Jean Porter M.D. 09/07/2017 4:42 PM Dictated Date/Time: 09/07/2017 4:37 PM
== END | disposition home or self-care (01) ==
LOC: C.CTS 11:18
PROVIDERS: ATTEND Internal Medicine Hematology & Oncology
DX: C61 Malignant neoplasm of prostate (principal); Z85.48 Personal history of malignant neoplasm of epididymis; R97.20 Elevated prostate specific antigen [PSA]; E27.9 Disorder of adrenal gland, unspecified; K57.30 Diverticulosis of large intestine without perforation or abscess without bleeding; R59.1 Generalized enlarged lymph nodes; M25.80 Other specified joint disorders, unspecified joint

== ENCOUNTER → 2017-09-08 | Outpatient (CLI) | payer BC ==
[~2017-09-08] MED LIST changes: -OPTIRAY 320 IV PRN
[2017-09-08 15:19] VITALS: BP 115/64; PULSE 68; TEMP 36.3; O2SAT 97
--- NOTE | 2017-09-08 16:44 | Radiation Oncology Follow-Up ---
Radiation Oncology Follow-Up Date of Visit Sep 08, 2017. Reason For Visit One-month follow-up Radiation Completion Date l/s spine 10-28-2016 , left femur 07-28-17, brain 08-02-17 Diagnosis (1) Prostate cancer Status: Chronic Onset Date: 04/09/2003 Location: bone and brain metastasis Stage: IV Permanent Comment: Adenocarcinoma the prostate with [place] 4+3 04/09/2003 Treatment with radiation therapy Pulmonary metastasis status post metastectomy 09/02/2015 Rising PSA initiation of total androgen ablation October 2015 Bone metastasis bone scan April 2016 Status post completion of radiation therapy to lumbosacral spine 10/28/2016 received 3000 cGy Mental status changes and finding of a new brain lesion of the cerebellum Recheck MRI revealing a total of 3 lesions Development of pain in the left femur Status post completion of radiation therapy to the left femur 07/28/2017. He received 2500 cGy Status post completion of stereotactic body radiation therapy to the brain 08/02. He received 2700 cGy to each lesion. Last Edited By: Renee Hutson on Aug 16, 2017 13:53 History of Present Illness Mr. 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 The tumor was present in 2 cores on the right and involved approximately 10% of the total sample. There were areas of high-grade PIN. A second biopsy specimen from the left prostate revealed one microscopic focus of atypical glands that were suspicious for prostatic adenocarcinoma. Accession on sign: [id number]. The patient was subsequently seen by radiation oncology at [facility] and according to the patient underwent a definitive course of external radiation consisting of 43 fractions. It is unclear at this time whether the patient received adjuvant hormonal therapy at that time. The patient was followed by serial prostate-specific antigens. 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 He was seen by Dr. Tristan Jackson from the [facility] oncology group and in March 2013 was started on Jakafi due to a enlarging spleen and weight loss. The symptoms cleared quickly on the medication. He was having increasing urinary symptoms with increasing urgency, frequency, hematuria or incontinence. A CT scan of the abdomen and pelvis with and without contrast was performed in May 2013 this showed a 2.4 cm lesion above the right kidney consistent with an adrenal adenoma stable since 2002. His bladder was distended with a number of stones within the urinary bladder. On 06/15/2013 patient underwent a cystourethroscopy. He had evacuation of bladder stones, I bilateral retrograde pyelograms and electro evaporation of the prostate. Patient was on Rapaflo which helped his symptoms He has a history of diabetes and multiple skin cancers. He experienced a TIA in the winter of 2013 and is on Aggrenox. Through April 2013 the patient's prostate-specific antigens have been in the range of 0.4-0.5. On 07/20/2013 prostatespecific antigen was 0.94. A CT scan of the chest was reported as unremarkable at that time. On 07/31/2014 patient return to his urologist Dr. Murillo who noted on clinical exam that his prostate was flat with no induration or nodularity. He ordered a repeat prostate-specific antigen. On 08/02/2014 prostate-specific antigen was 1.86. On 11/08/2014 prostate-specific antigen was 3.86 and 07/16/2015 prostate-specific antigen was 9.79. On 09/07/2015 patient's prostatespecific antigen jumped up to 32.2. On 08/23/2015 patient underwent a cystourethroscopy, laser lithotripsy of bladder stone, biopsy and fulguration of prostatic urethra. As part of his ongoing staging workup CT scan of the chest abdomen and pelvis were performed. This noted the above-mentioned bladder stones but also suggested a right lower lobe lung nodule. The CT scan of the chest demonstrated a right lower lobe mass suspicious for malignancy. This lesion was not present on previous examinations. On 09/02/2015 the patient underwent a right lower lobe wedge resection, frozen section. The nodule in the right lower lobe was completely excised and revealed a metastatic adenocarcinoma consistent with a prostatic primary. This measured 1.5 cm in greatest dimension. A staple margin is positive for adenocarcinoma. Case: [id number]. The patient underwent a PET/CT scan on 09/10/2015. This showed uptake and pleural-based hypermetabolic 1.0 x 1.1 cm right upper lobe nodule located just above the azygos arch with an SUV of 6.3. Also noted was an inferior right hilar lymph node measuring 1.7 x 1.8 cm with an SUV of 8.1 and a regular band of increased density posteriorly in the right lower lobe with increased FDG uptake consistent with postoperative changes. A hypermetabolic lytic focus was noted in the posterior right ilium with a maximum SUV of 9.3. Increased FDG uptake was noted involving the anterior left sixth and seventh ribs with another small focus involving the proximal shaft of the left humerus. There was a 2.0 x 2.3 cm right adrenal nodule without FDG uptake I Cli benign. The patient was started on Casodex and Lupron. A repeat prostatespecific antigen was taken on 10/15/2015. This showed response to the hormonal therapy with a decrease of prostatespecific antigen to 11.5. Patient return for follow-up with Dr. Jackson. He was scheduled for his second Lupron injection in December with repeat prostate-specific antigen and CT scan of the chest. This CT scan was performed on 12/24/2015. It documented the resection of the spiculated 1.8 cm right lower lobe nodule that was seen previously. Also noted was a cyst table 1.0 x 0.8 cm irregular pleural-based nodule in the medial right upper lobe. This nodule was proven to be FDG avid on the prior PET/CT scan. No mediastinal lymph nodes which met CT criteria for pathologic enlargement were identified. The patient's repeat prostate-specific antigen was reported at 2.4. This was repeated on 04/02/2016 and showed a slight increase to 3.01. The patient was seen by Dr. Jackson on 03/31/2016. He recommended continuing hormonal suppression and a return for a Lupron injection in 3 months and to continue his Casodex 50 mg a day and Jakafi 15 mg twice a day. He was also seen by his urologist Dr. Murillo on April 02 who noted improving urinary symptoms. The patient has had additional staging procedures. Because of persistent low back pain and MRI of the lumbar spine was performed on 04/27/2016. This showed marrow signal intensity markedly heterogeneous throughout the lumbosacral spine limiting the assessment for metastatic disease. However node definite metastatic lesions are seen in the lumbar spine. Findings which were highly concerning for metastatic deposit were noted within the right iliac bone with recommended nuclear bone scan to follow. 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 There was an inferiorly extruded disc fragment identified at the L2-L3 level and findings suggesting a previous hemilaminectomy at L2 and L3 from his surgery in 2000. A bone scan was performed on 2015. This showed multiple teeth focal areas of radiotracer uptake seen within the bilateral iliac bone, right medial acetabulum, distal right femur, left first rib and left eighth rib likely representing metastatic disease. Multifocal linear areas of radiotracer uptake are seen within the lumbar spine. These however are nonspecific and could represent degenerative disc disease. With these findings of metastatic bony disease doctor Renetta suggested consideration of palliative radiation. Decision was to proceed with treatment to the lumbosacral spine. This was completed 10/28/2016. He received 3000 cGy. He was recently hospitalized for slurred speech and being off balance. There was concern for possible TIA. He was hospitalized and underwent evaluations with CT of the brain which was then followed by an MRI of the brain. This slurred speech last approximately 35 minutes. He also had a mildly low glucose. His medication was adjusted at discharge. He has had a lesion of the cerebellum first noted 02/08/2017. On the more recent studies it is felt that this is a neoplastic lesion. He was seen by neurology while hospitalized. There was discussion of referral to a neurosurgeon for a biopsy. This was to be arranged as an outpatient. Since his discharge he continues to have a feeling of being off balance. He denies headaches. He does have some mild nausea. He is currently living at home. He is planning to move to an assisted- living facility some time next week. An MRI of the brain was performed following and SRS protocol. He was found to have total of 3 lesions. He also developed pain in the left upper extremity. X -rays revealed metastatic lesions. Because severity of pain in his leg he underwent palliative therapy to the femur followed by STS to the brain. Interim History Over the past month he has had improvement in the pain of his left femur. Radiation was given for palliation of pain. He had given a pain level of 5. At the end of treatment he had given a pain level of 1. He does continue on a fentanyl patch 12.5 g per hour which is being changed every 48 hours. He does feel that the radiation helped the pain of the femur. He did found to have 3 lesions of the brain. These were treated. Denies any difficulty with headaches. He's had no dizziness or lightheadedness. He recently completed restaging studies. He was seen by Dr. Mcguire. He has recommended that T be changed from the site to get to a standing. There have been some issues with insurance coverage. This is in the process for approval currently. Allergies Coded Allergies: No Known Allergies (Unverified , 07/02/17) Home Medications Scheduled Abiraterone Acetate (Zytiga), 1,000 MG PO DAILY Atorvastatin (Lipitor), 40 MG PO DAILY Denosumab (Xgeva), 120 MG INJ MONTHLY Fentanyl (Fentanyl), 1 APPLN SUBD Q48H Gabapentin (Gabapentin), 300 MG PO TID Glimepiride (Glimepiride), 1 TAB PO DAILY Leuprolide Acetate (Lupron Depot), 22.5 MG INJ Q3MO Levetiracetam (Keppra), 1 TAB PO BID Metformin Hcl (Glucophage), 1,000 MG PO BID Metoprolol Tartrate (Lopressor), 25 MG PO BID Omeprazole (Prilosec), 40 MG PO DAILY Ondasetron Odt (Zofran Odt), 4 MG SL Q6H Prednisone (Prednisone), 5 MG PO DAILY Ruxolitinib Phosphate (Jakafi), 10 MG PO DAILY Review of Systems Gastrointestinal: Symptoms: WNL Oral: Symptoms: Scant Saliva/Dry Mouth Respiratory: Symptoms: WNL Urinary: Symptoms: Nocturia Comments: nocturia times 2 Skin: Symptoms: No Problems Other Skin Symptoms: On 09-28-17 to have lumps removed from hands Physical Exam Vital Signs Date Time Temp Pulse Resp B/P (MAP) Pulse Ox O2 Delivery O2 Flow Rate FiO2 09/08/17 15:19 36.3 68 16 115/64 97 Fatigue: Mild General Appearance: no apparent distress Eyes: normal inspection, PERRL, EOMI ENT: normal ENT inspection, hearing grossly normal Respiratory/Chest: lungs clear, no respiratory distress, no accessory muscle use Cardiovascular: regular rate, rhythm, no gallop, no murmur Extremities: no pedal edema Neurologic/Psychiatric: account clerk II-XII nml as tested, no motor/sensory deficits, alert, normal mood/affect Skin: warm/dry Pain Management Side: Bilateral Patient Preferred Pain Scale: 0 - 10 Pain Management Plan See history of present illness. He is currently on a fentanyl patch. Pain management is through the family physician. Laboratory Studies Test 06/08/17 16:12 06/15/17 11:55 06/15/17 12:05 06/15/17 12:20 POC Troponin I < 0.030 ng/ml (0-0.045) Direct Bilirubin 0.2 mg/dl (0-0.2) Total Creatine Kinase 119 U/L (39-308) Creatine Kinase MB 1.1 ng/ml (0.5-3.6) Creatine Kinase MB Ratio 0.9 (0-3.0) Pro-B-Type Natriuretic Peptide 830 pg/ml (0-1800) Lipase 74 U/L (73-393) Beta-Hydroxybutyric Acid 2.29 mg/dL (0.2-2.81) Thyroid Stimulating Hormone (TSH) 1.410 uIu/ml (0.300-4.500) Free Thyroxine 1.52 ng/dl (0.80-1.60) PTT 26.1 SECONDS (21.0-31.0) Partial Thromboplastin Ratio 1.0 Urine Color YELLOW Urine Appearance CLEAR (CLEAR) Urine pH 5.5 (4.5-7.5) Urine Specific [place] 1.015 (1.000-1.030) Urine Protein NEG (NEG) Urine Glucose (UA) NEG (NEG) Urine Ketones NEG (NEG) Urine Occult Blood NEG (NEG) Urine Nitrite NEG (NEG) Urine Bilirubin NEG (NEG) Urine Urobilinogen NEG (NEG) Urine Leukocyte Esterase NEG (NEG) Test 06/25/17 18:52 06/26/17 06:13 06/27/17 05:44 07/02/17 13:56 Nucleated RBC Absolute Count (auto) 0.02 K/uL (0-0) Nucleated Red Blood Cells % 0.3 % Prothrombin Time 10.7 SECONDS (9.0-12.0) 10.8 SECONDS (9.0-12.0) Prothrombin Time INR 1.0 (0.9-1.1) 1.0 (0.9-1.1) Estimated Average Glucose 134 mg/dl Hemoglobin A1c 6.3 % (4.5-5.6) Troponin I < 0.015 ng/ml (0-0.045) < 0.015 ng/ml (0-0.045) Thyroid Stimulating Hormone (TSH) 1.520 uIu/ml (0.300-4.500) Polychromasia 1+ Triglycerides Level 204 mg/dl (0-150) Cholesterol Level 152 mg/dl (0-200) HDL Cholesterol 50 mg/dl LDL Cholesterol, Calculated 61 mg/dl VLDL Cholesterol, Calculated 41 mg/dl Cholesterol/HDL Ratio 3.0 Magnesium Level 2.2 mg/dl (1.8-2.4) 1.7 mg/dl (1.8-2.4) Immature Granulocyte % (Auto) 0.5 % White Blood Count 6.19 K/uL (4.8-10.8) Red Blood Count 3.14 M/uL (4.7-6.1) Hemoglobin 9.4 g/dL (14.0-18.0) Hematocrit 29.1 % (42-52) Mean Corpuscular Volume 92.7 fL (80-100) Mean Corpuscular Hemoglobin 29.9 pg (25-34) Mean Corpuscular Hemoglobin Concent 32.3 g/dl (32-36) Platelet Count 182 K/uL (130-400) Mean Platelet Volume 9.0 fL (7.4-10.4) Neutrophils (%) (Auto) 78.3 % Lymphocytes (%) (Auto) 7.4 % Monocytes (%) (Auto) 12.0 % Eosinophils (%) (Auto) 1.3 % Basophils (%) (Auto) 0.5 % Neutrophils # (Auto) 4.85 K/uL (1.4-6.5) Lymphocytes # (Auto) 0.46 K/uL (1.2-3.4) Monocytes # (Auto) 0.74 K/uL (0.11-0.59) Eosinophils # (Auto) 0.08 K/uL (0-0.5) Basophils # (Auto) 0.03 K/uL (0-0.2) Immature Granulocyte # (Auto) 0.03 K/uL (0.00-0.02) Erythrocyte Sedimentation Rate 15 mm/hr (0-14) PTT 24.0 SECONDS (21.0-31.0) Partial Thromboplastin Ratio 0.9 Est Creatinine Clear Calc Drug Dose 39.4 ml/min Phosphorus Level 3.5 mg/dl (2.5-4.9) Total Bilirubin 0.7 mg/dl (0.2-1) Aspartate Amino Transferase (AST) 23 U/L (15-37) Alanine Aminotransferase (ALT) 14 U/L (12-78) Alkaline Phosphatase 177 U/L (45-117) Total Creatine Kinase 101 U/L (39-308) Creatine Kinase MB 0.8 ng/ml (0.5-3.6) Creatine Kinase MB Ratio 0.8 (0-3.0) C-Reactive Protein 0.30 mg/dl (0-0.29) Pro-B-Type Natriuretic Peptide 538 pg/ml (0-1800) Total Protein 6.5 gm/dl (6.4-8.2) Albumin 3.7 gm/dl (3.4-5.0) Globulin 2.8 gm/dl (2.5-4.0) Albumin/Globulin Ratio 1.3 (0.9-2) Lipase 104 U/L (73-393) Random Cortisol 9.43 mcg/dl Test 07/02/17 14:03 07/02/17 15:20 07/03/17 07:16 07/03/17 07:20 POC Lactic Acid Venous 2.46 mmol/L (0.90-1.70) Urine Color YELLOW Urine Appearance CLOUDY (CLEAR) Urine pH 7.0 (4.5-7.5) Urine Specific [place] 1.013 (1.000-1.030) Urine Protein NEG (NEG) Urine Glucose (UA) NEG (NEG) Urine Ketones NEG (NEG) Urine Occult Blood NEG (NEG) Urine Nitrite NEG (NEG) Urine Bilirubin NEG (NEG) Urine Urobilinogen NEG (NEG) Urine Leukocyte Esterase NEG (NEG) Urine WBC (Auto) 0 /hpf (0-5) Urine RBC (Auto) 0-4 /hpf (0-4) Urine Hyaline Casts (Auto) 0 /lpf (0-5) Urine Epithelial Cells (Auto) 0-5 /lpf (0-5) Urine Bacteria (Auto) NEG (NEG) White Blood Count 3.79 K/uL (4.8-10.8) Red Blood Count 2.73 M/uL (4.7-6.1) Hemoglobin 8.3 g/dL (14.0-18.0) Hematocrit 25.3 % (42-52) Mean Corpuscular Volume 92.7 fL (80-100) Mean Corpuscular Hemoglobin 30.4 pg (25-34) Mean Corpuscular Hemoglobin Concent 32.8 g/dl (32-36) RDW Standard Deviation 47.8 fL (36.4-46.3) RDW Coefficient of Variation 14.2 % (11.5-14.5) Platelet Count 144 K/uL (130-400) Mean Platelet Volume 9.3 fL (7.4-10.4) Sodium Level 141 mmol/L (136-145) Potassium Level 3.8 mmol/L (3.5-5.1) Chloride Level 108 mmol/L (98-107) Carbon Dioxide Level 26 mmol/L (21-32) Anion Gap 7.0 mmol/L (3-11) Blood Urea Nitrogen 19 mg/dl (7-18) Creatinine 1.10 mg/dl (0.60-1.40) Est Creatinine Clear Calc Drug Dose 44.5 ml/min Estimated GFR () 71.1 Estimated GFR (Non- 61.3 BUN/Creatinine Ratio 16.8 (10-20) Random Glucose 75 mg/dl (70-99) Calcium Level 8.4 mg/dl (8.5-10.1) POC Glucose 80 mg/dl (70-99) Test 07/03/17 11:22 08/05/17 14:06 09/01/17 14:54 POC Glucose 156 mg/dl (70-99) Prostate Specific Antigen 23.800 ng/ml (0.000-4.000) 23.500 ng/ml (0.000-4.000) White Blood Count 8.08 K/uL (4.8-10.8) Red Blood Count 3.53 M/uL (4.7-6.1) Hemoglobin 10.5 g/dL (14.0-18.0) Hematocrit 32.5 % (42-52) Mean Corpuscular Volume 92.1 fL (80-100) Mean Corpuscular Hemoglobin 29.7 pg (25-34) Mean Corpuscular Hemoglobin Concent 32.3 g/dl (32-36) Platelet Count 235 K/uL (130-400) Mean Platelet Volume 9.7 fL (7.4-10.4) Neutrophils (%) (Auto) 83.3 % Lymphocytes (%) (Auto) 5.3 % Monocytes (%) (Auto) 8.7 % Eosinophils (%) (Auto) 0.9 % Basophils (%) (Auto) 0.1 % Neutrophils # (Auto) 6.73 K/uL (1.4-6.5) Lymphocytes # (Auto) 0.43 K/uL (1.2-3.4) Monocytes # (Auto) 0.70 K/uL (0.11-0.59) Eosinophils # (Auto) 0.07 K/uL (0-0.5) Basophils # (Auto) 0.01 K/uL (0-0.2) RDW Standard Deviation 53.8 fL (36.4-46.3) RDW Coefficient of Variation 16.0 % (11.5-14.5) Immature Granulocyte % (Auto) 1.7 % Immature Granulocyte # (Auto) 0.14 K/uL (0.00-0.02) Nucleated RBC Absolute Count (auto) 0.02 K/uL (0-0) Nucleated Red Blood Cells % 0.2 % Sodium Level 136 mmol/L (136-145) Potassium Level 4.7 mmol/L (3.5-5.1) Chloride Level 101 mmol/L (98-107) Carbon Dioxide Level 27 mmol/L (21-32) Anion Gap 8.0 mmol/L (3-11) Blood Urea Nitrogen 23 mg/dl (7-18) Creatinine 1.00 mg/dl (0.60-1.40) Estimated GFR () 79.7 Estimated GFR (Non- 68.8 BUN/Creatinine Ratio 23.0 (10-20) Random Glucose 81 mg/dl (70-99) Calcium Level 9.2 mg/dl (8.5-10.1) Total Bilirubin 0.5 mg/dl (0.2-1) Aspartate Amino Transferase (AST) 21 U/L (15-37) Alanine Aminotransferase (ALT) 16 U/L (12-78) Alkaline Phosphatase 92 U/L (45-117) Lactate Dehydrogenase 218 U/L (87-241) Total Protein 6.7 gm/dl (6.4-8.2) Albumin 3.6 gm/dl (3.4-5.0) Globulin 3.1 gm/dl (2.5-4.0) Albumin/Globulin Ratio 1.2 (0.9-2) Additional Studies Patient: Shayy SWANN MARYBEL Address1: [id number] [facility] Rec: [id number] Address2: Acct ID: [id number] [facility] Zip: [place] [address] Date: 1935 Sex: M Room/Bed: Ref Phy: Boy Hebert M.D. SC: HieuCTS Att Phy: Randell Mcguire MD Report #: [id number] Valeria Phy: Boy Hebert M.D. Test: SHREDDER OPERATOR Admit Phy: Petrol Tanker Driver: ANGELA Interpreting Phy: Boy Prieto MD Diagnosis: PROSTATE CA Ordering Phy: Randell Mcguire MD Service Date: 09/07/17 Admit Date: 09/07/17 MNE: [id number] CONF: DICTATED BY: Boy Prieto MD]] CC: Boy Hebert M.D. O'Donnell, Sean B., MD Endcc: [~ rep ct add3]] BONE SCAN WHOLE BODY CLINICAL HISTORY: 82 years-old Male presenting with PROSTATE CA. TECHNIQUE: Planar anterior and posterior whole body imaging was performed 3 hours following the intravenous administration of radiotracer. Radiotracer: 26 mCi Tc-99m MDP. COMPARISON: 05/04/2016. FINDINGS: There has been interval increase in size and number of multifocal radiotracer avid lesions involving the manubrium, multiple posterior and lateral left ribs, lower thoracic vertebral body, mid lumbar vertebral body, bilateral pelvis (right acetabulum, right iliac crest, left iliac crest), and distal metaphysis of the left femur. Lesser degrees of radiotracer uptake noted elsewhere in the spine, likely degenerative. IMPRESSION: 1. Multifocal radiotracer uptake consistent with osseous metastatic disease increased in size and number since the prior exam. Electronically signed by: Boy Prieto M.D. 09/07/2017 3:47 PM Patient: Shayy SWANN Address1: [id number] [facility] Rec: [id number] Address2: Acct ID: [id number] [facility] Zip: [place] [address] Date: 1935 Sex: M Room/Bed: Ref Phy: Boy Hebert M.D. SC: HieuCTS Att Phy: Randell Mcguire MD Report #: [id number] Valeria Phy: Boy Hebert M.D. Test: APIV Admit Phy: Petrol Tanker Driver: RUKHSANA Interpreting Phy: Jean Porter M.D. Diagnosis: PROSTATE CA Ordering Phy: Randell Mcguire MD Service Date: 09/07/17 Admit Date: 09/07/17 MNE: [id number] CONF: DICTATED BY: Jean Porter M.D.]] CC: Boy Hebert M.D. O'Donnell, Sean B., MD Endcc: [~ rep ct add3]] ABD/PELVIS IV CONTRAST ONLY CT DOSE: 557.11 mGy.cm HISTORY: Present carcinoma PROSTATE CA, PT WENT TO NUCL FIRST TECHNIQUE: Multiaxial CT images of the abdomen and pelvis were performed following the use of intravenous contrast. A dose lowering technique was utilized adhering to the principles of ALARA. COMPARISON STUDY: 06/30/2017 FINDINGS: Chronic fibrotic scarring right base. No change in the prior study. Stable 2.8 cm right adrenal adenoma. Liver is uniform. Gallbladder is negative for distention. Kidneys enhance uniformly. There are negative for hydronephrosis. Findings of mild scattered colonic diverticulosis. No evidence for acute diverticulitis. No significant adenopathy in the para-aortic retroperitoneal abdominal or pelvic regions. Nonobstructive bowel pattern. No free fluid within the pelvic cul-de-sac. Moderate degenerative change of both hips. Scattered blastic metastatic change of the osseous structures throughout. This is stable compared to the prior exam. IMPRESSION: 1. Stable blastic metastatic bone change. 2. Stable benign-appearing right adrenal nodule. 3. Stable scarring right lung base. 4. Scattered colonic diverticulosis with no evidence for acute diverticulitis. The above report was generated using voice recognition software. It may contain grammatical, syntax or spelling errors. Electronically signed by: Jean Porter M.D. 09/07/2017 4:42 PM Dictated Date/Time: 09/07/2017 4:37 PM The status of this report is Signed. Assessment & Plan Plan: Patient's also seen and examined by Dr. Goff today. His restaging studies have been reviewed. He is being followed by medical oncology and medications are being changed. Pain management is through his PCP. An MRI of the brain has been ordered for follow-up in 2 months. We will have him return after the study for review. He may call our office if he has any questions or concerns in the interim. Assessment & Plan (Attending) ADDENDUM: I agree with note created by Rneee Hutson PA-C. I reviewed the patient's chart and information with her. I have examined and evaluated the patient. I reviewed relevant clinical information and answered the patient's and /or family's questions. EXTERIOR DESIGNER Total Time In Follow-Up I said 20 minutes speaking to the patient performing examination. I spent 15 minutes reviewing information completing this note. Total Time (Attending) In Follow-Up I spent 15 minutes examining and counseling the patient. EXTERIOR DESIGNER Copy To Boy Hebert M.D.; Randell Mcguire MD
== END | disposition home or self-care (01) ==
LOC: C.ONC 15:02
PROVIDERS: ATTEND Radiology Radiation Oncology
DX: Z08 Encounter for follow-up examination after completed treatment for malignant neoplasm (principal); Z92.3 Personal history of irradiation; Z85.46 Personal history of malignant neoplasm of prostate

== ENCOUNTER → 2017-09-28 | Outpatient (CLI) | payer BC ==
[~2017-09-28] MED LIST changes: -CHOL2000 PO; -COEN1CAP17 PO; -calcium PO
== END | disposition home or self-care (01) ==
LOC: C.PATHSPEC 17:33
PROVIDERS: ATTEND Plastic Surgery
DX: C44.629 Squamous cell carcinoma of skin of left upper limb, including shoulder (principal)

== ENCOUNTER → 2017-10-12 | Outpatient (CLI) | payer BC ==
[~2017-10-12] MED LIST changes: +ACET-1256 PO; +DEXT30LI4 PO; +ENZA1CAP PO; +FLUO0.0121 TOP; +GABA-1219 PO; -GABA1CAP4 PO; +LCHC12280 TOP; +LEUP1INJ15 IM; +LORA-741 PO; +ONDA-170 PO; +PRD5 PO; +PROC10TA PO; +PROM12.57 PO; +SRQ25 PO
== END | disposition home or self-care (01) ==
LOC: C.PATHSPEC 07:45
PROVIDERS: ATTEND Plastic Surgery
DX: C44.219 Basal cell carcinoma of skin of left ear and external auricular canal (principal)

== ENCOUNTER → 2017-11-01 | Outpatient (CLI) | payer BC ==
[~2017-11-01] MED LIST changes: -ACET-1256 PO; -DEXT30LI4 PO; -ENZA1CAP PO; -FLUO0.0121 TOP; -GABA-1219 PO; +GABA1CAP4 PO; +GADAVIST IV PRN; -LCHC12280 TOP; -LEUP1INJ15 IM; -LORA-741 PO; -ONDA-170 PO; -PRD5 PO; -PROC10TA PO; -PROM12.57 PO; -SRQ25 PO
--- NOTE | 2017-11-01 15:12 | DIAGNOSTIC IMAGING REPORT ---
MRI OF THE BRAIN COMBO CLINICAL HISTORY: Intracranial metastatic disease. COMPARISON STUDY: MRI of the brain dated 07/14/2017. TECHNIQUE: MRI of the brain was performed utilizing various T1 and T2-weighted sequences in the axial, sagittal, and coronal planes. Contrast-enhanced sequences were acquired following the administration of 6 cc of Gadavist. FINDINGS: Brain parenchyma: There are age-related involutional changes noting moderate to advanced subcortical and periventricular microangiopathic disease. There is no hemorrhage or mass effect. There is no restricted diffusion to suggest acute ischemia. Again seen are numerous enhancing intracranial lesions. The largest lesion is present in the left cerebellar hemisphere on axial image #4. This measures up to 1.0 cm and demonstrates hemosiderin deposition suggesting previous hemorrhage. There are least 3 additional lesions in the cerebellum seen on axial images #6 the right lobe, #7 on the left lobe, and #8 in the left peduncle. 2 views appear new from 07/14/2017, a lesion in the right occipital lobe and measure 11 is also new from previous. A lesion in the right frontal lobe on image #18 is unchanged. All of these lesions are subcentimeter in size. Alcantara-white matter differentiation is preserved. No extra-axial fluid collection is seen. The cerebellar tonsils are normal in configuration. Ventricles, sulci, and cisterns: Prominent secondary to involutional change. Pituitary and sella: Partially empty sella is incidentally noted. Intracranial vasculature: Normal flow voids are maintained at the skull base. Orbits: The bony orbits are grossly intact. Orbital contents are normal in appearance noting bilateral ocular lens implants.. Sinuses and mastoids: Clear. Calvarium: Unremarkable. Cervical cord: Partially visualized cervical spinal cord is normal in morphology and signal intensity. IMPRESSION: 1. There has been no significant change in the appearance of a 1.0 cm enhancing lesion in the left cerebellar hemisphere as compared to previous. There is evidence of previous hemorrhage within this lesion. 2. There are at least 5 additional subcentimeter enhancing lesions identified. 3 of these are new from 07/14/2017 and indicate progression of disease. 3. There is no hemorrhage, mass effect, or evidence of acute ischemia. 4. Additional findings as above. Electronically signed by: Sunday Geller M.D. 11/01/2017 3:10 PM Dictated Date/Time: 11/01/2017 3:01 PM
== END | disposition home or self-care (01) ==
LOC: C.MRI 13:52
PROVIDERS: ATTEND Physician Assistant Medical
DX: C79.31 Secondary malignant neoplasm of brain (principal); C78.01 Secondary malignant neoplasm of right lung

== ENCOUNTER → 2017-11-10 | Outpatient (CLI) | payer BC ==
[~2017-11-10] MED LIST changes: +ACET-1256 PO; +DEXT30LI4 PO; +ENZA1CAP PO; +FLUO0.0121 TOP; -GADAVIST IV PRN; +LCHC12280 TOP; +LEUP1INJ15 IM; +LORA-741 PO; +ONDA8TAB6 PO; +PROC1TAB5 PO; +PROM12.57 PO
[2017-11-10 13:44] VITALS: BP 131/69; PULSE 68; TEMP 36.5; O2SAT 97
--- NOTE | 2017-11-10 16:20 | Radiation Oncology Follow-Up ---
Radiation Oncology Follow-Up Date of Visit Nov 10, 2017. Reason For Visit 3 month follow-up Radiation Completion Date SBRT to brain on 07/28/17. Diagnosis (1) Prostate cancer Status: Chronic Onset Date: 04/09/2003 Location: bone and brain metastasis Stage: IV Permanent Comment: Adenocarcinoma the prostate with Amara 4+3 04/09/2003 Treatment with radiation therapy Pulmonary metastasis status post metastectomy 09/02/2015 Rising PSA initiation of total androgen ablation October 2015 Bone metastasis bone scan April 2016 Status post completion of radiation therapy to lumbosacral spine 10/28/2016 received 3000 cGy Mental status changes and finding of a new brain lesion of the cerebellum Recheck MRI revealing a total of 3 lesions Development of pain in the left femur Status post completion of radiation therapy to the left femur 07/28/2017. He received 2500 cGy Status post completion of stereotactic body radiation therapy to the brain 08/02. He received 2700 cGy to each lesion. Last Edited By: Renee Hutson on Aug 16, 2017 13:53 History of Present Illness Mr. 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 The tumor was present in 2 cores on the right and involved approximately 10% of the total sample. There were areas of high-grade PIN. A second biopsy specimen from the left prostate revealed one microscopic focus of atypical glands that were suspicious for prostatic adenocarcinoma. Accession on sign: [id number]. The patient was subsequently seen by radiation oncology at [place] and according to the patient underwent a definitive course of external radiation consisting of 43 fractions. It is unclear at this time whether the patient received adjuvant hormonal therapy at that time. The patient was followed by serial prostate-specific antigens. 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 He was seen by Dr. Tristan Jackson from the [facility] oncology group and in March 2013 was started on Jakafi due to a enlarging spleen and weight loss. The symptoms cleared quickly on the medication. He was having increasing urinary symptoms with increasing urgency, frequency, hematuria or incontinence. A CT scan of the abdomen and pelvis with and without contrast was performed in May 2013 this showed a 2.4 cm lesion above the right kidney consistent with an adrenal adenoma stable since 2002. His bladder was distended with a number of stones within the urinary bladder. On 06/15/2013 patient underwent a cystourethroscopy. He had evacuation of bladder stones, I bilateral retrograde pyelograms and electro evaporation of the prostate. Patient was on Rapaflo which helped his symptoms He has a history of diabetes and multiple skin cancers. He experienced a TIA in the winter of 2013 and is on Aggrenox. Through April 2013 the patient's prostate-specific antigens have been in the range of 0.4-0.5. On 07/20/2013 prostatespecific antigen was 0.94. A CT scan of the chest was reported as unremarkable at that time. On 07/31/2014 patient return to his urologist Dr. Murillo who noted on clinical exam that his prostate was flat with no induration or nodularity. He ordered a repeat prostate-specific antigen. On 08/02/2014 prostate-specific antigen was 1.86. On 11/08/2014 prostate-specific antigen was 3.86 and 07/16/2015 prostate-specific antigen was 9.79. On 09/07/2015 patient's prostatespecific antigen jumped up to 32.2. On 08/23/2015 patient underwent a cystourethroscopy, laser lithotripsy of bladder stone, biopsy and fulguration of prostatic urethra. As part of his ongoing staging workup CT scan of the chest abdomen and pelvis were performed. This noted the above-mentioned bladder stones but also suggested a right lower lobe lung nodule. The CT scan of the chest demonstrated a right lower lobe mass suspicious for malignancy. This lesion was not present on previous examinations. On 09/02/2015 the patient underwent a right lower lobe wedge resection, frozen section. The nodule in the right lower lobe was completely excised and revealed a metastatic adenocarcinoma consistent with a prostatic primary. This measured 1.5 cm in greatest dimension. A staple margin is positive for adenocarcinoma. Case: [id number]. The patient underwent a PET/CT scan on 09/10/2015. This showed uptake and pleural-based hypermetabolic 1.0 x 1.1 cm right upper lobe nodule located just above the azygos arch with an SUV of 6.3. Also noted was an inferior right hilar lymph node measuring 1.7 x 1.8 cm with an SUV of 8.1 and a regular band of increased density posteriorly in the right lower lobe with increased FDG uptake consistent with postoperative changes. A hypermetabolic lytic focus was noted in the posterior right ilium with a maximum SUV of 9.3. Increased FDG uptake was noted involving the anterior left sixth and seventh ribs with another small focus involving the proximal shaft of the left humerus. There was a 2.0 x 2.3 cm right adrenal nodule without FDG uptake I Cli benign. The patient was started on Casodex and Lupron. A repeat prostatespecific antigen was taken on 10/15/2015. This showed response to the hormonal therapy with a decrease of prostatespecific antigen to 11.5. Patient return for follow-up with Dr. Jackson. He was scheduled for his second Lupron injection in December with repeat prostate-specific antigen and CT scan of the chest. This CT scan was performed on 12/24/2015. It documented the resection of the spiculated 1.8 cm right lower lobe nodule that was seen previously. Also noted was a cyst table 1.0 x 0.8 cm irregular pleural-based nodule in the medial right upper lobe. This nodule was proven to be FDG avid on the prior PET/CT scan. No mediastinal lymph nodes which met CT criteria for pathologic enlargement were identified. The patient's repeat prostate-specific antigen was reported at 2.4. This was repeated on 04/02/2016 and showed a slight increase to 3.01. The patient was seen by Dr. Jackson on 03/31/2016. He recommended continuing hormonal suppression and a return for a Lupron injection in 3 months and to continue his Casodex 50 mg a day and Jakafi 15 mg twice a day. He was also seen by his urologist Dr. Murillo on April 02 who noted improving urinary symptoms. The patient has had additional staging procedures. Because of persistent low back pain and MRI of the lumbar spine was performed on 04/27/2016. This showed marrow signal intensity markedly heterogeneous throughout the lumbosacral spine limiting the assessment for metastatic disease. However node definite metastatic lesions are seen in the lumbar spine. Findings which were highly concerning for metastatic deposit were noted within the right iliac bone with recommended nuclear bone scan to follow. 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 There was an inferiorly extruded disc fragment identified at the L2-L3 level and findings suggesting a previous hemilaminectomy at L2 and L3 from his surgery in 2000. A bone scan was performed on 2015. This showed multiple teeth focal areas of radiotracer uptake seen within the bilateral iliac bone, right medial acetabulum, distal right femur, left first rib and left eighth rib likely representing metastatic disease. Multifocal linear areas of radiotracer uptake are seen within the lumbar spine. These however are nonspecific and could represent degenerative disc disease. With these findings of metastatic bony disease doctor Renetta suggested consideration of palliative radiation. Decision was to proceed with treatment to the lumbosacral spine. This was completed 10/28/2016. He received 3000 cGy. He was recently hospitalized for slurred speech and being off balance. There was concern for possible TIA. He was hospitalized and underwent evaluations with CT of the brain which was then followed by an MRI of the brain. This slurred speech last approximately 35 minutes. He also had a mildly low glucose. His medication was adjusted at discharge. He has had a lesion of the cerebellum first noted 02/08/2017. On the more recent studies it is felt that this is a neoplastic lesion. He was seen by neurology while hospitalized. There was discussion of referral to a neurosurgeon for a biopsy. This was to be arranged as an outpatient. Since his discharge he continues to have a feeling of being off balance. He denies headaches. He does have some mild nausea. He is currently living at home. He is planning to move to an assisted- living facility some time next week. An MRI of the brain was performed following and SRS protocol. He was found to have total of 3 lesions. He also developed pain in the left upper extremity. X -rays revealed metastatic lesions. Because severity of pain in his leg he underwent palliative therapy to the femur followed by SRS to the brain. Interim History He has been having issues with the past several weeks with nausea, vomiting, and diarrhea. He has been seen by medical oncology. Zofran has been recommended. He's been taking 8 mg twice daily. Medication has been held to see if this would help with the diarrhea. He has marked fatigue. He denies any headaches. He has had some lightheadedness. We discussed the prior areas of treatment including the lumbosacral spine. He gave this area pain level of 4 -5. The pain in his left femur he gives now a level III. He is here today with his family. They have stated that the PSA is going up. It is now 32. He is here to review the findings of the most recent recheck MRI of the brain. Allergies Coded Allergies: No Known Allergies (Unverified , 07/02/17) Home Medications Scheduled Atorvastatin (Lipitor), 40 MG PO DAILY Enzalutamide (Xtandi), 3 CAP PO DAILY Fentanyl (Fentanyl), 1 APPLN SUBD Q48H Fluocinolone Acetonide (Ossun-Smoothe/Fs Scalp), 1 APPLN TOP HS Gabapentin (Gabapentin), 300 MG PO TID Glimepiride (Glimepiride), 1 TAB PO DAILY Lactic Acid (Ammonium Lactate Cream 12%), 1 APPLN TOP BID Leuprolide Acetate (Lupron Depot), 22.5 MG IM Q3MO Levetiracetam (Keppra), 1 TAB PO BID Metformin Hcl (Glucophage), 1,000 MG PO BID Metoprolol Tartrate (Lopressor), 25 MG PO BID Omeprazole (Prilosec), 20 MG PO DAILY Prednisone (Prednisone), 5 MG PO DAILY Ruxolitinib Phosphate (Jakafi), 10 MG PO BID Scheduled PRN Acetaminophen (Tylenol), 1,000 MG PO TID PRN for Pain Dextromethorphan Polistirex (Delsym), 10 ML PO Q12 PRN for Cough Lorazepam (Ativan), 0.5 MG PO Q12 PRN for Anxiety Ondansetron Hcl (Zofran), 8 MG PO Q8 PRN for Nausea Prochlorperazine Maleate (Compazine), 1 TAB PO Q6 PRN for Nausea or Vomiting Promethazine (Phenergan ), 12.5 MG PO Q6H PRN for Nausea or Vomiting Review of Systems Gastrointestinal: Symptoms: Nausea, Vomiting, Diarrhea GI Comments: Has antiemetics to use; Oral: Symptoms: Scant Saliva/Dry Mouth Respiratory: Symptoms: WNL Urinary: Comments: 2-3 voids/night; Skin: Symptoms: No Problems Physical Exam Vital Signs Date Time Temp Pulse Resp B/P (MAP) Pulse Ox O2 Delivery O2 Flow Rate FiO2 11/10/17 13:44 36.5 68 20 131/69 97 Fatigue: Moderate General Appearance: + cachetic, + thin Eyes: normal inspection ENT: + pertinent finding (mouth appears dehydrated) Neck: no adenopathy, thyroid normal Respiratory/Chest: lungs clear, no respiratory distress, no accessory muscle use Cardiovascular: regular rate, rhythm, no gallop, no murmur Abdomen: non tender, soft, no organomegaly Extremities: no pedal edema Neurologic/Psychiatric: no motor/sensory deficits, alert, + depressed affect Pain Management Patient Reports Pain: Yes Initial Pain Intensity: 5 Pain Management Plan See history of interim history. Pain is managed through the assisted living facility physician. Laboratory Laboratory Results: were reviewed Laboratory Comments: CBC D was reviewed with the family. This is stable. Pathology Pathology Results: not applicable Imaging Imaging Studies: were reviewed, and pertinent findings noted below Imaging Comments Patient: Shayy SWANN Address1: [id number] [facility] Rec: [id number] Address2: Acct ID: [id number] [facility] Zip: [place] [address] Date: 1935 Sex: M Room/Bed: Ref Phy: No Doctor, Assigned SC: C.MRI Att Phy: Renee Hutson PA-C Report #: [id number] Valeria Phy: No Doctor, Assigned Test: [facility] Admit Phy: Bulb Packer: FABIENNE Interpreting Phy: Sunday Geller M.D. Diagnosis: BRAIN CA Ordering Phy: Renee Hutson PA-C Service Date: 11/01/17 Admit Date: 11/01/17 MNE: [id number] CONF: DICTATED BY: Sunday Geller M.D.]] CC: Renee Hutson PA-C No Doctor, Assigned Endcc: [~ rep ct add3]] MRI OF THE BRAIN COMBO CLINICAL HISTORY: Intracranial metastatic disease. COMPARISON STUDY: MRI of the brain dated 07/14/2017. TECHNIQUE: MRI of the brain was performed utilizing various T1 and T2-weighted sequences in the axial, sagittal, and coronal planes. Contrast-enhanced sequences were acquired following the administration of 6 cc of Gadavist. FINDINGS: Brain parenchyma: There are age-related involutional changes noting moderate to advanced subcortical and periventricular microangiopathic disease. There is no hemorrhage or mass effect. There is no restricted diffusion to suggest acute ischemia. Again seen are numerous enhancing intracranial lesions. The largest lesion is present in the left cerebellar hemisphere on axial image #4. This measures up to 1.0 cm and demonstrates hemosiderin deposition suggesting previous hemorrhage. There are least 3 additional lesions in the cerebellum seen on axial images #6 the right lobe, #7 on the left lobe, and #8 in the left peduncle. 2 views appear new from 07/14/2017, a lesion in the right occipital lobe and measure 11 is also new from previous. A lesion in the right frontal lobe on image #18 is unchanged. All of these lesions are subcentimeter in size. Alcantara-white matter differentiation is preserved. No extra-axial fluid collection is seen. The cerebellar tonsils are normal in configuration. Ventricles, sulci, and cisterns: Prominent secondary to involutional change. Pituitary and sella: Partially empty sella is incidentally noted. Intracranial vasculature: Normal flow voids are maintained at the skull base. Orbits: The bony orbits are grossly intact. Orbital contents are normal in appearance noting bilateral ocular lens implants.. Sinuses and mastoids: Clear. Calvarium: Unremarkable. Cervical cord: Partially visualized cervical spinal cord is normal in morphology and signal intensity. IMPRESSION: 1. There has been no significant change in the appearance of a 1.0 cm enhancing lesion in the left cerebellar hemisphere as compared to previous. There is evidence of previous hemorrhage within this lesion. 2. There are at least 5 additional subcentimeter enhancing lesions identified. 3 of these are new from 07/14/2017 and indicate progression of disease. 3. There is no hemorrhage, mass effect, or evidence of acute ischemia. 4. Additional findings as above. Electronically signed by: Sunday Geller M.D. 11/01/2017 3:10 PM Dictated Date/Time: 11/01/2017 3:01 PM Assessment & Plan Plan: Patient was seen and examined by Dr. Goff. The patient has become increasingly more debilitated. Treatment to the new lesions will be held. Plan for recheck MRI in 2 months. There is good be further discussion with the patient and family to determine if he will want to continue diagnostic studies. For now I did want to go forward with scheduling the CT and follow-up visit. Correspondence was completed for the assisted living facility. Assessment & Plan (Attending) Today, I had an in-depth conversation with the patient and his two children who were present for the entire conversation. Given the patient's poor performance status and his asymptomatic intracranial disease, I have recommended conservative management with a repeat MRI of Brain in 2 months. If the patient wants treatment, we can definitely pursue treatment however I explained to the family that there is a low likelihood that radiation therapy will improve his current quality of life. The son states he will discuss it with the other family members and call us with a final decision. We will tenatively schedule a follow up MRI of the Brain in 2 months which can be easily cancelled by the patient and his family. They were content with this plan. Patient and family encouraged to call us with any further questions or concerns. Total Time In Follow-Up I spent 20 minutes speaking to the patient performing examination. I spent 15 minutes reviewing information in completing this note. AK Total Time (Attending) In Follow-Up I spent 20 minutes examining and counseling the patient. I spent 5 minutes completing this note. HAMMERSMITH HELPER Copy To Boy Hebert M.D.; Randell Mcguire MD
== END | disposition home or self-care (01) ==
LOC: C.ONC 13:37
PROVIDERS: ATTEND Physician Assistant Medical
DX: Z08 Encounter for follow-up examination after completed treatment for malignant neoplasm (principal); Z92.3 Personal history of irradiation; Z85.46 Personal history of malignant neoplasm of prostate

== ENCOUNTER 2017-11-21 09:42 | Inpatient (IN) | payer BC, OTHER ==
[~2017-11-21] VITALS: Ht 182.9 cm; Wt 61.1 kg
[~2017-11-21 09:42] MED LIST changes: -ABIR1TAB PO; -DENOINJ INJ; +GABA-1219 PO; -GABA1CAP4 PO; -LPRI INJ; -ONDA4TAB10 SL
[2017-11-21] MEDS ORDERED: SODIUM CHLORIDE 0.9% 1000ML 1,000 ML IV STA (09:58)
[2017-11-21] MEDS ORDERED: SODIUM CHLORIDE 0.9% 250ML 250 ML IV STA (09:58)
[2017-11-21] MEDS ORDERED: ONDANSETRON INJ 2 MG/ML 2 ML VIAL IV STA (09:58)
--- NOTE | 2017-11-21 10:09 | EMERGENCY ROOM VISIT NOTE ---
History Report prepared by Macy: Edmond Prajapati Under the Supervision of: Dr. Estrella De La O M.D. First contact with patient: 09:48 Chief Complaint: WEAKNESS Stated Complaint: AMS History of Present Illness The patient is an 82 year old male who presents to the Emergency Room with complaints of constant, severe, nausea beginning earlier today. The patient denies a headache, vomiting, and being confused. The patient's son states he received a call and was told the patient had an unresponsive, seizure-like episode. He reports the patient has been complaining of weak legs, nausea, and diarrhea. The son notes he believes the symptoms are from his cancer medication. He states the patient's cancer is believed to have started in his prostate and then metastasized to his brain, skin, and bone. The son reports the patient had a previous episode in August when his . He notes the patient lives in [facility]. EMS states the patient had an episode of unresponsiveness, confusion, hypoxia, and hypertension. Source of History: patient Onset: earlier today Position: other (global) Symptom Intensity: severe Quality: other (nausea) Timing: constant Associated Symptoms: + diarrhea, + weakness (legs), No headache, No vomiting Note: Per EMS: hypertensive, hypoxia, unresponsive, confusion Denies: confusion Review of Systems See HPI for pertinent positives & negatives. A total of 10 systems reviewed and were otherwise negative. Past Medical & Surgical Medical Problems: (1) Cerebellar lesion (2) Diabetes (3) Dizziness (4) Hypercholesteremia (5) Hypertension (6) Polycythemia vera (7) Prostate cancer (8) Seizure (9) TIA (transient ischemic attack) (10) Vasovagal syncope Family History Diabetes mellitus Gastric cancer Hypertension Myocardial infarction Stroke Social History Smoking Status: Never Smoker Alcohol Use: occasionally Drug Use: none Marital Status: Housing Status: lives with family Occupation Status: retired Current/Historical Medications Scheduled Atorvastatin (Lipitor), 40 MG PO DAILY Enzalutamide (Xtandi), 120 MG PO DAILY Fentanyl (Fentanyl), 1 APPLN SUBD Q48H Fluocinolone Acetonide ([place]oothe/Fs Scalp), 1 APPLN TOP HS Gabapentin (Gabapentin), 300 MG PO TID Glimepiride (Glimepiride), 12 MG PO DAILY Lactic Acid (Ammonium Lactate Cream 12%), 1 APPLN TOP BID Leuprolide Acetate (Lupron Depot), 22.5 MG IM Q3MO Levetiracetam (Keppra), 500 MG PO BID Metformin Hcl (Glucophage), 1,000 MG PO BID Metoprolol Tartrate (Lopressor), 25 MG PO BID Omeprazole (Prilosec), 20 MG PO DAILY Ruxolitinib Phosphate (Jakafi), 10 MG PO BID Scheduled PRN Acetaminophen (Tylenol), 1,000 MG PO TID PRN for Pain Dextromethorphan Polistirex (Delsym), 10 ML PO Q12 PRN for Cough Lorazepam (Ativan), 0.5 MG PO Q12 PRN for Anxiety Ondansetron Hcl (Zofran), 8 MG PO Q8 PRN for Nausea Prochlorperazine Maleate (Compazine), 1 TAB PO Q6 PRN for Nausea or Vomiting Promethazine (Phenergan ), 12.5 MG PO Q6H PRN for Nausea or Vomiting Allergies Coded Allergies: No Known Allergies (Unverified , 11/21/17) Physical Exam Vital Signs Date Time Temp Pulse Resp B/P (MAP) Pulse Ox O2 Delivery O2 Flow Rate FiO2 11/21/17 13:15 80/34 11/21/17 13:09 70 14 100 11/21/17 13:01 126/74 11/21/17 12:39 74 10 97 11/21/17 12:34 73 7 99 11/21/17 12:31 118/65 11/21/17 12:15 70 11/21/17 12:04 80 15 95 11/21/17 11:59 36.1 131/97 11/21/17 11:42 73 19 100 11/21/17 11:12 78 17 100 11/21/17 11:02 147/96 11/21/17 11:02 36.1 76 12 147/96 99 Nasal Cannula 2.0 11/21/17 10:42 77 10 100 11/21/17 10:41 145/74 11/21/17 10:40 76 10 145/74 100 Nasal Cannula 2.0 11/21/17 10:26 136/71 11/21/17 10:12 75 15 94 11/21/17 10:04 70 12 136/71 96 Nasal Cannula 2.0 11/21/17 10:02 98 Nasal Cannula 2.0 11/21/17 09:50 35.6 77 17 152/74 100 Room Air 11/21/17 09:50 98 Room Air 11/21/17 09:47 77 11/21/17 09:45 152/74 Physical Exam Vital signs reviewed. General: Elderly, chronically ill-appearing 82 year old male, in no significant distress. HEENT: No scleral icterus, PERRLA, neck supple. Atraumatic. Cardiovascular: Regular rate and rhythm, no extra sounds. Pulmonary: Clear to auscultation bilaterally, normal work of breathing. Abdomen: Soft, nontender, nondistended, positive bowel sounds. Musculoskeletal: Atraumatic, no peripheral edema. Neurologic: Patient is slow to respond, but awake alert and oriented x 3. Cranial nerves 2 through 12 grossly intact. Skin: Warm, dry, no rash Medical Decision & Procedures ER Provider Diagnostic Interpretation: Radiology results as stated below per my review and radiologist interpretation: HEAD WITHOUT CONTRAST (CT) CT DOSE: 614.27 mGy.cm HISTORY: Mental status change seizure/unresponsive episode, mets to brain TECHNIQUE: Multiaxial CT images of the head were performed without the use of intravenous contrast. A dose lowering technique was utilized adhering to the principles of ALARA. Comparison: 07/02/2017 Findings: The paranasal sinuses and mastoid air cells are clear. The calvarium and skull base are intact. The ventricles and sulci are within normal limits. There is no mass, hematoma, midline shift, or acute infarct. Small hyperdense focus left posterior cerebellar hemisphere unchanged from the prior 2 studies. No evidence for acute intracranial hemorrhage. No midline shift. Mild chronic small vessel change of aging unaltered from the prior study. Impression: Chronic and age-related change. No acute process. The above report was generated using voice recognition software. It may contain grammatical, syntax or spelling errors. Electronically signed by: Jean Porter M.D. 11/21/2017 10:40 AM Dictated Date/Time: 11/21/2017 10:38 AM CHEST ONE VIEW PORTABLE CLINICAL HISTORY: seizure, unresponsive episode mental status change COMPARISON STUDY: 07/02/2017 FINDINGS: Minimal plate like atelectasis right base. Lungs otherwise appear clear. There are no focal infiltrates. Diaphragms are smooth. IMPRESSION: Minimal plate like atelectasis right base. Otherwise negative study. The above report was generated using voice recognition software. It may contain grammatical, syntax or spelling errors. Electronically signed by: Jean Porter M.D. 11/21/2017 10:14 AM Dictated Date/Time: 11/21/2017 10:13 AM Laboratory Results Test 11/21/17 10:15 11/21/17 10:20 11/21/17 10:24 Urine Color YELLOW Urine Appearance CLEAR (CLEAR) Urine pH 6.0 (4.5-7.5) Urine Specific [place] 1.009 (1.000-1.030) Urine Protein NEG (NEG) Urine Glucose (UA) NEG (NEG) Urine Ketones NEG (NEG) Urine Occult Blood NEG (NEG) Urine Nitrite NEG (NEG) Urine Bilirubin NEG (NEG) Urine Urobilinogen NEG (NEG) Urine Leukocyte Esterase NEG (NEG) RDW Standard Deviation 52.3 fL (36.4-46.3) RDW Coefficient of Variation 15.9 % (11.5-14.5) White Blood Count 4.73 K/uL (4.8-10.8) Red Blood Count 3.07 M/uL (4.7-6.1) Hemoglobin 9.6 g/dL (14.0-18.0) Hematocrit 27.7 % (42-52) Mean Corpuscular Volume 90.2 fL (80-100) Mean Corpuscular Hemoglobin 31.3 pg (25-34) Mean Corpuscular Hemoglobin Concent 34.7 g/dl (32-36) Platelet Count 124 K/uL (130-400) Mean Platelet Volume 9.4 fL (7.4-10.4) Neutrophils (%) (Auto) 81.9 % Lymphocytes (%) (Auto) 5.3 % Monocytes (%) (Auto) 9.9 % Eosinophils (%) (Auto) 0.8 % Basophils (%) (Auto) 0.2 % Neutrophils # (Auto) 3.87 K/uL (1.4-6.5) Lymphocytes # (Auto) 0.25 K/uL (1.2-3.4) Monocytes # (Auto) 0.47 K/uL (0.11-0.59) Eosinophils # (Auto) 0.04 K/uL (0-0.5) Basophils # (Auto) 0.01 K/uL (0-0.2) Immature Granulocyte % (Auto) 1.9 % Immature Granulocyte # (Auto) 0.09 K/uL (0.00-0.02) Prothrombin Time 10.3 SECONDS (9.0-12.0) Prothromb Time International Ratio 1.0 (0.9-1.1) Activated Partial Thromboplast Time 28.2 SECONDS (21.0-31.0) Partial Thromboplastin Ratio 1.1 Total Bilirubin 0.9 mg/dl (0.2-1) Direct Bilirubin 0.2 mg/dl (0-0.2) Aspartate Amino Transf (AST/SGOT) 31 U/L (15-37) Alanine Aminotransferase (ALT/SGPT) 14 U/L (12-78) Alkaline Phosphatase 62 U/L (45-117) Total Creatine Kinase 190 U/L (39-308) Creatine Kinase MB 1.3 ng/ml (0.5-3.6) Creatine Kinase MB Ratio 0.7 (0-3.0) Total Protein 6.5 gm/dl (6.4-8.2) Albumin 3.2 gm/dl (3.4-5.0) Bedside Troponin I < 0.030 ng/ml (0-0.045) Laboratory results per my review. Medications Administered Medications (Trade) Dose Ordered Sig/Axel Route Start Time Stop Time Status Last Admin Dose Admin Sodium Chloride 250 ml @ 999 mls/hr Q16M STAT IV 11/21/17 09:58 11/21/17 10:13 DC 11/21/17 10:16 999 MLS/HR Sodium Chloride 1,000 ml @ 125 mls/hr Q8H STAT IV 11/21/17 09:58 11/21/17 16:09 DC 11/21/17 10:16 125 MLS/HR Ondansetron HCl (Zofran Inj) 4 mg NOW STAT IV 11/21/17 09:58 11/21/17 10:03 DC 11/21/17 10:17 4 MG Magnesium Sulfate (Magnesium Sulfate) 2 gm NOW STAT IV 11/21/17 11:22 11/21/17 11:23 DC 11/21/17 11:35 2 GM Potassium Chloride 10 meq/ Prmx 100 ml @ 100 mls/hr Q1H IV 11/21/17 12:30 11/21/17 14:29 DC 11/21/17 13:46 100 MLS/HR Promethazine HCl (Phenergan Tab) 12.5 mg Q6H PRN PO 11/21/17 13:15 12/21/17 13:14 11/21/17 17:47 12.5 MG ECG Indication: altered mental status Rate (beats per minute): 76 Rhythm: normal sinus Findings: nonspecific-ST abn (diffusely), no ectopy Comparison ECG Date: 07/03/17 Change: ST changes are new. Patient's electrocardiogram interpreted by me. ED Course 0950: Past medical records reviewed. The patient was evaluated in room B01. A complete history and physical examination was performed. 0958: Ordered Ondansetron HCl 4mg IV, Sodium Chloride 1000 ml @ 125 mls/hr IV, Sodium Chloride 250 ml @ 999 mls/hr IV 1122: Ordered Magnesium Sulfate 2gm IV 1128: Upon reevaluation, the patient is resting comfortably. I discussed laboratory and radiographic results with the patient and his family. They verbalized agreement of the treatment plan. The patient will be evaluated for further management and care. 1209: I discussed the patient's case with Dr. Becerril, [facility] Hospitalist. The patient will be evaluated for further management and care. 1230: Ordered 2 bags of Potassium Chloride 10 meq/Prmx 100 ml @ 100 mls/hr IV Medical Decision Differential diagnosis: Etiologies such as metabolic, infection, hypoglycemia, electrolyte abnormalities , cardiac sources, intracerebral event, toxicologic, neurologic, as well as others were entertained. This pt was evaluated and appeared to be in no distress. Pt is hypothermic. Mariano hugger was initiated. IV access was obtained and lab work was drawn. Pt was hydrated with NSS. Head CT was performed and is negative for acute intracranial abnormality. Previously seen hyperdensities are unchanged. Pt did receive IV zofran for nausea. Anemia is pt's baseline. He is found to be hypokalemic, hypomagnesemic and hyponatremic. Electrolytes were repleted. EKG reveals a non specific ST abnl. I suspect the pt had perhaps a seizure episode. He is intact currently. Case was d/w the hospitalist service for further management. Pt and family are aware of the plan and agree. Medication Reconcilliation Current Medication List: was personally reviewed by me Blood Pressure Screening Patient's blood pressure: Normal blood pressure Blood pressure disposition: Did not require urgent referral Consults Time Called: 1128 Consulting Physician: Dr. Becerril, [facility] Hospitalist Returned Call: 1209 I discussed the patient's case with Dr. Becerril [facility] Hospitalist. The patient will be evaluated for further management and care. Impression Primary Impression: Seizure Additional Impressions: Hypomagnesemia Hypokalemia Hyponatremia Scribe Attestation The scribe's documentation has been prepared under my direction and personally reviewed by me in its entirety. I confirm that the note above accurately reflects all work, treatment, procedures, and medical decision making performed by me. Departure Information Dispostion Being Evaluated By Hospitalist Referrals No Doctor, Assigned (PCP) Patient Instructions My [facility] Problem Qualifiers
--- NOTE | 2017-11-21 10:15 | DIAGNOSTIC IMAGING REPORT ---
CHEST ONE VIEW PORTABLE CLINICAL HISTORY: seizure, unresponsive episode mental status change COMPARISON STUDY: 07/02/2017 FINDINGS: Minimal plate like atelectasis right base. Lungs otherwise appear clear. There are no focal infiltrates. Diaphragms are smooth. IMPRESSION: Minimal plate like atelectasis right base. Otherwise negative study. The above report was generated using voice recognition software. It may contain grammatical, syntax or spelling errors. Electronically signed by: Jean Porter M.D. 11/21/2017 10:14 AM Dictated Date/Time: 11/21/2017 10:13 AM
[2017-11-21 10:40] LABS: BASO % 0.2 %; BASO ABS # 0.01 K/uL (0-0.2); EOS % 0.8 %; EOS ABS # 0.04 K/uL (0-0.5); HEMATOCRIT 27.7 % (42-52); HEMOGLOBIN 9.6 g/dL (14.0-18.0); IG# 0.09 K/uL (0.00-0.02); LYMPH % 5.3 %; LYMPH ABS # 0.25 K/uL (1.2-3.4); MEAN CELL VOLUME 90.2 fL (80-100); MEAN CORPUSCULAR HEMOGLOBIN 31.3 pg (25-34); MEAN CORPUSCULAR HGB CONC 34.7 g/dl (32-36); MEAN PLATELET VOLUME 9.4 fL (7.4-10.4); MONO % 9.9 %; MONO ABS # 0.47 K/uL (0.11-0.59); NEUT % 81.9 %; NEUT ABS # 3.87 K/uL (1.4-6.5); PLATELET COUNT 124 K/uL (130-400); RED CELL DISTRIBUTION WIDTH CV 15.9 % (11.5-14.5); RED CELL DISTRIBUTION WIDTH SD 52.3 fL (36.4-46.3); WHITE BLOOD COUNT 4.73 K/uL (4.8-10.8)
--- NOTE | 2017-11-21 10:41 | DIAGNOSTIC IMAGING REPORT ---
HEAD WITHOUT CONTRAST (CT) CT DOSE: 614.27 mGy.cm HISTORY: Mental status change seizure/unresponsive episode, mets to brain TECHNIQUE: Multiaxial CT images of the head were performed without the use of intravenous contrast. A dose lowering technique was utilized adhering to the principles of ALARA. Comparison: 07/02/2017 Findings: The paranasal sinuses and mastoid air cells are clear. The calvarium and skull base are intact. The ventricles and sulci are within normal limits. There is no mass, hematoma, midline shift, or acute infarct. Small hyperdense focus left posterior cerebellar hemisphere unchanged from the prior 2 studies. No evidence for acute intracranial hemorrhage. No midline shift. Mild chronic small vessel change of aging unaltered from the prior study. Impression: Chronic and age-related change. No acute process. The above report was generated using voice recognition software. It may contain grammatical, syntax or spelling errors. Electronically signed by: Jean Porter M.D. 11/21/2017 10:40 AM Dictated Date/Time: 11/21/2017 10:38 AM
[2017-11-21 11:00] LABS: ALBUMIN 3.2 gm/dl (3.4-5.0); CALCIUM 7.7 mg/dl (8.5-10.1); CREATININE 0.84 mg/dl (0.60-1.40); POTASSIUM 3.5 mmol/L (3.5-5.1)
[2017-11-21 11:05] LABS: CKMB 1.3 ng/ml (0.5-3.6); TOTAL PROTEIN 6.5 gm/dl (6.4-8.2)
[2017-11-21] MEDS ORDERED: MAGNESIUM SULFATE 1GM / D5W 1 GM BAG IV STA (11:22)
[2017-11-21] MEDS ORDERED: POTASSIUM CHLORIDE 10 MEQ / 100ML WTR IV STA (12:02)
[2017-11-21] MEDS: POTASSIUM CHLR 10MEQ / WTR IV SCH ×2 (12:45→13:46)
[2017-11-21] MEDS ORDERED: PREMIXED IV SCH (13:15)
[2017-11-21] MEDS ORDERED: DEXTROMETHORPHAN POLYMR COMPLX 30 MG/5 ML UDP PO PRN ×2 (13:15→15:30)
[2017-11-21] MEDS ORDERED: ONDANSETRON 8 MG TAB PO PRN (13:15)
[2017-11-21] MEDS ORDERED: [UNRECOGNIZED DRUG - OTHER] IV SCH (13:15)
[2017-11-21] MEDS ORDERED: FENTANYL 12 MCG/HR TDSY TD SCH (13:15)
[2017-11-21] MEDS ORDERED: MAGNESIUM SULFATE IV SCH (13:15)
[2017-11-21] MEDS ORDERED: D5W IV SCH (13:15)
[2017-11-21] MEDS ORDERED: PROCHLORPERAZINE MALEATE 10 MG TAB PO PRN (13:15)
[2017-11-21] MEDS ORDERED: ACETAMINOPHEN 500 MG TAB PO PRN (13:15)
[2017-11-21] MEDS ORDERED: LORAZEPAM 0.5 MG TAB PO PRN (13:15)
--- NOTE | 2017-11-21 14:01 | History and Physical ---
History & Physical Date & Time of Service: Nov 21, 2017 at 12:53 Chief Complaint: AMS Primary Care Physician: Boy Hebert M.D. History of Present Illness Mr. Catalan is an 82 year old man here for seizure like activity. He reports he was here because he felt terrible. According to ED records he had an episode of seizure like activity at [facility] as well as an episode with hypoxia with EMS. He has a history of metastatic prostate cancer and it was felt that the diarrhea he has been experiencing over the last couple weeks was likley due to his cancer treatment. He is nauseas and fatigued but otherwise denies symptoms. 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 He received 2500 cGy Status post completion of stereotactic body radiation therapy to the brain 08/02. He received 2700 cGy to each lesion. Status: Chronic (6) TIA (transient ischemic attack) Status: Resolved (7) Vasovagal syncope Status: Resolved Family History Diabetes mellitus Gastric cancer Hypertension Myocardial infarction Stroke Social History Smoking Status: Never Smoker Smokeless Tobacco Use: No Alcohol Use: none Drug Use: none Marital Status: Housing status: assisted living Occupational Status: retired Immunizations History of Influenza Vaccine: N/A History of Tetanus Vaccine?: Unknown History of Pneumococcal: Yes Pneumococcal Date: Jul 21, 2010 History of Hepatitis B Vaccine: Unknown Multi-Drug Resistant Organisms History of MDRO: No Allergies Coded Allergies: No Known Allergies (Unverified , 11/21/17) Home Medications Scheduled Atorvastatin (Lipitor), 40 MG PO DAILY Enzalutamide (Xtandi), 120 MG PO DAILY Fentanyl (Fentanyl), 1 APPLN SUBD Q48H Fluocinolone Acetonide ([place]-Smoothe/Fs Scalp), 1 APPLN TOP HS Gabapentin (Gabapentin), 300 MG PO TID Glimepiride (Glimepiride), 12 MG PO DAILY Lactic Acid (Ammonium Lactate Cream 12%), 1 APPLN TOP BID Leuprolide Acetate (Lupron Depot), 22.5 MG IM Q3MO Levetiracetam (Keppra), 500 MG PO BID Metformin Hcl (Glucophage), 1,000 MG PO BID Metoprolol Tartrate (Lopressor), 25 MG PO BID Omeprazole (Prilosec), 20 MG PO DAILY Ruxolitinib Phosphate (Jakafi), 10 MG PO BID Scheduled PRN Acetaminophen (Tylenol), 1,000 MG PO TID PRN for Pain Dextromethorphan Polistirex (Delsym), 10 ML PO Q12 PRN for Cough Lorazepam (Ativan), 0.5 MG PO Q12 PRN for Anxiety Ondansetron Hcl (Zofran), 8 MG PO Q8 PRN for Nausea Prochlorperazine Maleate (Compazine), 1 TAB PO Q6 PRN for Nausea or Vomiting Promethazine (Phenergan ), 12.5 MG PO Q6H PRN for Nausea or Vomiting Physical Exam Vital Signs Date Time Temp Pulse Resp B/P (MAP) Pulse Ox O2 Delivery O2 Flow Rate FiO2 11/21/17 12:34 73 7 99 11/21/17 12:31 118/65 11/21/17 12:15 70 11/21/17 12:04 80 15 95 11/21/17 11:59 36.1 131/97 11/21/17 11:42 73 19 100 11/21/17 11:12 78 17 100 11/21/17 11:02 147/96 11/21/17 11:02 36.1 76 12 147/96 99 Nasal Cannula 2.0 11/21/17 10:42 77 10 100 11/21/17 10:41 145/74 11/21/17 10:40 76 10 145/74 100 Nasal Cannula 2.0 11/21/17 10:26 136/71 11/21/17 10:12 75 15 94 11/21/17 10:04 70 12 136/71 96 Nasal Cannula 2.0 11/21/17 10:02 98 Nasal Cannula 2.0 11/21/17 09:50 35.6 77 17 152/74 100 Room Air 11/21/17 09:50 98 Room Air 11/21/17 09:47 77 11/21/17 09:45 152/74 General: no distress Eyes: normal inspection, PERLL Respiratory: chest non tender, clear to auscultation, normal breath sounds, no respiratory distress, no accessory muscle use Cardiac: regular rate and rhythm, no rub or gallop, no murmur, no edema, no jvd GI/: active bowel sounds, no abd pain or tenderness, soft, non distended Extremities: normal range of motion, normal strength, non tender Neuro/Psych: alert and oriented x 3, normal mood and affect Skin: normal color, dry Diagnostics Laboratory Results Results Past 24 Hours Test 11/21/17 10:15 11/21/17 10:20 11/21/17 10:24 Range/Units Urine Color YELLOW Urine Appearance CLEAR CLEAR Urine pH 6.0 4.5-7.5 Urine Specific [place] 1.009 1.000-1.030 Urine Protein NEG NEG Urine Glucose (UA) NEG NEG Urine Ketones NEG NEG Urine Occult Blood NEG NEG Urine Nitrite NEG NEG Urine Bilirubin NEG NEG Urine Urobilinogen NEG NEG Urine Leukocyte Esterase NEG NEG White Blood Count 4.73 4.8-10.8 K/uL Red Blood Count 3.07 4.7-6.1 M/uL Hemoglobin 9.6 14.0-18.0 g/dL Hematocrit 27.7 42-52 % Mean Corpuscular Volume 90.2 80-100 fL Mean Corpuscular Hemoglobin 31.3 25-34 pg Mean Corpuscular Hemoglobin Concent 34.7 32-36 g/dl Platelet Count 124 130-400 K/uL Mean Platelet Volume 9.4 7.4-10.4 fL Neutrophils (%) (Auto) 81.9 % Lymphocytes (%) (Auto) 5.3 % Monocytes (%) (Auto) 9.9 % Eosinophils (%) (Auto) 0.8 % Basophils (%) (Auto) 0.2 % Neutrophils # (Auto) 3.87 1.4-6.5 K/uL Lymphocytes # (Auto) 0.25 1.2-3.4 K/uL Monocytes # (Auto) 0.47 0.11-0.59 K/uL Eosinophils # (Auto) 0.04 0-0.5 K/uL Basophils # (Auto) 0.01 0-0.2 K/uL RDW Standard Deviation 52.3 36.4-46.3 fL RDW Coefficient of Variation 15.9 11.5-14.5 % Immature Granulocyte % (Auto) 1.9 % Immature Granulocyte # (Auto) 0.09 0.00-0.02 K/uL Sodium Level 128 136-145 mmol/L Potassium Level 3.5 3.5-5.1 mmol/L Chloride Level 95 98-107 mmol/L Carbon Dioxide Level 20 21-32 mmol/L Anion Gap 13.0 3-11 mmol/L Blood Urea Nitrogen 12 7-18 mg/dl Creatinine 0.84 0.60-1.40 mg/dl Est Creatinine Clear Calc Drug Dose 62.6 ml/min Estimated GFR () 93.2 Estimated GFR (Non- 80.4 BUN/Creatinine Ratio 14.4 10-20 Random Glucose 133 70-99 mg/dl Calcium Level 7.7 8.5-10.1 mg/dl Magnesium Level 1.2 1.8-2.4 mg/dl Total Bilirubin 0.9 0.2-1 mg/dl Direct Bilirubin 0.2 0-0.2 mg/dl Aspartate Amino Transf (AST/SGOT) 31 15-37 U/L Alanine Aminotransferase (ALT/SGPT) 14 12-78 U/L Alkaline Phosphatase 62 45-117 U/L Total Creatine Kinase 190 39-308 U/L Creatine Kinase MB 1.3 0.5-3.6 ng/ml Creatine Kinase MB Ratio 0.7 0-3.0 Total Protein 6.5 6.4-8.2 gm/dl Albumin 3.2 3.4-5.0 gm/dl Bedside Troponin I < 0.030 0-0.045 ng/ml CXR normal EKG Normal sinus rhythm Possible Left atrial enlargement Nonspecific ST and T wave abnormality Abnormal ECG When compared with ECG of 03-JUL-2017 07:48, Nonspecific T wave abnormality now evident in Anterior leads QT has lengthened Impression Assessment and Plan Mr. Catalan is an 82 year old man here for possible seizure activity ?Seizure - admit tele - seizure precautions - increase Keppra from 500 mg to 750 mg - consult neurology - EEG - CT negative for acute process Hyponatremia - gentle IVF @ 100 ml/hr - repeat prp this evening Orthostasis - patient became dizzy and pale when head of bed raised and his BP went 80/40 from sbp in the 120s - 500 ml bolus over 2 hours now - if orthostasis/hyponatremia persist may need to check adrenal function but my suspicion is that his symptoms are more from poor intake/diarrhea - patient does take prednisone outpatient, unsure what this is for but will continue for now. 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 Discussed with Anastasia Hebert NP and agree with findings and plan as documented in the note. Any exceptions or clarifications are listed here: None Patient was seen in the ER he does look a bit Frail he does have a a warming blanket on. He is found to be hyponatremic with possible seizure he is on chronic steroids and adrenally suppressed is no evidence of obvious infection he is however concurrently taking chemotherapy which could explain some of the symptoms Vitals are reviewed He is awake and alert oriented his cardiac exam is regular lungs are shallow and clear abdomen is soft and nontender Possible seizure activity in a patient with known structural brain metastasis on Keppra, we'll increase his Keppra have a neurology consult and an EEG Hyponatremia will fluid restrict him continue IV normal saline and check a random urine sodium for SIADH Adrenal suppression from chronic prednisone use will provide 24 hours her stress coverage as could have apply in his orthostatic hypotension Documented By: Jony Becerril Advanced Directives Existing Advance Directive: Yes Existing Living Will: Yes Existing Power of Electronic Page Makeup System Operator: Yes (son) Resuscitation Status FULL RESUSCITATION VTE Prophylaxis VTE Risk Assessment Done? Y/N: Yes Risk Level: Moderate Given or contraindicated: Unfractionated heparin SQ Social Service Consult Cancer Patient Under [place]
[2017-11-21 15:09] LABS: PTT PATIENT 28.2 SECONDS (21.0-31.0)
--- NOTE | 2017-11-21 15:20 | DIAGNOSTIC IMAGING REPORT ---
R ELBOW MIN 3 VIEWS ROUTINE CLINICAL HISTORY: PAIN COMPARISON: None. DISCUSSION: The bones and joint spaces appear intact. There is no evidence of fracture, dislocation or bony disease. There is no evidence for soft tissue swelling. IMPRESSION: Negative study. The above report was generated using voice recognition software. It may contain grammatical, syntax or spelling errors. Electronically signed by: Jean Porter M.D. 11/21/2017 3:18 PM Dictated Date/Time: 11/21/2017 3:18 PM
[2017-11-21 15:30] VITALS: BP 137/73; PULSE 74; TEMP 36.7; O2SAT 96; Ht 182.9 cm; Wt 61.1 kg
[2017-11-21] MEDS ORDERED: MAGNESIUM SULFATE 1GM / D5W 1 GM in PREMIXED IN D5W 100 ML IV SCH (16:00)
[2017-11-21] MEDS ORDERED: SODIUM CHLORIDE 0.9% 500ML 500 ML IV SCH (16:09)
[2017-11-21] MEDS: GABAPENTIN 300 MG CAP PO SCH ×2 (16:23→20:48)
[2017-11-21] MEDS: INSULIN ASPART 100 UNITS/ML 3 ML PEN SC SCH ×3 (17:08→21:39)
[2017-11-21] MEDS: PROMETHAZINE HCL 25 MG TAB PO PRN (17:47)
[2017-11-21] MEDS: HYDROCORTISONE IV 100 MG in SYRINGE 0 ML IV SCH (18:51)
[2017-11-21] MEDS: SODIUM CHLORIDE 0.9% 1000ML 1,000 ML IV SCH (18:51)
[2017-11-21 19:27] VITALS: BP 160/72; PULSE 76; TEMP 36.6; O2SAT 98
[2017-11-21] MEDS: METOPROLOL TARTRATE 25 MG TAB PO SCH (20:48)
[2017-11-21] MEDS: LEVETIRACETAM 500 MG TAB PO SCH (20:49)
[2017-11-21 21:25] LABS: CALCIUM 7.7 mg/dl (8.5-10.1); CREATININE 0.85 mg/dl (0.60-1.40); POTASSIUM 4.1 mmol/L (3.5-5.1)
[2017-11-21] MEDS: HEPARIN SOD 5000 UNIT/0.5 ML CARP SQ SCH (21:39)
[2017-11-21 23:45] VITALS: BP 150/51; PULSE 73; TEMP 36.5; O2SAT 98
[2017-11-22] MEDS: CHECK FENTANYL PATCH PLACEMENT SCH ×3 (00:02→15:57)
[2017-11-22] MEDS: SODIUM CHLORIDE 0.9% 1000ML 1,000 ML IV SCH ×2 (00:04→09:57)
[2017-11-22] MEDS: HYDROCORTISONE IV 100 MG in SYRINGE 0 ML IV SCH ×3 (02:11→17:33)
[2017-11-22 03:54] VITALS: BP 136/69; PULSE 78; TEMP 36.5; O2SAT 96
[2017-11-22] MEDS ORDERED: NURSING DECISION MEDICATION ORDER SCH (04:00)
[2017-11-22 07:21] LABS: HEMATOCRIT 27.8 % (42-52); HEMOGLOBIN 9.6 g/dL (14.0-18.0); MEAN CELL VOLUME 89.4 fL (80-100); MEAN CORPUSCULAR HEMOGLOBIN 30.9 pg (25-34); MEAN CORPUSCULAR HGB CONC 34.5 g/dl (32-36); MEAN PLATELET VOLUME 9.2 fL (7.4-10.4); PLATELET COUNT 152 K/uL (130-400); RED CELL DISTRIBUTION WIDTH CV 15.9 % (11.5-14.5); RED CELL DISTRIBUTION WIDTH SD 51.7 fL (36.4-46.3); WHITE BLOOD COUNT 4.53 K/uL (4.8-10.8)
[2017-11-22 08:02] LABS: CALCIUM 7.6 mg/dl (8.5-10.1); CREATININE 0.81 mg/dl (0.60-1.40); POTASSIUM 3.8 mmol/L (3.5-5.1)
[2017-11-22] MEDS: LEVETIRACETAM 500 MG TAB PO SCH ×2 (08:19→20:24)
[2017-11-22] MEDS: PANTOprazole SOD 40 MG TAB PO SCH (08:19)
[2017-11-22] MEDS: METOPROLOL TARTRATE 25 MG TAB PO SCH ×2 (08:19→20:27)
[2017-11-22] MEDS: GABAPENTIN 300 MG CAP PO SCH ×2 (08:19→13:48)
[2017-11-22] MEDS: INSULIN ASPART 100 UNITS/ML 3 ML PEN SC SCH ×4 (08:22→20:29)
[2017-11-22] MEDS: FENTANYL PATCH REMOVE & WASTE SCH (08:22)
[2017-11-22] MEDS: HEPARIN SOD 5000 UNIT/0.5 ML CARP SQ SCH ×2 (08:22→20:29)
[2017-11-22] MEDS: FENTANYL 12 MCG/HR TDSY TD SCH (08:31)
[2017-11-22] MEDS ORDERED: ATORVASTATIN 40 MG TAB PO SCH (09:00)
[2017-11-22 09:04] VITALS: BP 137/71; PULSE 85; TEMP 36.5; O2SAT 97
--- NOTE | 2017-11-22 10:22 | Neurology Consultation ---
Neurology Consultation Date of Consultation: Nov 22, 2017. Attending Physician: Jony Becerril M.D. Primary Care Physician: Boy Hebert M.D. Reason for Consultation: Concern for seizure-like event History of Present Illness Source: patient, clinic records, hospital records This is a 82-year-old male who presents with concerns for possible seizure-like event. Per report it appears that he came from [facility] with some brief episode of unresponsiveness. He was noted to have orthostatic low blood pressure on admission and mildly low sodium. He was having symptoms of diarrhea previously. According to the patient he just didn't feel well for a few minutes. He does not endorse any lightheadedness or presyncopal symptoms. He denies the past out. He does report feeling this way in the past but it's hard to quantify. He denied any chest pain or shortness of breath. He denied any new numbness or weakness. Denied any changes in his vision. He does feel overall fatigue and generally weak especially in his legs since his cancer treatment. Patient does not remember having any seizure-like events in the past and did not seem to be aware that he was on an antiepileptic medication. He denies any symptoms that would be consistent with Keppra effects in the last few months. Patient previously has been seen by myself for stroke evaluation and workup. He was also seen in neurology clinic by our physician public health training assistant in the fall for hospital follow-up for confusional episode believed to be possibly due to the seizure. He was evaluated for this in an outside institution and was placed on Keppra. MRI of the brain report and images from 11/01/2017 report and images were reviewed by myself. The patient does have several tiny enhancing masses in the cerebellum and cerebral areas concerning for metastatic cancer. This appears to be increased since his previous MRI. Labs on admission were reviewed and included a mildly low magnesium and sodium. No specific signs of infection. There is 2 blood pressure readings that were slightly of the low side. Systolic blood pressure was 80. Past Medical/Surgical History Medical Problems: (1) ORI (acute kidney injury) Status: Acute (2) Anemia Status: Acute (3) Cerebellar bleed Status: Acute (4) Contusion of left knee Status: Acute (5) Dehydration Status: Acute (6) Dehydration Status: Acute (7) Hypokalemia Status: Acute (8) Hypomagnesemia Status: Acute (9) Hypomagnesemia Status: Acute (10) Hyponatremia Status: Acute (11) Hypotension Status: Acute (12) Noncompliance with medications Status: Acute (13) Skin tear Status: Acute (14) Syncope Status: Acute (15) Weakness Status: Acute History of TIA like events and small ischemic stroke History of left cerebellar hemorrhage,stable, with 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 Believed to be secondary to tumor/metastasis that has bled. 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 His recently within the last year. He is reporting some increasing difficulty with walking. No history of tobacco use. Smoking Status: Never smoker Smokeless Tobacco Use: No Alcohol Use: none Drug Use: none Marital Status: Housing Status: lives with family Occupation Status: retired Allergies Coded Allergies: No Known Allergies (Unverified , 11/21/17) Current Inpatient Medications Current Inpatient Medications Medications (Trade) Dose Ordered Sig/Axel Route Start Time Stop Time Status Last Admin Dose Admin Heparin Sodium (Porcine) (Heparin Sq 5000 Unit/0.5ml) 5,000 unit Q12 SQ 11/21/17 21:00 12/21/17 20:59 11/22/17 08:22 5,000 UNIT Sodium Chloride 1,000 ml @ 100 mls/hr Q10H IV 11/21/17 18:00 12/21/17 17:59 11/22/17 09:57 100 MLS/HR Acetaminophen (Tylenol Tab) 1,000 mg TID PRN PO 11/21/17 13:15 12/21/17 13:14 Atorvastatin Calcium (Lipitor Tab) 40 mg QAM PO 11/22/17 09:00 12/22/17 08:59 11/22/17 08:19 40 MG Gabapentin (Neurontin Cap) 300 mg TID PO 11/21/17 14:00 12/21/17 13:59 11/22/17 08:19 300 MG Lorazepam (Ativan Tab) 0.5 mg Q12 PRN PO 11/21/17 13:15 12/21/17 13:14 Metoprolol Tartrate (Lopressor Tab) 25 mg BID PO 11/21/17 21:00 12/21/17 20:59 11/22/17 08:19 25 MG Ondansetron HCl (Zofran Tab) 8 mg Q8 PRN PO 11/21/17 13:15 12/21/17 13:14 Prochlorperazine Maleate (Compazine Tab) 10 mg Q6 PRN PO 11/21/17 13:15 12/21/17 13:14 Promethazine HCl (Phenergan Tab) 12.5 mg Q6H PRN PO 11/21/17 13:15 12/21/17 13:14 11/21/17 17:47 12.5 MG Miscellaneous Information (Order Awaiting Action) 1 ea QS N/A 11/21/17 16:00 12/21/17 15:59 Miscellaneous Information (Order Awaiting Action) 1 ea QS N/A 11/21/17 16:00 12/21/17 15:59 Miscellaneous Information (Order Awaiting Action) 1 ea QS N/A 12/09/17 00:00 01/08/18 00:00 Pantoprazole Sodium (Protonix Tab) 40 mg QAM PO 11/22/17 09:00 12/22/17 08:59 11/22/17 08:19 40 MG Insulin Aspart (novoLOG ASPART) SLIDING SCALE If C... ACHS SC 11/21/17 16:00 12/21/17 15:59 11/22/17 08:22 2 UNITS Levetiracetam (Keppra Tab) 750 mg BID PO 11/21/17 21:00 12/21/17 20:59 11/22/17 08:19 750 MG Dextromethorphan Polymer Complex (Delsym Susp) 30 mg Q12 PRN PO 11/21/17 15:30 12/21/17 13:14 Prednisone (PredniSONE TAB) 5 mg BID PO 11/21/17 21:00 12/21/17 20:59 11/22/17 08:19 5 MG Hydrocortisone Sodium Succinate 100 mg/Syringe 2 ml @ 4 mls/min Q8H IV 11/21/17 18:00 11/22/17 21:00 11/22/17 02:11 4 MLS/MIN Fentanyl (Duragesic Patch) 12 mcg Q48H TD 11/22/17 09:00 12/06/17 08:59 11/22/17 08:31 12 MCG Miscellaneous (Fentanyl Patch Remove & Waste) 1 ea Q48H N/A 11/22/17 09:00 12/22/17 08:59 11/22/17 08:22 1 EA Miscellaneous Information (Check Fentanyl Patch Placement) 1 ea QS N/A 11/22/17 00:00 12/22/17 00:00 11/22/17 08:16 1 EA Review of Systems Compleat ROS otherwise negative except for the above noted in HPI Physical Exam Vital Signs (Past 24 Hrs): Date Time Temp Pulse Resp B/P (MAP) Pulse Ox O2 Delivery O2 Flow Rate FiO2 11/22/17 09:04 36.5 85 20 137/71 (93) 97 Room Air 11/22/17 08:30 Room Air 11/22/17 04:00 Nasal Cannula 2.0 11/22/17 03:54 36.5 78 18 136/69 (91) 96 Room Air 11/21/17 23:45 36.5 73 17 150/51 (84) 98 Nasal Cannula 2.0 11/21/17 23:35 Nasal Cannula 2.0 11/21/17 20:00 Nasal Cannula 2.0 11/21/17 19:27 36.6 76 24 160/72 (101) 98 Room Air 11/21/17 15:30 36.7 74 20 137/73 96 Nasal Cannula 2.0 11/21/17 15:02 36.8 69 18 127/54 98 11/21/17 15:00 36.8 69 18 127/54 98 Nasal Cannula 2.0 11/21/17 13:39 69 19 100/40 98 11/21/17 13:15 80/34 11/21/17 13:09 70 14 100 11/21/17 13:01 126/74 11/21/17 12:39 74 10 97 11/21/17 12:34 73 7 99 11/21/17 12:31 118/65 11/21/17 12:15 70 11/21/17 12:04 80 15 95 11/21/17 11:59 36.1 131/97 11/21/17 11:42 73 19 100 11/21/17 11:12 78 17 100 11/21/17 11:02 147/96 11/21/17 11:02 36.1 76 12 147/96 99 Nasal Cannula 2.0 11/21/17 10:42 77 10 100 11/21/17 10:41 145/74 11/21/17 10:40 76 10 145/74 100 Nasal Cannula 2.0 11/21/17 10:26 136/71 11/21/17 10:12 75 15 94 Gen.: Patient is alert and oriented in no acute distress, lying in bed Heart: Regular rate and rhythm Extremities: No gross deformities or rashes noted Neurological examination: Mental status: Patient is alert and oriented to person and place. Incorrectly stated the days a week and year. Correctly stated current president. Able to give his own history, but often appears to be a poor historian. Attention and concentration normal for the situation. Remote memory intact. Recent memory at times appears impaired. Speech is fluent without any dysarthria or aphasia noted Cranial nerves: Funduscopic examination was difficult to visualize. Pupils equally round and reactive to light. Extraocular muscles intact without nystagmus. No facial asymmetry noted. Facial sensation intact. Tongue midline. Good palatal elevation. Good shoulder shrug bilaterally. Hearing grossly intact voice. Strength: 5/5 both proximal and distal in all extremities .Tone is normal. Sensation: Grossly intact to light touch in all extremities Deep tendon reflexes: +1 in bilateral biceps and patellar. Toes are downgoing to plantar stimulation bilaterally Coordination: Patient has good finger to nose without dysmetria. Station within the bed is normal. Laboratory Results Past 24 Hours: 11/22/17 06:53 11/22/17 06:53 Test 11/21/17 10:15 11/21/17 10:20 11/21/17 10:24 11/21/17 20:52 Urine Color YELLOW Urine Appearance CLEAR (CLEAR) Urine pH 6.0 (4.5-7.5) Urine Specific [place] 1.009 (1.000-1.030) Urine Protein NEG (NEG) Urine Glucose (UA) NEG (NEG) Urine Ketones NEG (NEG) Urine Occult Blood NEG (NEG) Urine Nitrite NEG (NEG) Urine Bilirubin NEG (NEG) Urine Urobilinogen NEG (NEG) Urine Leukocyte Esterase NEG (NEG) Immature Granulocyte % (Auto) 1.9 % White Blood Count 4.73 K/uL (4.8-10.8) Red Blood Count 3.07 M/uL (4.7-6.1) Hemoglobin 9.6 g/dL (14.0-18.0) Hematocrit 27.7 % (42-52) Mean Corpuscular Volume 90.2 fL (80-100) Mean Corpuscular Hemoglobin 31.3 pg (25-34) Mean Corpuscular Hemoglobin Concent 34.7 g/dl (32-36) Platelet Count 124 K/uL (130-400) Mean Platelet Volume 9.4 fL (7.4-10.4) Neutrophils (%) (Auto) 81.9 % Lymphocytes (%) (Auto) 5.3 % Monocytes (%) (Auto) 9.9 % Eosinophils (%) (Auto) 0.8 % Basophils (%) (Auto) 0.2 % Neutrophils # (Auto) 3.87 K/uL (1.4-6.5) Lymphocytes # (Auto) 0.25 K/uL (1.2-3.4) Monocytes # (Auto) 0.47 K/uL (0.11-0.59) Eosinophils # (Auto) 0.04 K/uL (0-0.5) Basophils # (Auto) 0.01 K/uL (0-0.2) Immature Granulocyte # (Auto) 0.09 K/uL (0.00-0.02) Prothrombin Time 10.3 SECONDS (9.0-12.0) Prothromb Time International Ratio 1.0 (0.9-1.1) Activated Partial Thromboplast Time 28.2 SECONDS (21.0-31.0) Partial Thromboplastin Ratio 1.1 Total Bilirubin 0.9 mg/dl (0.2-1) Direct Bilirubin 0.2 mg/dl (0-0.2) Aspartate Amino Transf (AST/SGOT) 31 U/L (15-37) Alanine Aminotransferase (ALT/SGPT) 14 U/L (12-78) Alkaline Phosphatase 62 U/L (45-117) Total Creatine Kinase 190 U/L (39-308) Creatine Kinase MB 1.3 ng/ml (0.5-3.6) Creatine Kinase MB Ratio 0.7 (0-3.0) Total Protein 6.5 gm/dl (6.4-8.2) Albumin 3.2 gm/dl (3.4-5.0) Bedside Troponin I < 0.030 ng/ml (0-0.045) Magnesium Level 1.9 mg/dl (1.8-2.4) Test 11/21/17 21:00 11/22/17 06:12 11/22/17 06:53 Urine Random Sodium 80 mEq/L Bedside Glucose 172 mg/dl (70-99) Red Blood Count 3.11 M/uL (4.7-6.1) Mean Corpuscular Volume 89.4 fL (80-100) Mean Corpuscular Hemoglobin 30.9 pg (25-34) Mean Corpuscular Hemoglobin Concent 34.5 g/dl (32-36) RDW Standard Deviation 51.7 fL (36.4-46.3) RDW Coefficient of Variation 15.9 % (11.5-14.5) Mean Platelet Volume 9.2 fL (7.4-10.4) Anion Gap 11.0 mmol/L (3-11) Est Creatinine Clear Calc Drug Dose 56.7 ml/min Estimated GFR () 94.6 Estimated GFR (Non- 81.6 BUN/Creatinine Ratio 11.6 (10-20) Calcium Level 7.6 mg/dl (8.5-10.1) Date/Time Source Procedure Growth Status 11/21/17 18:15 Nasal MRSA DNA Surveillance Screen - Final Specimen Negative for MRSA by DNA Probe Complete Imaging as noted in HPI Impression This is a 82-year-old male who had a brief reported confusional episode of unknown etiology. Patient was noted to have low blood pressure on presentation with a recent history of diarrhea and dehydration which could've caused an orthostatic episode, although the patient does not endorse any presyncopal symptoms at this time. Certainly episode could have been a small focal seizure. Patient is at high risk for focal seizures with signs of metastatic disease on MRI and a history of a previous stroke. Plan EEG done this morning was read by myself and is normal. This of course does not rule out the possibility of a recent seizure. Over unclear whether the patient' s brief confusional episode was related to an epileptic seizure or not. I agree with increasing his Keppra to 750 mg twice a day empirically to cover him for possible breakthrough seizure since he is at high risk. No additional neurological workup at this time recommended. Patient has an upcoming follow-up appointment in neurology clinic with myself the beginning of January. He can keep this appointment Thank you for allowing me to participate in this patient's care. If there is any questions or concerns, feel free to call/patient.
--- NOTE | 2017-11-22 10:25 | EEG Procedure Note ---
EEG Procedure Note Date of Service Nov 22, 2017. Start / End Times Start Time: 7:27 AM End Time: 7:45 AM Referring Physician Jony Becerril History This is a 82-year-old male who presents with a brief confusional episode concerning for possible focal seizure. EEG for further evaluation of possible seizure etiology Home Medication List Scheduled Atorvastatin (Lipitor), 40 MG PO DAILY Enzalutamide (Xtandi), 120 MG PO DAILY Fentanyl (Fentanyl), 1 APPLN SUBD Q48H Fluocinolone Acetonide ([place]/Fs Scalp), 1 APPLN TOP HS Gabapentin (Gabapentin), 300 MG PO TID Glimepiride (Glimepiride), 12 MG PO DAILY Lactic Acid (Ammonium Lactate Cream 12%), 1 APPLN TOP BID Leuprolide Acetate (Lupron Depot), 22.5 MG IM Q3MO Levetiracetam (Keppra), 500 MG PO BID Metformin Hcl (Glucophage), 1,000 MG PO BID Metoprolol Tartrate (Lopressor), 25 MG PO BID Omeprazole (Prilosec), 20 MG PO DAILY Ruxolitinib Phosphate (Jakafi), 10 MG PO BID Scheduled PRN Acetaminophen (Tylenol), 1,000 MG PO TID PRN for Pain Dextromethorphan Polistirex (Delsym), 10 ML PO Q12 PRN for Cough Lorazepam (Ativan), 0.5 MG PO Q12 PRN for Anxiety Ondansetron Hcl (Zofran), 8 MG PO Q8 PRN for Nausea Prochlorperazine Maleate (Compazine), 1 TAB PO Q6 PRN for Nausea or Vomiting Promethazine (Phenergan ), 12.5 MG PO Q6H PRN for Nausea or Vomiting Inpatient Medication List Current Inpatient Medications Medications (Trade) Dose Ordered Sig/Axel Route Start Time Stop Time Status Last Admin Dose Admin Heparin Sodium (Porcine) (Heparin Sq 5000 Unit/0.5ml) 5,000 unit Q12 SQ 11/21/17 21:00 12/21/17 20:59 11/22/17 08:22 5,000 UNIT Sodium Chloride 1,000 ml @ 100 mls/hr Q10H IV 11/21/17 18:00 12/21/17 17:59 11/22/17 09:57 100 MLS/HR Acetaminophen (Tylenol Tab) 1,000 mg TID PRN PO 11/21/17 13:15 12/21/17 13:14 Atorvastatin Calcium (Lipitor Tab) 40 mg QAM PO 11/22/17 09:00 12/22/17 08:59 11/22/17 08:19 40 MG Gabapentin (Neurontin Cap) 300 mg TID PO 11/21/17 14:00 12/21/17 13:59 11/22/17 08:19 300 MG Lorazepam (Ativan Tab) 0.5 mg Q12 PRN PO 11/21/17 13:15 12/21/17 13:14 Metoprolol Tartrate (Lopressor Tab) 25 mg BID PO 11/21/17 21:00 12/21/17 20:59 11/22/17 08:19 25 MG Ondansetron HCl (Zofran Tab) 8 mg Q8 PRN PO 11/21/17 13:15 12/21/17 13:14 Prochlorperazine Maleate (Compazine Tab) 10 mg Q6 PRN PO 11/21/17 13:15 12/21/17 13:14 Promethazine HCl (Phenergan Tab) 12.5 mg Q6H PRN PO 11/21/17 13:15 12/21/17 13:14 11/21/17 17:47 12.5 MG Miscellaneous Information (Order Awaiting Action) 1 ea QS N/A 11/21/17 16:00 12/21/17 15:59 Miscellaneous Information (Order Awaiting Action) 1 ea QS N/A 11/21/17 16:00 12/21/17 15:59 Miscellaneous Information (Order Awaiting Action) 1 ea QS N/A 12/09/17 00:00 01/08/18 00:00 Pantoprazole Sodium (Protonix Tab) 40 mg QAM PO 11/22/17 09:00 12/22/17 08:59 11/22/17 08:19 40 MG Insulin Aspart (novoLOG ASPART) SLIDING SCALE If C... ACHS SC 11/21/17 16:00 12/21/17 15:59 11/22/17 08:22 2 UNITS Levetiracetam (Keppra Tab) 750 mg BID PO 11/21/17 21:00 12/21/17 20:59 11/22/17 08:19 750 MG Dextromethorphan Polymer Complex (Delsym Susp) 30 mg Q12 PRN PO 11/21/17 15:30 12/21/17 13:14 Prednisone (PredniSONE TAB) 5 mg BID PO 11/21/17 21:00 12/21/17 20:59 11/22/17 08:19 5 MG Hydrocortisone Sodium Succinate 100 mg/Syringe 2 ml @ 4 mls/min Q8H IV 11/21/17 18:00 11/22/17 21:00 11/22/17 02:11 4 MLS/MIN Fentanyl (Duragesic Patch) 12 mcg Q48H TD 11/22/17 09:00 12/06/17 08:59 11/22/17 08:31 12 MCG Miscellaneous (Fentanyl Patch Remove & Waste) 1 ea Q48H N/A 11/22/17 09:00 12/22/17 08:59 11/22/17 08:22 1 EA Miscellaneous Information (Check Fentanyl Patch Placement) 1 ea QS N/A 11/22/17 00:00 12/22/17 00:00 11/22/17 08:16 1 EA Description This is a 21 electrode EEG with a single channel dedicated to limited EKG. The electrodes were placed in accordance with the International 10-20 system. At the start of this recording the patient was in an awake state. Background was well organized with a moderate amplitude symmetric mix of alpha and beta frequencies. There was a symmetric moderate amplitude posterior dominant rhythm of 8-9 Hz there was reactive to eye opening and closure. Hyperventilation was not done. Photic stimulation at various frequencies did not produce any abnormalities. There was no state changes or sleep transients. Interpretation This is a normal awake only routine EEG. There was no electrographic seizures or epileptiform discharges. Clinical Correlation A normal EEG does not rule out epilepsy if there is a strong clinical suspicion.
--- NOTE | 2017-11-22 10:43 | Hospitalist Progress Note ---
Hospitalist Progress Note Date of Service Nov 22, 2017. (Anastasia Hebert CRNP) Subjective Pt evaluation today including: conversation w/ patient, conversation w/ family , physical exam, chart review, lab review, review of inpatient medication list Voiding: no voiding problems (condom catheter ) Mr. Catalan is a bit confused this morning especially with time. He is not in pain. No longer pale or dizzy when standing. Patient did express to nursing that he is ready to and be with his . ROS Constitutional: no chills, aches, sweats or fever Respiratory: no sob,cough, sputum, or wheezing Cardiac: no chest pain, palpitations, edema, orthopnea or lightheadedness GI: no abdominal pain, nausea, vomiting, diarrhea or constipation : no dysuria or hesitancy Extremities: no joint pain or weakness Skin: no rash All other systems reviewed and negative (Anastasia Hebert CRNP) Medications ROS Constitutional: no chills, aches, sweats or fever Respiratory: no sob,cough, sputum, or wheezing Cardiac: no chest pain, palpitations, edema, orthopnea or lightheadedness GI: no abdominal pain, nausea, vomiting, diarrhea or constipation : no dysuria or hesitancy Extremities: no joint pain or weakness Skin: no rash All other systems reviewed and negative (Anastasia Hebert CRNP) Objective Vital Signs Date Time Temp Pulse Resp B/P (MAP) Pulse Ox O2 Delivery O2 Flow Rate FiO2 11/22/17 09:04 36.5 85 20 137/71 (93) 97 Room Air 11/22/17 08:30 Room Air 11/22/17 04:00 Nasal Cannula 2.0 11/22/17 03:54 36.5 78 18 136/69 (91) 96 Room Air 11/21/17 23:45 36.5 73 17 150/51 (84) 98 Nasal Cannula 2.0 11/21/17 23:35 Nasal Cannula 2.0 11/21/17 20:00 Nasal Cannula 2.0 11/21/17 19:27 36.6 76 24 160/72 (101) 98 Room Air 11/21/17 15:30 36.7 74 20 137/73 96 Nasal Cannula 2.0 11/21/17 15:02 36.8 69 18 127/54 98 11/21/17 15:00 36.8 69 18 127/54 98 Nasal Cannula 2.0 11/21/17 13:39 69 19 100/40 98 11/21/17 13:15 80/34 11/21/17 13:09 70 14 100 11/21/17 13:01 126/74 11/21/17 12:39 74 10 97 11/21/17 12:34 73 7 99 11/21/17 12:31 118/65 11/21/17 12:15 70 11/21/17 12:04 80 15 95 11/21/17 11:59 36.1 131/97 11/21/17 11:42 73 19 100 11/21/17 11:12 78 17 100 11/21/17 11:02 147/96 11/21/17 11:02 36.1 76 12 147/96 99 Nasal Cannula 2.0 11/21/17 10:42 77 10 100 11/21/17 10:41 145/74 11/21/17 10:40 76 10 145/74 100 Nasal Cannula 2.0 (Anastasia Hebert, HANK) Physical Exam Notes: General: no distress Eyes: normal inspection, PERLL Respiratory: chest non tender, clear to auscultation, normal breath sounds, no respiratory distress, no accessory muscle use Cardiac: regular rate and rhythm, no rub or gallop, systolic murmur, no edema, no jvd GI/: active bowel sounds, no abd pain or tenderness, soft, non distended Extremities: normal range of motion, normal strength, non tender Neuro/Psych: alert and oriented to person and place, some confusion, normal mood and affect Skin: normal color, dry (Anastasia Hebert, HANK) Laboratory Results Last 24 Hours Test 11/21/17 16:37 11/21/17 20:52 11/21/17 21:00 11/21/17 21:12 Bedside Glucose 132 mg/dl 182 mg/dl Sodium Level 130 mmol/L Potassium Level 4.1 mmol/L Chloride Level 95 mmol/L Carbon Dioxide Level 24 mmol/L Anion Gap 11.0 mmol/L Blood Urea Nitrogen 9 mg/dl Creatinine 0.85 mg/dl Est Creatinine Clear Calc Drug Dose 57.0 ml/min Estimated GFR () 92.7 Estimated GFR (Non- 80.0 BUN/Creatinine Ratio 10.9 Random Glucose 154 mg/dl Calcium Level 7.7 mg/dl Magnesium Level 1.9 mg/dl Urine Random Sodium 80 mEq/L Test 11/22/17 06:12 11/22/17 06:53 Bedside Glucose 172 mg/dl White Blood Count 4.53 K/uL Red Blood Count 3.11 M/uL Hemoglobin 9.6 g/dL Hematocrit 27.8 % Mean Corpuscular Volume 89.4 fL Mean Corpuscular Hemoglobin 30.9 pg Mean Corpuscular Hemoglobin Concent 34.5 g/dl RDW Standard Deviation 51.7 fL RDW Coefficient of Variation 15.9 % Platelet Count 152 K/uL Mean Platelet Volume 9.2 fL Sodium Level 136 mmol/L Potassium Level 3.8 mmol/L Chloride Level 103 mmol/L Carbon Dioxide Level 22 mmol/L Anion Gap 11.0 mmol/L Blood Urea Nitrogen 9 mg/dl Creatinine 0.81 mg/dl Est Creatinine Clear Calc Drug Dose 56.7 ml/min Estimated GFR () 94.6 Estimated GFR (Non- 81.6 BUN/Creatinine Ratio 11.6 Random Glucose 159 mg/dl Calcium Level 7.6 mg/dl (Anastasia Hebert ., BASKETBALL REFEREE) Assessment and Plan Mr. Catalan is an 82 year old man here for possible seizure activity ?Seizure - seizure precautions - increase Keppra from 500 mg to 750 mg - consult neurology - EEG pending - CT negative for acute process - no further seizure activity during admission Hyponatremia - gentle IVF @ 100 ml/hr - Na 136 today Orthostasis - patient became dizzy and pale when head of bed raised and his BP went 80/40 from sbp in the 120s - 500 ml bolus over 2 hours now - resolved Hypomagnesemia - Mag 1.2 - resolved Prostate Ca with mets - continue to hold Xtandi and Jakafi - continue Lupron - consult Heme/Onc - continue fentanyl patch for pain, promethazine for nausea DM II - bsg ac and hs - held sulfonylurea and metformin for now - ss Persistent diarrhea - Xtandi and Jakafi held - C.diff pending Hypothermia - resolved GERD - protonix po HLD - continue atorvastatin HTN - continue metoprolol 25 mg Dispo - consult palliative care. Transfer to 4th floor DNR DVT prophylaxis heparin subq bid (Anastasia Hebert ., HANK) FISHING GUIDE Physician Supervision Note: I interviewed and examined the patient. Discussed with Anastasia Hebert FISHING GUIDE and agree with findings and plan as documented in the note. Any exceptions or clarifications are listed here: None Patient is seen in the company of his son today is much improved from one day ago this likely may be owing to steroid support for possible adrenal insufficiency and also IV fluid. Also we have held his chemotherapeutic agents for which she is taking for metastatic prostate cancer. After our discussion with he and his son is clear that they wish to pursue palliative care and answering the hospice care for going any additional aggressive treatment for his cancer, I spoke with Dr. Garza was also documented that he is supportive of this. Patient's vital signs show temperature 65 pulse 70 respiration rate 18 BP 136/ 69 O2 sat 96 on room air He is awake he slightly agitated but oriented to person and place but not specifically time his heart is regular with with a systolic murmur his lungs are clear his abdomen normoactive bowel sounds his skin is covered with actinic keratoses This patient presented with hypotension from dehydration and possible adrenal crisis repleted with hydrocortisone and IV fluid now with discussions of palliative care for his metastatic prostate cancer he is engaged with the palliative care service on 11/22 his eventual wishes to return to home with the support of his son and family Documented By: Jony Becerril (Jony Becerril M.D.)
--- NOTE | 2017-11-22 11:45 | Oncology Consultation ---
Oncology/Heme Consultation Date of Consultation: Nov 22, 2017. Attending Physician: Jony Becerril M.D. Reason for Consultation: History of metastatic prostate carcinoma History of Present Illness Mr. Catalan is an 82-year-old gentleman that has a history of prostate carcinoma that dates back to 2002. He was initially diagnosed at that time and apparently treated with radiation therapy. 2014 he had a right upper lobe pulmonary nodule that wedge resection revealed metastatic prostate adenocarcinoma. He was started on Casodex and Lupron in early 2015 with an initial response however by May 2016 his PSA would began to climb and bone scan revealed osseous metastasis. Casodex was held. PSA declined temporarily. However by August the scans were revealed progressive disease and he was started on Zytiga and prednisone. He had a modest initial response with stable scans. In June 2017 he had strokelike symptoms and an MRI of the brain revealed a hemorrhagic lesion in the left cerebellar hemisphere in that this was not present in 2014 and it felt was felt to be a neoplastic process. 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 By August CT scan since bone scans revealed progression of disease in early September he started Xtandi but has not tolerated that well at all. There was a recent dose reduction of the Xtandi but with a rising PSA. He was admitted now with feeling tired and possibly having a seizure episode. A recent brain MRI with demonstrate small nodules consistent with progression of metastatic disease. He has visited [facility] along with his family radiation therapy. There was a consensus at that time to continue close monitoring without further radiation intervention. He is somewhat confused. He denies having a syncopal episode or passing out at all. He is oriented 3 today. However again he is somewhat confused on past history. Past Medical/Surgical History Medical Problems: (1) ORI (acute kidney injury) Status: Acute (2) Anemia Status: Acute (3) Cerebellar bleed Status: Acute (4) Contusion of left knee Status: Acute (5) Dehydration Status: Acute (6) Dehydration Status: Acute (7) Hypokalemia Status: Acute (8) Hypomagnesemia Status: Acute (9) Hypomagnesemia Status: Acute (10) Hyponatremia Status: Acute (11) Hypotension Status: Acute (12) Noncompliance with medications Status: Acute (13) Skin tear Status: Acute (14) Syncope Status: Acute (15) Weakness Status: Acute Family History Diabetes mellitus Gastric cancer Hypertension Myocardial infarction Stroke Social History Smoking Status: Never Smoker Smokeless Tobacco Use: No Alcohol Use: none Drug Use: none Marital Status: Housing Status: lives with family Occupation Status: retired Allergies Coded Allergies: No Known Allergies (Unverified , 11/21/17) Home Medications Scheduled Atorvastatin (Lipitor), 40 MG PO DAILY Enzalutamide (Xtandi), 120 MG PO DAILY Fentanyl (Fentanyl), 1 APPLN SUBD Q48H Fluocinolone Acetonide (Sproul-Smoothe/Fs Scalp), 1 APPLN TOP HS Gabapentin (Gabapentin), 300 MG PO TID Glimepiride (Glimepiride), 12 MG PO DAILY Lactic Acid (Ammonium Lactate Cream 12%), 1 APPLN TOP BID Leuprolide Acetate (Lupron Depot), 22.5 MG IM Q3MO Levetiracetam (Keppra), 500 MG PO BID Metformin Hcl (Glucophage), 1,000 MG PO BID Metoprolol Tartrate (Lopressor), 25 MG PO BID Omeprazole (Prilosec), 20 MG PO DAILY Ruxolitinib Phosphate (Jakafi), 10 MG PO BID Scheduled PRN Acetaminophen (Tylenol), 1,000 MG PO TID PRN for Pain Dextromethorphan Polistirex (Delsym), 10 ML PO Q12 PRN for Cough Lorazepam (Ativan), 0.5 MG PO Q12 PRN for Anxiety Ondansetron Hcl (Zofran), 8 MG PO Q8 PRN for Nausea Prochlorperazine Maleate (Compazine), 1 TAB PO Q6 PRN for Nausea or Vomiting Promethazine (Phenergan ), 12.5 MG PO Q6H PRN for Nausea or Vomiting Current Inpatient Medications Current Inpatient Medications Medications (Trade) Dose Ordered Sig/Axel Route Start Time Stop Time Status Last Admin Dose Admin Heparin Sodium (Porcine) (Heparin Sq 5000 Unit/0.5ml) 5,000 unit Q12 SQ 11/21/17 21:00 12/21/17 20:59 11/22/17 08:22 5,000 UNIT Sodium Chloride 1,000 ml @ 100 mls/hr Q10H IV 11/21/17 18:00 12/21/17 17:59 11/22/17 09:57 100 MLS/HR Acetaminophen (Tylenol Tab) 1,000 mg TID PRN PO 11/21/17 13:15 12/21/17 13:14 Atorvastatin Calcium (Lipitor Tab) 40 mg QAM PO 11/22/17 09:00 12/22/17 08:59 11/22/17 08:19 40 MG Gabapentin (Neurontin Cap) 300 mg TID PO 11/21/17 14:00 12/21/17 13:59 11/22/17 08:19 300 MG Lorazepam (Ativan Tab) 0.5 mg Q12 PRN PO 11/21/17 13:15 12/21/17 13:14 Metoprolol Tartrate (Lopressor Tab) 25 mg BID PO 11/21/17 21:00 12/21/17 20:59 11/22/17 08:19 25 MG Ondansetron HCl (Zofran Tab) 8 mg Q8 PRN PO 11/21/17 13:15 12/21/17 13:14 Prochlorperazine Maleate (Compazine Tab) 10 mg Q6 PRN PO 11/21/17 13:15 12/21/17 13:14 Promethazine HCl (Phenergan Tab) 12.5 mg Q6H PRN PO 11/21/17 13:15 12/21/17 13:14 11/21/17 17:47 12.5 MG Miscellaneous Information (Order Awaiting Action) 1 ea QS N/A 11/21/17 16:00 12/21/17 15:59 Miscellaneous Information (Order Awaiting Action) 1 ea QS N/A 11/21/17 16:00 12/21/17 15:59 Miscellaneous Information (Order Awaiting Action) 1 ea QS N/A 12/09/17 00:00 01/08/18 00:00 Pantoprazole Sodium (Protonix Tab) 40 mg QAM PO 11/22/17 09:00 12/22/17 08:59 11/22/17 08:19 40 MG Insulin Aspart (novoLOG ASPART) SLIDING SCALE If C... ACHS SC 11/21/17 16:00 12/21/17 15:59 11/22/17 08:22 2 UNITS Levetiracetam (Keppra Tab) 750 mg BID PO 11/21/17 21:00 12/21/17 20:59 11/22/17 08:19 750 MG Dextromethorphan Polymer Complex (Delsym Susp) 30 mg Q12 PRN PO 11/21/17 15:30 12/21/17 13:14 Prednisone (PredniSONE TAB) 5 mg BID PO 11/21/17 21:00 12/21/17 20:59 11/22/17 08:19 5 MG Hydrocortisone Sodium Succinate 100 mg/Syringe 2 ml @ 4 mls/min Q8H IV 11/21/17 18:00 11/22/17 21:00 11/22/17 10:39 4 MLS/MIN Fentanyl (Duragesic Patch) 12 mcg Q48H TD 11/22/17 09:00 12/06/17 08:59 11/22/17 08:31 12 MCG Miscellaneous (Fentanyl Patch Remove & Waste) 1 ea Q48H N/A 11/22/17 09:00 12/22/17 08:59 11/22/17 08:22 1 EA Miscellaneous Information (Check Fentanyl Patch Placement) 1 ea QS N/A 11/22/17 00:00 12/22/17 00:00 11/22/17 08:16 1 EA Review of Systems Constitutional: Negative for night sweats, or fever Eyes: Negative for event change of vision ENT: Negative for epistaxis, nasal discharge, sore throat, or deafness Cardiovascular: Negative for chest pain, palpitations, dizziness, diaphoresis Respiratory: Negative for new shortness of breath,hemoptysis, or purulent cough Gastrointestinal: Negative for diarrhea, hematemesis, melena, nausea, vomiting , or dyspepsia Integumentary (skin): Negative for rash or jaundice discoloration Genitourinary: Negative for urinary frequency, hematuria, or dysuria Neurological: Positive for weakness. There is also a possibility of underlying focal seizures. Lymphatic/Hematologic: Negative for petechiae, bleeding or new adenopathy Musculoskeletal: Negative for new joint or back pain Allergic/Immunologic: Negative for unusual rash or pruritis. Physical Exam Date Time Temp Pulse Resp B/P (MAP) Pulse Ox O2 Delivery O2 Flow Rate FiO2 11/22/17 09:04 36.5 85 20 137/71 (93) 97 Room Air 11/22/17 08:30 Room Air 2/12/18 04:00 Nasal Cannula 2.0 11/22/17 03:54 36.5 78 18 136/69 (91) 96 Room Air 11/21/17 23:45 36.5 73 17 150/51 (84) 98 Nasal Cannula 2.0 11/21/17 23:35 Nasal Cannula 2.0 11/21/17 20:00 Nasal Cannula 2.0 11/21/17 19:27 36.6 76 24 160/72 (101) 98 Room Air 11/21/17 15:30 36.7 74 20 137/73 96 Nasal Cannula 2.0 11/21/17 15:02 36.8 69 18 127/54 98 11/21/17 15:00 36.8 69 18 127/54 98 Nasal Cannula 2.0 11/21/17 13:39 69 19 100/40 98 11/21/17 13:15 80/34 11/21/17 13:09 70 14 100 11/21/17 13:01 126/74 11/21/17 12:39 74 10 97 11/21/17 12:34 73 7 99 11/21/17 12:31 118/65 11/21/17 12:15 70 11/21/17 12:04 80 15 95 11/21/17 11:59 36.1 131/97 11/21/17 11:42 73 19 100 Constitutional: vitals are stable. Oriented 2-3 Eyes: Eyes are KIMBERLEE EOMI without conjuctival erythema or icterus. ENT: External examination was negative for masses. Neck: Negative for masses or palpable thyromegaly Respiratory: Lung sounds were generally clear bilaterally Cardiovascular: Heart was RRR without significant murmur, gallops aoe rubs Gastrointestinal: No palpable hepatic or splenomegaly. The abdomen was soft with normal bowel sounds. Lymphatic system: there was no palpable peripheral lymphadenopathy Musculoskeletal System: The musculoskeletal system seemed concordant with age. Skin: The skin was negative for jaundice. Multiple keratotic lesions are noted Neurologic exam: The exam was negative for any focal findings. Deep tendon reflexes were equal and symmetrical. Psychiatric exam: Was essentially negative with normal mood and effect. Extremities: negative for edema Laboratory Results Last 24 Hours Test 11/21/17 16:37 11/21/17 20:52 11/21/17 21:00 11/21/17 21:12 Bedside Glucose 132 mg/dl 182 mg/dl Sodium Level 130 mmol/L Potassium Level 4.1 mmol/L Chloride Level 95 mmol/L Carbon Dioxide Level 24 mmol/L Anion Gap 11.0 mmol/L Blood Urea Nitrogen 9 mg/dl Creatinine 0.85 mg/dl Est Creatinine Clear Calc Drug Dose 57.0 ml/min Estimated GFR () 92.7 Estimated GFR (Non- 80.0 BUN/Creatinine Ratio 10.9 Random Glucose 154 mg/dl Calcium Level 7.7 mg/dl Magnesium Level 1.9 mg/dl Urine Random Sodium 80 mEq/L Test 11/22/17 06:12 11/22/17 06:53 Bedside Glucose 172 mg/dl White Blood Count 4.53 K/uL Red Blood Count 3.11 M/uL Hemoglobin 9.6 g/dL Hematocrit 27.8 % Mean Corpuscular Volume 89.4 fL Mean Corpuscular Hemoglobin 30.9 pg Mean Corpuscular Hemoglobin Concent 34.5 g/dl RDW Standard Deviation 51.7 fL RDW Coefficient of Variation 15.9 % Platelet Count 152 K/uL Mean Platelet Volume 9.2 fL Sodium Level 136 mmol/L Potassium Level 3.8 mmol/L Chloride Level 103 mmol/L Carbon Dioxide Level 22 mmol/L Anion Gap 11.0 mmol/L Blood Urea Nitrogen 9 mg/dl Creatinine 0.81 mg/dl Est Creatinine Clear Calc Drug Dose 56.7 ml/min Estimated GFR () 94.6 Estimated GFR (Non- 81.6 BUN/Creatinine Ratio 11.6 Random Glucose 159 mg/dl Calcium Level 7.6 mg/dl Assessment & Plan Metastatic progressive castrate resistant prostate carcinoma. His performance status is easily graded at 3.0 on the ECOG scale. He would not be a candidate for systemic chemotherapy. It is difficult to be certain whether this was a seizure whether there was an underlying seizure or not. Regardless I believe at this time Xtandi should stop. I reviewed with the patient as well as his [id number] Alma today over the phone the limitations of what we could do systemically and recommended hospice at this juncture. The patient and his [id number] agreed and so please consult hospice. I would like radiation therapy to combat also about whether there would be any need for reconsideration of brain radiation therapy at this juncture. Also at this juncture drugs like Lipitor and gabapentin (particularly with his orthostasis) can stop.
[2017-11-22 12:14] VITALS: BP 137/44; PULSE 74; TEMP 36.5; O2SAT 98
[2017-11-22 12:42] VITALS: BP 137/44; PULSE 74; TEMP 36.5; O2SAT 98
[2017-11-22 14:34] VITALS: BP 148/83; PULSE 71; TEMP 36.4; O2SAT 99
--- NOTE | 2017-11-22 16:44 | Palliative Care Consultation ---
Consultation Date of Consultation: Nov 22, 2017. Requesting Physician: Vikki Gonzalez PA-C Attending Physician: Dr. Becerril Reason for Consultation: Goals of care History of Present Illness This 82 year old male patient with PMH metastatic prostate cancer to the lungs, bone, and brain, polycythemia vera, htn, DM, TIA, and others listed below, presented to the hospital yesterday with seizure like activity as reported in ED. His Keppra was increased and he has had no further seizure activity. He has also been experiencing severe diarrhea for some time which is thought to be from his Xtandi. Heme/onc is consulted here in hospital who state that the Xtandi will be discontinued at this point. As a last ditch effort, rad/onc was consulted to see if there could be any palliative radiation offered for the brain lesions, but unfortunately not. Patient also with encephalopathy/ confusion which could be attributed to acute adrenal crisis, medications, hospitalization, and brain mets. Considering patient's advanced age and metastatic disease, palliative care is consulted to discuss goals of care. I met with the patient and his son in room [address] Ibrahim. Patient is alert and wake sitting in wheelchair. Patient is oriented to person and place , somewhat event. However, when it comes to time he is completely disoriented, often referring back to his life during 1950-1960s. Patient however is very clearly able to talk about his disease and goals of care. Patient and son both confirm that the goal is for comfort at this point. The Xtandi, Jakafi, and Lupron will be discontinued. Patient will go to SNF with hospice care. We had lengthy discussion about hospice care including what medications would be continued. Questions answered to patient and son's satisfaction. See plan below. Past Medical/Surgical History Medical History: DM Hypercholesterolemia Htn Polycythemia vera Metastatic prostate cancer TIA Vasovagal syncope Family History DM Gastric cancer Htn [place] CVA Social History Smoking Status: Never Smoker History of Alcohol Use: No Drug Use: none Marital Status: Housing Status: assisted living Occupation Status: retired Review of Systems Constitutional: No weakness ENT: No trouble swallowing Respiratory: No cough, No shortness of breath Cardiac: No chest pain, No edema Abdomen: No pain, No nausea, No vomiting Psychiatric: No depression symptoms, No anxiety Allergies Coded Allergies: No Known Allergies (Unverified , 2/11/18) Medications Current Inpatient Medications Medications (Trade) Dose Ordered Sig/Axel Route Start Time Stop Time Status Last Admin Dose Admin Heparin Sodium (Porcine) (Heparin Sq 5000 Unit/0.5ml) 5,000 unit Q12 SQ 11/21/17 21:00 12/21/17 20:59 11/22/17 08:22 5,000 UNIT Sodium Chloride 1,000 ml @ 100 mls/hr Q10H IV 11/21/17 18:00 12/21/17 17:59 11/22/17 09:57 100 MLS/HR Acetaminophen (Tylenol Tab) 1,000 mg TID PRN PO 11/21/17 13:15 12/21/17 13:14 Gabapentin (Neurontin Cap) 300 mg TID PO 11/21/17 14:00 12/21/17 13:59 Future Hold 11/22/17 08:19 300 MG Lorazepam (Ativan Tab) 0.5 mg Q12 PRN PO 11/21/17 13:15 12/21/17 13:14 Metoprolol Tartrate (Lopressor Tab) 25 mg BID PO 11/21/17 21:00 12/21/17 20:59 11/22/17 08:19 25 MG Ondansetron HCl (Zofran Tab) 8 mg Q8 PRN PO 11/21/17 13:15 12/21/17 13:14 Prochlorperazine Maleate (Compazine Tab) 10 mg Q6 PRN PO 11/21/17 13:15 12/21/17 13:14 Promethazine HCl (Phenergan Tab) 12.5 mg Q6H PRN PO 11/21/17 13:15 12/21/17 13:14 11/21/17 17:47 12.5 MG Miscellaneous Information (Order Awaiting Action) 1 ea QS N/A 11/21/17 16:00 12/21/17 15:59 Miscellaneous Information (Order Awaiting Action) 1 ea QS N/A 11/21/17 16:00 12/21/17 15:59 Miscellaneous Information (Order Awaiting Action) 1 ea QS N/A 12/09/17 00:00 01/08/18 00:00 Pantoprazole Sodium (Protonix Tab) 40 mg QAM PO 11/22/17 09:00 12/22/17 08:59 11/22/17 08:19 40 MG Insulin Aspart (novoLOG ASPART) SLIDING SCALE If C... ACHS SC 11/21/17 16:00 12/21/17 15:59 11/22/17 12:29 3 UNITS Levetiracetam (Keppra Tab) 750 mg BID PO 11/21/17 21:00 12/21/17 20:59 11/22/17 08:19 750 MG Dextromethorphan Polymer Complex (Delsym Susp) 30 mg Q12 PRN PO 11/21/17 15:30 12/21/17 13:14 Prednisone (PredniSONE TAB) 5 mg BID PO 11/21/17 21:00 12/21/17 20:59 11/22/17 08:19 5 MG Hydrocortisone Sodium Succinate 100 mg/Syringe 2 ml @ 4 mls/min Q8H IV 11/21/17 18:00 11/22/17 21:00 11/22/17 10:39 4 MLS/MIN Fentanyl (Duragesic Patch) 12 mcg Q48H TD 11/22/17 09:00 12/06/17 08:59 11/22/17 08:31 12 MCG Miscellaneous (Fentanyl Patch Remove & Waste) 1 ea Q48H N/A 11/22/17 09:00 12/22/17 08:59 11/22/17 08:22 1 EA Miscellaneous Information (Check Fentanyl Patch Placement) 1 ea QS N/A 11/22/17 00:00 12/22/17 00:00 11/22/17 15:57 1 EA Physical Exam Date Time Temp Pulse Resp B/P (MAP) Pulse Ox O2 Delivery O2 Flow Rate FiO2 11/22/17 14:34 36.4 71 18 148/83 (104) 99 Room Air 11/22/17 12:42 36.5 74 20 98 2.0 11/22/17 12:14 36.5 74 20 137/44 (75) 98 Room Air 11/22/17 12:00 Room Air 11/22/17 09:04 36.5 85 20 137/71 (93) 97 Room Air 11/22/17 08:30 Room Air 11/22/17 04:00 Nasal Cannula 2.0 11/22/17 03:54 36.5 78 18 136/69 (91) 96 Room Air 11/21/17 23:45 36.5 73 17 150/51 (84) 98 Nasal Cannula 2.0 11/21/17 23:35 Nasal Cannula 2.0 11/21/17 20:00 Nasal Cannula 2.0 11/21/17 19:27 36.6 76 24 160/72 (101) 98 Room Air General Appearance: no apparent distress, + thin ENT: hearing grossly normal Neck: supple, no JVD Respiratory: lungs clear, no respiratory distress, no accessory muscle use Cardiovascular: regular rate, rhythm, no edema, + normal peripheral pulses Abdomen: normal bowel sounds, non tender, soft Neurologic/Psychiatric: alert, normal mood/affect, + disoriented (oriented to person, place and somewhat event. still has some disorientation to time) Skin: + pertinent finding (multiple skin leasions all over scalp that are somewhat moist) Laboratory Results Last 24 Hours Test 11/21/17 16:37 11/21/17 20:52 11/21/17 21:00 11/21/17 21:12 Bedside Glucose 132 mg/dl 182 mg/dl Sodium Level 130 mmol/L Potassium Level 4.1 mmol/L Chloride Level 95 mmol/L Carbon Dioxide Level 24 mmol/L Anion Gap 11.0 mmol/L Blood Urea Nitrogen 9 mg/dl Creatinine 0.85 mg/dl Est Creatinine Clear Calc Drug Dose 57.0 ml/min Estimated GFR () 92.7 Estimated GFR (Non- 80.0 BUN/Creatinine Ratio 10.9 Random Glucose 154 mg/dl Calcium Level 7.7 mg/dl Magnesium Level 1.9 mg/dl Urine Random Sodium 80 mEq/L Test 11/22/17 06:12 11/22/17 06:53 Bedside Glucose 172 mg/dl White Blood Count 4.53 K/uL Red Blood Count 3.11 M/uL Hemoglobin 9.6 g/dL Hematocrit 27.8 % Mean Corpuscular Volume 89.4 fL Mean Corpuscular Hemoglobin 30.9 pg Mean Corpuscular Hemoglobin Concent 34.5 g/dl RDW Standard Deviation 51.7 fL RDW Coefficient of Variation 15.9 % Platelet Count 152 K/uL Mean Platelet Volume 9.2 fL Sodium Level 136 mmol/L Potassium Level 3.8 mmol/L Chloride Level 103 mmol/L Carbon Dioxide Level 22 mmol/L Anion Gap 11.0 mmol/L Blood Urea Nitrogen 9 mg/dl Creatinine 0.81 mg/dl Est Creatinine Clear Calc Drug Dose 56.7 ml/min Estimated GFR () 94.6 Estimated GFR (Non- 81.6 BUN/Creatinine Ratio 11.6 Random Glucose 159 mg/dl Calcium Level 7.6 mg/dl Assessment & Plan Problem list: Pain, chronic Altered mental status Hypoxia Weakness- improving Diarrhea- improved Metastatic prostate cancer Brone and brain mets Goals of care (Z51.5) Palliative care recs: -Patient is DNR. -Goal is for comfort and quality of life. Patient and his son confirm that the plan is for hospice upon discharge, and for him to return to [facility]. -Per oncology, stopping Jakafi and Xtandi. Patient remains on Lupron injections , but I would recommend stopping these as well. Patient and son aware and in agreement. -Patient was to have Mohs surgery on scalp in December, but now does not think he wants to go through with that. -Continue fentanyl patch at 12mcg/hr as ordered, works well for patient. -Confusion is improving, hopefully will clear with the discontinuation of steroids. -Case management following and will make referral to [facility]. -Patient will be seen by radiation oncology for brain mets, but likely will not opt for further radiation even if offered. Thank you kindly for this consult. I will follow as needed. Total time spent 70 minutes with >50% of time spent with patient and family counseling and discussing goals of care. Supervising Physician Pt seen and examined with Shea MCKINNEY, son at bedside. 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 HEENT: scalp lesions noted, EOMI Resp: unlabored CV RR ABD: not distended Ext : LE weakness. Psych: cooperative, pleasant mood Son in agreement with plan
[2017-11-22] MEDS ORDERED: NURSING VERBAL MED ORDER ONE (17:30)
--- NOTE | 2017-11-22 18:18 | Radiation Oncology Progress Nt ---
Radiation Oncology Progress Nt Date of Service Date of Service: Nov 22, 2017. Reason For Admission Seizure activity Requesting Physician Dr. Isaac Garza, Medical Oncology Diagnosis (1) Prostate cancer Adenocarcinoma the prostate with Amara 4+3 04/09/2003 Treatment with radiation therapy Pulmonary metastasis status post metastectomy 09/02/2015 Rising PSA initiation of total androgen ablation October 2015 Bone metastasis bone scan April 2016 Status post completion of radiation therapy to lumbosacral spine 10/28/2016 received 3000 cGy Mental status changes and finding of a new brain lesion of the cerebellum Recheck MRI revealing a total of 3 lesions Development of pain in the left femur Status post completion of radiation therapy to the left femur 07/28/2017. He received 2500 cGy Status post completion of stereotactic body radiation therapy to the brain 08/02. He received 2700 cGy to each lesion. Last Edited By: Renee Hutson on Aug 16, 2017 13:53 (2) Seizure Subjective Pt evaluation today including: conversation w/ patient, physical exam, chart review, lab review, conversation w/ immigration consultant Patient was seen at bedside. He was on one-to-one due to agitation and confusion. We were unable to obtain a detailed history and physical examination from the patient. Objective Vital Signs Date Time Temp Pulse Resp B/P (MAP) Pulse Ox O2 Delivery O2 Flow Rate FiO2 11/22/17 14:34 36.4 71 18 148/83 (104) 99 Room Air 11/22/17 12:42 36.5 74 20 98 2.0 11/22/17 12:14 36.5 74 20 137/44 (75) 98 Room Air 11/22/17 12:00 Room Air 11/22/17 09:04 36.5 85 20 137/71 (93) 97 Room Air 11/22/17 08:30 Room Air 11/22/17 04:00 Nasal Cannula 2.0 11/22/17 03:54 36.5 78 18 136/69 (91) 96 Room Air 11/21/17 23:45 36.5 73 17 150/51 (84) 98 Nasal Cannula 2.0 11/21/17 23:35 Nasal Cannula 2.0 11/21/17 20:00 Nasal Cannula 2.0 11/21/17 19:27 36.6 76 24 160/72 (101) 98 Room Air Physical Exam General Appearance: + mild distress, + cachetic Neurologic/Psychiatric: + depressed affect, + disoriented Radiological Studies HEAD WITHOUT CONTRAST (CT) - 11/21/2017 CT DOSE: 614.27 mGy.cm HISTORY: Mental status change seizure/unresponsive episode, mets to brain TECHNIQUE: Multiaxial CT images of the head were performed without the use of intravenous contrast. A dose lowering technique was utilized adhering to the principles of ALARA. Comparison: 07/02/2017 Findings: The paranasal sinuses and mastoid air cells are clear. The calvarium and skull base are intact. The ventricles and sulci are within normal limits. There is no mass, hematoma, midline shift, or acute infarct. Small hyperdense focus left posterior cerebellar hemisphere unchanged from the prior 2 studies. No evidence for acute intracranial hemorrhage. No midline shift. Mild chronic small vessel change of aging unaltered from the prior study. Impression: Chronic and age-related change. No acute process. Laboratory Results Last 24 Hours Test 11/21/17 20:52 11/21/17 21:00 11/21/17 21:12 11/22/17 06:12 Sodium Level 130 mmol/L Potassium Level 4.1 mmol/L Chloride Level 95 mmol/L Carbon Dioxide Level 24 mmol/L Anion Gap 11.0 mmol/L Blood Urea Nitrogen 9 mg/dl Creatinine 0.85 mg/dl Est Creatinine Clear Calc Drug Dose 57.0 ml/min Estimated GFR () 92.7 Estimated GFR (Non- 80.0 BUN/Creatinine Ratio 10.9 Random Glucose 154 mg/dl Calcium Level 7.7 mg/dl Magnesium Level 1.9 mg/dl Urine Random Sodium 80 mEq/L Bedside Glucose 182 mg/dl 172 mg/dl Test 11/22/17 06:53 11/22/17 17:31 White Blood Count 4.53 K/uL Red Blood Count 3.11 M/uL Hemoglobin 9.6 g/dL Hematocrit 27.8 % Mean Corpuscular Volume 89.4 fL Mean Corpuscular Hemoglobin 30.9 pg Mean Corpuscular Hemoglobin Concent 34.5 g/dl RDW Standard Deviation 51.7 fL RDW Coefficient of Variation 15.9 % Platelet Count 152 K/uL Mean Platelet Volume 9.2 fL Sodium Level 136 mmol/L Potassium Level 3.8 mmol/L Chloride Level 103 mmol/L Carbon Dioxide Level 22 mmol/L Anion Gap 11.0 mmol/L Blood Urea Nitrogen 9 mg/dl Creatinine 0.81 mg/dl Est Creatinine Clear Calc Drug Dose 56.7 ml/min Estimated GFR () 94.6 Estimated GFR (Non- 81.6 BUN/Creatinine Ratio 11.6 Random Glucose 159 mg/dl Calcium Level 7.6 mg/dl Bedside Glucose 190 mg/dl Assessment and Plan Mr. 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 He was recently treated with a course of radiation therapy to the brain for metastatic disease. We recently saw the patient in follow-up in the outpatient setting to discuss his recent MRI of the brain which revealed new intracranial metastatic disease. At that time, the patient's condition had deteriorated and our recommendation was a follow-up in 3 months with the potential MRI of the brain based on the patient and family's decision. We did also briefly discuss hospice at that time. In the interim, the patient did express symptoms consistent with a seizure and was brought to the emergency department. He did have a CT of the head without contrast revealed no acute intracranial abnormality. We have been asked to evaluate the patient regarding the role of radiation therapy. At this point, we do not recommend any further radiation therapy. I do feel it is unlikely that the patient's recent neurological activity is related to his previously diagnosed intracranial metastatic disease given the small volume of disease present on the MRI from November 2017. I do support Dr. Garza's recommendation for consideration of hospice care at this point. If the family or patient would like to further discuss my recommendations, I would be happy to talk with them at any point in the future. Please call us with any further questions or concerns.
[2017-11-22 22:07] VITALS: BP 151/73; PULSE 78; TEMP 36.6; O2SAT 99
[2017-11-23 07:29] VITALS: BP 174/75; PULSE 72; TEMP 36.7; O2SAT 100
[2017-11-23] MEDS: METOPROLOL TARTRATE 25 MG TAB PO SCH ×2 (07:54→19:17)
[2017-11-23] MEDS: PANTOprazole SOD 40 MG TAB PO SCH (07:54)
[2017-11-23] MEDS: LEVETIRACETAM 500 MG TAB PO SCH ×2 (07:54→19:14)
[2017-11-23] MEDS: CHECK FENTANYL PATCH PLACEMENT SCH ×4 (07:56→23:25)
[2017-11-23 08:00] VITALS: O2SAT 100
[2017-11-23] MEDS: HEPARIN SOD 5000 UNIT/0.5 ML CARP SQ SCH (08:04)
[2017-11-23] MEDS: INSULIN ASPART 100 UNITS/ML 3 ML PEN SC SCH ×4 (08:04→22:09)
[2017-11-23 09:06] LABS: HEMATOCRIT 27.9 % (42-52); HEMOGLOBIN 9.4 g/dL (14.0-18.0); MEAN CELL VOLUME 91.2 fL (80-100); MEAN CORPUSCULAR HEMOGLOBIN 30.7 pg (25-34); MEAN CORPUSCULAR HGB CONC 33.7 g/dl (32-36); NUCLEATED RED BLOOD CELL ABS 0.02 K/uL (0-0); PLATELET COUNT 182 K/uL (130-400); RED CELL DISTRIBUTION WIDTH CV 16.3 % (11.5-14.5); RED CELL DISTRIBUTION WIDTH SD 54.3 fL (36.4-46.3); WHITE BLOOD COUNT 6.81 K/uL (4.8-10.8)
[2017-11-23] MEDS ORDERED: PRD5 PO (09:26)
[2017-11-23] MEDS ORDERED: LEVE500T13 PO (09:26)
[2017-11-23] MEDS ORDERED: LORA-741 PO (09:26)
[2017-11-23] MEDS ORDERED: DRGTP12 SUBD (09:26)
[2017-11-23 09:30] LABS: CALCIUM 8.3 mg/dl (8.5-10.1); CREATININE 0.99 mg/dl (0.60-1.40); POTASSIUM 3.5 mmol/L (3.5-5.1)
--- NOTE | 2017-11-23 09:30 | Discharge Instructions ---
Discharge Instructions Date of Service Nov 23, 2017. Admission Reason for Admission: Seizure Discharge Discharge Diagnosis / Problem: Seizure, prostate cancer with metasasis Discharge Goals Goal(s): Decrease discomfort Activity Recommendations Activity Level: Assistance Required . Additional Information Patient informed of condition: Yes Advance Directives: Yes DNR: Yes Level of Care: Skilled Communicable Disease: No Prognosis: Deteriorating Demarco Catheter: No Instructions / Follow-Up Instructions / Follow-Up Patient is returning home with hospice care Current Hospital Diet Patient's current hospital diet: Diabetes Type 2 Diet Discharge Diet Recommended Diet: Diabetes Type 2 Diet Procedures Procedures Performed: Elbow xray Chest xray Head CT Pending Studies Studies pending at discharge: no Laboratory Results 11/23/17 08:38 Test 11/21/17 10:15 11/21/17 10:20 11/21/17 10:24 11/21/17 20:52 Urine Color YELLOW Urine Appearance CLEAR (CLEAR) Urine pH 6.0 (4.5-7.5) Urine Specific Garner 1.009 (1.000-1.030) Urine Protein NEG (NEG) Urine Glucose (UA) NEG (NEG) Urine Ketones NEG (NEG) Urine Occult Blood NEG (NEG) Urine Nitrite NEG (NEG) Urine Bilirubin NEG (NEG) Urine Urobilinogen NEG (NEG) Urine Leukocyte Esterase NEG (NEG) Immature Granulocyte % (Auto) 1.9 % White Blood Count 4.73 K/uL (4.8-10.8) Red Blood Count 3.07 M/uL (4.7-6.1) Hemoglobin 9.6 g/dL (14.0-18.0) Hematocrit 27.7 % (42-52) Mean Corpuscular Volume 90.2 fL (80-100) Mean Corpuscular Hemoglobin 31.3 pg (25-34) Mean Corpuscular Hemoglobin Concent 34.7 g/dl (32-36) Platelet Count 124 K/uL (130-400) Mean Platelet Volume 9.4 fL (7.4-10.4) Neutrophils (%) (Auto) 81.9 % Lymphocytes (%) (Auto) 5.3 % Monocytes (%) (Auto) 9.9 % Eosinophils (%) (Auto) 0.8 % Basophils (%) (Auto) 0.2 % Neutrophils # (Auto) 3.87 K/uL (1.4-6.5) Lymphocytes # (Auto) 0.25 K/uL (1.2-3.4) Monocytes # (Auto) 0.47 K/uL (0.11-0.59) Eosinophils # (Auto) 0.04 K/uL (0-0.5) Basophils # (Auto) 0.01 K/uL (0-0.2) Immature Granulocyte # (Auto) 0.09 K/uL (0.00-0.02) Prothrombin Time 10.3 SECONDS (9.0-12.0) Prothromb Time International Ratio 1.0 (0.9-1.1) Activated Partial Thromboplast Time 28.2 SECONDS (21.0-31.0) Partial Thromboplastin Ratio 1.1 Total Bilirubin 0.9 mg/dl (0.2-1) Direct Bilirubin 0.2 mg/dl (0-0.2) Aspartate Amino Transf (AST/SGOT) 31 U/L (15-37) Alanine Aminotransferase (ALT/SGPT) 14 U/L (12-78) Alkaline Phosphatase 62 U/L (45-117) Total Creatine Kinase 190 U/L (39-308) Creatine Kinase MB 1.3 ng/ml (0.5-3.6) Creatine Kinase MB Ratio 0.7 (0-3.0) Total Protein 6.5 gm/dl (6.4-8.2) Albumin 3.2 gm/dl (3.4-5.0) Bedside Troponin I < 0.030 ng/ml (0-0.045) Magnesium Level 1.9 mg/dl (1.8-2.4) Test 11/21/17 21:00 11/22/17 06:53 11/23/17 07:47 11/23/17 08:38 Urine Random Sodium 80 mEq/L Est Creatinine Clear Calc Drug Dose 56.7 ml/min Bedside Glucose 156 mg/dl (70-99) Red Blood Count 3.06 M/uL (4.7-6.1) Mean Corpuscular Volume 91.2 fL (80-100) Mean Corpuscular Hemoglobin 30.7 pg (25-34) Mean Corpuscular Hemoglobin Concent 33.7 g/dl (32-36) RDW Standard Deviation 54.3 fL (36.4-46.3) RDW Coefficient of Variation 16.3 % (11.5-14.5) Mean Platelet Volume 9.0 fL (7.4-10.4) Nucleated RBC Absolute Count (auto) 0.02 K/uL (0-0) Nucleated Red Blood Cells % 0.3 % Date/Time Source Procedure Growth Status 11/21/17 18:15 Nasal MRSA DNA Surveillance Screen - Final Specimen Negative for MRSA by DNA Probe Complete Medical Emergencies . Who to Call and When: Medical Emergencies: If at any time you feel your situation is an emergency, please call 911 immediately. . Non-Emergent Contact Non-Emergency issues call your: Primary Care Provider . Past History Medical & Surgical History: (1) Prostate cancer (2) Seizure (3) Confusion . "Provider Documentation" section prepared by Anastasia Hebert. . Core Measure Problem Core Measures: None
--- NOTE | 2017-11-23 09:47 | Discharge Summary ---
Discharge Summary Date of Service Nov 23, 2017. Discharge Summary Admission Date: Nov 21, 2017 at 13:36 Discharge Date: Nov 23, 2017 Discharge Disposition: assisted facility (hospice) Principal Diagnosis: Seizure, prostate ca with mets Problems/Secondary Diagnoses: Hyponatremia, Orthostasis, Hypomagnesemia, DM II, Persistent diarrhea, Hypothermia, GERD, HLD, HTN Immunizations: Have You Had Influenza Vaccine: N/A History of Tetanus Vaccine?: Unknown History of Pneumococcal: Yes Pneumococcal Date: Jul 21, 2010 History of Hepatitis B Vaccine: Unknown Procedures: EEG Description This is a 21 electrode EEG with a single channel dedicated to limited EKG. The electrodes were placed in accordance with the International 10-20 system. At the start of this recording the patient was in an awake state. Background was well organized with a moderate amplitude symmetric mix of alpha and beta frequencies. There was a symmetric moderate amplitude posterior dominant rhythm of 8-9 Hz there was reactive to eye opening and closure. Hyperventilation was not done. Photic stimulation at various frequencies did not produce any abnormalities. There was no state changes or sleep transients. Interpretation This is a normal awake only routine EEG. There was no electrographic seizures or epileptiform discharges. Clinical Correlation A normal EEG does not rule out epilepsy if there is a strong clinical suspicion. R ELBOW MIN 3 VIEWS ROUTINE CLINICAL HISTORY: PAIN COMPARISON: None. DISCUSSION: The bones and joint spaces appear intact. There is no evidence of fracture, dislocation or bony disease. There is no evidence for soft tissue swelling. IMPRESSION: Negative study. CHEST ONE VIEW PORTABLE CLINICAL HISTORY: seizure, unresponsive episode mental status change COMPARISON STUDY: 07/02/2017 FINDINGS: Minimal plate like atelectasis right base. Lungs otherwise appear clear. There are no focal infiltrates. Diaphragms are smooth. IMPRESSION: Minimal plate like atelectasis right base. Otherwise negative study. HEAD WITHOUT CONTRAST (CT) CT DOSE: 614.27 mGy.cm HISTORY: Mental status change seizure/unresponsive episode, mets to brain TECHNIQUE: Multiaxial CT images of the head were performed without the use of intravenous contrast. A dose lowering technique was utilized adhering to the principles of ALARA. Comparison: 07/02/2017 Findings: The paranasal sinuses and mastoid air cells are clear. The calvarium and skull base are intact. The ventricles and sulci are within normal limits. There is no mass, hematoma, midline shift, or acute infarct. Small hyperdense focus left posterior cerebellar hemisphere unchanged from the prior 2 studies. No evidence for acute intracranial hemorrhage. No midline shift. Mild chronic small vessel change of aging unaltered from the prior study. Impression: Chronic and age-related change. No acute process. Consultations: Dr. Goff from radiation oncology Dr. Milner from neurology Dr. Garza from oncology Medication Reconciliation New Medications: Levetiracetam (Keppra) 500 Mg Tab 750 MG PO BID for 30 Days, #60 TAB Prednisone (Prednisone) 5 Mg Tab 5 MG PO BID for 30 Days, #30 TAB Continued Medications: Acetaminophen (Tylenol) 500 Mg Tab 1000 MG PO TID PRN for Pain, TAB Dextromethorphan Polistirex (Delsym) 30 Mg/5 Ml Liq 10 ML PO Q12 PRN for Cough, ML Fentanyl (Fentanyl) 12 Mcg Tdsy 1 APPLN SUBD Q48H for 5 Days, #2 PATCH (This prescription has been renewed) Fluocinolone Acetonide (Soso-Smoothe/Fs Scalp) 0.01 % Oil 1 APPLN TOP HS Glimepiride (Glimepiride) 2 Mg Tab 12 MG PO DAILY Lactic Acid (Ammonium Lactate Cream 12%) 280 Gm Cr 1 APPLN TOP BID Apply to left hand and behind left ear Lorazepam (Ativan) 0.5 Mg Tab 0.5 MG PO Q12 PRN for Anxiety for 5 Days, #10 TAB (This prescription has been renewed) Metformin Hcl (Glucophage) 1,000 Mg Tab 1000 MG PO BID, TAB Metoprolol Tartrate (Lopressor) 25 Mg Tab 25 MG PO BID, TAB Omeprazole (Prilosec) 40 Mg Cap 20 MG PO DAILY, CAP Ondansetron Hcl (Zofran) 8 Mg Tab 8 MG PO Q8 PRN for Nausea, TAB Prochlorperazine Maleate (Compazine) 10 Mg Tab 1 TAB PO Q6 PRN for Nausea or Vomiting for 7 Days, #30 TAB 3 Refills Promethazine (Phenergan ) 12.5 Mg Tab 12.5 MG PO Q6H PRN for Nausea or Vomiting, TAB Discontinued Medications: Atorvastatin (Lipitor) 40 Mg Tab 40 MG PO DAILY, TAB Enzalutamide (Xtandi) 40 Mg Cap 120 MG PO DAILY Gabapentin (Gabapentin) 300 Mg Cap 300 MG PO TID, #90 Leuprolide Acetate (Lupron Depot) 22.5 Mg Kit 22.5 MG IM Q3MO Last given 10/07/17 Levetiracetam (Keppra) 500 Mg Tab 500 MG PO BID Ruxolitinib Phosphate (Jakafi) 10 Mg Tab 10 MG PO BID Discharge Exam ROS Constitutional: no chills, aches, sweats or fever Respiratory: no sob,cough, sputum, or wheezing Cardiac: no chest pain, palpitations, edema, orthopnea or lightheadedness GI: no abdominal pain, nausea, vomiting, diarrhea or constipation : no dysuria or hesitancy Extremities: no joint pain or weakness Skin: no rash All other systems reviewed and negative General: no distress Eyes: normal inspection, PERLL Respiratory: chest non tender, clear to auscultation, normal breath sounds, no respiratory distress, no accessory muscle use Cardiac: regular rate and rhythm, no rub or gallop, no murmur, no edema, no jvd GI/: active bowel sounds, no abd pain or tenderness, soft, non distended Extremities: normal range of motion, normal strength, non tender Neuro/Psych: alert and oriented x 2 but with confusion especially to time, sad and tearful about leaving with hospice, normal affect Skin: normal color, dry Hospital Course Mr. Catalan is an 82 year old man here for seizure like activity. According to ED records he had an episode of seizure like activity at [facility] as well as an episode with hypoxia with EMS. He has a history of metastatic prostate cancer and it was felt that the diarrhea he has been experiencing over the last couple weeks was likely due to his cancer treatment. ?Seizure - seizure precautions - increased Keppra from 500 mg to 750 mg bid - consulted neurology - EEG was normal - CT negative for acute process - no further seizure activity during admission Hyponatremia - gentle IVF @ 100 ml/hr was given initially, then po fluid restriction - no further fluid restriction for discharge - resolved Orthostasis - patient became dizzy and pale when head of bed raised and his BP went 80/40 from sbp in the 120s upon admission - 500 ml bolus IVF and stress dosed steroids - resolved Hypomagnesemia - Mag 1.2 - replaced - resolved Prostate Ca with met - discontinued Xtandi and Jakafi - discontinued Lupron - consulted Heme/Onc and radiation oncology - no further benefit from chemo or radiation - continue fentanyl patch for pain, promethazine, zofran for nausea DM II - bsg ac and hs - held sulfonylurea and metformin in patient - restart for discharge - ss while inpatient Persistent diarrhea - Xtandi and Jakafi held - resolved Hypothermia - Mariano hugger - resolved GERD - protonix po HLD - discontinued atorvastatin for home HTN - continue metoprolol 25 mg Consulted palliative care, their recommendation, as well as that from oncology was for hospice which patient will return to [facility] on. 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 Discharge Instructions Please refer to the electronic Patient Visit Report (Discharge Instructions) for additional information. Additional Copies To Boy Hebert M.D.
--- NOTE | 2017-11-23 14:01 | Hospitalist Progress Note ---
Hospitalist Progress Note Date of Service Nov 23, 2017. (Anastasia Hebert .HANK) Subjective Pt evaluation today including: conversation w/ patient, physical exam, chart review, lab review, review of inpatient medication list Voiding: no voiding problems Mr. Catalan is confused but pleasant though he becomes tearful about going home on hospice. He does however feel that hospice is the right choice. He is very clear when it comes to his condition and decisions about his health but very confused when he talks about time. ROS Constitutional: no chills, aches, sweats or fever Respiratory: no sob,cough, sputum, or wheezing Cardiac: no chest pain, palpitations, edema, orthopnea or lightheadedness GI: no abdominal pain, nausea, vomiting, diarrhea or constipation : no dysuria or hesitancy Extremities: no joint pain or weakness Skin: no rash All other systems reviewed and negative (Anastasia Hebert .HANK) Medications Medications Administered Medications (Trade) Dose Ordered Sig/Axel Route Start Time Stop Time Status Last Admin Dose Admin Sodium Chloride 250 ml @ 999 mls/hr Q16M STAT IV 11/21/17 09:58 11/21/17 10:13 DC 11/21/17 10:16 999 MLS/HR Sodium Chloride 1,000 ml @ 125 mls/hr Q8H STAT IV 11/21/17 09:58 11/21/17 16:09 DC 11/21/17 10:16 125 MLS/HR Ondansetron HCl (Zofran Inj) 4 mg NOW STAT IV 11/21/17 09:58 11/21/17 10:03 DC 11/21/17 10:17 4 MG Magnesium Sulfate (Magnesium Sulfate) 2 gm NOW STAT IV 11/21/17 11:22 11/21/17 11:23 DC 11/21/17 11:35 2 GM Potassium Chloride 10 meq/ Prmx 100 ml @ 100 mls/hr Q1H IV 11/21/17 12:30 11/21/17 14:29 DC 11/21/17 13:46 100 MLS/HR Heparin Sodium (Porcine) (Heparin Sq 5000 Unit/0.5ml) 5,000 unit Q12 SQ 11/21/17 21:00 12/21/17 20:59 11/23/17 08:04 5,000 UNIT Sodium Chloride 1,000 ml @ 100 mls/hr Q10H IV 11/21/17 18:00 11/22/17 17:48 DC 11/22/17 09:57 100 MLS/HR Atorvastatin Calcium (Lipitor Tab) 40 mg QAM PO 11/22/17 09:00 11/22/17 15:16 DC 11/22/17 08:19 40 MG Gabapentin (Neurontin Cap) 300 mg TID PO 11/21/17 14:00 12/21/17 13:59 Future Hold 11/22/17 08:19 300 MG Metoprolol Tartrate (Lopressor Tab) 25 mg BID PO 11/21/17 21:00 12/21/17 20:59 11/23/17 07:54 25 MG Promethazine HCl (Phenergan Tab) 12.5 mg Q6H PRN PO 11/21/17 13:15 12/21/17 13:14 11/21/17 17:47 12.5 MG Pantoprazole Sodium (Protonix Tab) 40 mg QAM PO 11/22/17 09:00 12/22/17 08:59 11/23/17 07:54 40 MG Insulin Aspart (novoLOG ASPART) SLIDING SCALE If C... ACHS SC 11/21/17 16:00 12/21/17 15:59 11/23/17 08:04 1 UNITS Levetiracetam (Keppra Tab) 750 mg BID PO 11/21/17 21:00 12/21/17 20:59 11/23/17 07:54 750 MG Sodium Chloride 500 ml @ 250 mls/hr Q2H IV 11/21/17 16:09 11/21/17 18:08 DC 11/21/17 16:23 250 MLS/HR Magnesium Sulfate 1 gm/Prmx 100 ml @ 100 mls/hr 1600 IV 11/21/17 16:00 11/21/17 16:59 DC 11/21/17 16:23 100 MLS/HR Prednisone (PredniSONE TAB) 5 mg BID PO 11/21/17 21:00 12/21/17 20:59 11/23/17 07:54 5 MG Hydrocortisone Sodium Succinate 100 mg/Syringe 2 ml @ 4 mls/min Q8H IV 11/21/17 18:00 11/22/17 21:00 DC 11/22/17 17:33 4 MLS/MIN Fentanyl (Duragesic Patch) 12 mcg Q48H TD 11/22/17 09:00 12/06/17 08:59 11/22/17 08:31 12 MCG Miscellaneous (Fentanyl Patch Remove & Waste) 1 ea Q48H N/A 11/22/17 09:00 12/22/17 08:59 11/22/17 08:22 1 EA Miscellaneous Information (Check Fentanyl Patch Placement) 1 ea QS N/A 11/22/17 00:00 12/22/17 00:00 11/23/17 07:56 1 EA (Anastasia Hebert CRNP) Objective Vital Signs Date Time Temp Pulse Resp B/P (MAP) Pulse Ox O2 Delivery O2 Flow Rate FiO2 11/23/17 08:00 Room Air 11/23/17 08:00 100 Room Air 11/23/17 07:29 36.7 72 18 174/75 (108) 100 Room Air 11/23/17 00:00 Room Air 11/22/17 22:07 36.6 78 20 151/73 (99) 99 Room Air 11/22/17 16:10 Room Air 11/22/17 14:34 36.4 71 18 148/83 (104) 99 Room Air (Anastasia Hebert CRNP) Physical Exam Notes: General: no distress Eyes: normal inspection, PERLL Respiratory: chest non tender, clear to auscultation, normal breath sounds, no respiratory distress, no accessory muscle use Cardiac: regular rate and rhythm, no rub or gallop, no murmur, no edema, no jvd GI/: active bowel sounds, no abd pain or tenderness, soft, non distended Extremities: normal range of motion, normal strength, non tender Neuro/Psych: alert and oriented to person and place, some confusion, some tearfulness Skin: normal color, dry (Anastasia Hebert CRNP) Laboratory Results Last 24 Hours Test 11/22/17 17:31 11/22/17 19:56 11/23/17 07:47 11/23/17 08:38 Bedside Glucose 190 mg/dl 256 mg/dl 156 mg/dl White Blood Count 6.81 K/uL Red Blood Count 3.06 M/uL Hemoglobin 9.4 g/dL Hematocrit 27.9 % Mean Corpuscular Volume 91.2 fL Mean Corpuscular Hemoglobin 30.7 pg Mean Corpuscular Hemoglobin Concent 33.7 g/dl RDW Standard Deviation 54.3 fL RDW Coefficient of Variation 16.3 % Platelet Count 182 K/uL Mean Platelet Volume 9.0 fL Nucleated RBC Absolute Count (auto) 0.02 K/uL Nucleated Red Blood Cells % 0.3 % Sodium Level 140 mmol/L Potassium Level 3.5 mmol/L Chloride Level 107 mmol/L Carbon Dioxide Level 23 mmol/L Anion Gap 10.0 mmol/L Blood Urea Nitrogen 13 mg/dl Creatinine 0.99 mg/dl Est Creatinine Clear Calc Drug Dose 46.4 ml/min Estimated GFR () 80.7 Estimated GFR (Non- 69.6 BUN/Creatinine Ratio 13.5 Random Glucose 133 mg/dl Calcium Level 8.3 mg/dl Test 11/23/17 11:22 Bedside Glucose 186 mg/dl (Anastasia Hebert, HANK) Assessment and Plan Mr. Catalan is an 82 year old man here for seizure like activity. According to ED records he had an episode of seizure like activity at [facility] as well as an episode with hypoxia with EMS. He has a history of metastatic prostate cancer and it was felt that the diarrhea he has been experiencing over the last couple weeks was likely due to his cancer treatment. ?Seizure - seizure precautions - increased Keppra from 500 mg to 750 mg bid - consulted neurology - EEG was normal - CT negative for acute process - no further seizure activity during admission Hyponatremia - gentle IVF @ 100 ml/hr was given initially, then po fluid restriction - resolved Orthostasis - patient became dizzy and pale when head of bed raised and his BP went 80/40 from sbp in the 120s upon admission - 500 ml bolus IVF and stress dosed steroids - resolved Hypomagnesemia - Mag 1.2 - replaced - resolved Prostate Ca with met - discontinued Xtandi and Jakafi - discontinued Lupron - consulted Heme/Onc and radiation oncology - no further benefit from chemo or radiation - continue fentanyl patch for pain, promethazine, zofran for nausea DM II - bsg ac and hs - hold sulfonylurea and metformin in patient - restart for discharge - ss while inpatient Persistent diarrhea - Xtandi and Jakafi held - resolved Hypothermia - Mariano hugger - resolved GERD - protonix po HLD - discontinued atorvastatin for home HTN - continue metoprolol 25 mg Consulted palliative care, their recommendation, as well as that from oncology was for hospice which patient will return to [facility] on when SNF authorization processed (Anastasia Hebert ., HANK) [employer] Physician Supervision Note: I interviewed and examined the patient. Discussed with Anastasia Hebert [employer] B[employer]ING ASSOCIATE and agree with findings and plan as documented in the note. Any exceptions or clarifications are listed here: None Patient is improved but still mildly confused is at peace with the decision to pursue hospice care he however is in a personal care part of a nursing facility and cannot pursue hospice care without 24 hour caregivers will continue to support the patient hospital and monitor him modulate medicines affect his behavior until we can procure a safe disposition situation Vital signs are evaluated and are stable his cardiac exam is regular with a murmur his lungs are clear he is pleasantly confused patient metastatic prostate cancer initially presented with encephalopathy felt to be secondary to dehydration and medications this is slowly resolving we'll pursuing palliative care with the support his family Documented By: Jony Becerril (Jony Becerril M.D.)
[2017-11-23 16:12] VITALS: BP 153/79; PULSE 75; TEMP 36.4; O2SAT 96
[2017-11-23 19:15] VITALS: BP 157/95
[2017-11-23] MEDS: QUETIAPINE FUMARATE 25 MG TAB PO SCH (22:04)
[2017-11-23 23:14] VITALS: BP 145/82; PULSE 76; TEMP 36.4; O2SAT 99
[2017-11-24] MEDS: INSULIN ASPART 100 UNITS/ML 3 ML PEN SC SCH ×4 (06:30→20:24)
[2017-11-24 07:45] VITALS: BP 134/56; PULSE 70; TEMP 36.3; O2SAT 97
[2017-11-24 07:57] LABS: HEMATOCRIT 26.9 % (42-52); HEMOGLOBIN 8.9 g/dL (14.0-18.0); MEAN CELL VOLUME 92.1 fL (80-100); MEAN CORPUSCULAR HEMOGLOBIN 30.5 pg (25-34); MEAN CORPUSCULAR HGB CONC 33.1 g/dl (32-36); MEAN PLATELET VOLUME 8.7 fL (7.4-10.4); NUCLEATED RED BLOOD CELL ABS 0.02 K/uL (0-0); PLATELET COUNT 148 K/uL (130-400); RED CELL DISTRIBUTION WIDTH CV 16.3 % (11.5-14.5); RED CELL DISTRIBUTION WIDTH SD 54.8 fL (36.4-46.3); WHITE BLOOD COUNT 4.26 K/uL (4.8-10.8)
[2017-11-24] MEDS: METOPROLOL TARTRATE 25 MG TAB PO SCH ×2 (08:05→20:18)
[2017-11-24] MEDS: PANTOprazole SOD 40 MG TAB PO SCH (08:05)
[2017-11-24] MEDS: LEVETIRACETAM 500 MG TAB PO SCH ×2 (08:06→20:20)
[2017-11-24] MEDS: CHECK FENTANYL PATCH PLACEMENT SCH ×2 (08:09→16:00)
[2017-11-24 08:30] LABS: CALCIUM 8.1 mg/dl (8.5-10.1); CREATININE 0.85 mg/dl (0.60-1.40); POTASSIUM 3.9 mmol/L (3.5-5.1)
[2017-11-24] MEDS: FENTANYL PATCH REMOVE & WASTE SCH (09:19)
[2017-11-24] MEDS: FENTANYL 12 MCG/HR TDSY TD SCH (09:19)
[2017-11-24] MEDS ORDERED: SRQ25 PO ×2 (11:00→11:02)
[2017-11-24 11:43] VITALS: BP 149/75; PULSE 67; TEMP 36.3; O2SAT 95
--- NOTE | 2017-11-24 13:26 | Hospitalist Progress Note ---
Hospitalist Progress Note Date of Service Nov 24, 2017. (Anastasia Hebert .HANK) Subjective Pt evaluation today including: conversation w/ patient, conversation w/ family , physical exam, chart review, lab review, review of inpatient medication list Voiding: no voiding problems Mr. Catalan is seated on the side of his bed with son and daughter in law at bedside. ROS Constitutional: no chills, aches, sweats or fever Respiratory: no sob,cough, sputum, or wheezing Cardiac: no chest pain, palpitations, edema, orthopnea or lightheadedness GI: no abdominal pain, nausea, vomiting, diarrhea or constipation : no dysuria or hesitancy Extremities: no joint pain or weakness Skin: no rash All other systems reviewed and negative (Anastasia Hebert CRNP) Medications Medications Administered Medications (Trade) Dose Ordered Sig/Axel Route Start Time Stop Time Status Last Admin Dose Admin Sodium Chloride 250 ml @ 999 mls/hr Q16M STAT IV 11/21/17 09:58 11/21/17 10:13 DC 11/21/17 10:16 999 MLS/HR Sodium Chloride 1,000 ml @ 125 mls/hr Q8H STAT IV 11/21/17 09:58 11/21/17 16:09 DC 11/21/17 10:16 125 MLS/HR Ondansetron HCl (Zofran Inj) 4 mg NOW STAT IV 11/21/17 09:58 11/21/17 10:03 DC 11/21/17 10:17 4 MG Magnesium Sulfate (Magnesium Sulfate) 2 gm NOW STAT IV 11/21/17 11:22 11/21/17 11:23 DC 11/21/17 11:35 2 GM Potassium Chloride 10 meq/ Prmx 100 ml @ 100 mls/hr Q1H IV 11/21/17 12:30 11/21/17 14:29 DC 11/21/17 13:46 100 MLS/HR Heparin Sodium (Porcine) (Heparin Sq 5000 Unit/0.5ml) 5,000 unit Q12 SQ 11/21/17 21:00 12/21/17 20:59 Future Hold 11/23/17 08:04 5,000 UNIT Sodium Chloride 1,000 ml @ 100 mls/hr Q10H IV 11/21/17 18:00 11/22/17 17:48 DC 11/22/17 09:57 100 MLS/HR Atorvastatin Calcium (Lipitor Tab) 40 mg QAM PO 11/22/17 09:00 11/22/17 15:16 DC 11/22/17 08:19 40 MG Gabapentin (Neurontin Cap) 300 mg TID PO 11/21/17 14:00 12/21/17 13:59 Future Hold 11/22/17 08:19 300 MG Metoprolol Tartrate (Lopressor Tab) 25 mg BID PO 11/21/17 21:00 12/21/17 20:59 11/24/17 08:05 25 MG Promethazine HCl (Phenergan Tab) 12.5 mg Q6H PRN PO 11/21/17 13:15 12/21/17 13:14 11/21/17 17:47 12.5 MG Pantoprazole Sodium (Protonix Tab) 40 mg QAM PO 11/22/17 09:00 12/22/17 08:59 11/24/17 08:05 40 MG Insulin Aspart (novoLOG ASPART) SLIDING SCALE If C... ACHS SC 11/21/17 16:00 12/21/17 15:59 11/23/17 22:09 3 UNITS Levetiracetam (Keppra Tab) 750 mg BID PO 11/21/17 21:00 12/21/17 20:59 11/24/17 08:06 750 MG Sodium Chloride 500 ml @ 250 mls/hr Q2H IV 11/21/17 16:09 11/21/17 18:08 DC 11/21/17 16:23 250 MLS/HR Magnesium Sulfate 1 gm/Prmx 100 ml @ 100 mls/hr 1600 IV 11/21/17 16:00 11/21/17 16:59 DC 11/21/17 16:23 100 MLS/HR Prednisone (PredniSONE TAB) 5 mg BID PO 11/21/17 21:00 12/21/17 20:59 11/24/17 08:05 5 MG Hydrocortisone Sodium Succinate 100 mg/Syringe 2 ml @ 4 mls/min Q8H IV 11/21/17 18:00 11/22/17 21:00 DC 11/22/17 17:33 4 MLS/MIN Fentanyl (Duragesic Patch) 12 mcg Q48H TD 11/22/17 09:00 12/06/17 08:59 11/24/17 09:19 12 MCG Miscellaneous (Fentanyl Patch Remove & Waste) 1 ea Q48H N/A 11/22/17 09:00 12/22/17 08:59 11/24/17 09:19 1 EA Miscellaneous Information (Check Fentanyl Patch Placement) 1 ea QS N/A 11/22/17 00:00 12/22/17 00:00 11/24/17 08:09 1 EA Quetiapine Fumarate (seroQUEL TAB) 25 mg HS PO 11/23/17 21:00 12/23/17 20:59 11/23/17 22:04 25 MG (Anastasia Hebert CRNP) Objective Vital Signs Date Time Temp Pulse Resp B/P (MAP) Pulse Ox O2 Delivery O2 Flow Rate FiO2 11/24/17 11:43 36.3 67 20 149/75 (99) 95 Room Air 11/24/17 08:00 Room Air 11/24/17 07:45 36.3 70 18 134/56 (82) 97 Room Air 11/24/17 07:45 Room Air 11/24/17 00:00 Room Air 11/23/17 23:14 36.4 76 18 145/82 (103) 99 Room Air 11/23/17 19:15 157/95 (115) 11/23/17 16:12 36.4 75 18 153/79 (103) 96 Room Air 11/23/17 16:00 Room Air (Anastasia Hebert CRNP) Physical Exam Notes: General: no distress Eyes: normal inspection, PERLL Respiratory: chest non tender, clear to auscultation, normal breath sounds, no respiratory distress, no accessory muscle use Cardiac: regular rate and rhythm, no rub or gallop, systolic murmur, no edema, no jvd GI/: active bowel sounds, no abd pain or tenderness, soft, non distended Extremities: normal range of motion, normal strength, non tender Neuro/Psych: alert and oriented to person and place, normal mood and affect Skin: normal color, dry (Anastasia Hebert CRNP) Laboratory Results Last 24 Hours Test 11/23/17 16:47 11/23/17 22:04 11/24/17 07:45 11/24/17 07:51 Bedside Glucose 207 mg/dl 209 mg/dl 139 mg/dl White Blood Count 4.26 K/uL Red Blood Count 2.92 M/uL Hemoglobin 8.9 g/dL Hematocrit 26.9 % Mean Corpuscular Volume 92.1 fL Mean Corpuscular Hemoglobin 30.5 pg Mean Corpuscular Hemoglobin Concent 33.1 g/dl RDW Standard Deviation 54.8 fL RDW Coefficient of Variation 16.3 % Platelet Count 148 K/uL Mean Platelet Volume 8.7 fL Nucleated RBC Absolute Count (auto) 0.02 K/uL Nucleated Red Blood Cells % 0.5 % Sodium Level 140 mmol/L Potassium Level 3.9 mmol/L Chloride Level 107 mmol/L Carbon Dioxide Level 26 mmol/L Anion Gap 7.0 mmol/L Blood Urea Nitrogen 11 mg/dl Creatinine 0.85 mg/dl Est Creatinine Clear Calc Drug Dose 54.0 ml/min Estimated GFR () 92.7 Estimated GFR (Non- 80.0 BUN/Creatinine Ratio 13.0 Random Glucose 112 mg/dl Calcium Level 8.1 mg/dl Test 11/24/17 11:29 Bedside Glucose 184 mg/dl (Anastasia Hebert, HANK) Assessment and Plan Mr. Catalan is an 82 year old man here for seizure like activity. According to ED records he had an episode of seizure like activity at [facility] as well as an episode with hypoxia with EMS. He has a history of metastatic prostate cancer and it was felt that the diarrhea he has been experiencing over the last couple weeks was likely due to his cancer treatment. ?Seizure - seizure precautions - increased Keppra from 500 mg to 750 mg bid - consulted neurology - EEG was normal - CT negative for acute process - no further seizure activity during admission Hyponatremia - gentle IVF @ 100 ml/hr was given initially, then po fluid restriction - resolved Orthostasis - patient became dizzy and pale when head of bed raised and his BP went 80/40 from sbp in the 120s upon admission - 500 ml bolus IVF and stress dosed steroids - resolved Hypomagnesemia - Mag 1.2 - replaced - resolved Prostate Ca with met - discontinued Xtandi and Jakafi - discontinued Lupron - consulted Heme/Onc and radiation oncology - no further benefit from chemo or radiation - continue fentanyl patch for pain, promethazine, zofran for nausea DM II - bsg ac and hs - hold sulfonylurea and metformin in patient - restart for discharge - ss while inpatient Persistent diarrhea - Xtandi and Jakafi held - resolved Hypothermia - Mariano malik - resolved GERD - protonix po HLD - discontinued atorvastatin for home HTN - continue metoprolol 25 mg Insomnia - started seroquel last night which patient reported worked well. Consulted palliative care, their recommendation, as well as that from oncology was for hospice. Family is concerned about patient returning to [facility] as he recently lost his to cancer there and they feel it may be traumatic so they are investigating alternatives with CM. (Anastasia Hebert ., HANK) ANALOG DEVICE DESIGNER Physician Supervision Note: I interviewed and examined the patient. Discussed with Anastasia Hebert NP and agree with findings and plan as documented in the note. Any exceptions or clarifications are listed here: None Patient continues of clearing of his encephalopathy present on admission he however is having difficulty with disposition as his desire to return to hospice care does prevent some hurdles he is he is an assisted living or personal careand a [facility]. He does not wish to go to the [facility] environment as he had recently lost his and she was in that situation does not wish to return there. 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
[2017-11-24 15:03] VITALS: BP 135/72; PULSE 70; TEMP 36.7; O2SAT 96
[2017-11-24 19:36] VITALS: BP 146/76; PULSE 75; TEMP 37.2; O2SAT 97
[2017-11-24 20:18] VITALS: BP 149/81; PULSE 75
[2017-11-24] MEDS: QUETIAPINE FUMARATE 25 MG TAB PO SCH (20:19)
[2017-11-24 23:29] VITALS: BP 144/76; PULSE 80; TEMP 36.6; O2SAT 94
[2017-11-25] VITALS: O2SAT 94
[2017-11-25 07:26] VITALS: BP 149/71; PULSE 67; TEMP 36.6; O2SAT 98
[2017-11-25] MEDS: CHECK FENTANYL PATCH PLACEMENT SCH ×3 (09:54→15:49)
[2017-11-25] MEDS: PANTOprazole SOD 40 MG TAB PO SCH (09:55)
[2017-11-25] MEDS: METOPROLOL TARTRATE 25 MG TAB PO SCH ×2 (09:55→21:17)
[2017-11-25] MEDS: LEVETIRACETAM 500 MG TAB PO SCH ×2 (09:55→21:25)
[2017-11-25] MEDS: INSULIN ASPART 100 UNITS/ML 3 ML PEN SC SCH ×4 (10:00→21:24)
[2017-11-25 11:46] VITALS: BP 141/72; PULSE 77; TEMP 36.7; O2SAT 96
--- NOTE | 2017-11-25 12:12 | Hospitalist Progress Note ---
Hospitalist Progress Note Date of Service Nov 25, 2017. (Anastasia Hebert .HANK) Subjective Pt evaluation today including: conversation w/ patient, physical exam, chart review, lab review, review of inpatient medication list Voiding: no voiding problems Mr. Catalan'chandana mental status continues to improved. He was alert and appropriate during our conversation today. Has not needed 1:1 sitter. ROS Constitutional: no chills, aches, sweats or fever Respiratory: no sob,cough, sputum, or wheezing Cardiac: no chest pain, palpitations, edema, orthopnea or lightheadedness GI: no abdominal pain, nausea, vomiting, diarrhea or constipation : no dysuria or hesitancy Extremities: no joint pain or weakness Skin: no rash All other systems reviewed and negative (Anastasia Hebert CRNP) Medications Medications Administered Medications (Trade) Dose Ordered Sig/Axel Route Start Time Stop Time Status Last Admin Dose Admin Sodium Chloride 250 ml @ 999 mls/hr Q16M STAT IV 11/21/17 09:58 11/21/17 10:13 DC 11/21/17 10:16 999 MLS/HR Sodium Chloride 1,000 ml @ 125 mls/hr Q8H STAT IV 11/21/17 09:58 11/21/17 16:09 DC 11/21/17 10:16 125 MLS/HR Ondansetron HCl (Zofran Inj) 4 mg NOW STAT IV 11/21/17 09:58 11/21/17 10:03 DC 11/21/17 10:17 4 MG Magnesium Sulfate (Magnesium Sulfate) 2 gm NOW STAT IV 11/21/17 11:22 11/21/17 11:23 DC 11/21/17 11:35 2 GM Potassium Chloride 10 meq/ Prmx 100 ml @ 100 mls/hr Q1H IV 11/21/17 12:30 11/21/17 14:29 DC 11/21/17 13:46 100 MLS/HR Heparin Sodium (Porcine) (Heparin Sq 5000 Unit/0.5ml) 5,000 unit Q12 SQ 11/21/17 21:00 12/21/17 20:59 Future Hold 11/23/17 08:04 5,000 UNIT Sodium Chloride 1,000 ml @ 100 mls/hr Q10H IV 11/21/17 18:00 11/22/17 17:48 DC 11/22/17 09:57 100 MLS/HR Atorvastatin Calcium (Lipitor Tab) 40 mg QAM PO 11/22/17 09:00 11/22/17 15:16 DC 11/22/17 08:19 40 MG Gabapentin (Neurontin Cap) 300 mg TID PO 11/21/17 14:00 12/21/17 13:59 Future Hold 11/22/17 08:19 300 MG Metoprolol Tartrate (Lopressor Tab) 25 mg BID PO 11/21/17 21:00 12/21/17 20:59 11/25/17 09:55 25 MG Promethazine HCl (Phenergan Tab) 12.5 mg Q6H PRN PO 11/21/17 13:15 12/21/17 13:14 11/21/17 17:47 12.5 MG Pantoprazole Sodium (Protonix Tab) 40 mg QAM PO 11/22/17 09:00 12/22/17 08:59 11/25/17 09:55 40 MG Insulin Aspart (novoLOG ASPART) SLIDING SCALE If C... ACHS SC 11/21/17 16:00 12/21/17 15:59 11/25/17 10:00 1 UNITS Levetiracetam (Keppra Tab) 750 mg BID PO 11/21/17 21:00 12/21/17 20:59 11/25/17 09:55 750 MG Sodium Chloride 500 ml @ 250 mls/hr Q2H IV 11/21/17 16:09 11/21/17 18:08 DC 11/21/17 16:23 250 MLS/HR Magnesium Sulfate 1 gm/Prmx 100 ml @ 100 mls/hr 1600 IV 11/21/17 16:00 11/21/17 16:59 DC 11/21/17 16:23 100 MLS/HR Prednisone (PredniSONE TAB) 5 mg BID PO 11/21/17 21:00 12/21/17 20:59 11/25/17 09:56 5 MG Hydrocortisone Sodium Succinate 100 mg/Syringe 2 ml @ 4 mls/min Q8H IV 11/21/17 18:00 11/22/17 21:00 DC 11/22/17 17:33 4 MLS/MIN Fentanyl (Duragesic Patch) 12 mcg Q48H TD 11/22/17 09:00 12/06/17 08:59 11/24/17 09:19 12 MCG Miscellaneous (Fentanyl Patch Remove & Waste) 1 ea Q48H N/A 11/22/17 09:00 12/22/17 08:59 11/24/17 09:19 1 EA Miscellaneous Information (Check Fentanyl Patch Placement) 1 ea QS N/A 11/22/17 00:00 12/22/17 00:00 11/25/17 10:01 1 EA Quetiapine Fumarate (seroQUEL TAB) 25 mg HS PO 11/23/17 21:00 12/23/17 20:59 11/24/17 20:19 25 MG (Anastasia Hebert CRNP) Objective Vital Signs Date Time Temp Pulse Resp B/P (MAP) Pulse Ox O2 Delivery O2 Flow Rate FiO2 11/25/17 11:46 36.7 77 16 141/72 (95) 96 Room Air 11/25/17 07:26 36.6 67 16 149/71 (97) 98 Room Air 11/25/17 00:00 94 Room Air 11/24/17 23:29 36.6 80 18 144/76 (98) 94 Room Air 11/24/17 20:18 75 149/81 (103) 11/24/17 19:36 37.2 75 18 146/76 (99) 97 Room Air 11/24/17 16:00 Room Air 11/24/17 15:03 36.7 70 20 135/72 (93) 96 (Anastasia Hebert CRNP) Physical Exam Notes: General: no distress Eyes: normal inspection, PERLL Respiratory: chest non tender, clear to auscultation, normal breath sounds, no respiratory distress, no accessory muscle use Cardiac: regular rate and rhythm, no rub or gallop, systolic murmur, no edema, no jvd GI/: active bowel sounds, no abd pain or tenderness, soft, non distended Extremities: normal range of motion, normal strength, non tender Neuro/Psych: alert and oriented x 3, normal mood and affect Skin: normal color, dry (Anastasia Hebert CRNP) Laboratory Results Last 24 Hours Test 11/24/17 16:38 11/24/17 20:14 11/25/17 07:28 2/15/18 11:50 Bedside Glucose 173 mg/dl 215 mg/dl 149 mg/dl 183 mg/dl (Anastasia Hebert .HANK) Assessment and Plan Mr. Catalan is an 82 year old man here for seizure like activity. According to ED records he had an episode of seizure like activity at [facility] as well as an episode with hypoxia with EMS. He has a history of metastatic prostate cancer and it was felt that the diarrhea he has been experiencing over the last couple weeks was likely due to his cancer treatment. ?Seizure - increased Keppra from 500 mg to 750 mg bid - consulted neurology - no further intervention from their end - EEG was normal - CT negative for acute process - no seizure activity during admission Hyponatremia - gentle IVF @ 100 ml/hr was given initially, then po fluid restriction which can be discontinued at this point - resolved Orthostasis - patient became dizzy and pale when head of bed raised and his BP went 80/40 from sbp in the 120s upon admission - 500 ml bolus IVF and stress dosed steroids - resolved Hypomagnesemia - Mag 1.2 - replaced - resolved Prostate Ca with met - discontinued Xtandi and Jakafi - discontinued Lupron - consulted Heme/Onc and radiation oncology - no further benefit from chemo or radiation - continue fentanyl patch for pain, promethazine, zofran for nausea DM II - bsg ac and hs - hold sulfonylurea and metformin in patient - restart for discharge - ss while inpatient Persistent diarrhea - Xtandi and Jakafi held - resolved Hypothermia - Mariano hugger - resolved GERD - protonix po HLD - discontinued atorvastatin HTN - continue metoprolol 25 mg Insomnia - started Seroquel which patient reported worked well. Consulted palliative care, their recommendation, as well as that from oncology was for hospice. Family is concerned about patient returning to [facility]'s SNF as he recently lost his to cancer there and they feel it may be traumatic so they are investigating alternatives with CM. Apparently though patient's mental status has improved, [facility] is not willing to take him back at personal care without 24 hour youth care specialist until they are sure he will not wander. (Anastasia Hebert CRNP) LICENSED CLINICIAN Physician Supervision Note: I interviewed and examined the patient. Discussed with Anastasia Hebert NP and agree with findings and plan as documented in the note. Any exceptions or clarifications are listed here: None Patient is in no significant distress mildly confused he is in marked distress and we cannot secure disposition for him. The family wished from the personal care over cannot do that on hospice care. The family is reportedly arranging 24 care services at his personal care residence. The patient vital signs are stable with exception of mild elevated systolic blood pressure Patient's skin is covered with actinic keratoses his heart is regular lungs are clear he is oriented to person place and time although in further deeper questioning he does have some mild confusion it's unclear whether this is enough to warrant the need for 20 for care however hospice services would require that Metastatic prostate cancer here with likely encephalopathy from chemotherapy which is clearing supportive care until secure disposition to be undertaken Documented By: Jony Becerril (Jony Becerril M.D.)
[2017-11-25 16:01] VITALS: BP 150/75; PULSE 68; TEMP 36.5; O2SAT 98
[2017-11-25 19:43] VITALS: BP 126/71; PULSE 72; TEMP 36.4; O2SAT 100
[2017-11-25] MEDS: QUETIAPINE FUMARATE 25 MG TAB PO SCH (21:18)
[2017-11-25 23:42] VITALS: BP 138/58; PULSE 65; TEMP 36.3; O2SAT 97
[2017-11-26] VITALS (9 sets, daily range): BP systolic 120–150; BP diastolic 52–75; PULSE 63–78; TEMP 36.3–36.8; O2SAT 95–99
[2017-11-26] MEDS: CHECK FENTANYL PATCH PLACEMENT SCH ×3 (01:24→16:11)
--- NOTE | 2017-11-26 08:51 | Hospitalist Progress Note ---
Hospitalist Progress Note Date of Service Nov 26, 2017. (Sara Gonzalez PA-C) Subjective Pt evaluation today including: conversation w/ patient, physical exam, chart review, lab review, review of studies Pain: None PO Intake: Fair Voiding: no voiding problems The patient was seen and examined this morning. Patient reports feeling well today. He has no acute complaints other than having a dry mouth but this is been chronic for him. Patient is waiting 24 hour caregivers to be available for him to be discharged to [facility]. Discussion was held regarding this with case management, and as of Wednesday evening 24hr care is available. ROS: Constitutional: No fever, sweats or chills Eyes: No diplopia, no worsening or blurred vision ENT: normal hearing, no trouble swallowing Respiratory: No cough, sputum, dyspnea at rest or on exertion Cardiovascular: No chest pain, tightness or palpitations Abdomen: No pain, nausea, vomiting, diarrhea or constipation Musculoskeletal: No joint pain, calf pain, swelling Neurologic: No weakness, numbness/tingling, or balance problems Psychiatric: No anxiety or depression Skin: No rash or itch (Sara Gonzalez PA-C) Objective Vital Signs Date Time Temp Pulse Resp B/P (MAP) Pulse Ox O2 Delivery O2 Flow Rate FiO2 11/26/17 07:45 36.7 66 18 126/52 (76) 96 Room Air 11/26/17 03:53 36.6 63 16 150/75 (100) 95 Room Air 11/26/17 00:00 Room Air 11/25/17 23:42 36.3 65 16 138/58 (84) 97 Room Air 11/25/17 19:43 36.4 72 20 126/71 (89) 100 Room Air 11/25/17 16:36 Room Air 11/25/17 16:01 36.5 68 18 150/75 (100) 98 Room Air 11/25/17 11:46 36.7 77 16 141/72 (95) 96 Room Air 11/25/17 10:00 Room Air (Sara Gonzalez PA-C) Physical Exam General Appearance: WD/WN, + mild distress, + thin, + pertinent finding ( Multiple areas of actinic keratosis overlying skin) Eyes: PERRL, EOMI ENT: hearing grossly normal, + pertinent finding (Mucous membranes are dry) Neck: supple, no JVD Respiratory/Chest: lungs clear, no respiratory distress, no accessory muscle use Cardiovascular: regular rate, rhythm, no JVD, + systolic murmur (Grade III/ at the RSB) Abdomen: normal bowel sounds, non tender, soft Extremities: non-tender, no pedal edema, no calf tenderness Neurologic/Psychiatric: alert, normal mood/affect, oriented x 3 Skin: normal color, warm/dry (Sara Gonzalez PA-C) Laboratory Results Last 24 Hours Test 11/25/17 11:50 11/25/17 16:46 11/25/17 20:23 11/26/17 07:45 Bedside Glucose 183 mg/dl 189 mg/dl 230 mg/dl 162 mg/dl (Sara Gonzalez PA-C) Assessment and Plan Mr. Catalan is an 82 year old man here for seizure like activity. According to ED records he had an episode of seizure like activity at [facility] as well as an episode with hypoxia with EMS. He has a history of metastatic prostate cancer and it was felt that the diarrhea he has been experiencing over the last couple weeks was likely due to his cancer treatment. Seizure like activity - seizure precautions - increased Keppra from 500 mg to 750 mg bid - no sx since increased dosage. Pt denies fatigue or drowsiness. - consulted neurology - appreciate recs. - EEG was normal - CT negative for acute process Hyponatremia - resolved - gentle IVF @ 100 ml/hr was given initially, then po fluid restriction - no further fluid restriction for discharge - check prp tomorrow am Orthostasis - patient became dizzy and pale when head of bed raised and his BP went 80/40 from sbp in the 120s upon admission - 500 ml bolus IVF and stress dosed steroids - resolved Hypomagnesemia - Mag 1.2 - replaced - resolved Prostate Ca with met - discontinued Xtandi and Jakafi chemotherapy agents - discontinued Lupron - consulted Heme/Onc and radiation oncology - no further benefit from chemo or radiation - appreciate recs - continue fentanyl patch for pain, promethazine, zofran for nausea - Per Dr. Chaparro note today the pt was admitting to hallucinations, pt did not provide me with this information - recommending holding seroquel as this was started during this admission. Possible that hallucinations could also be from steriods, but also possible that this is partially hospital acquired delirium. 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 Hypothermia - Mariano hugger - resolved GERD - protonix po HLD - discontinued atorvastatin for home HTN - continue metoprolol 25 mg Consulted palliative care, their recommendation, as well as that from oncology was for hospice which patient will return to [facility] on. CODE STATUS: DNR Disposition: Plan for discharge to [facility] on Hospice, on Wednesday as long as family can stay with pt until 24 hr caregivers are there for evening shift. (Sara Gonzalez, PABrianC) i personally examined pt and verified all fernandez points jocelin Gonzalez PAC feeling ok worried because he's having a few hallucinations here and there but otherwise cognitively OK no other new complaitns vitals noted nad breathing unlabored no pallor or icterus metastatic prostate cancer -palliative care -anticipate home w hospice once set up otherwise as above mild delirium - reassurance, supportive care (Macario Chilel D.O.)
[2017-11-26] MEDS: PANTOprazole SOD 40 MG TAB PO SCH (09:00)
[2017-11-26] MEDS: LEVETIRACETAM 500 MG TAB PO SCH ×2 (09:00→20:37)
[2017-11-26] MEDS: METOPROLOL TARTRATE 25 MG TAB PO SCH ×2 (09:00→20:38)
[2017-11-26] MEDS: FENTANYL 12 MCG/HR TDSY TD SCH (09:06)
[2017-11-26] MEDS: INSULIN ASPART 100 UNITS/ML 3 ML PEN SC SCH ×4 (09:09→20:46)
[2017-11-26] MEDS: FENTANYL PATCH REMOVE & WASTE SCH (09:09)
--- NOTE | 2017-11-26 13:48 | Hematology/Oncology Prog Note ---
Hematology/Onc Progress Note Date of Service Nov 26, 2017. Diagnoses Metastatic castrate resistant prostate carcinoma Medications Medications Administered Medications (Trade) Dose Ordered Sig/Axel Route Start Time Stop Time Status Last Admin Dose Admin Sodium Chloride 250 ml @ 999 mls/hr Q16M STAT IV 11/21/17 09:58 11/21/17 10:13 DC 11/21/17 10:16 999 MLS/HR Sodium Chloride 1,000 ml @ 125 mls/hr Q8H STAT IV 11/21/17 09:58 11/21/17 16:09 DC 11/21/17 10:16 125 MLS/HR Ondansetron HCl (Zofran Inj) 4 mg NOW STAT IV 11/21/17 09:58 11/21/17 10:03 DC 11/21/17 10:17 4 MG Magnesium Sulfate (Magnesium Sulfate) 2 gm NOW STAT IV 11/21/17 11:22 11/21/17 11:23 DC 11/21/17 11:35 2 GM Potassium Chloride 10 meq/ Prmx 100 ml @ 100 mls/hr Q1H IV 11/21/17 12:30 11/21/17 14:29 DC 11/21/17 13:46 100 MLS/HR Heparin Sodium (Porcine) (Heparin Sq 5000 Unit/0.5ml) 5,000 unit Q12 SQ 11/21/17 21:00 12/21/17 20:59 Future Hold 11/23/17 08:04 5,000 UNIT Sodium Chloride 1,000 ml @ 100 mls/hr Q10H IV 11/21/17 18:00 11/22/17 17:48 DC 11/22/17 09:57 100 MLS/HR Atorvastatin Calcium (Lipitor Tab) 40 mg QAM PO 11/22/17 09:00 11/22/17 15:16 DC 11/22/17 08:19 40 MG Gabapentin (Neurontin Cap) 300 mg TID PO 11/21/17 14:00 12/21/17 13:59 Future Hold 11/22/17 08:19 300 MG Metoprolol Tartrate (Lopressor Tab) 25 mg BID PO 11/21/17 21:00 12/21/17 20:59 11/26/17 09:00 25 MG Promethazine HCl (Phenergan Tab) 12.5 mg Q6H PRN PO 11/21/17 13:15 12/21/17 13:14 11/21/17 17:47 12.5 MG Pantoprazole Sodium (Protonix Tab) 40 mg QAM PO 11/22/17 09:00 12/22/17 08:59 11/26/17 09:00 40 MG Insulin Aspart (novoLOG ASPART) SLIDING SCALE If C... ACHS SC 11/21/17 16:00 12/21/17 15:59 11/26/17 12:26 1 UNITS Levetiracetam (Keppra Tab) 750 mg BID PO 11/21/17 21:00 12/21/17 20:59 11/26/17 09:00 750 MG Sodium Chloride 500 ml @ 250 mls/hr Q2H IV 11/21/17 16:09 11/21/17 18:08 DC 11/21/17 16:23 250 MLS/HR Magnesium Sulfate 1 gm/Prmx 100 ml @ 100 mls/hr 1600 IV 11/21/17 16:00 11/21/17 16:59 DC 11/21/17 16:23 100 MLS/HR Prednisone (PredniSONE TAB) 5 mg BID PO 11/21/17 21:00 12/21/17 20:59 11/26/17 09:00 5 MG Hydrocortisone Sodium Succinate 100 mg/Syringe 2 ml @ 4 mls/min Q8H IV 11/21/17 18:00 11/22/17 21:00 DC 11/22/17 17:33 4 MLS/MIN Fentanyl (Duragesic Patch) 12 mcg Q48H TD 11/22/17 09:00 12/06/17 08:59 11/26/17 09:06 12 MCG Miscellaneous (Fentanyl Patch Remove & Waste) 1 ea Q48H N/A 11/22/17 09:00 12/22/17 08:59 11/26/17 09:09 1 EA Miscellaneous Information (Check Fentanyl Patch Placement) 1 ea QS N/A 11/22/17 00:00 12/22/17 00:00 11/26/17 08:00 1 EA Quetiapine Fumarate (seroQUEL TAB) 25 mg HS PO 11/23/17 21:00 12/23/17 20:59 11/25/17 21:18 25 MG Subjective Seems to be doing fairly well. Complaining about the lunch that he has had today. He states also that he has been having nightmares and or seeing images through the day. Pain seems well controlled Review of Systems: Constitutional: Negative for night sweats, or fever Eyes: Negative for event change of vision ENT: Negative for epistaxis, nasal discharge, sore throat, or deafness Cardiovascular: Negative for chest pain, palpitations, dizziness, diaphoresis Respiratory: Negative for new shortness of breath,hemoptysis, or purulent cough Gastrointestinal: Negative for diarrhea, hematemesis, melena, nausea, vomiting , or dyspepsia Integumentary (skin): Negative for rash or jaundice discoloration Neurological: Negative for weakness, seizure activity, headache, or dizziness. Does complain of "seeing things". Lymphatic/Hematologic: Negative for petechiae, bleeding or new adenopathy Musculoskeletal: Negative for new joint or back pain Allergic/Immunologic: Negative for unusual rash or pruritis. Vital Signs Vital Signs Past 12 Hours Date Time Temp Pulse Resp B/P (MAP) Pulse Ox O2 Delivery O2 Flow Rate FiO2 11/26/17 13:24 36.3 64 20 122/60 (80) 97 Room Air 11/26/17 10:21 96 Room Air 11/26/17 07:45 36.7 66 18 126/52 (76) 96 Room Air 11/26/17 03:53 36.6 63 16 150/75 (100) 95 Room Air Physical Exam Constitutional: vitals are stable. Eyes: Eyes are KIMBERLEE EOMI without conjuctival erythema or icterus. ENT: External examination was negative for masses. Neck: Negative for masses or palpable thyromegaly Respiratory: Lung sounds were generally clear bilaterally Cardiovascular: Heart was RRR without significant murmur, gallops aoe rubs Gastrointestinal: No palpable hepatic or splenomegaly. The abdomen was soft with normal bowel sounds. Lymphatic system: there was no palpable peripheral lymphadenopathy Musculoskeletal System: The musculoskeletal system seemed concordant with age. Skin: The skin was negative for jaundice. Neurologic exam: The exam was negative for any focal findings. Deep tendon reflexes were equal and symmetrical. Psychiatric exam: Was essentially negative with normal mood and effect. Extremities: negative for edema Laboratory Last 24 Hours Test 11/25/17 16:46 11/25/17 20:23 11/26/17 07:45 11/26/17 11:28 Bedside Glucose 189 mg/dl 230 mg/dl 162 mg/dl 159 mg/dl Assessment & Plan Castrate resistant prostate carcinoma. It would be difficult to consider systemic therapy. His performance status is easily graded at 3.0. Hospice is being coordinated. I suspect discharge is rather imminent. He does complain of seeing images and hallucinations. This is been occurring since he has been hospitalized and not before. I see that he is on Seroquel and perhaps stopping that drug would be helpful.
[2017-11-27] VITALS (9 sets, daily range): BP systolic 123–189; BP diastolic 66–77; PULSE 64–72; TEMP 36.3–36.7; O2SAT 97–98
[2017-11-27] MEDS: CHECK FENTANYL PATCH PLACEMENT SCH ×3 (00:11→15:35)
[2017-11-27 08:04] LABS: CREATININE 0.9 mg/dl (0.60-1.40); POTASSIUM 3.9 mmol/L (3.5-5.1)
[2017-11-27] MEDS: INSULIN ASPART 100 UNITS/ML 3 ML PEN SC SCH ×4 (08:08→20:09)
[2017-11-27] MEDS: METOPROLOL TARTRATE 25 MG TAB PO SCH ×2 (08:11→19:55)
[2017-11-27] MEDS: LEVETIRACETAM 500 MG TAB PO SCH ×2 (08:11→19:52)
[2017-11-27] MEDS: PANTOprazole SOD 40 MG TAB PO SCH (08:12)
[2017-11-27] MEDS: PROMETHAZINE HCL 25 MG TAB PO PRN (09:02)
--- NOTE | 2017-11-27 11:12 | Hospitalist Progress Note ---
Hospitalist Progress Note Date of Service Nov 27, 2017. (Anastasia Hebert CRNP) Subjective Pt evaluation today including: conversation w/ patient, physical exam, chart review, lab review, review of inpatient medication list Voiding: no voiding problems Mr. Catalan had an episode of emesis this morning while eating breakfast, he is unsure why and doesn't feel nauseas though he does feel very dry. ROS Constitutional: no chills, aches, sweats or fever Respiratory: no sob,cough, sputum, or wheezing Cardiac: no chest pain, palpitations, edema, orthopnea or lightheadedness GI: no abdominal pain, diarrhea or constipation : no dysuria or hesitancy Extremities: no joint pain or weakness Skin: no rash All other systems reviewed and negative (Anastasia Hebert CRNP) Medications Medications Administered Medications (Trade) Dose Ordered Sig/Axel Route Start Time Stop Time Status Last Admin Dose Admin Sodium Chloride 250 ml @ 999 mls/hr Q16M STAT IV 11/21/17 09:58 11/21/17 10:13 DC 11/21/17 10:16 999 MLS/HR Sodium Chloride 1,000 ml @ 125 mls/hr Q8H STAT IV 11/21/17 09:58 11/21/17 16:09 DC 11/21/17 10:16 125 MLS/HR Ondansetron HCl (Zofran Inj) 4 mg NOW STAT IV 11/21/17 09:58 11/21/17 10:03 DC 11/21/17 10:17 4 MG Magnesium Sulfate (Magnesium Sulfate) 2 gm NOW STAT IV 11/21/17 11:22 11/21/17 11:23 DC 11/21/17 11:35 2 GM Potassium Chloride 10 meq/ Prmx 100 ml @ 100 mls/hr Q1H IV 11/21/17 12:30 11/21/17 14:29 DC 11/21/17 13:46 100 MLS/HR Heparin Sodium (Porcine) (Heparin Sq 5000 Unit/0.5ml) 5,000 unit Q12 SQ 11/21/17 21:00 12/21/17 20:59 Future Hold 11/23/17 08:04 5,000 UNIT Sodium Chloride 1,000 ml @ 100 mls/hr Q10H IV 11/21/17 18:00 11/22/17 17:48 DC 11/22/17 09:57 100 MLS/HR Atorvastatin Calcium (Lipitor Tab) 40 mg QAM PO 11/22/17 09:00 11/22/17 15:16 DC 11/22/17 08:19 40 MG Gabapentin (Neurontin Cap) 300 mg TID PO 11/21/17 14:00 12/21/17 13:59 Future Hold 11/22/17 08:19 300 MG Metoprolol Tartrate (Lopressor Tab) 25 mg BID PO 11/21/17 21:00 12/21/17 20:59 11/27/17 08:11 25 MG Promethazine HCl (Phenergan Tab) 12.5 mg Q6H PRN PO 11/21/17 13:15 12/21/17 13:14 11/27/17 09:02 12.5 MG Pantoprazole Sodium (Protonix Tab) 40 mg QAM PO 11/22/17 09:00 12/22/17 08:59 11/27/17 08:12 40 MG Insulin Aspart (novoLOG ASPART) SLIDING SCALE If C... ACHS SC 11/21/17 16:00 12/21/17 15:59 11/27/17 08:08 1 UNITS Levetiracetam (Keppra Tab) 750 mg BID PO 11/21/17 21:00 12/21/17 20:59 11/27/17 08:11 750 MG Sodium Chloride 500 ml @ 250 mls/hr Q2H IV 11/21/17 16:09 11/21/17 18:08 DC 11/21/17 16:23 250 MLS/HR Magnesium Sulfate 1 gm/Prmx 100 ml @ 100 mls/hr 1600 IV 11/21/17 16:00 11/21/17 16:59 DC 11/21/17 16:23 100 MLS/HR Prednisone (PredniSONE TAB) 5 mg BID PO 11/21/17 21:00 12/21/17 20:59 11/27/17 08:12 5 MG Hydrocortisone Sodium Succinate 100 mg/Syringe 2 ml @ 4 mls/min Q8H IV 11/21/17 18:00 11/22/17 21:00 DC 11/22/17 17:33 4 MLS/MIN Fentanyl (Duragesic Patch) 12 mcg Q48H TD 11/22/17 09:00 12/06/17 08:59 11/26/17 09:06 12 MCG Miscellaneous (Fentanyl Patch Remove & Waste) 1 ea Q48H N/A 11/22/17 09:00 12/22/17 08:59 11/26/17 09:09 1 EA Miscellaneous Information (Check Fentanyl Patch Placement) 1 ea QS N/A 11/22/17 00:00 12/22/17 00:00 11/27/17 08:10 1 EA Quetiapine Fumarate (seroQUEL TAB) 25 mg HS PO 11/23/17 21:00 11/26/17 15:22 DC 11/25/17 21:18 25 MG (Anastasia Hebert CRNP) Objective Vital Signs Date Time Temp Pulse Resp B/P (MAP) Pulse Ox O2 Delivery O2 Flow Rate FiO2 11/27/17 06:50 36.3 65 18 123/72 (89) 98 Room Air 11/27/17 03:00 64 157/75 (102) 11/27/17 02:40 36.4 64 18 172/77 (108) 97 Room Air 11/27/17 01:00 Room Air 11/26/17 23:41 36.8 78 20 136/68 (90) 98 Room Air 11/26/17 20:30 Room Air 11/26/17 20:00 76 20 150/70 (96) 97 Room Air 11/26/17 16:00 99 Room Air 11/26/17 14:54 36.3 64 16 120/75 (90) 99 11/26/17 13:24 36.3 64 20 122/60 (80) 97 Room Air (Anastasia Hebert CRNP) Physical Exam Notes: General: no distress Eyes: normal inspection, PERLL Respiratory: chest non tender, clear to auscultation, normal breath sounds, no respiratory distress, no accessory muscle use Cardiac: regular rate and rhythm, no rub or gallop, systolic murmur, no edema, no jvd GI/: active bowel sounds, no abd pain or tenderness, soft, non distended Extremities: normal range of motion, normal strength, non tender Neuro/Psych: alert and oriented x 3, normal mood and affect Skin: normal color, dry mucous membranes (Anastasia Hebert CRNP) Laboratory Results Last 24 Hours Test 11/26/17 11:28 11/26/17 16:22 11/26/17 20:18 11/27/17 07:15 Bedside Glucose 159 mg/dl 243 mg/dl 192 mg/dl Sodium Level 135 mmol/L Potassium Level 3.9 mmol/L Chloride Level 101 mmol/L Carbon Dioxide Level 25 mmol/L Anion Gap 9.0 mmol/L Blood Urea Nitrogen 16 mg/dl Creatinine 0.90 mg/dl Est Creatinine Clear Calc Drug Dose 51.7 ml/min Estimated GFR () 90.6 Estimated GFR (Non- 78.2 BUN/Creatinine Ratio 18.1 Random Glucose 177 mg/dl Calcium Level 8.0 mg/dl Test 11/27/17 07:49 Bedside Glucose 158 mg/dl (Anastasia Hebert CRNP) Assessment and Plan Mr. Catalan is an 82 year old man here for seizure like activity. According to ED records he had an episode of seizure like activity at [facility] as well as an episode with hypoxia with EMS. He has a history of metastatic prostate cancer and it was felt that the diarrhea he has been experiencing over the last couple weeks was likely due to his cancer treatment. ?Seizure - increased Keppra from 500 mg to 750 mg bid - consulted neurology - no further intervention from their end - EEG was normal - CT negative for acute process - no seizure activity during admission Hyponatremia - gentle IVF @ 100 ml/hr was given initially, then po fluid restriction which has since been discontinued - will give 500 ml at 100 ml/hr today as patient appears dry - resolved Orthostasis - patient became dizzy and pale when head of bed raised and his BP went 80/40 from sbp in the 120s upon admission - 500 ml bolus IVF and stress dosed steroids - resolved Hypomagnesemia - Mag 1.2 - replaced - resolved Prostate Ca with met - discontinued Xtandi and Jakafi - discontinued Lupron - consulted Heme/Onc and radiation oncology - no further benefit from chemo or radiation - continue fentanyl patch for pain, promethazine, zofran for nausea DM II - bsg ac and hs - hold sulfonylurea and metformin in patient - restart for discharge - ss while inpatient Persistent diarrhea - Xtandi and Jakafi held - resolved Hypothermia - Mariano hugger - resolved GERD - protonix po HLD - discontinued atorvastatin HTN - continue metoprolol 25 mg Insomnia - discontinued seroquel started inpatient as patient was reporting some hallucinations since starting it. Consulted palliative care, their recommendation, as well as that from oncology was for hospice. Family is concerned about patient returning to [facility]'s SNF as he recently lost his to cancer there and they feel it may be traumatic. Plan is for family to take patient to [facility] personal care with 24 hour care givers tomorrow. (Anastasia Hebert ., HANK) i personally examined pt and verified all fernandez points w Liliana MCKINNEY feeling ok pain controlled family present answered questions and they reiterated that plan will be to get home tomorrow w care vitals noted nad breathing unlabored no pallor or icterus metastatic prostate cancer -for home, palliative care, anticipate this being tomorrow (Macario Chilel D.Sonia.)
[2017-11-27] MEDS: SODIUM CHLORIDE 0.9% 500ML 500 ML IV SCH ×3 (13:12→21:25)
[2017-11-27] MEDS: ONDANSETRON 8 MG TAB PO SCH (19:52)
[2017-11-28] MEDS: CHECK FENTANYL PATCH PLACEMENT SCH ×3 (00:04→15:20)
[2017-11-28] MEDS: SODIUM CHLORIDE 0.9% 500ML 500 ML IV SCH ×3 (02:58→12:43)
[2017-11-28 03:51] VITALS: BP 119/72; PULSE 67; TEMP 36.7; O2SAT 93
[2017-11-28 08:00] VITALS: O2SAT 93
[2017-11-28] MEDS: INSULIN ASPART 100 UNITS/ML 3 ML PEN SC SCH ×2 (08:16→12:42)
[2017-11-28] MEDS: LEVETIRACETAM 500 MG TAB PO SCH (08:19)
[2017-11-28] MEDS: METOPROLOL TARTRATE 25 MG TAB PO SCH (08:20)
[2017-11-28] MEDS: PANTOprazole SOD 40 MG TAB PO SCH (08:20)
[2017-11-28] MEDS: ONDANSETRON 8 MG TAB PO SCH (08:21)
[2017-11-28 08:22] VITALS: BP 160/77; PULSE 64; TEMP 36.5; O2SAT 98
[2017-11-28] MEDS: FENTANYL PATCH REMOVE & WASTE SCH (08:22)
[2017-11-28] MEDS: FENTANYL 12 MCG/HR TDSY TD SCH (08:35)
[2017-11-28 11:31] VITALS: BP 137/70; PULSE 63; TEMP 36.7; O2SAT 98
[2017-11-28 14:10] VITALS: BP 137/70; PULSE 63; TEMP 36.7; O2SAT 98
--- NOTE | 2017-11-28 15:55 | Hospitalist Progress Note ---
Hospitalist Progress Note Date of Service Nov 28, 2017. (Anastasia Hebert CRNP) Subjective Pt evaluation today including: conversation w/ patient, physical exam, chart review, lab review, review of inpatient medication list Voiding: no voiding problems Mr. Catalan is doing well today. He is looking forward to going to [employer] this afternoon. ROS Constitutional: no chills, aches, sweats or fever Respiratory: no sob,cough, sputum, or wheezing Cardiac: no chest pain, palpitations, edema, orthopnea or lightheadedness GI: no abdominal pain, nausea, vomiting, diarrhea or constipation : no dysuria or hesitancy Extremities: no joint pain or weakness Skin: no rash All other systems reviewed and negative (Anastasia Hebert CRNP) Medications Medications Administered Medications (Trade) Dose Ordered Sig/Axel Route Start Time Stop Time Status Last Admin Dose Admin Sodium Chloride 250 ml @ 999 mls/hr Q16M STAT IV 11/21/17 09:58 11/21/17 10:13 DC 11/21/17 10:16 999 MLS/HR Sodium Chloride 1,000 ml @ 125 mls/hr Q8H STAT IV 11/21/17 09:58 11/21/17 16:09 DC 11/21/17 10:16 125 MLS/HR Ondansetron HCl (Zofran Inj) 4 mg NOW STAT IV 11/21/17 09:58 11/21/17 10:03 DC 11/21/17 10:17 4 MG Magnesium Sulfate (Magnesium Sulfate) 2 gm NOW STAT IV 11/21/17 11:22 11/21/17 11:23 DC 11/21/17 11:35 2 GM Potassium Chloride 10 meq/ Prmx 100 ml @ 100 mls/hr Q1H IV 11/21/17 12:30 11/21/17 14:29 DC 11/21/17 13:46 100 MLS/HR Heparin Sodium (Porcine) (Heparin Sq 5000 Unit/0.5ml) 5,000 unit Q12 SQ 11/21/17 21:00 12/21/17 20:59 Future Hold 11/23/17 08:04 5,000 UNIT Sodium Chloride 1,000 ml @ 100 mls/hr Q10H IV 11/21/17 18:00 11/22/17 17:48 DC 11/22/17 09:57 100 MLS/HR Atorvastatin Calcium (Lipitor Tab) 40 mg QAM PO 11/22/17 09:00 11/22/17 15:16 DC 11/22/17 08:19 40 MG Gabapentin (Neurontin Cap) 300 mg TID PO 11/21/17 14:00 12/21/17 13:59 Future Hold 11/22/17 08:19 300 MG Metoprolol Tartrate (Lopressor Tab) 25 mg BID PO 11/21/17 21:00 12/21/17 20:59 11/28/17 08:20 25 MG Promethazine HCl (Phenergan Tab) 12.5 mg Q6H PRN PO 11/21/17 13:15 12/21/17 13:14 11/27/17 09:02 12.5 MG Pantoprazole Sodium (Protonix Tab) 40 mg QAM PO 11/22/17 09:00 12/22/17 08:59 11/28/17 08:20 40 MG Insulin Aspart (novoLOG ASPART) SLIDING SCALE If C... ACHS SC 11/21/17 16:00 12/21/17 15:59 11/28/17 12:42 2 UNITS Levetiracetam (Keppra Tab) 750 mg BID PO 11/21/17 21:00 12/21/17 20:59 11/28/17 08:19 750 MG Sodium Chloride 500 ml @ 250 mls/hr Q2H IV 11/21/17 16:09 11/21/17 18:08 DC 11/21/17 16:23 250 MLS/HR Magnesium Sulfate 1 gm/Prmx 100 ml @ 100 mls/hr 1600 IV 11/21/17 16:00 11/21/17 16:59 DC 11/21/17 16:23 100 MLS/HR Prednisone (PredniSONE TAB) 5 mg BID PO 11/21/17 21:00 12/21/17 20:59 11/28/17 08:20 5 MG Hydrocortisone Sodium Succinate 100 mg/Syringe 2 ml @ 4 mls/min Q8H IV 11/21/17 18:00 11/22/17 21:00 DC 11/22/17 17:33 4 MLS/MIN Fentanyl (Duragesic Patch) 12 mcg Q48H TD 11/22/17 09:00 12/06/17 08:59 11/28/17 08:35 12 MCG Miscellaneous (Fentanyl Patch Remove & Waste) 1 ea Q48H N/A 11/22/17 09:00 12/22/17 08:59 11/28/17 08:22 1 EA Miscellaneous Information (Check Fentanyl Patch Placement) 1 ea QS N/A 11/22/17 00:00 12/22/17 00:00 11/28/17 08:11 1 EA Quetiapine Fumarate (seroQUEL TAB) 25 mg HS PO 11/23/17 21:00 11/26/17 15:22 DC 11/25/17 21:18 25 MG Sodium Chloride 500 ml @ 100 mls/hr Q5H IV 11/27/17 11:15 12/27/17 11:14 11/28/17 12:43 100 MLS/HR Ondansetron HCl (Zofran Tab) 8 mg BID PO 11/27/17 20:00 12/27/17 19:59 11/28/17 08:21 8 MG (Anastasia Hebert CRNP) Objective Vital Signs Date Time Temp Pulse Resp B/P (MAP) Pulse Ox O2 Delivery O2 Flow Rate FiO2 11/28/17 14:10 36.7 63 16 98 Room Air 11/28/17 11:31 36.7 63 16 137/70 (92) 98 Room Air 11/28/17 08:22 36.5 64 16 160/77 (104) 98 Room Air 11/28/17 08:00 93 Room Air 11/28/17 03:51 36.7 67 20 119/72 (88) 93 Room Air 11/28/17 00:30 Room Air 11/27/17 23:47 36.4 72 20 189/77 (114) 97 Room Air 11/27/17 21:30 Room Air 11/27/17 19:35 36.7 72 20 128/66 (86) 98 Room Air 11/27/17 16:00 98 Room Air (Anastasia Hebert CRNP) Physical Exam Notes: General: no distress Eyes: normal inspection, PERLL Respiratory: chest non tender, clear to auscultation, normal breath sounds, no respiratory distress, no accessory muscle use Cardiac: regular rate and rhythm, no rub or gallop, no murmur, no edema, no jvd GI/: active bowel sounds, no abd pain or tenderness, soft, non distended Extremities: normal range of motion, normal strength, non tender Neuro/Psych: alert and oriented x 3, normal mood and affect Skin: normal color, dry (Anastasia Hebert CRNP) Laboratory Results Last 24 Hours Test 11/27/17 16:34 11/27/17 19:42 11/28/17 08:10 11/28/17 11:51 Bedside Glucose 202 mg/dl 179 mg/dl 151 mg/dl 181 mg/dl (Anastasia Hebert CRNP) Assessment and Plan Mr. Catalan is an 82 year old man here for seizure like activity. According to ED records he had an episode of seizure like activity at [facility] as well as an episode with hypoxia with EMS. He has a history of metastatic prostate cancer and it was felt that the diarrhea he has been experiencing over the last couple weeks was likely due to his cancer treatment. ?Seizure - increased Keppra from 500 mg to 750 mg bid - consulted neurology - no further intervention from their end - EEG was normal - CT negative for acute process - no seizure activity during admission Hyponatremia - gentle IVF @ 100 ml/hr was given initially, then po fluid restriction which has since been discontinued - will give 500 ml at 100 ml/hr today as patient appears dry - resolved Orthostasis - patient became dizzy and pale when head of bed raised and his BP went 80/40 from sbp in the 120s upon admission - 500 ml bolus IVF and stress dosed steroids - resolved Hypomagnesemia - Mag 1.2 - replaced - resolved Prostate Ca with met - discontinued Xtandi and Jakafi - discontinued Lupron - consulted Heme/Onc and radiation oncology - no further benefit from chemo or radiation - continue fentanyl patch for pain, promethazine, zofran for nausea DM II - bsg ac and hs - hold sulfonylurea and metformin in patient - restart for discharge - ss while inpatient Persistent diarrhea - Xtandi and Jakafi held - resolved Hypothermia - Mariano hugger - resolved GERD - protonix po HLD - discontinued atorvastatin HTN - continue metoprolol 25 mg Insomnia - discontinued seroquel started inpatient as patient was reporting some hallucinations since starting it. Consulted palliative care, their recommendation, as well as that from oncology was for hospice. Family is concerned about patient returning to [facility]'s SNF as he recently lost his to cancer there and they feel it may be traumatic. Plan is for family to take patient to [facility] personal care with 24 hour care givers this afternoon (Anastasia Hebert ., HANK) see addendum to discharge summary (Macario Chilel D.O.)
== END 2017-11-28 17:07 | disposition home or self-care (01) | DRG 101 ==
LOC: EDBD 09:42 → C.EDB 09:43 → C.2T 13:36 → ENRESERV 14:36 → CANRESERV 11-22 12:21 → ENRESERV 11-22 13:05 → C.4E 11-22 13:28
PROVIDERS: ADMIT Internal Medicine; ATTEND Family Medicine
DX: R56.9 Unspecified convulsions (principal); E87.1 Hypo-osmolality and hyponatremia; C79.51 Secondary malignant neoplasm of bone; C79.31 Secondary malignant neoplasm of brain; E11.9 Type 2 diabetes mellitus without complications; E78.5 Hyperlipidemia, unspecified; I10 Essential (primary) hypertension; D45 Polycythemia vera; C61 Malignant neoplasm of prostate; E83.42 Hypomagnesemia; E87.6 Hypokalemia; I95.9 Hypotension, unspecified; G47.00 Insomnia, unspecified; R19.7 Diarrhea, unspecified; L72.3 Sebaceous cyst; E86.0 Dehydration; Z86.73 Personal history of transient ischemic attack (TIA), and cerebral infarction without residual deficits; Z92.3 Personal history of irradiation; Z79.84 Long term (current) use of oral hypoglycemic drugs